=== PATIENT | female | born 1980 | race African-American/Black ===

== ENCOUNTER 2018-02-06 00:13 | Emergency (ER) | payer SELFPAY ==
[2018-02-06] MEDS ORDERED: FENTANYL CITR 100 MCG/2 ML ONE (00:59)
[2018-02-06] MEDS ORDERED: ONDANSETRON 4 MG/2 ML VIAL ONE (00:59)
[2018-02-06] MEDS ORDERED: NA CHLORIDE 0.9% 1,000 ML ONE (00:59)
[2018-02-06 01:06] LABS: Absolute Lymphocytes (CBC) 3.9 K/uL (0.7-4.9); Absolute Monocytes 0.9 K/uL (0.1-1.3); Basophils % 0.9 % (0-1.3); Eosinophils % 3.3 % (0-4.4); Hematocrit 40.4 % (36.0-45.0); Lymphocytes % 47.6 % (15.3-44.8); MCV 93.2 fL (80-100); MPV 9.2 fL (7.6-11.3); Monocytes % 11.4 % (3.3-12.3); RBC Red Blood Cell Count 4.33 M/uL (3.86-4.86)
[2018-02-06 01:09] LABS: Protime INR 0.97
[2018-02-06 01:17] LABS: Bicarbonate 25 mEq/L (21-31); Glucose Level 101 mg/dL (65-120); Potassium 3.5 mEq/L (3.6-5.0); Sodium Level 138 mEq/L (135-145)
[2018-02-06 01:21] LABS: CKMB Creatine Kinase MB 1.4 ng/ml (0.3-4.0)
[2018-02-06 01:23] LABS: ALT/SGPT 23 IU/L (10-60); AST/SGOT 24 IU/L (10-42); Alkaline Phosphatase 73 IU/L (42-121); BUN Blood Urea Nitrogen 11 mg/dL (6-20); Bilirubin Direct 0.1 mg/dL (0-0.2); Bilirubin Total 0.4 mg/dL (0.3-1.2); Creatine Phosphokinase 126 IU/L (22-269); Glomerular Filtration Rate > 90 mL/min (=/>90); Magnesium 1.9 mg/dL (1.8-2.5); Protein, Total 8.2 g/dL (6.0-8.3)
[2018-02-06] MEDS ORDERED: POTASSIUM CL SA 10 MEQ TAB PO ONE (02:17)
[2018-02-06] MEDS ORDERED: KETOROLAC 30 MG/ML INJ ONE (02:17)
[2018-02-06] MEDS ORDERED: AMLODIPINE 5 MG TAB ONE (02:17)
[2018-02-06 02:59] LABS: Urine Blood NEGATIVE (NEG); Urine Glucose NEGATIVE (NEG); Urine Protein NEGATIVE (NEG); Urine Specific Gravity 1.015 (1.005-1.030)
--- NOTE | 2018-02-06 03:47 | ER ---
Nurse's Notes [facility] Name: Megan Ferro Age: 37 yrs Sex: Female : 1980 Arrival Date: 02/06/2018 Time: 00:14 Bed 20 Private MD: Diagnosis: Essential (primary) hypertension;Hypokalemia;Pain in left arm;Obesity, unspecified Presentation: 02/06 00:21 Presenting complaint: Patient states: she got up to go the bathroom and when she lay bb back down her left arm started hurting radiating down with numbness and tingling pain is a 10/10. Transition of care: patient was not received from another setting of care. Onset of symptoms was February 06, 2018. Initial Sepsis Screen: Does the patient meet any 2 criteria? No. Patient's initial sepsis screen is negative. Does the patient have a suspected source of infection? No. Patient's initial sepsis screen is negative. Care prior to arrival: None. 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 - Social history:: Smoking status: Patient/guardian denies using tobacco, Patient/guardian denies using alcohol, street drugs. - Family history:: not pertinent. Screenin:30 Abuse screen: Denies threats or abuse. Denies injuries from another. Nutritional aa1 screening: No deficits noted. Tuberculosis screening: No symptoms or risk factors identified. Fall Risk None identified. Assessment: 00:30 General: Appears in no apparent distress. uncomfortable, obese, Behavior is anxious, aa1 restless. Pain: Complains of pain in left arm Quality of pain is described as burning, tingling, stinging, Pain began suddenly, Is continuous. Neuro: Level of Consciousness is awake, alert, obeys commands, Oriented to person, place, time, situation, Windows Systems Engineer are equal bilaterally Moves all extremities. Full function Gait is steady, Speech is normal, Facial symmetry appears normal, Pupils are PERRLA, Tingling in left arm Burning in left arm Numbness in left arm. Cardiovascular: Denies chest pain, diaphoresis, palpitations, shortness of breath, Heart tones S1 S2 present Capillary refill < 3 seconds Clubbing of nail beds is absent JVD is absent Patient's skin is warm and dry. Rhythm is regular. Respiratory: Airway is patent Respiratory effort is even, unlabored, Respiratory pattern is regular, symmetrical. GI: Reports nausea. : No signs and/or symptoms were reported regarding the genitourinary system. EENT: No signs and/or symptoms were reported regarding the EENT system. Derm: Skin is intact, is healthy with good turgor, Skin is pink, warm \T\ dry. Musculoskeletal: Circulation, motion, and sensation intact. Capillary refill < 3 seconds, Range of motion: intact in all extremities. 01:40 Reassessment: Patient appears in no apparent distress at this time. Patient and/or aa1 family updated on plan of care and expected duration. Pain level reassessed. Patient is alert, oriented x 3, equal unlabored respirations, skin warm/dry/pink. Pt reports L arm pain still 10/10. Awaiting CT scan. 02:10 Reassessment: Patient appears in no apparent distress at this time. Pt taken to CT. aa1 02:55 Reassessment: Patient appears in no apparent distress at this time. Patient and/or aa1 family updated on plan of care and expected duration. Pain level reassessed. Patient is alert, oriented x 3, equal unlabored respirations, skin warm/dry/pink. Pt back from CT Patient states symptoms have improved. 04:03 Reassessment: Patient is alert, oriented x 3, equal unlabored respirations, skin bb warm/dry/pink. pt states pain is gone verbalized understanding of and agrees to plan of care discharge instructions given pt ambulated with steady gait to exit accompanied by family. Vital Signs: 00:23 BP 146 / 100; Pulse 81; Resp 20 S; Temp 98.2(O); Pulse Ox 99% on R/A; Weight 150.59 kg aa1 (R); Height 5 ft. 7 in. (170.18 cm) (R); Pain 10/10; 01:07 BP 146 / 79 RA; aa1 01:07 BP 146 / 104 LA; aa1 01:39 BP 149 / 103; Pulse 81; Resp 20; Pulse Ox 98% on R/A; Pain 10/10; aa1 02:55 BP 139 / 94; Pulse 79; Resp 18; Pulse Ox 97% on R/A; Pain 5/10; aa1 04:04 BP 144 / 92; Pulse 65; Resp 18 S; Temp 97.7(O); Pulse Ox 99% on R/A; Pain 0/10; bb 00:23 Body Mass Index 52.00 (150.59 kg, 170.18 cm) aa1 ED Course: 00:14 Patient arrived in ED. es 00:22 Triage completed. bb 00:23 Arm band placed on Patient placed in an exam room, on a stretcher, on cardiac care unit nurse, bb on pulse oximetry. EKG completed in triage. Results shown to MD. Family accompanied patient. 00:25 Inserted saline lock: 20 gauge in right antecubital area, using aseptic technique. jd3 Blood collected. 00:26 Jimi Lee MD is Attending Physician. shayna 00:26 EKG done, by ED staff, reviewed by Jimi Lee MD. aa1 00:30 Patient has correct armband on for positive identification. Placed in gown. Bed in low aa1 position. Call light in reach. jack spooler tender on. Pulse ox on. NIBP on. 00:40 Zoie Skinner, RN is Primary Nurse. aa1 00:51 X-ray completed. Portable x-ray completed in exam room. Patient tolerated procedure kw well. 00:52 XRAY Chest (1 view) In Process Unspecified. EDMS 01:38 Radiology exam delayed due to test not completed at this time. vm2 02:00 Urine collected: clean catch specimen, clear. aa1 03:07 CT C Spine In Process Unspecified. EDMS 03:07 CT Aorta for Dissection In Process Unspecified. EDMS 03:46 Tarik Dhaliwal MD is Referral Physician. shayna 04:06 No provider procedures requiring assistance completed. IV discontinued, intact, bb bleeding controlled, No redness/swelling at site. Pressure dressing applied. Administered Medications: 01:05 Drug: Zofran 4 mg Route: IVP; Site: right antecubital; aa1 02:13 Follow up: Response: No adverse reaction; Nausea is decreased aa1 01:05 Drug: NS 0.9% 1000 ml Route: IV; Rate: 125 ml/hr; Site: right antecubital; aa1 04:05 Follow up: IV Status: Order to discontinue infusion; IV Intake: 375ml bb 01:07 Drug: fentaNYL (PF) 50 mcg Route: IVP; Site: right antecubital; aa1 02:13 Follow up: Response: No adverse reaction; Pain is unchanged, physician notified aa1 03:00 Drug: Potassium Chloride 20 mEq Route: PO; aa1 04:05 Follow up: Response: No adverse reaction bb 03:00 Drug: Norvasc 10 mg Route: PO; aa1 04:05 Follow up: Response: No adverse reaction bb 03:00 Drug: TORadol 30 mg Route: IVP; Site: right antecubital; aa1 04:05 Follow up: Response: Pain is decreased bb Intake: 04:05 IV: 375ml; Total: 375ml. bb Outcome: 03:46 Discharge ordered by MD. corral 04:06 Discharged to home ambulatory, with family. bb 04:06 Condition: stable 04:06 Discharge instructions given to patient, Instructed on discharge instructions, follow up and referral plans. medication usage, Demonstrated understanding of instructions, follow-up care, medications, Prescriptions given X 3. 04:06 Patient left the ED. bb Signatures: Dispatcher [employer] Zoie Munroe RN RN aa1 Jimi Lee MD MD cha Salyer, Edna es Ballard, Brenda, RN RN bb Whitley, Kimberlee kw McGuire, Victoria [facility] Chaparro Alvarado RN RN [id number] Corrections: (The following items were deleted from the chart) 00:26 00:23 Pulse 81bpm; Resp 20bpm; Spontaneous; Pulse Ox 99% RA; 150.59 kg Reported; Height aa1 5 ft. 7 in. Reported; BMI: 52.0; Pain 10/10; bb
--- NOTE | 2018-02-06 03:47 | EDPHYS ---
Physician Documentation [facility] Name: Megan Ferro Age: 37 yrs Sex: Female : 1980 Arrival Date: 02/06/2018 Time: 00:14 Bed 20 Private MD: ED Physician Jimi Lee HPI: 02/06 00:40 This 37 yrs old Black Female presents to ER via Ambulatory with complaints of john arm shayna pain. 00:40 The patient or guardian complains of decreased range of motion, pain, that is acute. shayna The complaints affect the left bicep, dorsal aspect of left forearm, left tricep and palmar aspect of left forearm. Context: The problem was sustained at home. Onset: The symptoms/episode began/occurred just prior to arrival. Treatment prior to arrival includes: no previous treatment. Modifying factors: The symptoms are alleviated by nothing. the symptoms are aggravated by nothing. The patient presents with pain that is acute, with no known mechanism of injury. The symptoms are located in the . 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 - Social history:: Smoking status: Patient/guardian denies using tobacco, Patient/guardian denies using alcohol, street drugs. - Family history:: not pertinent. ROS: 00:40 Eyes: Negative for injury, pain, redness, and discharge, ENT: Negative for injury, shayna pain, and discharge, Neck: Negative for injury, pain, and swelling, Cardiovascular: Negative for chest pain, palpitations, and edema, Respiratory: Negative for shortness of breath, cough, wheezing, and pleuritic chest pain, Abdomen/GI: Negative for abdominal pain, nausea, vomiting, diarrhea, and constipation, Back: Negative for injury and pain, : Negative for injury, bleeding, discharge, and swelling, Skin: Negative for injury, rash, and discoloration, Neuro: Negative for headache, weakness, numbness, tingling, and seizure, Psych: Negative for depression, anxiety, suicide ideation, homicidal ideation, and hallucinations, Allergy/Immunology: Negative for hives, rash, and allergies, Endocrine: Negative for neck swelling, polydipsia, polyuria, polyphagia, and marked weight changes. 00:40 Constitutional: 00:40 MS/extremity: Positive for decreased range of motion, pain, of the left arm. Exam: 00:40 Head/Face: Normocephalic, atraumatic. Eyes: Pupils equal round and reactive to light, shayna extra-ocular motions intact. Lids and lashes normal. Conjunctiva and sclera are non-icteric and not injected. Cornea within normal limits. Periorbital areas with no swelling, redness, or edema. ENT: Nares patent. No nasal discharge, no septal abnormalities noted. Tympanic membranes are normal and external auditory canals are clear. Oropharynx with no redness, swelling, or masses, exudates, or evidence of obstruction, uvula midline. Mucous membranes moist. Neck: Trachea midline, no thyromegaly or masses palpated, and no cervical lymphadenopathy. Supple, full range of motion without nuchal rigidity, or vertebral point tenderness. No Meningismus. Chest/axilla: Normal chest wall appearance and motion. Nontender with no deformity. No lesions are appreciated. Cardiovascular: Regular rate and rhythm with a normal S1 and S2. No gallops, murmurs, or rubs. Normal PMI, no JVD. No pulse deficits. Respiratory: Lungs have equal breath sounds bilaterally, clear to auscultation and percussion. No rales, rhonchi or wheezes noted. No increased work of breathing, no retractions or nasal flaring. Abdomen/GI: Soft, non-tender, with normal bowel sounds. No distension or tympany. No guarding or rebound. No evidence of tenderness throughout. Back: No spinal tenderness. No costovertebral tenderness. Full range of motion. Skin: Warm, dry with normal turgor. Normal color with no rashes, no lesions, and no evidence of cellulitis. MS/ Extremity: Pulses equal, no cyanosis. Neurovascular intact. Full, normal range of motion. Neuro: Awake and alert, GCS 15, oriented to person, place, time, and situation. Cranial nerves II-XII grossly intact. Motor strength 5/5 in all extremities. Sensory grossly intact. Cerebellar exam normal. Normal gait. Psych: Awake, alert, with orientation to person, place and time. Behavior, mood, and affect are within normal limits. 00:40 Constitutional: The patient appears in obvious distress, moderately distressed. Vital Signs: 00:23 BP 146 / 100; Pulse 81; Resp 20 S; Temp 98.2(O); Pulse Ox 99% on R/A; Weight 150.59 kg aa1 (R); Height 5 ft. 7 in. (170.18 cm) (R); Pain 10/10; 01:07 BP 146 / 79 RA; aa1 01:07 BP 146 / 104 LA; aa1 01:39 BP 149 / 103; Pulse 81; Resp 20; Pulse Ox 98% on R/A; Pain 10/10; aa1 02:55 BP 139 / 94; Pulse 79; Resp 18; Pulse Ox 97% on R/A; Pain 5/10; aa1 04:04 BP 144 / 92; Pulse 65; Resp 18 S; Temp 97.7(O); Pulse Ox 99% on R/A; Pain 0/10; bb 00:23 Body Mass Index 52.00 (150.59 kg, 170.18 cm) aa MDM: 00:27 Patient medically screened. [facility] 00:40 Data reviewed: vital signs, nurses notes, lab test result(s), EKG, radiologic studies, [facility] CT scan, plain films. 02/06 00:39 Order name: Basic Metabolic Panel; Complete Time: : [facility] 02/06 00:39 Order name: BNP; Complete Time: [facility] 02/06 00:39 Order name: CBC with Diff; Complete Time: [facility] 02/06 00:39 Order name: Ckmb; Complete Time: : [facility] 02/06 00:39 Order name: CPK; Complete Time: : [facility] 02/06 00:39 Order name: LFT's; Complete Time: [facility] 02/06 00:39 Order name: Magnesium; Complete Time: [facility] 02/06 00:39 Order name: PT-INR; Complete Time: [facility] 02/06 00:39 Order name: Ptt, Activated; Complete Time: [facility] 02/06 00:39 Order name: Troponin (emerg Dept Use Only); Complete Time: [facility] 02/06 00:39 Order name: XRAY Chest (1 view) [facility] 02/06 00:39 Order name: CT C Spine [facility] 02/06 02:10 Order name: Urine Dipstick--Ancillary (enter results); Complete Time: 03:15 em 02/06 02:10 Order name: Urine --Ancillary (enter results); Complete Time: 03:15 [facility] 02/06 00:39 Order name: Urine Test (obtain specimen); Complete Time: 02:09 [facility] 02/06 00:39 Order name: EKG; Complete Time: 00:40 [facility] 02/06 00:39 Order name: Cardiac monitoring; Complete Time: 00:40 [facility] 02/06 00:39 Order name: EKG - Nurse/Tech; Complete Time: 00:40 [facility] 02/06 00:39 Order name: IV Saline Lock; Complete Time: 00:40 [facility] 02/06 00:39 Order name: Labs collected and sent; Complete Time: 00:40 [facility] 02/06 00:39 Order name: O2 Per Protocol; Complete Time: 00:40 [facility] 02/06 00:39 Order name: O2 Sat Monitoring; Complete Time: 00:40 [facility] 02/06 00:39 Order name: Urine Dipstick-Ancillary (obtain specimen); Complete Time: 02:09 [facility] 02/06 00:44 Order name: CT Aorta for Dissection [facility] 02/06 00:39 Order name: Bilateral blood pressure; Complete Time: 01:09 shayna Administered Medications: 01:05 Drug: Zofran 4 mg Route: IVP; Site: right antecubital; aa1 02:13 Follow up: Response: No adverse reaction; Nausea is decreased aa1 01:05 Drug: NS 0.9% 1000 ml Route: IV; Rate: 125 ml/hr; Site: right antecubital; aa1 04:05 Follow up: IV Status: Order to discontinue infusion; IV Intake: 375ml bb 01:07 Drug: fentaNYL (PF) 50 mcg Route: IVP; Site: right antecubital; aa1 02:13 Follow up: Response: No adverse reaction; Pain is unchanged, physician notified aa1 03:00 Drug: Potassium Chloride 20 mEq Route: PO; aa1 04:05 Follow up: Response: No adverse reaction bb 03:00 Drug: Norvasc 10 mg Route: PO; aa1 04:05 Follow up: Response: No adverse reaction bb 03:00 Drug: TORadol 30 mg Route: IVP; Site: right antecubital; aa1 04:05 Follow up: Response: Pain is decreased bb Disposition: 02/06/18 03:46 Discharged to Home. Impression: Essential (primary) hypertension, Hypokalemia, Pain in left arm, Obesity, unspecified. - Condition is Stable. - Discharge Instructions: Hypertension, Musculoskeletal Pain, Hypertension, [id number], How to Take Your Blood Pressure, [id number], Aspirin and Your Heart, Hypokalemia, Managing Your High Blood Pressure. - Prescriptions for Norvasc 5 mg Oral Tablet - take 1 tablet by ORAL route once daily; 20 tablet. Tylenol- Codeine #3 300-30 mg Oral Tablet - take 2 tablet by ORAL route every 6 hours As needed; 30 tablet. Medrol (Harley) 4 mg Oral Tablets, Dose Pack - take 1 tablet by ORAL route as directed - follow package instructions; 1 packet. - Medication Reconciliation Form, Thank You Letter, Antibiotic Education, Prescription Opioid Use form. - Follow up: Private Physician; When: 2 - 3 days; Reason: Recheck today's complaints, Continuance of care, Re-evaluation by your physician. Follow up: Tarik Dhaliwal; When: 2 - 3 days; Reason: Recheck today's complaints, Re-evaluation by your physician. - Problem is new. - Symptoms have improved. Signatures: Dispatcher [employer] Zoie Munroe, RN RN aa1 Jimi Lee MD MD cha Ballard, Brenda RN RN bb
[2018-02-06 04:22] VITALS: BP 144/92; TEMP 97.7; O2SAT 99
--- NOTE | 2018-02-06 07:27 | EKG ---
Test Date: 2018-02-06 Test Time: 00:16:54 Screwmaker Automatic: HANNA MEASUREMENT RESULTS: Intervals: Rate: 85 WI: 152 QRSD: 90 QT: 384 QTc: 456 [place]: P: 71 WI: 152 QRS: 50 T: 50 INTERPRETIVE STATEMENTS: Normal sinus rhythm Normal ECG Compared to ECG 01/12/2016 21:45:20 No significant changes Electronically Signed On 02-06-18 07:26:33 CDT by [place]o [place]
--- NOTE | 2018-02-06 08:44 | RAD REPORT ---
EXAM DESCRIPTION: RAD - Chest Single View - 02/06/2018 12:55 am CLINICAL HISTORY: Hypertension, chest pain COMPARISON: 01/12/2016 FINDINGS: Portable technique limits examination quality. The lungs are grossly clear. The heart is normal in size. No displaced fractures. IMPRESSION: No acute intrathoracic process suspected.
--- NOTE | 2018-02-06 08:47 | RAD REPORT ---
EXAM DESCRIPTION: CT - C Spine Wo Con - 02/06/2018 3:06 am CLINICAL HISTORY: Radiculopathy. COMPARISON: None. TECHNIQUE: Axial 2 mm thick images of the cervical spine were obtained with sagittal and coronal rec onstruction images generated and reviewed. All CT scans are performed using dose optimization technique as appropriate and may include automated exposure control or mA/KV adjustment according to patient size. FINDINGS: Cervical body height and alignment are normal. Mild mid and lower cervical spondylosis. No fracture or acute bony abnormality. No paraspinal mass or hematoma. No prevertebral soft tissue thickening. IMPRESSION: Mild cervical spondylosis without acute findings seen.
--- NOTE | 2018-02-06 08:58 | RAD REPORT ---
EXAM DESCRIPTION: CT - Angio Aorta For Dissection - 02/06/2018 3:07 am CLINICAL HISTORY: Chest pain radiating to the back. COMPARISON: None. TECHNIQUE: CT angiography of the aorta was performed with volume rendering. All CT scans are performed using dose optimization technique as appropriate and may include automated exposure control or mA/KV adjustment according to patient size. FINDINGS: A left aortic arch is present with bovine branching pattern of the great vessels.No acute aortic finding is seen such as aneurysm, penetrating ulcer or dissection. The celiac axis, SMA, ALAN and renal arteries are widely patent. No evidence of pulmonary embolism. The lungs are clear. Cholecystectomy. The liver demonstrates 5.3 x 5.1 cm ill-defined hypodense lesion is seen in the liver right lobe. No biliary dilatation.The spleen, pancreas, adrenal glands and kidneys are within normal limits for [place] rial phase imaging. No bowel obstruction, free fluid or abscess.No pathologic enlarged lymphadenopathy identified. No fracture or worrisome bone lesion seen.4.2 cm left adnexal hypodense lesion, probably cyst related . Lumbar degenerative changes are present with vacuum disc degeneration in the lower lumbar spine. IMPRESSION: No acute aortic finding is demonstrated. Ill-defined hepatic hypodense lesion (5.3 x 5.1 cm). Advise MRI liver protocol with contrast for furt her assessment. 4.2 cm left adnexal hypodense lesion, probably ovarian cyst. Follow-up pelvic ultrasound can be perfo rmed for further investigation.
== END 2018-02-06 04:06 | disposition home or self-care (01) ==
LOC: ER 00:13
DX: I10 Essential (primary) hypertension (principal); E87.6 Hypokalemia; E66.9 Obesity, unspecified
CPT/HCPCS: 36415; 71045; 71275; 72125; 74175; 80048; 80076; 81003; 81025; 82550; 82553; 83735; 83880; 84484; 85025; 85610; 85730; 93005; 96361; 96374; 96375; 99285; J2405; J3010; J7030; Q9967

== ENCOUNTER 2019-07-03 11:47 | Emergency (ER) | payer SELFPAY ==
--- NOTE | 2019-07-03 14:32 | RAD REPORT ---
EXAM DESCRIPTION: RAD - Chest Single View - 07/03/2019 2:26 pm CLINICAL HISTORY: CHEST PAIN Chest pain. COMPARISON: Chest Single View dated 02/06/2018; CHEST SINGLE VIEW dated 01/12/2016; CHEST SINGLE VIEW dated 09/29/2015; CHEST SINGLE VIEW dated 07/21/2014 FINDINGS: Portable technique limits examination quality. The lungs are grossly clear. The heart is mildly prominent in size. No displaced fractures.
--- NOTE | 2019-07-03 14:33 | RAD REPORT ---
EXAM DESCRIPTION: US - Extrem Venous W Compress Danny - 07/03/2019 2:09 pm CLINICAL HISTORY: SWELLING Bilateral leg edema and swelling. COMPARISON: EXT VENOUS UNI LTD dated 06/04/2014 TECHNIQUE: Real-time sonographic interrogation of the left and right lower extremity deep venous sys tems was performed. FINDINGS: Normal compressibility, flow augmentation, phasic flow and spontaneous flow is identified in both the left and right lower extremity deep venous systems. IMPRESSION: No sonographic evidence of left or right lower extremity deep venous thrombosis.
[2019-07-03 15:30] LABS: Absolute Lymphocytes (CBC) 2.3 K/uL (0.7-4.9); Basophils % 0.8 % (0-1.3); Hematocrit 35.5 % (36.0-45.0); Lymphocytes % 35.7 % (15.3-44.8); MPV 8.3 fL (7.6-11.3); RBC Red Blood Cell Count 4.17 M/uL (3.86-4.86)
[2019-07-03 15:37] LABS: Protime INR 1.02
[2019-07-03 15:42] LABS: ALT/SGPT 28 U/L (12-78); AST/SGOT 17 U/L (15-37); Albumin 3.7 g/dL (3.4-5.0); Alkaline Phosphatase 84 U/L (45-117); BUN Blood Urea Nitrogen 8 mg/dL (7-18); Bicarbonate 25 mmol/L (21-32); Bilirubin Direct < 0.1 mg/dL (0-0.2); Bilirubin Total 0.2 mg/dL (0.2-1.0); Glucose Level 82 mg/dL (74-106); Magnesium 2.2 mg/dL (1.8-2.4); NT PRO-BNP 44 pg/mL (<125); Potassium 4.3 mmol/L (3.5-5.1); Protein, Total 7.7 g/dL (6.4-8.2); Sodium Level 140 mmol/L (136-145); Troponin (Emerg Dept Use Only) < 0.02 ng/mL (0.0-0.045)
[2019-07-03] MEDS ORDERED: ACETAMINOPHEN 500 MG TAB ONE (17:00)
[2019-07-03] MEDS ORDERED: KETOROLAC 30 MG/ML INJ ONE (18:03)
[2019-07-03 18:23] LABS: Urine Blood NEGATIVE (NEG); Urine Glucose NEGATIVE (NEG); Urine Protein NEGATIVE (NEG); Urine Specific Gravity 1.015 (1.005-1.030); Urine pH 6.5 (5.0-7.0)
--- NOTE | 2019-07-03 18:51 | RAD REPORT ---
EXAM DESCRIPTION: CT - Chest For Pe Angio - 07/03/2019 6:21 pm CLINICAL HISTORY: Chest pain COMPARISON: 2013 TECHNIQUE: Dynamically enhanced axial 3 mm thick images of the chest were obtained during administra tion of <100> mL Isovue 370 IV contrast. Coronal and oblique reconstruction images were generated and reviewed. Exam utilizes a protocol for optimal evaluation of pulmonary arterial tree. Maximum intensity projections 3D imaging was utilized All CT scans are performed using dose optimization technique as appropriate and may include automated exposure control or mA/KV adjustment according to patient size. FINDINGS: The opacification of pulmonary arteries is suboptimal A central pulmonary embolus is not seen A thoracic aortic aneurysm is not noted. A pleural effusion is not seen. A pericardial effusion is not seen. A lung consolidation is not present. IMPRESSION: No evidence of a central pulmonary embolus
--- NOTE | 2019-07-03 19:47 | ER ---
Nurse's Notes [facility] Name: Megan Ferro Age: 39 yrs Sex: Female : 1980 Arrival Date: 07/03/2019 Time: 11:48 Bed 14 Private MD: Ravi Hemphill H Diagnosis: Chest pain, unspecified;Shortness of breath Presentation: 07/03 11:52 Presenting complaint: Patient states: chest pain X 3-4 days, thought it was gas, went iw to work today and was walking, got real SOB and felt like someone punched her in the chest, pain radiates to back, denies cough. Transition of care: patient was not received from another setting of care. Onset of symptoms was June 30, 2019. Risk Assessment: Do you want to hurt yourself or someone else? Patient reports no desire to harm self or others. Initial Sepsis Screen: Does the patient meet any 2 criteria? No. Patient's initial sepsis screen is negative. Does the patient have a suspected source of infection? No. Patient's initial sepsis screen is negative. Care prior to arrival: None. 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 - Social history:: Smoking status: Patient/guardian denies using tobacco. - Ebola Screening: : Patient negative for fever greater than or equal to 101.5 degrees Fahrenheit, and additional compatible Ebola Virus Disease symptoms Patient denies exposure to infectious person Patient denies travel to an Ebola-affected area in the 21 days before illness onset No symptoms or risks identified at this time. Screenin:00 Abuse screen: Denies threats or abuse. Nutritional screening: No deficits noted. rb1 Tuberculosis screening: No symptoms or risk factors identified. Fall Risk None identified. Assessment: 13:00 General: Appears in no apparent distress. comfortable, obese, Behavior is calm, rb1 cooperative, Denies fever. Pain: Complains of pain in mid-sternal area Pain radiates to back Pain currently is 8 out of 10 on a pain scale. Pain began x 3-4 days. Neuro: Level of Consciousness is awake, alert, obeys commands, Oriented to person, place, time, situation. Cardiovascular: Capillary refill < 3 seconds is brisk in bilateral fingers. Respiratory: Airway is patent Respiratory effort is even, unlabored, Respiratory pattern is regular, symmetrical. Respiratory: Reports shortness of breath Denies cough. GI: No signs and/or symptoms were reported involving the gastrointestinal system. : No signs and/or symptoms were reported regarding the genitourinary system. Derm: Skin is dry, Skin is normal, Skin temperature is warm. 14:00 Reassessment: Patient appears in no apparent distress at this time. No changes from rb1 previously documented assessment. 15:00 Reassessment: Patient appears in no apparent distress at this time. Patient and/or rb1 family updated on plan of care and expected duration. Pain level reassessed. Patient is alert, oriented x 3, equal unlabored respirations, skin warm/dry/pink. 16:00 Reassessment: Patient appears in no apparent distress at this time. No changes from rb1 previously documented assessment. 16:50 Reassessment: Patient appears in no apparent distress at this time. Patient and/or rb1 family updated on plan of care and expected duration. Pain level reassessed. Patient is alert, oriented x 3, equal unlabored respirations, skin warm/dry/pink. Pt. requested some Tylenol; provider notified. Received order for Tylenol 1000 mg PO x 1. 17:45 Reassessment: Patient appears in no apparent distress at this time. Patient and/or rb1 family updated on plan of care and expected duration. Pain level reassessed. Patient is alert, oriented x 3, equal unlabored respirations, skin warm/dry/pink. 18:05 Reassessment: pt. went to Ct. rb1 18:20 Reassessment: Patient appears in no apparent distress at this time. Patient and/or rb1 family updated on plan of care and expected duration. Pain level reassessed. Patient is alert, oriented x 3, equal unlabored respirations, skin warm/dry/pink. 19:10 Reassessment: Patient appears in no apparent distress at this time. Patient and/or jb4 family updated on plan of care and expected duration. Pain level reassessed. Patient is alert, oriented x 3, equal unlabored respirations, skin warm/dry/pink. 19:56 Reassessment: Patient appears in no apparent distress at this time. Patient and/or jb4 family updated on plan of care and expected duration. Pain level reassessed. Patient is alert, oriented x 3, equal unlabored respirations, skin warm/dry/pink. Pt verbalized understanding of d/c and follow up instructions. ambulated out of Ed with a steady gait. Vital Signs: 11:54 BP 170 / 84; Pulse 86; Resp 18 S; Temp 97.7; Pulse Ox 100% on R/A; Weight 158.76 kg; iw Height 5 ft. 7 in. (170.18 cm); Pain 8/10; 12:54 BP 155 / 94; Pulse 75; Resp 18; Temp 97.9(TE); Pulse Ox 99% on R/A; Pain 8/10; rb1 13:52 BP 134 / 92; Pulse 77; Resp 19; Pulse Ox 100% on R/A; Pain 8/10; rb1 14:50 BP 139 / 89; Pulse 77; Resp 19; Temp 98.0(O); Pulse Ox 99% ; rb1 15:50 BP 134 / 88; Pulse 75; Resp 18; Temp 98.1(O); Pulse Ox 100% ; rb1 17:20 BP 149 / 79; Pulse 88; Resp 20; Temp 98.1(O); Pulse Ox 100% ; rb1 18:20 BP 156 / 76; Pulse 80; Resp 16; Temp 98.3(O); Pulse Ox 99% on R/A; rb1 19:30 BP 152 / 86; Pulse 83; Resp 17; Pulse Ox 100% on R/A; jb4 11:54 Body Mass Index 54.82 (158.76 kg, 170.18 cm) iw ED Course: 11:48 Patient arrived in ED. ag5 11:48 Ravi Hemphill DO is Private Physician. ag5 11:54 Triage completed. iw 11:56 Arm band placed on. iw 13:00 Jimi Ford PA is PHCP. cp 13:00 Sheyla Bermeo MD is Attending Physician. cp 13:00 Patient has correct armband on for positive identification. Bed in low position. Call rb1 light in reach. Side rails up X 1. nuclear monitoring technician on. Pulse ox on. NIBP on. Warm blanket given. 13:00 Patient maintains SpO2 saturation greater than 95% on room air. rb1 13:56 US Extremity Venous W Compression Danny In Process Unspecified. EDMS 14:27 XRAY Chest (1 view) In Process Unspecified. EDMS 14:46 Naye Sotomayor, JOSIAS is Primary Nurse. rb1 14:46 Missed attempt(s): 22 gauge in right antecubital area. rb1 14:49 Missed attempt(s): 20 gauge in left Bleeding controlled, band aid applied, catheter tip dh3 intact. 15:00 Missed attempt(s): 24 gauge in left wrist. Bleeding controlled, band aid applied, dh3 catheter tip intact. 17:16 Radiology exam delayed due to test not completed at this time. IV insertion jg6 attempt and/or patient not having appropriate IV at this time. 17:16 Missed attempt(s): 22 gauge in right antecubital area. Bleeding controlled, band aid ss applied, catheter tip intact. 17:54 Inserted saline lock: 22 gauge in right antecubital area, using aseptic technique. iw 18:22 CT Chest For PE Angio In Process Unspecified. EDMS 19:00 Report given to JOSIAS escobar. rb1 19:24 Troponin I Sent. jb4 19:44 PHCP role handed off by Jimi Ford PA snw 19:44 Sindy Murdock FNP-C is PHCP. snw 19:45 Ravi Hemphill DO is Referral Physician. snw 19:56 No provider procedures requiring assistance completed. IV discontinued, intact, jb4 bleeding controlled, No redness/swelling at site. Pressure dressing applied. Administered Medications: 17:01 Drug: Tylenol 1000 mg Route: PO; rb1 19:24 Follow up: Response: No adverse reaction; Pain is decreased jb4 18:05 Drug: TORadol 30 mg Route: IVP; Site: right antecubital; rb1 18:30 Follow up: Response: No adverse reaction; Pain is decreased jb4 Outcome: 19:45 Discharge ordered by . snw 19:56 Discharged to home ambulatory, with family. jb4 19:56 Condition: stable 19:56 Discharge instructions given to patient, family, Instructed on discharge instructions, follow up and referral plans. medication usage, Demonstrated understanding of instructions, follow-up care, medications, Prescriptions given X 2. 19:58 Patient left the ED. jb4 Signatures: Dispatcher [employer] EDMS Sindy Murdock, GROCERY TEAM MEMBER-C GROCERY TEAM MEMBER-Csnw Fern Hines, RN RN iw Michelle Vallejo, RN RN ss Jimi Ford PA PA cp Barber, Rebecca, RN RN Kostas Macias RN RN jb4 Bella Nixon formerly [facility] Nely Staples Adi Aguilera [facility]
--- NOTE | 2019-07-03 19:47 | EDPHYS ---
Physician Documentation [facility] Name: Megan Ferro Age: 39 yrs Sex: Female : 1980 Arrival Date: 07/03/2019 Time: 11:48 Bed 14 Private MD: Ravi Hemphill H ED Physician Sheyla Bermeo HPI: 07/03 13:15 This 39 yrs old Black Female presents to ER via Ambulatory with complaints of Chest cp Pain. 13:15 The patient or guardian reports chest pain that is located primarily in the substernal cp area. 13:15 The pain radiates to Associated signs and symptoms: Pertinent positives: lower cp extremity swelling, shortness of breath, Pertinent negatives: abdominal pain, cough, diaphoresis, dizziness, syncope, vomiting. 13:15 The chest pain is described as "like someone punching me". 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 - Social history:: Smoking status: Patient/guardian denies using tobacco. - Ebola Screening: : Patient negative for fever greater than or equal to 101.5 degrees Fahrenheit, and additional compatible Ebola Virus Disease symptoms Patient denies exposure to infectious person Patient denies travel to an Ebola-affected area in the 21 days before illness onset No symptoms or risks identified at this time. ROS: 13:20 Constitutional: Negative for body aches, chills, fever, poor PO intake. cp 13:20 Eyes: Negative for injury, pain, redness, and discharge. cp 13:20 ENT: Negative for drainage from ear(s), ear pain, sore throat, difficulty swallowing, difficulty handling secretions. 13:20 Cardiovascular: Positive for chest pain, edema, Negative for palpitations. 13:20 Respiratory: Positive for shortness of breath, Negative for cough, wheezing. 13:20 Abdomen/GI: Negative for abdominal pain, nausea, vomiting, and diarrhea, black/tarry stool, rectal bleeding. 13:20 Back: Negative for pain at rest, pain with movement. 13:20 Skin: Negative for cellulitis, rash. 13:20 Neuro: Negative for altered mental status, dizziness, headache, weakness. 13:20 All other systems are negative. Exam: 12:10 ECG was reviewed by the Attending Physician. cp 13:25 Constitutional: The patient appears in no acute distress, alert, awake, cp non-diaphoretic, non-toxic, well developed, well nourished, obese. 13:25 Head/Face: Normocephalic, atraumatic. Eyes: Pupils equal round and reactive to light, cp extra-ocular motions intact. Lids and lashes normal. Conjunctiva and sclera are non-icteric and not injected. Cornea within normal limits. Periorbital areas with no swelling, redness, or edema. ENT: Nares patent. No nasal discharge, no septal abnormalities noted. Tympanic membranes are normal and external auditory canals are clear. Oropharynx with no redness, swelling, or masses, exudates, or evidence of obstruction, uvula midline. Mucous membranes moist. Neck: Trachea midline, no thyromegaly or masses palpated, and no cervical lymphadenopathy. Supple, full range of motion without nuchal rigidity, or vertebral point tenderness. No Meningismus. Chest/axilla: Normal chest wall appearance and motion. Nontender with no deformity. No lesions are appreciated. 13:25 Cardiovascular: Rate: normal, Rhythm: regular, Heart sounds: murmur, not appreciated, Edema: ankle edema, that is mild, JVD: is not appreciated. 13:25 Respiratory: the patient does not display signs of respiratory distress, Respirations: normal, no use of accessory muscles, no retractions, no splinting, no tachypnea, labored breathing, is not present, Breath sounds: are clear throughout, no decreased breath sounds, no stridor, no wheezing. 13:25 Abdomen/GI: Inspection: abdomen appears normal, Palpation: abdomen is soft and non-tender, in all quadrants. 13:25 Back: ROM is normal. 13:25 Skin: no rash present. 13:25 Neuro: Orientation: to person, place \\T\\ time. Mentation: is normal, Cerebellar function: is grossly normal, Motor: moves all fours, strength is normal, Sensation: is normal. 19:25 ECG was reviewed by the Attending Physician. cp Vital Signs: 11:54 BP 170 / 84; Pulse 86; Resp 18 S; Temp 97.7; Pulse Ox 100% on R/A; Weight 158.76 kg; iw Height 5 ft. 7 in. (170.18 cm); Pain 8/10; 12:54 BP 155 / 94; Pulse 75; Resp 18; Temp 97.9(TE); Pulse Ox 99% on R/A; Pain 8/10; rb1 13:52 BP 134 / 92; Pulse 77; Resp 19; Pulse Ox 100% on R/A; Pain 8/10; rb1 14:50 BP 139 / 89; Pulse 77; Resp 19; Temp 98.0(O); Pulse Ox 99% ; rb1 15:50 BP 134 / 88; Pulse 75; Resp 18; Temp 98.1(O); Pulse Ox 100% ; rb1 17:20 BP 149 / 79; Pulse 88; Resp 20; Temp 98.1(O); Pulse Ox 100% ; rb1 18:20 BP 156 / 76; Pulse 80; Resp 16; Temp 98.3(O); Pulse Ox 99% on R/A; rb1 19:30 BP 152 / 86; Pulse 83; Resp 17; Pulse Ox 100% on R/A; jb4 11:54 Body Mass Index 54.82 (158.76 kg, 170.18 cm) iw MDM: 13:09 Patient medically screened. cp 14:00 Differential diagnosis: acute pericarditis, chest wall pain, cholecystitis, cp Cholelithiasis costochondritis, pericarditis, pleurisy, pneumonia, pneumothorax, pulmonary embolus, stable angina, unstable angina. 19:45 Data reviewed: vital signs, nurses notes. Data interpreted: Pulse oximetry: on room air snw is 100 %. Interpretation: normal. Counseling: I had a detailed discussion with the patient and/or guardian regarding: the historical points, exam findings, and any diagnostic results supporting the discharge/admit diagnosis, lab results, radiology results, the need for outpatient follow up, to return to the emergency department if symptoms worsen or persist or if there are any questions or concerns that arise at home. Special discussion: Based on the patient's history, exam, and Dx evaluation, there is no indication for emergent intervention or inpatient Tx. It is understood by the patient/guardian that if the Sx's persist or worsen they need to return immediately for re-evaluation. Based on the history and exam findings, there is no indication for further emergent testing or inpatient evaluation. I discussed with the patient/guardian the need to see the primary care provider for further evaluation of the symptoms. 07/03 13:05 Order name: Basic Metabolic Panel; Complete Time: 15:48 cp 07/03 13:05 Order name: CBC with Diff; Complete Time: 15:48 cp 07/03 18:50 Interpretation: Normal except: HGB 11.2; HCT 35.5; MCV 85.2; MCH 26.8; MCHC 31.4; RDW cp 17.8; MN% 13.7. 07/03 13:05 Order name: LFT's; Complete Time: 15:48 cp 07/03 13:05 Order name: Magnesium; Complete Time: 15:48 cp 07/03 13:05 Order name: NT PRO-BNP; Complete Time: 15:48 cp 07/03 13:05 Order name: PT-INR; Complete Time: 15:48 cp 07/03 13:05 Order name: Troponin (emerg Dept Use Only); Complete Time: 15:48 cp 07/03 13:05 Order name: XRAY Chest (1 view); Complete Time: 15:00 cp 07/03 13:31 Order name: US Extremity Venous W Compression Danny; Complete Time: 15:00 cp 07/03 15:49 Order name: D-Dimer; Complete Time: 16:53 cp 07/03 16:53 Interpretation: Abnormal: D-DIMER 1699. cp 07/03 16:16 Order name: CT Chest For PE Angio; Complete Time: 19:06 cp 07/03 17:50 Order name: Urine Dipstick--Ancillary (enter results); Complete Time: 18:50 ss 07/03 17:50 Order name: Urine --Ancillary (enter results); Complete Time: 18:50 ss 07/03 18:53 Order name: Troponin I; Complete Time: 19:44 cp 07/03 13:05 Order name: EKG; Complete Time: 13:06 cp 07/03 13:05 Order name: Cardiac monitoring; Complete Time: 16:21 cp 07/03 13:05 Order name: EKG - Nurse/Tech; Complete Time: 16:21 cp 07/03 13:05 Order name: IV Saline Lock; Complete Time: 19:31 cp 07/03 13:05 Order name: Labs collected and sent; Complete Time: 16:21 cp 07/03 13:05 Order name: O2 Per Protocol; Complete Time: 16:21 cp 07/03 13:05 Order name: O2 Sat Monitoring; Complete Time: 16:21 cp 07/03 13:05 Order name: Urine Dipstick-Ancillary (obtain specimen); Complete Time: 19:42 cp 07/03 13:05 Order name: Urine Test (obtain specimen); Complete Time: 19:42 cp 07/03 18:53 Order name: EKG; Complete Time: 18:54 cp 07/03 18:53 Order name: EKG - Nurse/Tech; Complete Time: 19:24 cp EC:10 Rate is 79 beats/min. Rhythm is regular. MS interval is normal. QRS interval is normal. cp QT interval is normal. Interpreted by me. Reviewed by me. 19:25 Rate is 65 beats/min. Rhythm is regular. MS interval is normal. QRS interval is normal. cp QT interval is normal. Interpreted by me. Reviewed by me. Administered Medications: 17:01 Drug: Tylenol 1000 mg Route: PO; rb1 19:24 Follow up: Response: No adverse reaction; Pain is decreased jb4 18:05 Drug: TORadol 30 mg Route: IVP; Site: right antecubital; rb1 18:30 Follow up: Response: No adverse reaction; Pain is decreased jb4 Disposition: 07/03/19 19:45 Discharged to Home. Impression: Chest pain, unspecified, Shortness of breath. - Condition is Stable. - Discharge Instructions: Nonspecific Chest Pain, Shortness of Breath, Aspirin and Your Heart. - Prescriptions for Diclofenac Sodium 75 mg Oral Tablet Sustained Release - take 1 tablet by ORAL route 2 times per day; 30 tablet. Albuterol Sulfate 90 mcg/actuation - inhale 1-2 puff by INHALATION route every 4-6 hours; 1 Inhaler. - Work release form, Medication Reconciliation Form, Thank You Letter, Antibiotic Education, Prescription Opioid Use form. - Follow up: Ravi Hemphill; When: 1 - 2 days; Reason: Recheck today's complaints. - Problem is new. - Symptoms have improved. Addendum: 07/07/2019 15:55 Co-signature as Attending Physician, Sheyla Bermeo MD. m a2 Signatures: Dispatcher [employer] EDMS Sindy Murdock, NANCI-C SUPERVISING APPRAISER-Csnw Fern Hines, RN RN Jimi Mancini PA PA cp Barber, Rebecca, RN RN rb1 Kostas Vallejo RN RN jb4 Sheyla Bermeo MD MD ma2 Corrections: (The following items were deleted from the chart) 07/03 19:58 19:45 07/03/2019 19:45 Discharged to Home. Impression: Chest pain, unspecified; jb4 Shortness of breath. Condition is Stable. Discharge Instructions: Nonspecific Chest Pain, Shortness of Breath, Aspirin and Your Heart. Prescriptions for Diclofenac Sodium 75 mg Oral Tablet Sustained Release - take 1 tablet by ORAL route 2 times per day; 30 tablet, Albuterol Sulfate 90 mcg/actuation - inhale 1-2 puff by INHALATION route every 4-6 hours; 1 Inhaler. and Forms are Medication Reconciliation Form, Thank You Letter, Antibiotic Education, Prescription Opioid Use. Follow up: Ravi Hemphill; When: 1 - 2 days; Reason: Recheck today's complaints. Problem is new. Symptoms have improved. snw
[2019-07-03 21:48] VITALS: TEMP 98.3
[2019-07-03 21:49] VITALS: BP 152/86; O2SAT 100
--- NOTE | 2019-07-04 07:39 | EKG ---
Test Date: 2019-07-03 Test Time: 19:17:55 Investigator Cash Shortage: DEMETRIO MEASUREMENT RESULTS: Intervals: Rate: 65 AL: 170 QRSD: 92 QT: 430 QTc: 447 [place]: P: 41 AL: 170 QRS: 50 T: 58 INTERPRETIVE STATEMENTS: Normal sinus rhythm Normal ECG Compared to ECG 07/03/2019 12:04:19 Sinus arrhythmia no longer present Electronically Signed On 07-04-19 07:37:53 CDT by Tarik Dhaliwal
--- NOTE | 2019-07-04 07:41 | EKG ---
Test Date: 2019-07-03 Test Time: 12:04:19 Take Away Worker: JACY MEASUREMENT RESULTS: Intervals: Rate: 79 SC: 158 QRSD: 86 QT: 396 QTc: 454 [place]: P: 49 SC: 158 QRS: 46 T: 64 INTERPRETIVE STATEMENTS: Normal sinus rhythm with sinus arrhythmia Normal ECG Compared to ECG 02/06/2018 00:16:54 No significant changes Electronically Signed On 07-04-19 07:38:28 CDT by Tarik Dhaliwal
== END 2019-07-03 19:58 | disposition home or self-care (01) ==
LOC: ER 11:47
DX: R07.9 Chest pain, unspecified (principal); R06.02 Shortness of breath
CPT/HCPCS: 36415; 71045; 71275; 80048; 80076; 81003; 81025; 83735; 83880; 84484; 85025; 85379; 85610; 93005; 93970; 96374; 99285; Q9967

== ENCOUNTER 2019-07-09 21:44 | Observation (INO) | payer SELFPAY ==
[2019-07-09] MEDS ORDERED: FENTANYL CITR 100 MCG/2 ML ONE ×2 (23:00→23:26)
[2019-07-09 23:09] LABS: Absolute Lymphocytes (CBC) 3.4 K/uL (0.7-4.9); Basophils % 0.9 % (0-1.3); Hematocrit 34.3 % (36.0-45.0); Lymphocytes % 45.6 % (15.3-44.8); MPV 8.5 fL (7.6-11.3); RBC Red Blood Cell Count 4.07 M/uL (3.86-4.86)
[2019-07-09 23:36] LABS: BUN Blood Urea Nitrogen 13 mg/dL (7-18); Bicarbonate 27 mmol/L (21-32); Glucose Level 132 mg/dL (74-106); Potassium 3.7 mmol/L (3.5-5.1); Sodium Level 141 mmol/L (136-145); Troponin (Emerg Dept Use Only) < 0.02 ng/mL (0.0-0.045)
[2019-07-10 00:47] LABS: Blood Morphology Comment NOT SEEN (NOT SEEN); Platelet Estimate ADEQ
--- NOTE | 2019-07-10 01:08 | ER ---
Nurse's Notes [facility] Name: Megan Ferro Age: 39 yrs Sex: Female : 1980 Arrival Date: 07/09/2019 Time: 21:45 Bed 19 Private MD: Diagnosis: Chest pain, unspecified Presentation: 07/09 21:47 Presenting complaint: Patient states: Chest pain for the past week. States that she was aj1 seen for the same complaint last week, and they didn't find anything and she cannot afford to follow up with her regular. Denies cough and fever. Reports shortness of breath and left arm pain. Transition of care: patient was not received from another setting of care. Onset of symptoms was 2018. Risk Assessment: Do you want to hurt yourself or someone else? Patient reports no desire to harm self or others. Initial Sepsis Screen: Does the patient meet any 2 criteria? No. Patient's initial sepsis screen is negative. Does the patient have a suspected source of infection? No. Patient's initial sepsis screen is negative. Care prior to arrival: None. 21:47 Method Of Arrival: Wheelchair aj 21:47 Acuity: RASHEL 3 aj1 Triage Assessment: 21:49 General: Appears in no apparent distress. uncomfortable, Behavior is cooperative, aj1 anxious, crying. Pain: Pain currently is 10 out of 10 on a pain scale. Neuro: Level of Consciousness is awake, alert, obeys commands. Cardiovascular: Patient's skin is warm and dry. Respiratory: Airway is patent Respiratory effort is even, unlabored, Respiratory pattern is regular, symmetrical. 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 - Social history:: Smoking status: Patient/guardian denies using tobacco. - Ebola Screening: : Patient denies travel to an Ebola-affected area in the 21 days before illness onset. Screenin:23 Abuse screen: Denies threats or abuse. Nutritional screening: No deficits noted. ea Tuberculosis screening: No symptoms or risk factors identified. Fall Risk None identified. Assessment: 22:24 General: Appears uncomfortable, Behavior is calm, cooperative, appropriate for age. ea Pain: Complains of pain in chest Pain radiates to back and right arm Pain currently is 9 out of 10 on a pain scale. Quality of pain is described as aching, Pain began 2-3 days ago. Is intermittent. Neuro: Level of Consciousness is awake, alert, obeys commands, Oriented to person, place, time, situation. Respiratory: Airway is patent Respiratory effort is even, unlabored, Respiratory pattern is regular, symmetrical. Derm: Skin is pink, warm \T\ dry. Musculoskeletal: Circulation, motion, and sensation intact. 23:38 Reassessment: Patient and/or family updated on plan of care and expected duration. Pain ea level reassessed. Patient is alert, oriented x 3, equal unlabored respirations, skin warm/dry/pink. Patient states feeling better. Patient states symptoms have improved. 07/10 00:50 Reassessment: Patient and/or family updated on plan of care and expected duration. Pain ea level reassessed. Patient is alert, oriented x 3, equal unlabored respirations, skin warm/dry/pink. 01:54 Reassessment: Report called to Nicole FERRARA on second floor. ea 01:55 Reassessment: Patient and/or family updated on plan of care and expected duration. Pain ea level reassessed. Patient is alert, oriented x 3, equal unlabored respirations, skin warm/dry/pink. 02:24 Reassessment: Patient and/or family updated on plan of care and expected duration. Pain ea level reassessed. Patient is alert, oriented x 3, equal unlabored respirations, skin warm/dry/pink. Pt admitted to second floor, pt left ED via wheelchair, per nurse. Pt tolerating well. No s/s of pain or discomfort noted at this time. Vital Signs: 07/09 21:49 BP 125 / 94; Pulse 95; Resp 18; Temp 99.2; Pulse Ox 99% on R/A; Weight 158.76 kg (R); aj1 Height 5 ft. 7 in. (170.18 cm) (R); Pain 10/10; 23:40 BP 134 / 92; Pulse 87; Resp 18; Pulse Ox 99% on R/A; ea 07/10 01:05 BP 111 / 71; Pulse 90; Resp 18; Pulse Ox 97% on R/A; ea 02:20 BP 129 / 79; Pulse 80; Resp 18; Pulse Ox 99% ; ea 07/09 21:49 Body Mass Index 54.82 (158.76 kg, 170.18 cm) aj1 ED Course: 07/09 21:45 Patient arrived in ED. ds1 21:48 Triage completed. aj1 21:49 Arm band placed on Patient placed in an exam room. aj1 22:00 Odalis Weir RN is Primary Nurse. ea 22:01 Shyam Spear MD is Attending Physician. gs 22:24 Patient has correct armband on for positive identification. Placed in gown. Bed in low ea position. Call light in reach. Side rails up X2. 22:24 No provider procedures requiring assistance completed. Inserted saline lock: 22 gauge ea in right antecubital area, using aseptic technique. Blood collected. Patient maintains SpO2 saturation greater than 95% on room air. 22:47 library monitor on. Pulse ox on. NIBP on. ea 07/10 01:02 Toño Hdez DO is Hospitalizing Provider. 01:55 Patient admitted, IV remains in place. ea Administered Medications: 07/09 23:05 Drug: fentaNYL (PF) 25 mcg {Note: RASS 1.} Route: IVP; Site: right antecubital; ea 23:39 Follow up: Response: No adverse reaction; Pain is decreased ea 23:39 Follow up: Response: RASS: Alert and Calm (0) ea 23:29 Drug: fentaNYL (PF) 50 mcg {Note: RASS 1.} Route: IVP; Site: right antecubital; ea 23:39 Follow up: Response: No adverse reaction; Pain is decreased; RASS: Alert and Calm (0) ea Outcome: 07/10 01:06 Decision to Hospitalize by Provider. gs 01:55 Admitted to Med/surg accompanied by nurse, room 208, with chart, Report called to demetrio Rivera RN 01:55 Condition: stable 02:26 Patient left the ED. ea Signatures: Emerita Huang RN RN aj Shayla Demarco ds1 Odalis Weir RN RN ea Starr, Gregory, MD MD
--- NOTE | 2019-07-10 01:10 | EDPHYS ---
Physician Documentation [facility] Name: Megan Ferro Age: 39 yrs Sex: Female : 1980 Arrival Date: 07/09/2019 Time: 21:45 Bed 19 Private MD: ED Physician Shyam Spear HPI: 07/10 00:58 This 39 yrs old Black Female presents to ER via Wheelchair with complaints of Chest gs Pain. 00:58 The patient or guardian reports chest pain that is located primarily in the anterior gs chest wall. The pain radiates to the left arm. Associated signs and symptoms: Pertinent positives: shortness of breath, with exertion. The chest pain is described as a heaviness. Duration: The patient or guardian reports a single episode, that is still ongoing. Modifying factors: The symptoms are alleviated by nothing. the symptoms are aggravated by exertion. Severity of pain: At its worst the pain was severe in the emergency department the pain is unchanged. The patient has experienced similar episodes in the past, a few times. The patient has been recently seen at the [facility] Emergency Department, last week, for similar complaints. 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 - Social history:: Smoking status: Patient/guardian denies using tobacco. - Ebola Screening: : Patient denies travel to an Ebola-affected area in the 21 days before illness onset. ROS: 07/10 00:58 All other systems are negative. gs Exam: 00:58 Head/Face: Normocephalic, atraumatic. Eyes: Pupils equal round and reactive to light, gs extra-ocular motions intact. Lids and lashes normal. Conjunctiva and sclera are non-icteric and not injected. Cornea within normal limits. Periorbital areas with no swelling, redness, or edema. ENT: Nares patent. No nasal discharge, no septal abnormalities noted. Tympanic membranes are normal and external auditory canals are clear. Oropharynx with no redness, swelling, or masses, exudates, or evidence of obstruction, uvula midline. Mucous membranes moist. Neck: Trachea midline, no thyromegaly or masses palpated, and no cervical lymphadenopathy. Supple, full range of motion without nuchal rigidity, or vertebral point tenderness. No Meningismus. Chest/axilla: Normal chest wall appearance and motion. Nontender with no deformity. No lesions are appreciated. Cardiovascular: Regular rate and rhythm with a normal S1 and S2. No gallops, murmurs, or rubs. Normal PMI, no JVD. No pulse deficits. Respiratory: Lungs have equal breath sounds bilaterally, clear to auscultation and percussion. No rales, rhonchi or wheezes noted. No increased work of breathing, no retractions or nasal flaring. Abdomen/GI: Soft, non-tender, with normal bowel sounds. No distension or tympany. No guarding or rebound. No evidence of tenderness throughout. Back: No spinal tenderness. No costovertebral tenderness. Full range of motion. Skin: Warm, dry with normal turgor. Normal color with no rashes, no lesions, and no evidence of cellulitis. MS/ Extremity: Pulses equal, no cyanosis. Neurovascular intact. Full, normal range of motion. Neuro: Awake and alert, GCS 15, oriented to person, place, time, and situation. Cranial nerves II-XII grossly intact. Motor strength 5/5 in all extremities. Sensory grossly intact. Cerebellar exam normal. Normal gait. 00:58 Constitutional: The patient appears alert, awake, uncomfortable. 00:58 ECG was reviewed by the Attending Physician. Vital Signs: 07/09 21:49 BP 125 / 94; Pulse 95; Resp 18; Temp 99.2; Pulse Ox 99% on R/A; Weight 158.76 kg (R); aj1 Height 5 ft. 7 in. (170.18 cm) (R); Pain 10/10; 23:40 BP 134 / 92; Pulse 87; Resp 18; Pulse Ox 99% on R/A; ea 07/10 01:05 BP 111 / 71; Pulse 90; Resp 18; Pulse Ox 97% on R/A; ea 02:20 BP 129 / 79; Pulse 80; Resp 18; Pulse Ox 99% ; ea 07/09 21:49 Body Mass Index 54.82 (158.76 kg, 170.18 cm) aj1 MDM: 07/09 22:47 Patient medically screened. 07/10 00:58 Differential diagnosis: abnormal EKG, acute myocardial infarction, coronary artery gs disease chest wall pain. Data reviewed: vital signs, nurses notes, lab test result(s), EKG, radiologic studies. Data reviewed: old medical records. Counseling: I had a detailed discussion with the patient and/or guardian regarding: the historical points, exam findings, and any diagnostic results supporting the discharge/admit diagnosis. 07/09 22:01 Order name: Basic Metabolic Panel; Complete Time: 00:05 07/09 22:01 Order name: CBC with Diff; Complete Time: 00:52 07/09 22:01 Order name: Troponin (emerg Dept Use Only); Complete Time: 00:05 07/09 23:10 Order name: Thyroid Stimulating Hormone; Complete Time: 00:05 [facility] 07/09 23:14 Order name: Manual Differential; Complete Time: 00:52 [facility] 07/10 01:46 Order name: Urinalysis [facility] 07/10 01:46 Order name: Basic Metabolic Panel [facility] 07/10 01:46 Order name: Basic Metabolic Panel [facility] 07/10 01:46 Order name: CBC with Automated Diff [facility] 07/10 01:46 Order name: CBC with Automated Diff [facility] 07/10 01:46 Order name: CKMB Creatine Kinase MB [facility] 07/10 01:46 Order name: CKMB Creatine Kinase MB [facility] 07/10 01:46 Order name: CKMB Creatine Kinase MB [facility] 07/09 22:01 Order name: EKG; Complete Time: 22:02 07/10 01:46 Order name: Echo with Doppler [facility] 07/10 01:46 Order name: Creatine Phosphokinase [facility] 07/10 01:46 Order name: Creatine Phosphokinase [facility] 07/10 01:46 Order name: Creatine Phosphokinase [facility] 07/10 01:46 Order name: Lipid Profile [facility] 07/10 01:46 Order name: Lipid Profile [facility] 07/10 01:46 Order name: Magnesium [facility] 07/10 01:46 Order name: Magnesium [facility] 07/10 01:46 Order name: Troponin I [facility] 07/10 01:46 Order name: Troponin I [facility] 07/10 01:46 Order name: Troponin I [facility] 07/10 01:48 Order name: Chest Pa And Lat (2 Views) [facility] 07/10 01:48 Order name: Chest Pa And Lat (2 Views) [facility] 07/09 22:01 Order name: Cardiac monitoring; Complete Time: 22:53 07/09 22:01 Order name: EKG - Nurse/Tech; Complete Time: 22:05 07/09 22:01 Order name: IV Saline Lock; Complete Time: 22:53 07/09 22:01 Order name: Labs collected and sent; Complete Time: 22:53 07/09 22:01 Order name: O2 Per Protocol; Complete Time: 22:05 07/09 22:01 Order name: O2 Sat Monitoring; Complete Time: 22:05 07/09 23:21 Order name: EKG - Nurse/Tech; Complete Time: 23:29 07/10 01:45 Order name: CONS Physician Consult [facility] 07/10 01:45 Order name: NPO [facility] EC:58 Rate is 96 beats/min. Rhythm is regular. RI interval is normal. QRS interval is normal. gs T waves are Flattened. Clinical impression: NSR w/ Non-specific ST/T Changes. No change from previous ECG. Interpreted by me. Administered Medications: 07/09 23:05 Drug: fentaNYL (PF) 25 mcg {Note: RASS 1.} Route: IVP; Site: right antecubital; ea 23:39 Follow up: Response: No adverse reaction; Pain is decreased ea 23:39 Follow up: Response: RASS: Alert and Calm (0) ea 23:29 Drug: fentaNYL (PF) 50 mcg {Note: RASS 1.} Route: IVP; Site: right antecubital; ea 23:39 Follow up: Response: No adverse reaction; Pain is decreased; RASS: Alert and Calm (0) ea Disposition: 07/10/19 01:06 Hospitalization ordered by Toño Hdez for Observation. Preliminary diagnosis is Chest pain, unspecified. - Bed requested for Telemetry/MedSurg (observation). - Status is Observation. ea - Condition is Stable. - Problem is new. - Symptoms have improved. UTI on Admission? No Signatures: Dispatcher [employer] [facility] Emerita Huang RN RN aj1 Susan Staples RN RN cg Antunez, Elena, RN RN ea Spear, Shyam, MD MD gs Corrections: (The following items were deleted from the chart) 23:10 22:54 THYROID STIMULAT HORMONE+C.LAB.BRZ ordered. [facility] 07/10 01:27 01:06 Hospitalization Ordered by Toño Hdez DO for Observation. Preliminary cg diagnosis is Chest pain, unspecified. Bed requested for Telemetry/MedSurg (observation). Status is Observation. Condition is Stable. Problem is new. Symptoms have improved. UTI on Admission? No. gs 02:26 01:27 07/10/2019 01:06 Hospitalization Ordered by Toño Hdez DO for Observation. ea Preliminary diagnosis is Chest pain, unspecified. Bed requested for Telemetry/MedSurg (observation). Status is Observation. Condition is Stable. Problem is new. Symptoms have improved. UTI on Admission? No. cg
[2019-07-10] MEDS ORDERED: HYDRALAZINE HCL 20 MG/ML VIAL IV PRN (01:34)
[2019-07-10] MEDS ORDERED: ACETAMINOPHEN 500 MG TAB PO PRN (01:34)
[2019-07-10] MEDS ORDERED: ONDANSETRON 4 MG/2 ML VIAL IV PRN (01:34)
[2019-07-10] MEDS ORDERED: NITROGLYCERIN 0.4 MG/TAB SL PRN (01:34)
[2019-07-10] MEDS ORDERED: IPRATROPIUM BROM 0.5MG/2.5ML NEB PRN (01:34)
[2019-07-10] MEDS ORDERED: ALBUTEROL 2.5 MG/3 ML NEB SOL NEB PRN (01:34)
[2019-07-10] MEDS ORDERED: MORPHINE 2 MG/ML SYR IV PRN (01:34)
--- NOTE | 2019-07-10 01:34 | P.HP ---
Certification for Inpatient Patient admitted to: Observation With expected LOS: <2 Midnights Patient will require the following post-hospital care: None Practitioner: I am a practitioner with admitting privileges, knowledge of patient current condition, hospital course, and medical plan of care. Services: Services provided to patient in accordance with Admission requirements found in Title 42 Section 412.3 of the Code of Federal Regulations Patient History Date of Service: 07/10/19 Primary Care Provider: Dr. Hemphill Reason for admission: Chest pain, shortness of breath History of Present Illness: 39-year-old female presented to the emergency room with chest pain and shortness of breath. Patient was seen last week for chest pain. She was evaluated in the emergency room. EKG unremarkable. CT chest and venous Doppler unremarkable. She was sent home at that time. Since that time she has been having chest pain often. Chest pain is associated with some shortness of breath especially with exertion. She tried to see her PCP early this week but was not able to. She has been taking aspirin since that time. Chest pain is not improved. Chest pain at times radiates to the left arm and back. She reports some palpitations. She came to the ER for further evaluation. In the ER patient evaluated. Cardiac enzymes unremarkable. EKG showed no significant ST changes. White count 7.4, hemoglobin 11.2. Sodium 141, potassium 3.7. BUN of 13, creatinine 0.9 with a GFR of 83. Glucose 132. Patient admitted for further observation and evaluation. When I saw the patient the ER, she appeared stable. Blood pressure within normal range. Patient reports a history of hypertension. She used to take medication but this was weaned off. Family history of heart disease, hypertension and diabetes. She does not smoke or drink. She does not use any drugs. Allergies No Known Drug Allergies Allergy (Unverified 04/18/15 16:30) Unknown No Known Allergies Allergy (Uncoded 01/13/16 02:06) Unknown Home medications list reviewed: Yes - Past Medical/Surgical History Diabetic: No -: History of hypertension -: Morbid obesity -: -: Right I/D of breast abscess -: Cholecystectomy Psychosocial/ Personal History: Patient is . 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 - Family History Mother -: Heart disease, Hypertension, Diabetes - Social History Smoking Status: Never smoker Alcohol use: No CD- Drugs: No Caffeine use: Yes Place of Residence: Home Review of Systems General: As per HPI Eyes: Unremarkable ENT: Unremarkable Respiratory: Shortness of Breath, SOB with Excertion, As per HPI Cardiovascular: Chest Pain, Palpitations, As per HPI Gastrointestinal: Unremarkable Genitourinary: Unremarkable Musculoskeletal: Unremarkable Integumentary: Unremarkable Neurological: Unremarkable Lymphatics: Unremarkable Physical Examination - Physical Exam General: Alert, In no apparent distress, Oriented x3, Cooperative HEENT: Atraumatic, Normocephalic, PERRLA, Mucous membr. moist/pink Neck: Supple, No Thyromegaly Respiratory: Clear to auscultation bilaterally, Normal air movement Cardiovascular: Normal pulses, Regular rate/rhythm Gastrointestinal: Normal bowel sounds, Soft and benign, Non-distended, No tenderness, No masses, No rebound, No guarding Musculoskeletal: No erythema, No tenderness, No warmth Integumentary: No tenderness/swelling, No erythema, No warmth, No cyanosis Neurological: Normal speech, Normal strength at 5/5 x4 extr, Normal tone, Normal affect - Studies Laboratory Data (last 24 hrs) 07/09/19 22:20: WBC 7.4 D, Hgb 11.2 L, Hct 34.3 L, Plt Count 459 H D 07/09/19 22:20: Sodium 141, Potassium 3.7, BUN 13, Creatinine 0.91, Glucose 132 H Assessment and Plan - Plan Impression: Chest pain with shortness of breath and palpitation History of hypertension Morbid obesity Plan: Chest pain with shortness of breath and palpitation: Patient will be admitted for further evaluation and observation. Will continue to monitor cardiac enzymes and telemetry. Will order echocardiogram and cardiac stress test to further evaluate. Cardiology consulted for further recommendation. Provide aspirin, Lipitor and DVT prophylaxis-Lovenox. Will order chest x-ray and urine drug screen. Tsh within normal range. Daytime hospitalist will continue her care. Anticipate discharge later today if workup unremarkable and cleared by cardiology. History of hypertension: Patient used to take medication-Maxzide. Blood pressure within normal range. Continue to monitor closely. Will provide IV medication as needed. Morbid obesity: Will calculate BMI. Address lifestyle modification education. - Advance Directives Does patient have a Living Will: No Does patient have a Durable POA for Healthcare: No
[2019-07-10 02:33] VITALS: BMI 55.3
[2019-07-10 06:19] LABS: CKMB Creatine Kinase MB < 1.0 ng/mL (0.3-3.6); Creatine Phosphokinase 176 U/L (26-192); HDL Cholesterol 44 mg/dL (40-60); LDL Cholesterol, Calculated 69 (<130); Troponin I < 0.02 ng/mL (0.0-0.045)
[2019-07-10 06:22] LABS: Magnesium 2.4 mg/dL (1.8-2.4); Potassium 4.2 mmol/L (3.5-5.1)
[2019-07-10] MEDS ORDERED: REGADENOSON 0.4 MG/5 ML SYR IV ONE (08:49)
[2019-07-10] MEDS ORDERED: FOLIC ACID 1 MG TABLET PO SCH (09:00)
[2019-07-10] MEDS ORDERED: ASPIRIN EC 81 MG TAB PO SCH (09:00)
[2019-07-10] MEDS ORDERED: ENOXAPARIN 40 MG/0.4 ML SQ SCH (09:00)
[2019-07-10] MEDS ORDERED: FAMOTIDINE 20 MG TAB PO SCH (09:00)
[2019-07-10 09:09] VITALS: O2SAT 96
--- NOTE | 2019-07-10 10:20 | RAD REPORT ---
EXAM DESCRIPTION: NM - Rest Stress Cardiac Imaging - 07/10/2019 10:10 am CLINICAL HISTORY: CP Chest pain. COMPARISON: No comparisons TECHNIQUE: The patient was administered approximately 10mCi of Tc 99m Sestamibi prior to resting SPE CT imaging of the heart. The patient was then administered approximately 30 mCi of Tc 99m Sestamibi f ollowing exercise or pharmacologic stress. Multiplanar SPECT images were reviewed. FINDINGS: No stress induced ischemic defect is seen to suggest stress induced ischemia. No fixed def ect is seen to suggest hibernating myocardium or scarred myocardium. The end diastolic volume is 134 ml, the end systolic volume is 81 ml, and the ejection fraction is 39 %. IMPRESSION: No stress induced ischemia. Ejection fraction is mildly low, 39%.
--- NOTE | 2019-07-10 11:43 | TREADPHA ---
DX: CHEST PAIN Date of Study: 07/10/2019 Ht: 5 7 Wt: 353 lb 0 oz Consulting Physician: MAUREEN MEDICATIONS: TYLENOL, ASPIRIN, LIPITOR, LOVENOX, PEPCID HISTORY: 39 YEAR OLD FEMALE WITH COMPLAINTS FOR SHORTNESS OF BREATH AND CHEST PAIN. HISTORY OF HYPERTENSION, OBESITY, NON SMOKER AND NON DRINKER. PHYSICIAL EXAMINATION: RESTING B.P.: 123/78 RESTING H.R.: 82 RESTING EKG: NORMAL PROTOCOL: LEXISCAN EXERCISE TIME: 3:30 B.P. AT PEAK STRESS: 128/85 IMPRESSION: LEXISCAN INJECTED, FOLLOWED BY CARDIOLITE PER PROTOCOL. SEE NUCLEAR MEDICINE REPORT. NO SUPRAVENTRICULAR TACHYCARDIA, VENTRICULAR TACHYCARDIA, PREMATURE ATRIAL COMPLEXES AND PREMATURE VENTRICULAR COMPLEXES. PATIENT REPORTED CHEST PAIN 8/10.
--- NOTE | 2019-07-10 12:50 | RAD REPORT ---
EXAM DESCRIPTION: RAD - Chest Pa And Lat (2 Views) - 07/10/2019 12:35 pm CLINICAL HISTORY: Chest pain, shortness of breath COMPARISON: July 03 CT chest and portable chest TECHNIQUE: PA and lateral views of the chest were obtained. FINDINGS: The lungs are underinflated. This slightly accentuates the baseline interstitial pattern. No peripheral mass or consolidation. Heart size is normal and central vasculature is within normal limits. No pleural effusion or pneumothorax seen. No acute bony finding noted. No aortic abnormali ty. IMPRESSION: No acute cardiopulmonary process. No significant change from comparison.
[2019-07-10 13:38] LABS: CKMB Creatine Kinase MB < 1.0 ng/mL (0.3-3.6); Creatine Phosphokinase 184 U/L (26-192); Troponin I < 0.02 ng/mL (0.0-0.045)
[2019-07-10 14:38] VITALS: BP 127/73; TEMP 97.1
[2019-07-10] MEDS ORDERED: ATORVASTATIN 40 MG TAB PO SCH (21:00)
--- NOTE | 2019-07-11 01:53 | CON ---
Date of Consultation: 07/10/2019 Reason For Consultation: Chest pain. History Of Present Illness: Ms. Ferro is a 39-year-old black woman, has a history of hypertension and morbid obesity, came in with chest pain that has been going on for almost 3 days continuously, mi d-epigastric, occasionally radiating to the left shoulder, on the left neck and the back. No nausea, vomiting, diaphoresis, PND, orthopnea, pedal edema, palpitations, or syncope. By the time I saw her , she has already had a normal EKG, normal CT of the abdomen, negative venous Doppler, negative tropo alton, negative CPK, MBs, and BNP. She continues to have her symptoms. Past Medical History: Include hypertension and morbid obesity. Allergies: NONE. Review of Systems: Negative. Social History: Negative. Family History: Negative. Medications: At home include aspirin. Physical Examination: General: Ms. Ferro I believe weighed 357 pounds. She was in no acute distress, although she lulu nued to have some discomfort. She was in sinus rhythm, afebrile. HEENT: Negative. Neck: Supple with no bruit. Chest: Clear. Cardiac: Normal. Abdomen: Obese, but benign. Extremities: Revealed no clubbing, cyanosis, or edema. Diagnostic Data: All normal. Impression And Plan: Ms. Ferro' biggest cardiac risk factors are her weight and her hypertension. Her symptoms do not really sound cardiac. I think this is more likely to be a gastroesophageal issu e. Nevertheless, an echocardiogram and a stress test were ordered to rule out coronary artery diseas e and cardiomyopathy. We will see what these show before she goes home. ALEXIS/TATA Voice ID: [id number] Report ID: [id number]
--- NOTE | 2019-07-11 10:37 | EKG ---
Test Date: 2019-07-09 Test Time: 22:02:19 Floor Helper: CALI MEASUREMENT RESULTS: Intervals: Rate: 96 UT: 144 QRSD: 94 QT: 370 QTc: 467 [place]: P: 65 UT: 144 QRS: 54 T: 41 INTERPRETIVE STATEMENTS: Normal sinus rhythm Septal infarct, age undetermined Abnormal ECG Compared to ECG 07/03/2019 19:17:55 Myocardial infarct finding now present Electronically Signed On 07-11-19 10:32:07 CDT by Tarik Dhaliwal
--- NOTE | 2019-07-11 11:08 | ECHO ---
HEIGHT: 5 ft 7 in WEIGHT: 353 lb 0 oz DATE OF STUDY: 07/10/[address]: Toño Hdez DO 2-DIMENSIONAL: YES M.MODE: YES DOPPLER: YES COLOR FLOW: YES TDS: NO PORTABLE: NO DEFINITY: NO BUBBLE STUDY: NO DIAGNOSIS: CHEST PAIN, SHORTNESS OF BREATH CARDIAC HISTORY: CATHERIZATION: NO SURGERY: NO PROSTHETIC VALVE: NO PACEMAKER: NO MEASUREMENTS (cm) DIASTOLIC (NORMALS) SYSTOLIC (NORMALS) IVSd 1.3 (0.6-1.2) LA Diam 3.4 (1.9-4.0) LVEF 69% LVIDd 4.2 (3.5-5.7) LVIDs 2.6 (2.0-3.5) %FS 38% LVPWd 1.3 (0.6-1.2) Ao Diam 3.1 (2.0-3.7) 2 DIMENSIONAL ASSESSMENT: RIGHT ATRIUM: NORMAL LEFT ATRIUM: NORMAL RIGHT VENTRICLE: NORMAL LEFT VENTRICLE: LEFT VENTRICULAR HYPERTROPHY TRICUSPID VALVE: NORMAL MITRAL VALVE: NORMAL PULMONIC VALVE: NORMAL AORTIC VALVE: NORMAL PERICARDIAL EFFUSION: NONE AORTIC ROOT: NORMAL LEFT VENTRICULAR WALL MOTION: NORMAL DOPPLER/COLOR FLOW: MILD TRICUSPID REGURGITATION. COMMENTS: MILD LEFT VENTRICULAR HYPERTROPHY. NORMAL LEFT VENTRICULAR EJECTION FRACTION. NO WALL MOTION ABNORMALITY. MILD TRICUSPID REGURGITATION. NORMAL RIGHT VENTRICULAR SYSTOLIC PRESSURE. TECHNOLOGIST: María Elena BALDERRAMA
== END 2019-07-10 16:39 | disposition home or self-care (01) ==
LOC: ER 21:44 → 2ND 07-10 01:57
PROVIDERS: ADMIT Family Medicine; ATTEND Family Medicine
DX: R07.9 Chest pain, unspecified (principal); R00.2 Palpitations; I10 Essential (primary) hypertension; E66.01 Morbid (severe) obesity due to excess calories; Z68.43 Body mass index [BMI] 50.0-59.9, adult
CPT/HCPCS: 36415; 71046; 78452; 80048; 80061; 82550; 82553; 83735; 84443; 84484; 85025; 93005; 93017; 93306; 96374; 99285; A9500; G0378; J1650; J2270; J2405; J2785; J3010

== ENCOUNTER 2021-03-08 08:07 | Emergency (ER) | payer SELFPAY ==
--- OUTSIDE RECORDS SUMMARY | 2021-03-08 08:09 | XMS REPORT | Continuity of Care Document ---
:1980 Author Organization [facility] t Address [address] [place] [address] Care Team Providers Name Role Phone Gui OMORE Attending Clinician Problems This patient has no known problems. Allergies, Adverse Reactions, Alerts This patient has no known allergies or adverse reactions. Medications This patient has no known medications. Procedures This patient has no known procedures. Encounters Start End Encounter Admission Attending Care Care Encounter Source Date/Time Date/Time Type Type Clinicians Facility Department ID 2020-10-23 2020-10-23 Emergency Gui [facility] [id number] 11:49:00 14:51:00 Sy [place] [id number] [place] [id number] [place] [id number] Results This patient has no known results.
[2021-03-08 09:00] LABS: Urine Blood 3+ (Negative); Urine Glucose Negative (Negative); Urine Protein 2+ (Negative); Urine Specific Gravity >=1.030 (1.005-1.030); Urine pH 6.5 (5.0-7.0)
[2021-03-08 09:06] LABS: Urine Specific Gravity/Preg >1.030 (1.005-1.030)
[2021-03-08 09:17] LABS: Urine Bacteria >50 /HPF (<20); Urine RBC 20-50 /HPF (NONE SEEN)
--- NOTE | 2021-03-08 09:45 | ER ---
Nurse's Notes [facility] Name: Megan Ferro Age: 41 yrs Sex: Female : 1980 Arrival Date: 03/08/2021 Time: 08:08 Bed Treatment Private MD: Diagnosis: Urinary tract infection, site not specified;Pain in left knee Presentation: 03/08 08:17 Chief complaint: Patient states: Knee pain, Urinary pain \T\ frequency X 1 day. ld1 Coronavirus screen: Client denies travel out of the [place] in the last 14 days. At this time, the client does not indicate any symptoms associated with coronavirus-19. Ebola Screen: No symptoms or risks identified at this time. Initial Sepsis Screen: Does the patient meet any 2 criteria? No. Patient's initial sepsis screen is negative. Does the patient have a suspected source of infection? No. Patient's initial sepsis screen is negative. Risk Assessment: Do you want to hurt yourself or someone else? Patient reports no desire to harm self or others. Onset of symptoms was March 07, 2021. Care prior to arrival: None. 08:17 Method Of Arrival: Ambulatory ld1 08:17 Acuity: RASHEL 3 ld1 Triage Assessment: 08:21 General: Appears in no apparent distress. uncomfortable, Behavior is calm, cooperative, ld1 appropriate for age. Pain: Complains of pain in groin, suprapubic area and right knee Pain currently is 8 out of 10 on a pain scale. Quality of pain is described as burning, throbbing, Pain began 1 day ago. Is continuous. EENT: No signs and/or symptoms were reported regarding the EENT system. Neuro: Level of Consciousness is awake, alert, obeys commands, Oriented to person, place, time, situation, Appropriate for age. Cardiovascular: Capillary refill < 3 seconds Patient's skin is warm and dry. Respiratory: Airway is patent Respiratory effort is even, unlabored, Respiratory pattern is regular, symmetrical. GI: Abdomen is round non-distended. : Reports burning with urination, urgency, urinary frequency. Derm: No signs and/or symptoms reported regarding the dermatologic system. Musculoskeletal: Reports pain in right knee. 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 - Social history:: Smoking status: Patient denies any tobacco usage or history of. - Family history:: not pertinent. - Hospitalizations: : No recent hospitalization is reported. Screenin:27 Abuse screen: Denies threats or abuse. Denies injuries from another. Nutritional ld1 screening: No deficits noted. Tuberculosis screening: No symptoms or risk factors identified. Fall Risk None identified. Assessment: 08:26 Reassessment: See triage assessment. ld1 09:35 Reassessment: No changes from previously documented assessment. Patient and/or family ld1 updated on plan of care and expected duration. Pain level reassessed. Patient is alert, oriented x 3, equal unlabored respirations, skin warm/dry/pink. Patient sitting in chair waiting on results. Denies concerns at this time. Vital Signs: 08:17 BP 142 / 84; Pulse 89; Resp 18; Temp 98.5(TE); Pulse Ox 100% on R/A; Pain 8/10; ld1 09:35 BP 145 / 82; Pulse 86; Resp 18; Pulse Ox 99% on R/A; ld1 10:03 BP 140 / 78; Pulse 82; Resp 18; Pulse Ox 100% on R/A; ld1 ED Course: 08:08 Patient arrived in ED. am2 08:12 Jordan Mcdonald MD is Attending Physician. rn 08:17 Samantha Dietz RN is Primary Nurse. ld1 08:19 Triage completed. ld1 08:21 Arm band placed on left wrist. ld1 08:27 Patient has correct armband on for positive identification. Call light in reach. Pulse ld1 ox on. NIBP on. Door closed. Noise minimized. 08:27 No provider procedures requiring assistance completed. ld1 09:03 Urine --Ancillary (enter results) Sent. ld1 10:03 Patient did not have IV access during this emergency room visit. ld1 Administered Medications: No medications were administered Outcome: 09:44 Discharge ordered by . rn 10:02 Discharged to home ambulatory. ld1 10:02 Condition: stable 10:02 Discharge instructions given to patient, Instructed on discharge instructions, follow up and referral plans. medication usage, Demonstrated understanding of instructions, follow-up care, medications. 10:03 Patient left the ED. ld1 Signatures: Jordan Mcdonald MD MD rn Moreno, Amanda am2 Dibbern, Lauren RN RN ld1 Corrections: (The following items were deleted from the chart) 08:21 08:17 BP 136 / 77; Pulse 89bpm; Resp 18bpm; Pulse Ox 100% RA; Temp 98.5F Temporal; Pain ld1 05/31; ld1
--- NOTE | 2021-03-08 09:45 | EDPHYS ---
Physician Documentation [facility] Name: Megan Ferro Age: 41 yrs Sex: Female : 1980 Arrival Date: 03/08/2021 Time: 08:08 Bed Treatment Private MD: ED Physician Jordan Mcdonald HPI: 03/08 09:41 This 41 yrs old Black Female presents to ER via Ambulatory with complaints of Pain With rn Urination, Knee Pain. 09:41 The patient presents with urinary symptoms, dysuria, frequency. Onset: The rn symptoms/episode began/occurred this morning. Modifying factors: The symptoms are alleviated by nothing, the symptoms are aggravated by urinating. Severity of symptoms: At their worst the symptoms were mild, in the emergency department the symptoms are unchanged. The patient has experienced similar episodes in the past. Reports came for UTI and knee pain. Reports increased exercise and "partying" this month, slow worsening on chronic left knee pain, no direct injury or fall. Able to ambulate with pain. No deformity. No fever. No hx of gout. . 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 - Social history:: Smoking status: Patient denies any tobacco usage or history of. - Family history:: not pertinent. - Hospitalizations: : No recent hospitalization is reported. ROS: 09:41 Constitutional: Negative for fever, chills, and weight loss, Eyes: Negative for injury, rn pain, redness, and discharge, Neck: Negative for injury, pain, and swelling, Cardiovascular: Negative for chest pain, palpitations, and edema, Respiratory: Negative for shortness of breath, cough, wheezing, and pleuritic chest pain, Abdomen/GI: Negative for abdominal pain, nausea, vomiting, diarrhea, and constipation, Back: Negative for injury and pain, : + increased urination and dysuria MS/Extremity: + left knee pain Skin: Negative for injury, rash, and discoloration, Neuro: Negative for headache, weakness, numbness, tingling, and seizure. Exam: 09:41 Constitutional: This is a well developed, well nourished patient who is awake, alert, rn and in no acute distress. Ambulatory to room and bathroom. Skin: Warm, dry with normal turgor. Normal color with no rashes, no lesions, and no evidence of cellulitis. MS/ Extremity: Pulses equal, no cyanosis. Neurovascular intact. Mild painful ROM left knee without warmth/erythema/lesions. Vital Signs: 08:17 BP 142 / 84; Pulse 89; Resp 18; Temp 98.5(TE); Pulse Ox 100% on R/A; Pain 8/10; ld1 09:35 BP 145 / 82; Pulse 86; Resp 18; Pulse Ox 99% on R/A; ld1 10:03 BP 140 / 78; Pulse 82; Resp 18; Pulse Ox 100% on R/A; ld1 MDM: 08:12 Patient medically screened. rn 09:41 Differential diagnosis: urinary tract infection, knee sprain, knee effusion. Data rn reviewed: vital signs, nurses notes, lab test result(s), and as a result, I will discharge patient. Counseling: I had a detailed discussion with the patient and/or guardian regarding: the historical points, exam findings, and any diagnostic results supporting the discharge/admit diagnosis, lab results, the need for outpatient follow up, to return to the emergency department if symptoms worsen or persist or if there are any questions or concerns that arise at home. Special discussion: I discussed with the patient/guardian in detail that at this point there is no indication for admission to the hospital. It is understood, however, that if the symptoms persist or worsen the patient needs to return immediately for re-evaluation. 03/08 09:00 Order name: Urine Dipstick-Ancillary; Complete Time: : [facility] 03/08 08:27 Order name: Urine Test (obtain specimen); Complete Time: 09:03 rn 03/08 09:02 Order name: Urine --Ancillary (enter results) bd 03/08 09:06 Order name: Urine --Ancillary; Complete Time: [facility] 03/08 09:18 Order name: Urine Microscopic Only; Complete Time: 09:41 [facility] 03/08 08:27 Order name: Urine Dipstick-Ancillary (obtain specimen); Complete Time: 09:03 rn Administered Medications: No medications were administered Disposition: 03/08/21 09:44 Discharged to Home. Impression: Urinary tract infection, site not specified, Pain in left knee. - Condition is Stable. - Discharge Instructions: Urinary Tract Infection, Adult, Knee Pain. - Prescriptions for Cipro 500 mg Oral Tablet - take 1 tablet by ORAL route every 12 hours for 7 days; 14 tablet. - Medication Reconciliation Form, Thank You Letter, Antibiotic Education, Prescription Opioid Use form. - Follow up: Private Physician; When: As needed; Reason: Recheck today's complaints, Re-evaluation by your physician. - Problem is new. - Symptoms have improved. Signatures: Dispatcher [employer] [facility] Jordan Mcdonald MD MD rn Dibbern, Lauren, RN RN ld1 Corrections: (The following items were deleted from the chart) 08:30 08:27 UA MICROSCOPIC+U.LAB.BRZ ordered. [facility] 10:03 09:44 03/08/2021 09:44 Discharged to Home. Impression: Urinary tract infection, site ld1 not specified; Pain in left knee. Condition is Stable. Forms are Medication Reconciliation Form, Thank You Letter, Antibiotic Education, Prescription Opioid Use. Follow up: Private Physician; When: As needed; Reason: Recheck today's complaints, Re-evaluation by your physician. Problem is new. Symptoms have improved. rn
[2021-03-08 10:28] VITALS: TEMP 98.5
[2021-03-08 10:31] VITALS: BP 140/78; O2SAT 100
== END 2021-03-08 10:03 | disposition home or self-care (01) ==
LOC: ER 08:07
DX: N39.0 Urinary tract infection, site not specified (principal); M25.562 Pain in left knee; I10 Essential (primary) hypertension
CPT/HCPCS: 81003; 81015; 81025; 99283

== ENCOUNTER 2021-07-06 08:59 | Emergency (ER) | payer SELFPAY ==
--- OUTSIDE RECORDS SUMMARY | 2021-07-06 09:02 | XMS REPORT | Continuity of Care Document ---
:1980 Author Organization [facility] t Address [address] [place] [address] Care Team Providers Name Role Phone Gui MOORE Attending Clinician Problems This patient has no known problems. Allergies, Adverse Reactions, Alerts This patient has no known allergies or adverse reactions. Medications This patient has no known medications. Procedures This patient has no known procedures. Encounters Start End Encounter Admission Attending Care Care Encounter Source Date/Time Date/Time Type Type Clinicians Facility Department ID 2020-10-23 2020-10-23 Emergency Gui [facility] [id number] 11:49:00 14:51:00 Sy [place] [id number] [place] [id number] [place] [id number] Results This patient has no known results.
--- NOTE | 2021-07-06 10:38 | RAD REPORT ---
EXAM DESCRIPTION: RAD - Knee Left 3 View - 07/06/2021 10:23 am CLINICAL HISTORY: PAIN COMPARISON: No comparisons FINDINGS: No acute fracture. No malalignment. Mild to moderate patellofemoral compartment spurring. Small knee effusion P there spurring within the medial and lateral compartments is well but the joint spaces are preserved. IMPRESSION: No acute osseous abnormality involving the left knee. Small knee effusion which may be r elated to underlying degenerative changes.
--- NOTE | 2021-07-06 10:42 | EDPHYS ---
Physician Documentation [facility] Name: Megan Ferro Age: 41 yrs Sex: Female : 1980 Arrival Date: 07/06/2021 Time: 09:04 Bed 24 Private MD: ED Physician Jordan Mcdonald HPI: 07/06 09:39 This 41 yrs old Black Female presents to ER via Wheelchair with complaints of Knee rn Injury, Knee Pain. 09:39 The patient presents with pain, that is chronic. The complaints affect the left knee. rn Onset: The symptoms/episode began/occurred just prior to arrival. Modifying factors: The symptoms are alleviated by remaining still, the symptoms are aggravated by movement, weight bearing, bending knee. Associated signs and symptoms: Pertinent negatives fever, swelling, warmth, weakness. Severity of symptoms: At their worst the symptoms were moderate, in the emergency department the symptoms have improved. The patient has experienced similar episodes in the past, chronically. The patient has not recently seen a physician. Patient reports has chronic left knee pain, longer than a year, has been increasing exercise and cardio, today was getting ready and left knee felt like it gave out, almost fell to the floor but braced herself. No direct trauma to the knee. No recent fever, no warmth of the knee. Reports this has been going on for some time but has never given out like today. Feels grinding of left knee with bending and use.. 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 - Social history:: Smoking status: Patient denies any tobacco usage or history of. - Family history:: not pertinent. - Hospitalizations: : No recent hospitalization is reported. ROS: 09:39 Constitutional: Negative for fever, chills, and weight loss, MS/Extremity: Positive for rn left knee pain Skin: Negative for injury, rash, and discoloration, Neuro: Negative for weakness, numbness, tingling Exam: 09:39 Constitutional: Overweight female, no acute distress Skin: Warm, dry with normal rn turgor. Normal color with no rashes, no lesions, and no evidence of cellulitis. MS/ Extremity: Pulses equal, no cyanosis. Neurovascular intact. Limited but capable of active range of motion left knee. No warmth or erythema. No noticeable swelling. No calf tenderness. Vital Signs: 09:09 BP 140 / 100; Pulse 79; Resp 17; Temp 97.5; Pulse Ox 100% ; Weight 158.76 kg; Height 5 jl7 ft. 7 in. (170.18 cm); Pain 05/31; 09:09 Body Mass Index 54.82 (158.76 kg, 170.18 cm) jl7 MDM: 09:10 Patient medically screened. rn 10:40 Differential diagnosis: tendonitis, Stress fracture, knee effusion. Data reviewed: rn vital signs, nurses notes, radiologic studies, plain films, and as a result, I will discharge patient. Test interpretation: by ED physician or midlevel provider: plain radiologic studies, X-ray left knee without acute fracture or dislocation. Small effusion.. Counseling: I had a detailed discussion with the patient and/or guardian regarding: the historical points, exam findings, and any diagnostic results supporting the discharge/admit diagnosis, radiology results, the need for outpatient follow up, to return to the emergency department if symptoms worsen or persist or if there are any questions or concerns that arise at home. Special discussion: I discussed with the patient/guardian in detail that at this point there is no indication for admission to the hospital. It is understood, however, that if the symptoms persist or worsen the patient needs to return immediately for re-evaluation. Further emergent ED testing is not indicated at this point in time. I discussed with the patient/guardian in detail the need to arrange with the PCP or specialist further outpatient testing, MRI, Based on the history and exam findings, there is no indication for further emergent testing or inpatient evaluation. I discussed with the patient/guardian the need to see the orthopedic surgeon for further evaluation of the symptoms. 07/06 09:25 Order name: XRAY Knee LEFT 3 view; Complete Time: 10:40 rn Administered Medications: No medications were administered Disposition Summary: 07/06/21 10:41 Discharge Ordered Location: Home rn Problem: chronic rn Symptoms: have improved rn Condition: Stable rn Diagnosis - Effusion, left knee rn - Pain in left knee rn Followup: rn - With: Private Physician - When: As needed - Reason: Recheck today's complaints, Re-evaluation by your physician Discharge Instructions: - Discharge Summary Sheet rn - Joint Pain rn - Knee Effusion rn - Acute Knee Pain, Adult rn Forms: - Medication Reconciliation Form rn - Thank You Letter rn - 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
--- NOTE | 2021-07-06 10:42 | ER ---
Nurse's Notes [facility] Name: Megan Ferro Age: 41 yrs Sex: Female : 1980 Arrival Date: 07/06/2021 Time: 09:04 Bed 24 Private MD: Diagnosis: Effusion, left knee;Pain in left knee Presentation: 07/06 09:09 Chief complaint: Patient states: Left knee pain x a couple months, this morning knee jl7 gave out and fell; denies trauma. Coronavirus screen: Vaccine status: Patient reports receiving the 2nd dose of the covid vaccine. Date March 2021 Moderna. Ebola Screen: No symptoms or risks identified at this time. Initial Sepsis Screen: Does the patient meet any 2 criteria? No. Patient's initial sepsis screen is negative. Does the patient have a suspected source of infection? No. Patient's initial sepsis screen is negative. Risk Assessment: Do you want to hurt yourself or someone else? Patient reports no desire to harm self or others. Onset of symptoms was July 06, 2021. 09:09 Method Of Arrival: Wheelchair 7 09:09 Acuity: RASHEL 4 jl7 Triage Assessment: 09:11 General: Appears in no apparent distress. uncomfortable, Behavior is calm, cooperative, jl7 appropriate for age. Pain: Complains of pain in left knee. Musculoskeletal: Reports pain in left knee. Injury Description: denies injury. 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 - Social history:: Smoking status: Patient denies any tobacco usage or history of. - Family history:: not pertinent. - Hospitalizations: : No recent hospitalization is reported. Screenin:19 Abuse screen: Denies threats or abuse. Denies injuries from another. Nutritional aj2 screening: No deficits noted. Tuberculosis screening: No symptoms or risk factors identified. 09:19 Fall Risk None identified. aj2 Assessment: 09:19 Pain: Complains of pain in left knee Pain does not radiate. Pain currently is 8 out of aj2 10 on a pain scale. Quality of pain is described as aching, sharp, Pain began Over one year. Reports pain has worsen over the past year. 09:19 General: Appears in no apparent distress. obese, Behavior is calm, cooperative. aj2 Vital Signs: 09:09 BP 140 / 100; Pulse 79; Resp 17; Temp 97.5; Pulse Ox 100% ; Weight 158.76 kg; Height 5 jl7 ft. 7 in. (170.18 cm); Pain 8/10; 09:09 Body Mass Index 54.82 (158.76 kg, 170.18 cm) jl7 ED Course: 09:04 Patient arrived in ED. mr 09:10 Jordan Mcdonald MD is Attending Physician. rn 09:11 Triage completed. jl7 09:11 Arm band placed on right wrist. jl7 09:14 Daniela Grimaldo is Primary Nurse. aj2 09:19 No apparent distress. Resting quietly. aj2 09:19 Patient has correct armband on for positive identification. aj2 09:19 No provider procedures requiring assistance completed. Patient did not have IV access aj2 during this emergency room visit. 10:22 XRAY Knee LEFT 3 view In Process Unspecified. EDMS Administered Medications: No medications were administered Outcome: 10:41 Discharge ordered by . rn 10:43 Discharged to home aj2 10:43 Discharged to home ambulatory. 10:43 Condition: stable 10:43 Condition: stable 10:43 Discharge instructions given to patient, Instructed on discharge instructions, follow up and referral plans. Demonstrated understanding of instructions, follow-up care. 10:54 Patient left the ED. aj2 Signatures: Dispatcher [employer] EDMS Dilia Rubio mr Jordan Mcdonald MD MD rn Leal, Jahala, RN RN jl7 Jenkins, Angelea aj2 Corrections: (The following items were deleted from the chart) 09:12 09:11 Home Meds: meloxicam 7.5 mg/5 mL Oral susp; jl7 jl7
[2021-07-06 11:12] VITALS: BP 140/100; TEMP 97.5; O2SAT 100
== END 2021-07-06 10:54 | disposition home or self-care (01) ==
LOC: ER 08:59
DX: M25.462 Effusion, left knee (principal); I10 Essential (primary) hypertension
CPT/HCPCS: 99283

== ENCOUNTER 2022-08-31 16:31 | Emergency (ER) | payer SELFPAY ==
--- OUTSIDE RECORDS SUMMARY | 2022-08-31 16:38 | XMS REPORT | Continuity of Care Document ---
:1980 Author Organization [facility] t Address [address] [place] [address] Care Team Providers Name Role Phone Zachary De Souza [facility], [facility] Primary Care P hysician Akinsipe Yasmin PIZANO Attending Clinician [phone] CHRISTI KAUFFMAN Attending Clinician Unavailable Christi Barrera Attending Clinician ELENI OGLESBY Attending Clinician Unavailable Eleni Oglesby DO Attending Clinician MAT GARCIA Attending Clinician Unavailable Mat Garcia MD Attending Clinician Doctor Unassigned, [place] Attending Clinician Unavailable Severino Messer MD Attending Clinician SEVERINO MESSER Attending Clinician Unavailable Payers Payer Name Policy Type Policy Number Effective Date Expiration Date S ource HIM AMBETTER FROM [id number] 2020 [facility] 00:00:00 Problems Condition Condition Condition Status Onset Resolution Last Treating Co mments Source Name Details Category Date Date Treatment Clinician Date No known No known Disease Unive rs active active ity of problems problems [facility] Allergies, Adverse Reactions, Alerts Allergy Allergy Status Severity Reaction(s) Onset Inactive Treating Comm ents Source Name Type Date Date Clinician Mesna - Propensi Active Intraven ty to 6-28 ous adverse 00:00: reaction 00 to drug n Propensi Active ty to 6-20 adverse 00:00: reaction 00 to drug NO KNOWN Drug Active Univers ALLERGIE Class ity of S [facility] Social History Social Habit Start Date Stop Date Quantity Comments Source Exposure to 2022-08-07 2022-08-17 Not sure [facility] SARS-CoV-2 (event) 00:00:00 19:16:00 Medica l Branch Sex Assigned At [birth year] [facility] 00:00:00 00:00:00 Medical Branch Smoking Status Start Date Stop Date Source Tobacco smoking consumption [facility] Branch Medications Ordered Filled Start Stop Current Ordering Indication Dosage Frequency Signature Comments Components Source Medication Medication Date Date Medication? Clinician (SIG) Name Name NaCl 0.9% 2021-10- No 1000mL at 999 Uni vers (NS) bolus 0-28 10-28 mL/hr, ity of infusion 02:00: 02:25 1,000 mL, Garo as 1,000 mL 00 :00 IV Medical Infusion, Branch ONCE, 1 dose, On [place]ina 08/17/22 at 2100, STAT medroxyPROG 2021-10- Yes [id number] 10mg Take 1 Univers ESTERone 0-21 10-29 tablet by ity o f (PROVERA) 00:00: 04:59 mouth in [place] 10 mg 00 :00 the Medical tablet morning Branch and 1 tablet at noon and 1 tablet in the evening. Do all this for 7 days. medroxyPROG 2021-10- Yes [id number] 10mg Take 1 Univers ESTERone 0-21 10-29 tablet by ity o f (PROVERA) 00:00: 04:59 mouth in [place] 10 mg 00 :00 the Medical tablet morning Branch and 1 tablet at noon and 1 tablet in the evening. Do all this for 7 days. ibuprofen 2021-0 2021- No 600mg 600 mg, Uni vers (IBU) 06-21 Oral, ity of tablet 600 03:45: 03:48 ONCE, 1 [place] as mg 00 :00 dose, On Medical Tue Branch 06/20/22 at 2245, JC HYDROcodone 2021-0 2021- No 1{tbl} 1 tablet, Univers -acetaminop 06-21 Oral, ity of hen (NORCO 03:45: 03:48 ONCE, 1 [place] as 5) 5-325 mg 00 :00 dose, On Medi jeff tablet 1 Tue Branch tablet 06/20/22 at 2245, JC cyclobenzap 2021-0 Yes [id number] 5mg Take 1 Univers rine 5 mg 8-30 tablet by ity o f tablet 00:00: mouth in [place] 00 the Medical morning Branch and 1 tablet at noon and 1 tablet in the evening. cyclobenzap 2021-0 Yes [id number] 5mg Take 1 Univers rine 5 mg 8-30 tablet by ity o f tablet 00:00: mouth in [place] 00 the Medical morning Branch and 1 tablet at noon and 1 tablet in the evening. cyclobenzap 2021-0 Yes [id number] 5mg Take 1 Univers rine 5 mg 8-30 tablet by ity o f tablet 00:00: mouth in [place] 00 the Medical morning Branch and 1 tablet at noon and 1 tablet in the evening. cyclobenzap 2021-0 Yes [id number] 5mg Take 1 Univers rine 5 mg 8-30 tablet by ity o f tablet 00:00: mouth in [place] 00 the Medical morning Branch and 1 tablet at noon and 1 tablet in the evening. TAKE 1 2021-0 No 10 TABLET 8-28 DAILY. 00:00: 00 TAKE 1 2-0 No 10 TABLET 8-28 DAILY. 00:00: 00 Victoza 2022-0 No (18 2-Harley 0.6 6-20 mg/3 mg/0.1 mL 00:00: mL) (18 mg/3 00 mL) subcutaneou s pen injector Victoza 2-0 No (18 2-Harley 0.6 6-20 mg/3 mg/0.1 mL 00:00: mL) (18 mg/3 00 mL) subcutaneou s pen injector metformin 2022-0 No 1mg 500 mg 6-17 tablet 00:00: 00 hydrochloro 2022-0 No 1mg thiazide 50 6-17 mg tablet 00:00: 00 metformin 2022-0 No 1mg 500 mg 6-17 tablet 00:00: 00 hydrochloro 2022-0 No 1mg thiazide 50 6-17 mg tablet 00:00: 00 metformin 2022-0 No 1mg 500 mg 6-07 tablet 00:00: 00 hydrochloro 2022-0 No 1mg thiazide 25 6-07 mg tablet 00:00: 00 metformin 2022-0 No 1mg 500 mg 6-07 tablet 00:00: 00 hydrochloro 2022-0 No 1mg thiazide 25 6-07 mg tablet 00:00: 00 metformin 2022-0 No 1mg 500 mg 4-04 tablet 00:00: 00 metformin 2022-0 No 1mg 500 mg 4-04 tablet 00:00: 00 hydrochloro 2022-0 No 1mg thiazide 25 3-31 mg tablet 00:00: 00 hydrochloro 2022-0 No 1mg thiazide 25 3-31 mg tablet 00:00: 00 Dose 2022-0 No Unknown 3-30 00:00: 00 Dose 2022-0 No Unknown 3-30 00:00: 00 Dose 2022-0 No Unknown 3-30 00:00: 00 Dose 2022-0 No Unknown 3-30 00:00: 00 Dose 2022-0 No Unknown 3-30 00:00: 00 Dose 2022-0 No Unknown 3-30 00:00: 00 Dose 2022-0 No Unknown 3-30 00:00: 00 Dose 2022-0 No Unknown 3-30 00:00: 00 Dose 2022-0 No Unknown 3-30 00:00: 00 Dose 2022-0 No Unknown 3-30 00:00: 00 Dose 2022-0 No Unknown 3-30 00:00: 00 Dose 2022-0 No Unknown 3-30 00:00: 00 Dose 2022-0 No Unknown 3-30 00:00: 00 Dose 2022-0 No Unknown 3-30 00:00: 00 Dose 2022-0 No Unknown 3-30 00:00: 00 Dose 2022-0 No Unknown 3-30 00:00: 00 Dose 2022-0 No Unknown 3-30 00:00: 00 Dose 2-0 No Unknown 3-30 00:00: 00 Dose 2-0 No Unknown 3-30 00:00: 00 Dose 2022-0 No Unknown 3-30 00:00: 00 Dose 2022-0 No Unknown 3-30 00:00: 00 Dose 2022-0 No Unknown 3-30 00:00: 00 Dose 2022-0 No Unknown 3-30 00:00: 00 Dose 2022-0 No Unknown 3-30 00:00: 00 Dose 2022-0 No Unknown 3-30 00:00: 00 Dose 2-0 No Unknown 3-30 00:00: 00 Dose 2-0 No Unknown 3-30 00:00: 00 Dose 2-0 No Unknown 3-30 00:00: 00 Dose 2-0 No Unknown 3-30 00:00: 00 Dose 2-0 No Unknown 3-30 00:00: 00 Dose 2-0 No Unknown 3-30 00:00: 00 Dose 2-0 No Unknown 3-30 00:00: 00 Dose 2-0 No Unknown 3-30 00:00: 00 Dose 2-0 No Unknown 3-30 00:00: 00 Dose 2-0 No Unknown 3-30 00:00: 00 Dose 2-0 No Unknown 3-30 00:00: 00 ProAir HFA 2-0 No 2mcg/ac 90 3-15 tuation mcg/actuati 00:00: on aerosol 00 inhaler ProAir HFA 2-0 No 2mcg/ac 90 3-15 tuation mcg/actuati 00:00: on aerosol 00 inhaler Claritin 10 2-0 No 1mg mg tablet 3-11 00:00: 00 Claritin 10 2-0 No 1mg mg tablet 3-11 00:00: 00 ProAir HFA 2-0 No 2mcg/ac 90 2-16 tuation mcg/actuati 00:00: on aerosol 00 inhaler ProAir HFA 2-0 No 2mcg/ac 90 2-16 tuation mcg/actuati 00:00: on aerosol 00 inhaler Claritin 10 2-0 No 1mg mg tablet 2-16 00:00: 00 Dose 2022-0 No Unknown 2-16 00:00: 00 benzonatate 2022-0 No 1mg 100 mg 2-16 capsule 00:00: 00 Claritin 10 2-0 No 1mg mg tablet 2-16 00:00: 00 Dose 2022-0 No Unknown 2-16 00:00: 00 benzonatate 2022-0 No 1mg 100 mg 2-16 capsule 00:00: 00 Bromfed DM 2020-1 No 10mg/5 2 mg-30 2-16 mL mg-10 mg/5 00:00: mL oral 00 syrup Bromfed DM 2020-1 No 5mg/5 2 mg-30 2-16 mL mg-10 mg/5 00:00: mL oral 00 syrup Bromfed DM 1-1 No 10mg/5 2 mg-30 2-16 mL mg-10 mg/5 00:00: mL oral 00 syrup Bromfed DM 2020-1 No 5mg/5 2 mg-30 2-16 mL mg-10 mg/5 00:00: mL oral 00 syrup nitrofurant 1-1 No 1mg oin 0-19 macrocrysta 00:00: l 100 mg 00 capsule nitrofurant 1-1 No 1mg oin 0-19 macrocrysta 00:00: l 100 mg 00 capsule triamterene 1-0 No 1mg 37.5 7-27 mg-hydrochl 00:00: orothiazide 00 25 mg capsule triamterene 2021-0 No 1mg 37.5 7-27 mg-hydrochl 00:00: orothiazide 00 25 mg capsule triamterene 2021-0 No 1mg 37.5 7-27 mg-hydrochl 00:00: orothiazide 00 25 mg capsule triamterene 2021-0 No 1mg 37.5 7-27 mg-hydrochl 00:00: orothiazide 00 25 mg capsule azithromyci 2021-0 No mg n 250 mg 7-20 tablet 00:00: 00 Bromfed DM 1-0 No 5mg/5 2 mg-30 7-20 mL mg-10 mg/5 00:00: mL oral 00 syrup azithromyci 2021-0 No mg n 250 mg 7-20 tablet 00:00: 00 Bromfed DM 2021-0 No 5mg/5 2 mg-30 7-20 mL mg-10 mg/5 00:00: mL oral 00 syrup meloxicam 2020-0 No 1mg 7.5 mg 5-01 tablet 00:00: 00 triamterene 2021-0 No 1mg 37.5 5-01 mg-hydrochl 00:00: orothiazide 00 25 mg capsule meloxicam 1-0 No 1mg 7.5 mg 5-01 tablet 00:00: 00 triamterene 1-0 No 1mg 37.5 5-01 mg-hydrochl 00:00: orothiazide 00 25 mg capsule meloxicam 2020-0 No 1mg 7.5 mg 4-30 tablet 00:00: 00 triamterene 1-0 No 1mg 37.5 4-30 mg-hydrochl 00:00: orothiazide 00 25 mg capsule meloxicam 2020-0 No 1mg 7.5 mg 4-30 tablet 00:00: 00 triamterene 1-0 No 1mg 37.5 4-30 mg-hydrochl 00:00: orothiazide 00 25 mg capsule metformin 2020-0 No 1mg ER 500 mg 1-31 24 hr 00:00: tablet,exte 00 nded release (gastric) Vitamin D3 2020-0 No 1(1,000 25 mcg 1-31 unit) (1,000 00:00: unit) 00 tablet metformin 2020-0 No 1mg ER 500 mg 1-31 24 hr 00:00: tablet,exte 00 nded release (gastric) Vitamin D3 2020-0 No 1(1,000 25 mcg 1-31 unit) (1,000 00:00: unit) 00 tablet hydrochloro 2020-0 No 1mg thiazide 25 1-29 mg tablet 00:00: 00 meloxicam 1-0 No 1mg 7.5 mg 1-29 tablet 00:00: 00 hydrochloro 1-0 No 1mg thiazide 25 1-29 mg tablet 00:00: 00 meloxicam 1-0 No 1mg 7.5 mg 1-29 tablet 00:00: 00 predniSONE 1-0 Yes [id number] 20mg Take 1 Univers 20 mg 1-02 tablet by ity of tablet 00:00: mouth [place] 00 daily. Medical Branch acetaminoph Yes [id number] 1{tbl} Take 1-2 Univers en-codeine 1-02 tablets by ity of 300-30 mg 00:00: mouth [place] tablet 00 every 6 Medical (six) Branch hours as needed for Pain (scale 4-6). Indication s: acute pain predniSONE Yes [id number] 20mg Take 1 Univers 20 mg 1-02 tablet by ity of tablet 00:00: mouth [place] 00 daily. Medical Branch acetaminoph Yes [id number] 1{tbl} Take 1-2 Univers en-codeine 1-02 tablets by ity of 300-30 mg 00:00: mouth [place] tablet 00 every 6 Medical (six) Branch hours as needed for Pain (scale 4-6). Indication s: acute pain predniSONE Yes [id number] 20mg Take 1 Univers 20 mg 1-02 tablet by ity of tablet 00:00: mouth [place] 00 daily. Medical Branch acetaminoph Yes [id number] 1{tbl} Take 1-2 Univers en-codeine 1-02 tablets by ity of 300-30 mg 00:00: mouth [place] tablet 00 every 6 Medical (six) Branch hours as needed for Pain (scale 4-6). Indication s: acute pain predniSONE Yes [id number] 20mg Take 1 Univers 20 mg 1-02 tablet by ity of tablet 00:00: mouth [place] 00 daily. Medical Branch acetaminoph Yes [id number] 1{tbl} Take 1-2 Univers en-codeine 1-02 tablets by ity of 300-30 mg 00:00: mouth [place] tablet 00 every 6 Medical (six) Branch hours as needed for Pain (scale 4-6). Indication s: acute pain predniSONE Yes [id number] 20mg Take 1 Univers 20 mg 1-02 tablet by ity of tablet 00:00: mouth [place] 00 daily. Medical Branch acetaminoph Yes [id number] 1{tbl} Take 1-2 Univers en-codeine 1-02 tablets by ity of 300-30 mg 00:00: mouth [place] tablet 00 every 6 Medical (six) Branch hours as needed for Pain (scale 4-6). Indication s: acute pain metformin 2020-0 No 1mg 500 mg 5-26 tablet 00:00: 00 triamterene 2020-0 No 1mg 37.5 5-26 mg-hydrochl 00:00: orothiazide 00 25 mg capsule metformin 2020-0 No 1mg 500 mg 5-26 tablet 00:00: 00 triamterene 2020-0 No 1mg 37.5 5-26 mg-hydrochl 00:00: orothiazide 00 25 mg capsule buspirone 2020-0 No 1mg 10 mg 4-06 tablet 00:00: 00 buspirone 2020-0 No 1mg 10 mg 4-06 tablet 00:00: 00 metformin 2020-0 No 1mg 500 mg 3-14 tablet 00:00: 00 metformin 2020-0 No 1mg 500 mg 3-14 tablet 00:00: 00 triamterene 2020-0 No 1mg 37.5 3-13 mg-hydrochl 00:00: orothiazide 00 25 mg capsule triamterene 2020-0 No 1mg 37.5 3-13 mg-hydrochl 00:00: orothiazide 00 25 mg capsule ibuprofen 2020-0 Yes [id number] 800mg Take 1 Univers 800 mg 1-10 100 tablet by ity of tablet 00:00: mouth [place] 00 every 8 Medical (eight) Branch hours. acetaminoph 2020-0 Yes [id number] 1{tbl} Take 1-2 Univers en-codeine 1-10 100 tablets by ity of 300-30 mg 00:00: mouth [place] tablet 00 every 4 Medical (four) Branch hours as needed for Pain (scale 4-6). ibuprofen 2020-0 Yes [id number] 800mg Take 1 Univers 800 mg 1-10 100 tablet by ity of tablet 00:00: mouth [place] 00 every 8 Medical (eight) Branch hours. acetaminoph 2020-0 Yes [id number] 1{tbl} Take 1-2 Univers en-codeine 1-10 100 tablets by ity of 300-30 mg 00:00: mouth [place] tablet 00 every 4 Medical (four) Branch hours as needed for Pain (scale 4-6). ibuprofen 2020-0 Yes [id number] 800mg Take 1 Univers 800 mg 1-10 100 tablet by ity of tablet 00:00: mouth [place] 00 every 8 Medical (eight) Branch hours. acetaminoph 2020-0 Yes [id number] 1{tbl} Take 1-2 Univers en-codeine 1-10 100 tablets by ity of 300-30 mg 00:00: mouth [place] tablet 00 every 4 Medical (four) Branch hours as needed for Pain (scale 4-6). ibuprofen 2020-0 Yes [id number] 800mg Take 1 Univers 800 mg 1-10 100 tablet by ity of tablet 00:00: mouth [place] 00 every 8 Medical (eight) Branch hours. ibuprofen 2020-0 Yes [id number] 800mg Take 1 Univers 800 mg 1-10 100 tablet by ity of tablet 00:00: mouth [place] 00 every 8 Medical (eight) Branch hours. acetaminoph 2020-0 Yes [id number] 1{tbl} Take 1-2 Univers en-codeine 1-10 100 tablets by ity of 300-30 mg 00:00: mouth [place] tablet 00 every 4 Medical (four) Branch hours as needed for Pain (scale 4-6). acetaminoph 2020-0 Yes [id number] 1{tbl} Take 1-2 Univers en-codeine 1-10 100 tablets by ity of 300-30 mg 00:00: mouth [place] tablet 00 every 4 Medical (four) Branch hours as needed for Pain (scale 4-6). Vital Signs Vital Name Observation Time Observation Value Comments Source Diastolic blood 2022-08-18 01:00:00 92 mm[Hg] [facility] [place] Heart rate 2022-08-18 01:00:00 96 /min [facility] Respiratory rate 2022-08-18 01:00:00 18 /min [facility] Oxygen saturation in 2022-08-18 01:00:00 99 /min [facility] Arterial blood by [facility] Pulse oximetry Branch Systolic blood 2022-08-18 01:00:00 145 mm[Hg] [facility] Body temperature 2022-08-18 00:20:00 36.44 Hemal[place] [facility] Body height 2022-08-18 00:20:00 170.2 cm [facility] Body weight 2022-08-18 00:20:00 146.512 kg [facility] BMI 2022-08-18 00:20:00 50.59 kg/m2 [facility] Systolic blood 2022-08-11 19:05:00 181 mm[Hg] Univer sity of pressure [place] [facility] Diastolic blood 2022-08-11 19:05:00 99 mm[Hg] Unive rsity of pressure [place] [facility] Heart rate 2022-08-11 19:05:00 90 /min [facility]i ty of [place] [facility] Respiratory rate 2022-08-11 19:05:00 15 /min Univ ers[facility] [place] [facility] Oxygen saturation in 2022-08-11 19:05:00 97 /min University of Arterial blood by [place] [employer] jeff Pulse oximetry Branch Body temperature 2022-08-11 17:56:00 36.89 [place] Univ [facility] [place] [facility] Body height 2022-08-11 17:56:00 170.2 cm [facility] [place] [facility] Body weight 2022-08-11 17:56:00 145.151 kg [facility] [place] [facility] BMI 2022-08-11 17:56:00 50.12 kg/m2 [facility] [place] [facility] Systolic blood 2022-06-21 03:00:00 141 mm[Hg] Univer sity of pressure [place] [facility] Diastolic blood 2022-06-21 03:00:00 78 mm[Hg] Unive rsity of pressure [place] [facility] Heart rate 2022-06-21 03:00:00 89 /min [facility]i [facility] [place] [facility] Body temperature 2022-06-21 03:00:00 36.11 [place] Univ [facility] [place] [facility] Respiratory rate 2022-06-21 03:00:00 20 /min Univ [facility] [place] [facility] Body height 2022-06-21 03:00:00 170.2 cm [facility] [place] [facility] Body weight 2022-06-21 03:00:00 145.151 kg [facility] [place] [facility] BMI 2022-06-21 03:00:00 50.12 kg/m2 [facility] [place] [facility] Oxygen saturation in 2022-06-21 03:00:00 100 /min University of Arterial blood by [place] [employer] jeff Pulse oximetry Branch BP Systolic 2022-07-07 15:40:00 129 mm[Hg] BP Diastolic 2022-07-07 15:40:00 83 mm[Hg] Weight Measured 2022-07-07 15:40:00 340.00 pounds Height Measured 2022-07-07 15:40:00 67.79 inches Body Temperature 2022-07-07 15:40:00 98.40 degrees Heart Rate 2022-07-07 15:40:00 84.00 /min Respiratory Rate 2022-07-07 15:40:00 18.00 /min BP Systolic 2022-06-30 16:05:00 160 mm[Hg] BP Diastolic 2022-06-30 16:05:00 104 mm[Hg] Weight Measured 2022-06-30 16:05:00 352.20 pounds Height Measured 2022-06-30 16:05:00 67.79 inches Body Temperature 2022-06-30 16:05:00 98.00 degrees Heart Rate 2022-06-30 16:05:00 83.00 /min Respiratory Rate 2022-06-30 16:05:00 BP Systolic 2022-04-07 16:08:00 141 mm[Hg] BP Diastolic 2022-04-07 16:08:00 79 mm[Hg] Weight Measured 2022-04-07 16:08:00 349.20 pounds Height Measured 2022-04-07 16:08:00 67.79 inches Body Temperature 2022-04-07 16:08:00 98.30 degrees Heart Rate 2022-04-07 16:08:00 98.00 /min Respiratory Rate 2022-04-07 16:08:00 BP Systolic 2022-01-19 13:45:00 142 mm[Hg] BP Diastolic 2022-01-19 13:45:00 84 mm[Hg] Weight Measured 2022-01-19 13:45:00 356.80 pounds Height Measured 2022-01-19 13:45:00 67.79 inches Body Temperature 2022-01-19 13:45:00 98.00 degrees Heart Rate 2022-01-19 13:45:00 87.00 /min Respiratory Rate 2022-01-19 13:45:00 16.00 /min BP Systolic 2022-01-18 11:28:00 150 mm[Hg] BP Diastolic 2022-01-18 11:28:00 97 mm[Hg] Weight Measured 2022-01-18 11:28:00 359.40 pounds Height Measured 2022-01-18 11:28:00 67.79 inches Body Temperature 2022-01-18 11:28:00 98.10 degrees Heart Rate 2022-01-18 11:28:00 98.10 /min Respiratory Rate 2022-01-18 11:28:00 17.00 /min BP Systolic 2021-12-07 19:44:00 BP Diastolic 2021-12-07 19:44:00 Weight Measured 2021-12-07 19:44:00 340.00 pounds Height Measured 2021-12-07 19:44:00 67.79 inches Body Temperature 2021-12-07 19:44:00 Heart Rate 2021-12-07 19:44:00 Respiratory Rate 2021-12-07 19:44:00 BP Systolic 2021-08-09 13:04:00 BP Diastolic 2021-08-09 13:04:00 Weight Measured 2021-08-09 13:04:00 350.00 pounds Height Measured 2021-08-09 13:04:00 67.76 inches Body Temperature 2021-08-09 13:04:00 Heart Rate 2021-08-09 13:04:00 Respiratory Rate 2021-08-09 13:04:00 BP Systolic 2021-05-17 09:44:00 153 mm[Hg] BP Diastolic 2021-05-17 09:44:00 94 mm[Hg] Weight Measured 2021-05-17 09:44:00 360.40 pounds Height Measured 2021-05-17 09:44:00 67.76 inches Body Temperature 2021-05-17 09:44:00 98.10 degrees Heart Rate 2021-05-17 09:44:00 90.00 /min Respiratory Rate 2021-05-17 09:44:00 16.00 /min BP Systolic 2020-11-19 08:17:00 149 mm[Hg] BP Diastolic 2020-11-19 08:17:00 101 mm[Hg] Weight Measured 2020-11-19 08:17:00 359.80 pounds Height Measured 2020-11-19 08:17:00 67.76 inches Body Temperature 2020-11-19 08:17:00 99.10 degrees Heart Rate 2020-11-19 08:17:00 74.00 /min Respiratory Rate 2020-11-19 08:17:00 16.00 /min BP Systolic 2020-01-02 09:26:00 151 mm[Hg] BP Diastolic 2020-01-02 09:26:00 98 mm[Hg] Weight Measured 2020-01-02 09:26:00 359.80 pounds Height Measured 2020-01-02 09:26:00 67.76 inches Body Temperature 2020-01-02 09:26:00 98.00 degrees Heart Rate 2020-01-02 09:26:00 73.00 /min Respiratory Rate 2020-01-02 09:26:00 BP Systolic 2018-11-06 09:00:00 126 mm[Hg] BP Diastolic 2018-11-06 09:00:00 81 mm[Hg] Weight Measured 2018-11-06 09:00:00 350.00 pounds Height Measured 2018-11-06 09:00:00 67.20 inches Body Temperature 2018-11-06 09:00:00 98.30 degrees Heart Rate 2018-11-06 09:00:00 74.00 /min Respiratory Rate 2018-11-06 09:00:00 18.00 /min Procedures Procedure Date / Time Performed Performing Clinician Sour e POCT TEST 2022-08-18 00:37:00 Christi Kauffman [facility] COMP. METABOLIC PANEL 2022-08-18 00:34:00 Christi Kauffman [facility] ([id number]) [facility] CBC WITH DIFF 2022-08-18 00:34:00 Christi Kauffman [facility] CONSENT/REFUSAL FOR 2022-08-18 00:06:34 Doctor Unassigned, No Un [facility] DIAGNOSIS AND Name [facility] Branch TREATMENT POCT TEST 2022-08-11 18:27:00 Eleni Oglesby [facility] COMP. METABOLIC PANEL 2022-08-11 18:25:00 Eleni Oglesby [facility] ([id number]) [facility] CBC WITH DIFF 2022-08-11 18:25:00 Eleni Oglesby [facility] URINALYSIS 2022-08-11 18:25:00 Mendel, Eleni [facility] CONSENT/REFUSAL FOR 2022-08-11 17:47:30 Doctor Unassigned, No [facility] [place] DIAGNOSIS AND Name Medical Branch TREATMENT NOTICE OF PRIVACY 2022-06-21 02:51:03 Doctor Unassigned, No [facility] [place] [facility] Name Medical Branch CONSENT/REFUSAL FOR 2022-06-21 02:50:32 Doctor Unassigned, No [facility] [place] DIAGNOSIS AND Name Medical Branch TREATMENT Ekg W/ At Least 12 2022-01-19 00:00:00 Leads W/ I r Plan of Care Planned Activity Planned Date Details Comments Source Goal Plan of Care Note [code = 41085-7] Goal Plan of Care Note [code = 15791-4] Goal Plan of Care Note [code = 44130-2] Goal Plan of Care Note [code = 52445-2] Goal Plan of Care Note [code = 22633-4] Goal Plan of Care Note [code = 95706-5] Goal Plan of Care Note [code = 11489-4] Goal Plan of Care Note [code = 34185-1] Goal Plan of Care Note [code = 38811-7] Goal Plan of Care Note [code = 91230-3] Goal Plan of Care Note [code = 36920-4] Goal Plan of Care Note [code = 67052-4] Goal Plan of Care Note [code = 56825-9] Goal Plan of Care Note [code = 79156-9] Goal Plan of Care Note [code = 80855-6] Goal Plan of Care Note [code = 82914-3] Goal Plan of Care Note [code = 94342-7] Goal Plan of Care Note [code = 33180-2] Goal Plan of Care Note [code = 59496-7] Goal Plan of Care Note [code = 65360-5] Goal Plan of Care Note [code = 71240-2] Goal Plan of Care Note [code = 34476-3] Goal Plan of Care Note [code = 73575-5] Goal Plan of Care Note [code = 69685-5] Goal Plan of Care Note [code = 19831-8] Goal Plan of Care Note [code = 14324-9] Goal Plan of Care Note [code = 78951-7] Goal Plan of Care Note [code = 59315-4] Goal Plan of Care Note [code = 10931-2] Goal Plan of Care Note [code = 03404-4] Goal Plan of Care Note [code = 26017-6] Goal Plan of Care Note [code = 66250-1] Goal Plan of Care Note [code = 31708-0] Goal Plan of Care Note [code = 76525-1] Goal Plan of Care Note [code = 71211-4] Goal Plan of Care Note [code = 69567-8] Goal Plan of Care Note [code = 94123-2] Goal Plan of Care Note [code = 21115-2] Goal Plan of Care Note [code = 35138-5] Goal Plan of Care Note [code = 08836-3] Goal Plan of Care Note [code = 66554-1] Goal Plan of Care Note [code = 18848-7] Goal Plan of Care Note [code = 72532-3] Goal Plan of Care Note [code = 61531-3] Goal Plan of Care Note [code = 62092-2] Goal Plan of Care Note [code = 84094-9] Goal Plan of Care Note [code = 68385-0] Goal Plan of Care Note [code = 08570-3] Goal Plan of Care Note [code = 60570-3] Goal Plan of Care Note [code = 45282-3] Goal Plan of Care Note [code = 82235-7] Goal Plan of Care Note [code = 40912-2] Goal Plan of Care Note [code = 39091-3] Goal Plan of Care Note [code = 20329-4] Goal Plan of Care Note [code = 75981-0] Goal Plan of Care Note [code = 99899-3] Goal Plan of Care Note [code = 44796-0] Goal Plan of Care Note [code = 19589-9] Goal Plan of Care Note [code = 27179-1] Goal Plan of Care Note [code = 32398-7] Goal Plan of Care Note [code = 27361-3] Goal Plan of Care Note [code = 66261-2] Goal Plan of Care Note [code = 57233-2] Goal Plan of Care Note [code = 32194-8] Goal Plan of Care Note [code = 47834-3] Goal Plan of Care Note [code = 69710-4] Encounters Start End Encounter Admission Attending Care Care Encounter Source Date/Time Date/Time Type Type Clinicians Facility Department ID 2022-08-21 2022-08-21 [facility] [id number] Univers 00:00:00 00:00:00 Yasmin Duarte [facility] [id number] ity [facility] acute hospital [id number] Garo as MATERNAL [id number] Med ical & CHILD [address] [place] [address] 2022-08-17 2022-08-17 Emergency X [facility] ERT [id number] Univers 19:14:00 22:03:00 [facility] 2022-08-17 [facility] [id number] Univers 19:14:00 22:03:00 Christi Ortiz [place] [id number] i [facility] [id number] [place] [id number] [address] 2022-08-11 2022-08-11 Emergency X [facility] ERT [id number] Univers 12:57:00 14:52:00 [facility]22-[facility]-11 2022-08-11 [facility] [id number] Univers 12:57:00 14:52:00 Eleni Salina [facility] 350.1.13.10 ity [facility] 4.2.7.2.[place] [id number] [address] 2022-07-07 2022-07-07 Outpatient [id number]- [id number]-[id number] 00:00:00 00:00:00 Visit [id number]-4194-a -yg6y-75c [id number]-[id number] 858eaf 2022-06-30 2022-06-30 Outpatient [id number]- [id number] e7 6gv387-[id number] 00:00:00 00:00:00 Visit g3xo-70n5 3dd-42a9-8 -38c2-8za [id number] [id number] 16b9f0 2022-06-20 2022-06-20 Emergency [facility]RT [id number] Univers 22:02:00 22:56:00 MAT silviaashtyn [facility] 2022-06-20 2022-06-20 Emergency [facility] [id number] Univers 22:02:00 22:56:00 Mat ADAMS 350.1.13.10 i ty of [place] 4.2.7.2.686 [facility] [phone] [facility] [address] [place] 2022-06-20 2022-06-20 Orders Doctor IGOR [id number] [id number] Univers 00:00:00 00:00:00 Only Unassigned, TRACY 350.1.13.10 ity of [place] [facility] 4.2.7.2.686 [place] [id number] [facility] [address] [place] 2020-10-23 2020-10-23 Emergency [facility] [id number] 11:49:00 14:51:00 Severino Paterson 350.1.13.10 [place] 4.2.7.2.686 [place] [id number] [facility] 2020-10-23 2020-10-23 Emergency [facility] ERT [id number] Univers 11:49:00 11:49:00 SEVERINO [facility] Results Test Description Test Time Test Comments Results Result Comments Source CBC WITH DIFF 2022-08-18 01:06:25 Test Item Value Reference Range Interpretation Comme nts WBC (test code = 6690-2) See_Comment [A utomated message] The system which Clariture nerated this result transmit leonid reference range: 4.30 - 1 1.10 10*3/?L. The reference r fabi was not used to interpr et this result as normal/abnor mal. RBC (test code = 789-8) See_Comment [Au tomated message] The system which Clariture nerated this result transmit leonid reference range: 3.93 - 5 .25 10*6/?L. The reference r fabi was not used to interpr et this result as normal/abnor mal. HGB (test code = 718-7) 12.4 g/dL 11.6-15.0 HCT (test code = 4544-3) 38.0 % 35.7-45.2 MCV (test code = 787-2) 87.6 fL 80.6-95.5 MCH (test code = 785-6) 28.6 pg 25.9-32.8 MCHC (test code = 786-4) 32.6 g/dL 31.6-35.1 RDW-SD (test code = 24838-3) 53.1 fL 39.0-49.9 H RDW-CV (test code = 788-0) 16.8 % 12.0-15.5 H PLT (test code = 777-3) See_Comment H [Au tomated message] The system which ge nerated this result transmit leonid reference range: 166 - 35 8 10*3/?L. The reference range was not used to interpret th is result as normal/abnormal . MPV (test code = 63541-7) 10.0 fL 9.5-12.9 NRBC/100 WBC (test code = See_Comment [ Automated message] The [id number]) system which ge nerated this result transmit leonid reference range: 0.0 - 10 .0 /100 WBCs. The reference r fabi was not used to interpr et this result as normal/abnor mal. NRBC x10^3 (test code = See_Comment [Au tomated message] The [id number]) system which Clariture nerated this result transmit leonid reference range: 10*3/?L. The reference range was not u sed to interpret this result as normal/abnormal . GRAN MAT (NEUT) % (test code 40.4 % = 770-8) IMM GRAN % (test code = 0.30 % 3587999708) LYMPH % (test code = 736-9) 48.0 % MONO % (test code = 5905-5) 9.9 % EOS % (test code = 713-8) 0.9 % BASO % (test code = 706-2) 0.5 % GRAN MAT x10^3(ANC) (test 3.15 10*3/uL 1.88-7.09 code = 8844660621) IMM GRAN x10^3 (test code = 0.00-0.06 5223161259) LYMPH x10^3 (test code = 3.74 10*3/uL 1.32-3.29 H 731-0) MONO x10^3 (test code = 0.77 10*3/uL 0.33-0.92 742-7) EOS x10^3 (test code = 0.07 10*3/uL 0.03-0.39 711-2) BASO x10^3 (test code = 0.04 10*3/uL 0.01-0.07 704-7) Lab Interpretation (test Abnormal code = 30797-9) [facility] ([id number])2022-08-18 01:03:23 Test Item Value Reference Range Interpretation Comments NA (test code = 142 mmol/L 135-145 4569822940) K (test code = 3.9 mmol/L 3.5-5.0 2538324890) CL (test code = 103 mmol/L 98-108 9780204255) CO2 TOTAL (test code = 27 mmol/L 23-31 0095068419) AGAP (test code = 2-16 9752318018) BUN (test code = 13 mg/dL 7-23 0842296597) GLUCOSE (test code = 140 mg/dL 70-110 H 1136356643) CREATININE (test code = 0.95 mg/dL 0.50-1.04 8474535948) TOTAL BILI (test code = 0.3 mg/dL 0.1-1.1 1030864947) CALCIUM (test code = 9.3 mg/dL 8.6-10.6 2720710658) T PROTEIN (test code = 8.0 g/dL 6.3-8.2 1339351534) ALBUMIN (test code = 4.3 g/dL 3.5-5.0 0949088019) ALK PHOS (test code = 73 U/L 34-122 8065815594) ALTv (test code = 26 U/L 5-35 1742-6) AST(SGOT) (test code = 31 U/L 13-40 4601080480) eGFR (test code = mL/min/1.73m2 5643335189) EVA (test code = EVA) Association of Glomerular Filtration Rate (GFR) and Staging of Kidney Disease* + --+ --+ ------+| GFR (mL/min/1.73 m2) ?| With Kidney Damage ?| ?Without Kidney Damage+ --------+ --------+ +| ?>90 ?| ?Stage one ?| ? Normal ?+ ---+ ---+ -------+| ?60-89 ?| ?Stage two ?| ? Decreased GFR ? + --+ --+ ------+| ?30-59 ?| ?Stage three ?| ? Stage three ? + --+ --+ ------+| ?15-29 ?| ?Stage four ? | ? Stage four ?+ ---+ ---+ -------+| ?<15 (or dialysis) ? ?| ?Stage five ? | ? Stage five ?+ ---+ ---+ -------+ *Each stage assumes the associated GFR level has been in effect for at least three months. ?Stages 1 to 5, with or without kidney disease, indicate chronic kidney disease. Notes: Determination of stages one and two (with eGFR >59mL/min/1.73 m2) requires estimation of kidney damage for at least three months as defined by structural or functional abnormalities of the kidney, manifested by either:Pathological abnormalities or Markers of kidney damage (including abnormalities in the composition of the blood or urine or abnormalities in imaging tests). Lab Interpretation Abnormal (test code = 73585-1) [facility] [id number] 00:37:00 Test Item Value Reference Range Interpretation Comments POCT PREG (test code = 1605) negative On board controls acceptable with present C Line (test code = 3574) POCT PREG LOT # (test code = 3575) [id number] POCT PREG TEST DATE (test 12/20/2023 code = 3576) Lab Interpretation (test code = Normal 96248-5) [facility]. METABOLIC PANEL ([id number])2022-08-11 18:49:02 Test Item Value Reference Range Interpretation Comments NA (test code = 139 mmol/L 135-145 4967195357) K (test code = 4.4 mmol/L 3.5-5 7541748973) CL (test code = 105 mmol/L 98-108 5468403655) CO2 TOTAL (test code = 27 mmol/L 23-31 3855957791) AGAP (test code = 2-16 4183567671) BUN (test code = 6 mg/dL 7-23 L 4362370948) GLUCOSE (test code = 140 mg/dL 70-110 H 1407290654) CREATININE (test code = 0.64 mg/dL 0.5-1.04 2740181689) TOTAL BILI (test code = 0.3 mg/dL 0.1-1.9 4668754564) CALCIUM (test code = 8.5 mg/dL 8.6-10.6 L 7866373866) T PROTEIN (test code = 6.9 g/dL 6.3-8.2 2941372785) ALBUMIN (test code = 3.7 g/dL 3.5-5 1145485075) ALK PHOS (test code = 66 U/L 34-122 5742012155) ALTv (test code = 20 U/L 5-35 1742-6) AST(SGOT) (test code = 28 U/L 13-40 4347341958) eGFR (test code = mL/min/1.73m2 8350171171) EVA (test code = EVA) Association of Glomerular Filtration Rate (GFR) and Staging of Kidney Disease* + --+ --+ ------+| GFR (mL/min/1.73 m2) ?| With Kidney Damage ?| ?Without Kidney Damage+ --------+ --------+ +| ?>90 ?| ?Stage one ?| ? Normal ?+ ---+ ---+ -------+| ?60-89 ?| ?Stage two ?| ? Decreased GFR ? + --+ --+ ------+| ?30-59 ?| ?Stage three ?| ? Stage three ? + --+ --+ ------+| ?15-29 ?| ?Stage four ? | ? Stage four ?+ ---+ ---+ -------+| ?<15 (or dialysis) ? ?| ?Stage five ? | ? Stage five ?+ ---+ ---+ -------+ *Each stage assumes the associated GFR level has been in effect for at least three months. ?Stages 1 to 5, with or without kidney disease, indicate chronic kidney disease. Notes: Determination of stages one and two (with eGFR >59mL/min/1.73 m2) requires estimation of kidney damage for at least three months as defined by structural or functional abnormalities of the kidney, manifested by either:Pathological abnormalities or Markers of kidney damage (including abnormalities in the composition of the blood or urine or abnormalities in imaging tests). Lab Interpretation Abnormal (test code = 38758-3) [facility] WITH [id number] 18:45:43 Test Item Value Reference Range Interpretation Comments WBC (test code = See_Comment [Automated 6690-2) message] The sy stem which generated this result transmitted reference range : 4.30 - 11.10 10*3/?L. The reference range was not used to interpret this result as normal/abnormal . RBC (test code = See_Comment L [Automated 789-8) message] The sy stem which generated this result transmitted reference range : 3.93 - 5.25 10*6/?L. The reference range was not used to interpret this result as normal/abnormal . HGB (test code = 11.2 g/dL 11.6-15 L 718-7) HCT (test code = 33.5 % 35.7-45.2 L 4544-3) MCV (test code = 88.9 fL 80.6-95.5 787-2) MCH (test code = 29.7 pg 25.9-32.8 785-6) MCHC (test code = 33.4 g/dL 31.6-35.1 786-4) RDW-SD (test code = 55.8 fL 39-49.9 H 27207-1) RDW-CV (test code = 17.2 % 12-15.5 H 788-0) PLT (test code = See_Comment H [Automated 777-3) message] The sy stem which generated this result transmitted reference range : 166 - 358 10*3/ ?L. The reference r fabi was not used to interpret this result as normal/abnormal . MPV (test code = 10.0 fL 9.5-12.9 63355-0) NRBC/100 WBC (test See_Comment [Automat ed code = 5649829255) message] The system which generated this result transmitted reference range : 0.0 - 10.0 /100 WBCs. The refer ence range was not u sed to interpret th is result as normal/abnormal . NRBC x10^3 (test code See_Comment [Auto mated = 5720340411) message] The s ystem which generated this result transmitted reference range : 10*3/?L. The reference range was not used to interpret this result as normal/abnormal . GRAN MAT (NEUT) % 58.9 % (test code = 770-8) IMM GRAN % (test code 0.30 % = 3224455857) LYMPH % (test code = 31.3 % 736-9) MONO % (test code = 7.8 % 5905-5) EOS % (test code = 1.3 % 713-8) BASO % (test code = 0.4 % 706-2) GRAN MAT x10^3(ANC) 4.43 10*3/uL 1.88-7.09 (test code = 0019675657) IMM GRAN x10^3 (test 0-0.06 code = 9597537068) LYMPH x10^3 (test code 2.36 10*3/uL 1.32-3.29 = 731-0) MONO x10^3 (test code 0.59 10*3/uL 0.33-0.92 = 742-7) EOS x10^3 (test code = 0.10 10*3/uL 0.03-0.39 711-2) BASO x10^3 (test code 0.03 10*3/uL 0.01-0.07 = 704-7) Lab Interpretation Abnormal (test code = 76462-3) [facility] [id number] 18:27:00 Test Item Value Reference Range Interpretation Comments POCT PREG (test code = 1605) negative On board controls acceptable with positive C Line (test code = 3574) POCT PREG LOT # (test code = 3575) [id number] POCT PREG TEST DATE (test 12-20-2023 code = 3576) Lab Interpretation (test code = Normal 72540-8) [facility] MARIAJOSE CAD [id number] 08:05:09Name: Megan : 1980 Sex: F - SCR MAMM BILATERAL MARIAJOSE CAD DIGITALBILATERAL FIRST EVER DIGITAL SCREENING MAMMOGRAM 3D/2D WITH CAD: 03/17/2022LINICAL: Asymptomatic. Digital breast tomosynthesis was performed in addition to routine CC and MLO views. Current mammographic images were evaluated by [employer] CAD (computer-aided detection) software. No prior exams were available for comparison. There are scattered fibroglandular tissues in both breasts. No suspicious mass, architectural distortion, malignant type calcification, or lymph node abnormality detected. IMPRESSION: NEGATIVEThere is no mammographic evidence of malignancy. Resume annual screening mammography in one year. Fahad Tipton M.D. et/penrad:03/22/2022 08:05:09 [employer] Operator: Amada Moctezuma MM, [facility] Mammographyletter sent: BIRADS 1-2 Normal Mammogram BI-RADS: 1 NegativeHEMOGLOBIN [id number] 00:24:25 Test Item Value Reference Range Interpretation Comments HEMOGLOBIN A1c (test 6.8 % 4.2-5.6 H AMERIC AN DIABETES code = 73417) ASSOCIATION IDELINES FOR HGB A1C: PREDIABETES/INC REASED RISK . . . . . . . 5.7 -6.4% DIAGNOSIS OF DI ABETES . . . . . . . . . >=6 .5% WITH CONFIRMATION OR APPROPRIATE SYMPTOMS NOTE: ASSAY MAY BE AFFECTED BY HEMOGLOBINOPATH IES (SICKLE CELL ANEMIA, S- C DISEASE, OTHERS) OR WINDY FICIALLY LOWERED BY DECR EASED RED CELL SURVIVAL ( HEMOLYTIC ANEMIAS, BLOOD LOSS, ETC.). CONSIDER ALTERN ATE TESTING OR LABORATORY C ONSULTATION. HEMOGLOBIN [id number] 00:00:00 Test Item Value Reference Range Interpretation Comments HEMOGLOBIN A1c (test code = 59873) 6.8 % HEMOGLOBIN [id number] 00:00:00 Test Item Value Reference Range Interpretation Comments HEMOGLOBIN A1c (test code = 66156) 6.8 % HEMOGLOBIN [id number] 00:00:00 Test Item Value Reference Range Interpretation Comments HEMOGLOBIN A1c (test code = 25469) 6.8 % HEMOGLOBIN [id number] 00:00:00 Test Item Value Reference Range Interpretation Comments HEMOGLOBIN A1c (test code = 92577) 6.8 % HEMOGLOBIN [id number] 00:00:00 Test Item Value Reference Range Interpretation Comments HEMOGLOBIN A1c (test code = 25557) 6.8 % HEMOGLOBIN [id number] 00:00:00 Test Item Value Reference Range Interpretation Comments HEMOGLOBIN A1c (test code = 08132) 6.8 % TSH, THIRD [id number] 06:13:08 Test Item Value Reference Range Interpretation Comments TSH, THIRD GENERATION (test code 1.210 UIU/ML 0.400-4.100 = 2821) [id number] 05:50:43 Test Item Value Reference Range Interpretation Comments NT-proBNP 145 PG/ML SEE BELOW If NT-ProBNP i s less than 300 (test code = PG/ML, heart fa ilure is unlikely 89347) for allages. Age............ .....Heart Failure Likely <50 Years.......... .>=450 PG/ML 50-75 Years.... .....>=900 PG/ML > 75 Years..... .....>=1800 PG/ML Methodology: Ro gonzalo Karis Electrochemilum inescense Immunoassay UN LESS OTHERWISE INDICATED, ALL TESTING PERFORMED ATCLINICAL PATH [employer] [address] [place] [address] 4 DEAF TEACHER: Letha BAJWA [id number] CAP ACCREDITATION N O. [id number] LIPID [id number] 04:29:21 Test Item Value Reference Range Interpretation Comments CHOLESTEROL (test 160 MG/DL <200 code = 2210) TRIGLYCERIDES (test 154 MG/DL <150 H code = 2232) HDL CHOLESTEROL (test 56 MG/DL >39 code = 2220) CALC LDL CHOL (test 78 MG/DL <100 NOTE: C ALCULATED LDL code = 2237) IS BASED ON DYLAN-FERRELL METHOD WHICHINCLUDES ADJUSTABLE TRIGLYCERIDE:VL DL CHOLESTEROL RAT IO.THIS FACTOR VARIES B Y MEASURED TRIGLY CERIDE AND NON-HDLCHOL ESTEROL CONCENTRATIONS WITH INCREASED CALCU LATED LDL SEENIN HIGH ER TRIGLYCERIDE OR LOWER NON-HDL SPECIME NS. FOR MOREINFORMATION , SEE CLIENT ANNOUNCE MENT AT [email or web address] RISK RATIO LDL/HDL 1.39 RATIO <3.22 (test code = 2238) COMPREHENSIVE METABOLIC [id number] 04:29:21 Test Item Value Reference Range Interpretation Comments GLUCOSE (test code = 95 MG/DL 70-99 2216) BUN (test code = 7 MG/DL 6-20 2207) CREATININE (test 0.80 MG/DL 0.60-1.30 code = 2214) eGFR (2020 CKD-EPI) 95 ML/MIN/1.73 >60 (test code = 53874) CALC BUN/CREAT (test 9 RATIO 6-28 code = 2235) SODIUM (test code = 141 MEQ/L 243-693 8494) POTASSIUM (test code 4.1 MEQ/L 3.5-5.4 = 2227) CHLORIDE (test code 104 MEQ/L 95-107 = 2214) CARBON DIOXIDE (test 26 MEQ/L 19-31 code = 2206) CALCIUM (test code = 9.2 MG/DL 8.5-10.5 2208) PROTEIN, TOTAL (test 7.7 G/DL 6.1-8.3 code = 2229) ALBUMIN (test code = 4.0 G/DL 3.5-5.2 2200) CALC GLOBULIN (test 3.7 G/DL 1.9-3.7 code = 2240) CALC A/G RATIO (test 1.1 RATIO 1.0-2.6 code = 2234) BILIRUBIN, TOTAL 0.2 MG/DL See_Comment [Automated message] (test code = 2207) The syste m which generated this result transmit leonid reference range : <=1.2. The refe rence range was not u sed to interpret th is result as normal/abnormal . ALKALINE PHOSPHATASE 85 U/L 40-113 (test code = 2204) AST (test code = 20 U/L 9-40 2218) ALT (test code = 21 U/L 5-40 2219) CBC W/AUTO DIFF WITH [id number] 03:09:17 Test Item Value Reference Range Interpretation Comments WBC (test code = 6.0 K/UL 3.5-11.0 1001) RBC (test code = 4.09 M/UL 3.80-5.40 1002) HEMOGLOBIN (test code 11.7 G/DL 11.5-15.5 = 1003) HEMATOCRIT (test code 35.2 % 34.0-45.0 = 1004) MCV (test code = 86.1 fL 80.0-99.0 1005) MCH (test code = 28.6 PG 25.0-33.0 1006) MCHC (test code = 33.2 G/DL 31.0-36.0 1007) RDW (test code = 17.6 % 11.5-15.0 H 1038) NEUTROPHILS (test 45.4 % code = 1008) LYMPHOCYTES (test 43.1 % code = 1010) MONOCYTES (test code 9.0 % = 1011) EOSINOPHILS (test 1.8 % code = 1012) BASOPHILS (test code 0.5 % = 1013) IMMATURE GRANULOCYTES 0.2 % (test code = 1036) NUCLEATED RBCS (test 0.0 /100 WBC'S See_Comment [Aut omated code = 1065) message] The sy stem which generated this result transmitted reference range : 0.0. The refere nce range was not u sed to interpret th is result as normal/abnormal . PLATELET COUNT (test 426 K/UL 130-400 H code = 1015) ABSOLUTE NEUTROPHILS 2.73 K/UL 1.50-7.50 (test code = 1066) ABSOLUTE LYMPHOCYTES 2.59 K/UL 1.00-4.00 (test code = 1067) ABSOLUTE MONOCYTES 0.54 K/UL 0.20-1.00 (test code = 1068) ABSOLUTE EOSINOPHILS 0.11 K/UL 0.00-0.50 (test code = 1040) ABSOLUTE BASOPHILS 0.03 K/UL 0.00-0.20 (test code = 1069) ABS IMMATURE 0.01 K/UL 0.00-0.10 GRANULOCYTES (test code = 1020) ABS NUCLEATED RBCS 0.00 K/UL 0.00-0.11 (test code = 38963) [id number] 00:00:00 Test Item Value Reference Range Interpretation Comments TSH, THIRD GENERATION (test code 1.210 UIU/ML = 2821) [id number] 00:00:00 Test Item Value Reference Range Interpretation Comments TSH, THIRD GENERATION (test code 1.210 UIU/ML = 2821) [id number] 00:00:00 Test Item Value Reference Range Interpretation Comments TSH, THIRD GENERATION (test code 1.210 UIU/ML = 2821) [id number] 00:00:00 Test Item Value Reference Range Interpretation Comments NT-proBNP (test code = 70103) 145 PG/ML [id number] 00:00:00 Test Item Value Reference Range Interpretation Comments NT-proBNP (test code = 33174) 145 PG/ML [id number] 00:00:00 Test Item Value Reference Range Interpretation Comments NT-proBNP (test code = 38614) 145 PG/ML CBC W/AUTO [id number] 00:00:00 Test Item Value Reference Range Interpretation Comments WBC (test code = 1001) 6.0 K/UL RBC (test code = 1002) 4.09 M/UL HEMOGLOBIN (test code = 1003) 11.7 G/DL HEMATOCRIT (test code = 1004) 35.2 % MCV (test code = 1005) 86.1 fL MCH (test code = 1006) 28.6 PG MCHC (test code = 1007) 33.2 G/DL RDW (test code = 1038) 17.6 % NEUTROPHILS (test code = 1008) 45.4 % LYMPHOCYTES (test code = 1010) 43.1 % MONOCYTES (test code = 1011) 9.0 % EOSINOPHILS (test code = 1012) 1.8 % BASOPHILS (test code = 1013) 0.5 % IMMATURE GRANULOCYTES (test 0.2 % code = 1036) NUCLEATED RBCS (test code = 0.0 /100WBC'S 1065) PLATELET COUNT (test code = 426 K/UL 1015) ABSOLUTE NEUTROPHILS (test code 2.73 K/UL = 1066) ABSOLUTE LYMPHOCYTES (test code 2.59 K/UL = 1067) ABSOLUTE MONOCYTES (test code = 0.54 K/UL 1068) ABSOLUTE EOSINOPHILS (test code 0.11 K/UL = 1040) ABSOLUTE BASOPHILS (test code = 0.03 K/UL 1069) ABS IMMATURE GRANULOCYTES (test 0.01 K/UL code = 1020) ABS NUCLEATED RBCS (test code = 0.00 K/UL 66909) CBC W/AUTO [id number] 00:00:00 Test Item Value Reference Range Interpretation Comments WBC (test code = 1001) 6.0 K/UL RBC (test code = 1002) 4.09 M/UL HEMOGLOBIN (test code = 1003) 11.7 G/DL HEMATOCRIT (test code = 1004) 35.2 % MCV (test code = 1005) 86.1 fL MCH (test code = 1006) 28.6 PG MCHC (test code = 1007) 33.2 G/DL RDW (test code = 1038) 17.6 % NEUTROPHILS (test code = 1008) 45.4 % LYMPHOCYTES (test code = 1010) 43.1 % MONOCYTES (test code = 1011) 9.0 % EOSINOPHILS (test code = 1012) 1.8 % BASOPHILS (test code = 1013) 0.5 % IMMATURE GRANULOCYTES (test 0.2 % code = 1036) NUCLEATED RBCS (test code = 0.0 /100WBC'S 1065) PLATELET COUNT (test code = 426 K/UL 1015) ABSOLUTE NEUTROPHILS (test code 2.73 K/UL = 1066) ABSOLUTE LYMPHOCYTES (test code 2.59 K/UL = 1067) ABSOLUTE MONOCYTES (test code = 0.54 K/UL 1068) ABSOLUTE EOSINOPHILS (test code 0.11 K/UL = 1040) ABSOLUTE BASOPHILS (test code = 0.03 K/UL 1069) ABS IMMATURE GRANULOCYTES (test 0.01 K/UL code = 1020) ABS NUCLEATED RBCS (test code = 0.00 K/UL 85200) CBC W/AUTO [id number] 00:00:00 Test Item Value Reference Range Interpretation Comments WBC (test code = 1001) 6.0 K/UL RBC (test code = 1002) 4.09 M/UL HEMOGLOBIN (test code = 1003) 11.7 G/DL HEMATOCRIT (test code = 1004) 35.2 % MCV (test code = 1005) 86.1 fL MCH (test code = 1006) 28.6 PG MCHC (test code = 1007) 33.2 G/DL RDW (test code = 1038) 17.6 % NEUTROPHILS (test code = 1008) 45.4 % LYMPHOCYTES (test code = 1010) 43.1 % MONOCYTES (test code = 1011) 9.0 % EOSINOPHILS (test code = 1012) 1.8 % BASOPHILS (test code = 1013) 0.5 % IMMATURE GRANULOCYTES (test 0.2 % code = 1036) NUCLEATED RBCS (test code = 0.0 /100WBC'S 1065) PLATELET COUNT (test code = 426 K/UL 1015) ABSOLUTE NEUTROPHILS (test code 2.73 K/UL = 1066) ABSOLUTE LYMPHOCYTES (test code 2.59 K/UL = 1067) ABSOLUTE MONOCYTES (test code = 0.54 K/UL 1068) ABSOLUTE EOSINOPHILS (test code 0.11 K/UL = 1040) ABSOLUTE BASOPHILS (test code = 0.03 K/UL 1069) ABS IMMATURE GRANULOCYTES (test 0.01 K/UL code = 1020) ABS NUCLEATED RBCS (test code = 0.00 K/UL 52627) LIPID [id number] 00:00:00 Test Item Value Reference Range Interpretation Comments CHOLESTEROL (test code = 2210) 160 MG/DL TRIGLYCERIDES (test code = 2232) 154 MG/DL HDL CHOLESTEROL (test code = 2220) 56 MG/DL CALC LDL CHOL (test code = 2237) 78 MG/DL RISK RATIO LDL/HDL (test code = 1.39 RATIO 2238) LIPID [id number] 00:00:00 Test Item Value Reference Range Interpretation Comments CHOLESTEROL (test code = 2210) 160 MG/DL TRIGLYCERIDES (test code = 2232) 154 MG/DL HDL CHOLESTEROL (test code = 2220) 56 MG/DL CALC LDL CHOL (test code = 2237) 78 MG/DL RISK RATIO LDL/HDL (test code = 1.39 RATIO 2238) COMPREHENSIVE METABOLIC [id number] 00:00:00 Test Item Value Reference Range Interpretation Comments GLUCOSE (test code = 2217) 95 MG/DL BUN (test code = 2208) 7 MG/DL CREATININE (test code = 2214) 0.80 MG/DL eGFR (2020 CKD-EPI) (test code 95 ML/MIN/1.73 = 23840) CALC BUN/CREAT (test code = 9 RATIO 2235) SODIUM (test code = 2231) 141 MEQ/L POTASSIUM (test code = 2228) 4.1 MEQ/L CHLORIDE (test code = 2215) 104 MEQ/L CARBON DIOXIDE (test code = 26 MEQ/L 2206) CALCIUM (test code = 2209) 9.2 MG/DL PROTEIN, TOTAL (test code = 7.7 G/DL 222) ALBUMIN (test code = 2201) 4.0 G/DL CALC GLOBULIN (test code = 3.7 G/DL 2240) CALC A/G RATIO (test code = 1.1 RATIO 2234) BILIRUBIN, TOTAL (test code = 0.2 MG/DL 2206) ALKALINE PHOSPHATASE (test 85 U/L code = 2204) AST (test code = 2218) 20 U/L ALT (test code = 2219) 21 U/L COMPREHENSIVE METABOLIC [id number] 00:00:00 Test Item Value Reference Range Interpretation Comments GLUCOSE (test code = 2217) 95 MG/DL BUN (test code = 2208) 7 MG/DL CREATININE (test code = 2214) 0.80 MG/DL eGFR (2020 CKD-EPI) (test code 95 ML/MIN/1.73 = 66611) CALC BUN/CREAT (test code = 9 RATIO 2235) SODIUM (test code = 2231) 141 MEQ/L POTASSIUM (test code = 2228) 4.1 MEQ/L CHLORIDE (test code = 2215) 104 MEQ/L CARBON DIOXIDE (test code = 26 MEQ/L 2206) CALCIUM (test code = 2209) 9.2 MG/DL PROTEIN, TOTAL (test code = 7.7 G/DL 2229) ALBUMIN (test code = 2201) 4.0 G/DL CALC GLOBULIN (test code = 3.7 G/DL 2240) CALC A/G RATIO (test code = 1.1 RATIO 2234) BILIRUBIN, TOTAL (test code = 0.2 MG/DL 2206) ALKALINE PHOSPHATASE (test 85 U/L code = 2204) AST (test code = 2218) 20 U/L ALT (test code = 2219) 21 U/L [id number] 00:00:00 Test Item Value Reference Range Interpretation Comments TSH, THIRD GENERATION (test code 1.210 UIU/ML = 2821) [id number] 00:00:00 Test Item Value Reference Range Interpretation Comments TSH, THIRD GENERATION (test code 1.210 UIU/ML = 2821) [id number] 00:00:00 Test Item Value Reference Range Interpretation Comments TSH, THIRD GENERATION (test code 1.210 UIU/ML = 2821) [id number] 00:00:00 Test Item Value Reference Range Interpretation Comments NT-proBNP (test code = 35334) 145 PG/ML [id number] 00:00:00 Test Item Value Reference Range Interpretation Comments NT-proBNP (test code = 43120) 145 PG/ML [id number] 00:00:00 Test Item Value Reference Range Interpretation Comments NT-proBNP (test code = 90333) 145 PG/ML CBC W/AUTO [id number] 00:00:00 Test Item Value Reference Range Interpretation Comments WBC (test code = 1001) 6.0 K/UL RBC (test code = 1002) 4.09 M/UL HEMOGLOBIN (test code = 1003) 11.7 G/DL HEMATOCRIT (test code = 1004) 35.2 % MCV (test code = 1005) 86.1 fL MCH (test code = 1006) 28.6 PG MCHC (test code = 1007) 33.2 G/DL RDW (test code = 1038) 17.6 % NEUTROPHILS (test code = 1008) 45.4 % LYMPHOCYTES (test code = 1010) 43.1 % MONOCYTES (test code = 1011) 9.0 % EOSINOPHILS (test code = 1012) 1.8 % BASOPHILS (test code = 1013) 0.5 % IMMATURE GRANULOCYTES (test 0.2 % code = 1036) NUCLEATED RBCS (test code = 0.0 /100WBC'S 1065) PLATELET COUNT (test code = 426 K/UL 1015) ABSOLUTE NEUTROPHILS (test code 2.73 K/UL = 1066) ABSOLUTE LYMPHOCYTES (test code 2.59 K/UL = 1067) ABSOLUTE MONOCYTES (test code = 0.54 K/UL 1068) ABSOLUTE EOSINOPHILS (test code 0.11 K/UL = 1040) ABSOLUTE BASOPHILS (test code = 0.03 K/UL 1069) ABS IMMATURE GRANULOCYTES (test 0.01 K/UL code = 1020) ABS NUCLEATED RBCS (test code = 0.00 K/UL 27078) CBC W/AUTO [id number] 00:00:00 Test Item Value Reference Range Interpretation Comments WBC (test code = 1001) 6.0 K/UL RBC (test code = 1002) 4.09 M/UL HEMOGLOBIN (test code = 1003) 11.7 G/DL HEMATOCRIT (test code = 1004) 35.2 % MCV (test code = 1005) 86.1 fL MCH (test code = 1006) 28.6 PG MCHC (test code = 1007) 33.2 G/DL RDW (test code = 1038) 17.6 % NEUTROPHILS (test code = 1008) 45.4 % LYMPHOCYTES (test code = 1010) 43.1 % MONOCYTES (test code = 1011) 9.0 % EOSINOPHILS (test code = 1012) 1.8 % BASOPHILS (test code = 1013) 0.5 % IMMATURE GRANULOCYTES (test 0.2 % code = 1036) NUCLEATED RBCS (test code = 0.0 /100WBC'S 1065) PLATELET COUNT (test code = 426 K/UL 1015) ABSOLUTE NEUTROPHILS (test code 2.73 K/UL = 1066) ABSOLUTE LYMPHOCYTES (test code 2.59 K/UL = 1067) ABSOLUTE MONOCYTES (test code = 0.54 K/UL 1068) ABSOLUTE EOSINOPHILS (test code 0.11 K/UL = 1040) ABSOLUTE BASOPHILS (test code = 0.03 K/UL 1069) ABS IMMATURE GRANULOCYTES (test 0.01 K/UL code = 1020) ABS NUCLEATED RBCS (test code = 0.00 K/UL 89037) CBC W/AUTO [id number] 00:00:00 Test Item Value Reference Range Interpretation Comments WBC (test code = 1001) 6.0 K/UL RBC (test code = 1002) 4.09 M/UL HEMOGLOBIN (test code = 1003) 11.7 G/DL HEMATOCRIT (test code = 1004) 35.2 % MCV (test code = 1005) 86.1 fL MCH (test code = 1006) 28.6 PG MCHC (test code = 1007) 33.2 G/DL RDW (test code = 1038) 17.6 % NEUTROPHILS (test code = 1008) 45.4 % LYMPHOCYTES (test code = 1010) 43.1 % MONOCYTES (test code = 1011) 9.0 % EOSINOPHILS (test code = 1012) 1.8 % BASOPHILS (test code = 1013) 0.5 % IMMATURE GRANULOCYTES (test 0.2 % code = 1036) NUCLEATED RBCS (test code = 0.0 /100WBC'S 1065) PLATELET COUNT (test code = 426 K/UL 1015) ABSOLUTE NEUTROPHILS (test code 2.73 K/UL = 1066) ABSOLUTE LYMPHOCYTES (test code 2.59 K/UL = 1067) ABSOLUTE MONOCYTES (test code = 0.54 K/UL 1068) ABSOLUTE EOSINOPHILS (test code 0.11 K/UL = 1040) ABSOLUTE BASOPHILS (test code = 0.03 K/UL 1069) ABS IMMATURE GRANULOCYTES (test 0.01 K/UL code = 1020) ABS NUCLEATED RBCS (test code = 0.00 K/UL 38071) LIPID [id number] 00:00:00 Test Item Value Reference Range Interpretation Comments CHOLESTEROL (test code = 2210) 160 MG/DL TRIGLYCERIDES (test code = 2232) 154 MG/DL HDL CHOLESTEROL (test code = 2220) 56 MG/DL CALC LDL CHOL (test code = 2237) 78 MG/DL RISK RATIO LDL/HDL (test code = 1.39 RATIO 2238) LIPID [id number] 00:00:00 Test Item Value Reference Range Interpretation Comments CHOLESTEROL (test code = 2210) 160 MG/DL TRIGLYCERIDES (test code = 2232) 154 MG/DL HDL CHOLESTEROL (test code = 2220) 56 MG/DL CALC LDL CHOL (test code = 2237) 78 MG/DL RISK RATIO LDL/HDL (test code = 1.39 RATIO 2238) COMPREHENSIVE METABOLIC [id number] 00:00:00 Test Item Value Reference Range Interpretation Comments GLUCOSE (test code = 2217) 95 MG/DL BUN (test code = 2208) 7 MG/DL CREATININE (test code = 2214) 0.80 MG/DL eGFR (2020 CKD-EPI) (test code 95 ML/MIN/1.73 = 67056) CALC BUN/CREAT (test code = 9 RATIO 2235) SODIUM (test code = 2231) 141 MEQ/L POTASSIUM (test code = 2228) 4.1 MEQ/L CHLORIDE (test code = 2215) 104 MEQ/L CARBON DIOXIDE (test code = 26 MEQ/L 2206) CALCIUM (test code = 2209) 9.2 MG/DL PROTEIN, TOTAL (test code = 7.7 G/DL 2229) ALBUMIN (test code = 2201) 4.0 G/DL CALC GLOBULIN (test code = 3.7 G/DL 2240) CALC A/G RATIO (test code = 1.1 RATIO 2234) BILIRUBIN, TOTAL (test code = 0.2 MG/DL 2207) ALKALINE PHOSPHATASE (test 85 U/L code = 2204) AST (test code = 2218) 20 U/L ALT (test code = 2219) 21 U/L COMPREHENSIVE METABOLIC [id number] 00:00:00 Test Item Value Reference Range Interpretation Comments GLUCOSE (test code = 2217) 95 MG/DL BUN (test code = 2208) 7 MG/DL CREATININE (test code = 2214) 0.80 MG/DL eGFR (2020 CKD-EPI) (test code 95 ML/MIN/1.73 = 59068) CALC BUN/CREAT (test code = 9 RATIO 2235) SODIUM (test code = 2231) 141 MEQ/L POTASSIUM (test code = 2228) 4.1 MEQ/L CHLORIDE (test code = 2215) 104 MEQ/L CARBON DIOXIDE (test code = 26 MEQ/L 2205) CALCIUM (test code = 2209) 9.2 MG/DL PROTEIN, TOTAL (test code = 7.7 G/DL 2229) ALBUMIN (test code = 2201) 4.0 G/DL CALC GLOBULIN (test code = 3.7 G/DL 2240) CALC A/G RATIO (test code = 1.1 RATIO 2234) BILIRUBIN, TOTAL (test code = 0.2 MG/DL 2207) ALKALINE PHOSPHATASE (test 85 U/L code = 2204) AST (test code = 2218) 20 U/L ALT (test code = 2219) 21 U/L CHLAMYDIA, NAAT, [id number] 18:09:17 Test Item Value Reference Range Interpretation Comments CHLAMYDIA, NAAT NEGATIVE NEGATIVE IMPORTA NT NOTICE: SEE (test code = [place] [address]) [email or web address] Note: Assay methodology is nucleic acid amplification b y embedded software test engineer m ediated amplification ( TMA) utilizing the A ptima Combo 2 Assay. GONORRHEA, NAAT, [id number] 18:09:17 Test Item Value Reference Range Interpretation Comments GONORRHEA, NAAT NEGATIVE NEGATIVE IMPORTA NT NOTICE: SEE (test code = [place] [address]) [email or web address] Note: Assay methodology is nucleic acid amplification b y embedded software test engineer m ediated amplification ( TMA) utilizing the A ptima Combo 2 Assay. VAGINAL PATHOGENS DNA [id number] 15:05:32 Test Item Value Reference Range Interpretation Comments KENNETH SPECIES (test NEGATIVE NEGATIVE code = ) G. VAGINALIS (test NEGATIVE NEGATIVE code = ) T. VAGINALIS (test NEGATIVE NEGATIVE UNLESS O THERWISE code = ) INDICATED, ALL TESTING PERFORMED [facility] [address] [place] [address] 4 LABORATORY DIRE CTOR: RAMAN GIBSON M.D. [place] NUMBER [id number] [place] [id number] PAP TEST, THINPREP, [id number] 13:36:46 Test Item Value Reference Range Interpretation Comments SOURCE: (test Cervical code = 8001) SLIDES: (test 1 code = 8011) LMP: (test code 12/28/2021 = 8021) SPECIMEN (NOTE) Satisfactory f or ADEQUACY: (test evaluation. code = 32925) Endocervical cells/transform ation zone component not identified. INTERPRETATION: NILM/NO EPITH. (test code = ABNORMALITY;SEE 35172) BELOW -------- - NEGATIVE FOR INTRAEPITHELIAL LESION OR MALIGNANCY ( NILM) -------- -------- -------- ---- SURGEON ASSISTANT Yuridia Moreno, CT : (test code = (ASCP) 8101) LOCATION: (test (NOTE) Specimens pr ocessed and code = 55680) interpreted at [facility], [address] [place] [id number], Phone: , CLIA: [id number] CPT: (test code (NOTE) 12381 UNLESS OTHERWISE = 8140) INDICATED, COMP UTER AIDED AND CYTOTECHNOLOGIS T SCREENING PERFO RMED. The Pap test is a screening test with an inherent, but l ow probability of error. Your patient sh ould be reminded to con sult you immediately if she experiences any suspicious sign s or symptoms, regar dless of her Pap test re sult. An alternate repor t format containing imag es or consolidated pr ior Pap history is avai lable as applicable. UNL ESS OTHERWISE INDIC ATED, ALL TESTING PER FORMED ATCLINICAL PATH OLOGY [facility], [facility]. [address] [place] [address] LABORATOR Y DIRECTOR: RAMAN GAMEZ M.D. CLIA NUMBER [id number] CAP ACCREDITATION N O. [id number] HCG, [id number] 06:16:53 Test Item Value Reference Range Interpretation Comments HCG, QUANTITATIVE (test <5 MIU/ML SEE BELOW EXPECTED code = 2506) VALUES FOR HCG GST.AGE UNITS RANGE GST. AGE UNITS RANGE3 WEEKS NM U/ML 6-71 10 WEEKS M IU/ML 46,509-186,9774 WEEKS MIU/ML 10 -750 12 WEEKS MIU/ML 27,832-210,6125 WEEKS MIU/ML 217-7,138 14 WE EKS MIU/ML 13,950-62,5306 WEEKS MIU/ML 158-31,7 95 15 WEEKS MIU/ML 12,039-70,9717 WEEKS MIU/ML 3,697-16 3,563 16 WEEKS MIU/ML 9,040-56,4518 W EEKS MIU/ML 32,065-149,571 17 WEEKS MIU/ML 8,175-55,8689 W EEKS MIU/ML 63,803-151,410 18 WEEKS MIU/ML 8,099-58,176MAL ES and NON-PREGNAN T FEMALES . . . . . . . . MIU/ML [id number]-[id number] SUSSY FEMALES . . . . . . . . . . . . MIU /ML <=7 [id number] 05:20:25 Test Item Value Reference Range Interpretation Comments RPR RESULT (test code = NON-REACTIVE NON-REACTIVE 3501) RPR TITER (test code = 3500) NOT INDIC. TITER NOT INDIC. HIV 1/2 4TH GEN, RFLX [id number] 04:05:17 Test Item Value Reference Range Interpretation Comments HIV 1/2 4TH GEN, RFLX CONF (test NON-REACTIVE NON-REACTIVE code = 3514) HEPATITIS PANEL, [id number] 04:05:17 Test Item Value Reference Range Interpretation Comments HEPATITIS A IgM (test NON-REACTIVE NON-REACTIVE code = 13356) HEPATITIS B CORE IgM NON-REACTIVE NON-REACTIVE (test code = 4644) HEPATITIS B SURF AG NON-REACTIVE NON-REACTIVE (test code = 2739) HEPATITIS C ANTIBODY NON-REACTIVE NON-REACTIVE (test code = 4675) INTERPRETATION (NOTE) Hepatitis A HEPATITIS A: (test code sero logy shows no = 2552) evidence of acu te hepatitis A. INTERPRETATION (NOTE) Hepatitis B HEPATITIS B: (test code sero logy shows no = 25307) evidence of acu te hepatitis B and no indication of exposure to hepatitis B vir us in the previous law eight months. INTERPRETATION (NOTE) Hepatitis C HEPATITIS C: (test code sero logy shows no = 84048) evidence of exposure to hepatitisC viru s at this time. I t can take up to 12 months after exposure tothe hepatitis C vir us for antibodies to become detectab le in the blood in certain patient s. HCG, [id number] 00:00:00 Test Item Value Reference Range Interpretation Comments HCG, QUANTITATIVE (test code = <5 MIU/ML 2506) CHLAMYDIA, AMPLIFIED, [id number] 00:00:00 Test Item Value Reference Range Interpretation Comments CHLAMYDIA, NAAT (test code = 85490) NEGATIVE CHLAMYDIA, AMPLIFIED, [id number] 00:00:00 Test Item Value Reference Range Interpretation Comments CHLAMYDIA, NAAT (test code = 50619) NEGATIVE GC, AMPLIFIED, [id number] 00:00:00 Test Item Value Reference Range Interpretation Comments GONORRHEA, NAAT (test code = 25006) NEGATIVE GC, AMPLIFIED, [id number] 00:00:00 Test Item Value Reference Range Interpretation Comments GONORRHEA, NAAT (test code = 61194) NEGATIVE [id number] 00:00:00 Test Item Value Reference Range Interpretation Comments RPR RESULT (test code = NON-REACTIVE 3501) RPR TITER (test code = 3500) NOT INDIC. TITER [id number] 00:00:00 Test Item Value Reference Range Interpretation Comments RPR RESULT (test code = NON-REACTIVE 3501) RPR TITER (test code = 3500) NOT INDIC. TITER [id number] 00:00:00 Test Item Value Reference Range Interpretation Comments RPR RESULT (test code = NON-REACTIVE 3501) RPR TITER (test code = 3500) NOT INDIC. TITER VAGINAL PATHOGENS DNA [id number] 00:00:00 Test Item Value Reference Range Interpretation Comments KENNETH SPECIES (test code = 85453) NEGATIVE G. VAGINALIS (test code = 56368) NEGATIVE T. VAGINALIS (test code = 41679) NEGATIVE VAGINAL PATHOGENS DNA [id number] 00:00:00 Test Item Value Reference Range Interpretation Comments KENNETH SPECIES (test code = 58181) NEGATIVE G. VAGINALIS (test code = 33117) NEGATIVE T. VAGINALIS (test code = 47427) NEGATIVE PAP TEST, THINPREP, [id number] 00:00:00 Test Item Value Reference Range Interpretation Comments SOURCE: (test code = Cervical 8001) SLIDES: (test code = 1 8011) LMP: (test code = 8021) 12/28/2021 SPECIMEN ADEQUACY: (NOTE) (test code = 49859) INTERPRETATION: (test NILM/NO EPITH. code = 60220) ABNORMALITY;SEE BELOW SURGEON ASSISTANT: (test LEILA Buckley (ASCP) code = 8101) LOCATION: (test code = (NOTE) 32929) CPT: (test code = 8140) (NOTE) HIV AB/AG COMBO RFLX [id number] 00:00:00 Test Item Value Reference Range Interpretation Comments HIV 1/2 4TH GEN, RFLX CONF (test NON-REACTIVE code = 3514) PAP TEST, THINPREP, [id number] 00:00:00 Test Item Value Reference Range Interpretation Comments SOURCE: (test code = Cervical 8001) SLIDES: (test code = 1 8011) LMP: (test code = 8021) 12/28/2021 SPECIMEN ADEQUACY: (NOTE) (test code = 85021) INTERPRETATION: (test NILM/NO EPITH. code = 44546) ABNORMALITY;SEE BELOW SURGEON ASSISTANT: (test LEILA Buckley (ASCP) code = 8101) LOCATION: (test code = (NOTE) 45210) CPT: (test code = 8140) (NOTE) HIV AB/AG COMBO RFLX [id number] 00:00:00 Test Item Value Reference Range Interpretation Comments HIV 1/2 4TH GEN, RFLX CONF (test NON-REACTIVE code = 3514) ACUTE HEPATITIS [id number] 00:00:00 Test Item Value Reference Range Interpretation Comments HEPATITIS A IgM (test code = NON-REACTIVE 19538) HEPATITIS B CORE IgM (test code NON-REACTIVE = 4644) HEPATITIS B SURF AG (test code = NON-REACTIVE 2739) HEPATITIS C ANTIBODY (test code NON-REACTIVE = 4675) INTERPRETATION HEPATITIS A: (NOTE) (test code = 2552) INTERPRETATION HEPATITIS B: (NOTE) (test code = 11076) INTERPRETATION HEPATITIS C: (NOTE) (test code = 21104) ACUTE HEPATITIS [id number] 00:00:00 Test Item Value Reference Range Interpretation Comments HEPATITIS A IgM (test code = NON-REACTIVE 91448) HEPATITIS B CORE IgM (test code NON-REACTIVE = 4644) HEPATITIS B SURF AG (test code = NON-REACTIVE 2739) HEPATITIS C ANTIBODY (test code NON-REACTIVE = 4675) INTERPRETATION HEPATITIS A: (NOTE) (test code = 2552) INTERPRETATION HEPATITIS B: (NOTE) (test code = 11539) INTERPRETATION HEPATITIS C: (NOTE) (test code = 99921) HCG, [id number] 00:00:00 Test Item Value Reference Range Interpretation Comments HCG, QUANTITATIVE (test code = <5 MIU/ML 2506) HCG, [id number] 00:00:00 Test Item Value Reference Range Interpretation Comments HCG, QUANTITATIVE (test code = <5 MIU/ML 2506) HCG, [id number] 00:00:00 Test Item Value Reference Range Interpretation Comments HCG, QUANTITATIVE (test code = <5 MIU/ML 2506) CHLAMYDIA, AMPLIFIED, [id number] 00:00:00 Test Item Value Reference Range Interpretation Comments CHLAMYDIA, NAAT (test code = 40327) NEGATIVE CHLAMYDIA, AMPLIFIED, [id number] 00:00:00 Test Item Value Reference Range Interpretation Comments CHLAMYDIA, NAAT (test code = 12213) NEGATIVE GC, AMPLIFIED, [id number] 00:00:00 Test Item Value Reference Range Interpretation Comments GONORRHEA, NAAT (test code = 48014) NEGATIVE GC, AMPLIFIED, [id number] 00:00:00 Test Item Value Reference Range Interpretation Comments GONORRHEA, NAAT (test code = 88359) NEGATIVE [id number] 00:00:00 Test Item Value Reference Range Interpretation Comments RPR RESULT (test code = NON-REACTIVE 3501) RPR TITER (test code = 3500) NOT INDIC. TITER [id number] 00:00:00 Test Item Value Reference Range Interpretation Comments RPR RESULT (test code = NON-REACTIVE 3501) RPR TITER (test code = 3500) NOT INDIC. TITER [id number] 00:00:00 Test Item Value Reference Range Interpretation Comments RPR RESULT (test code = NON-REACTIVE 3501) RPR TITER (test code = 3500) NOT INDIC. TITER VAGINAL PATHOGENS DNA [id number] 00:00:00 Test Item Value Reference Range Interpretation Comments KENNETH SPECIES (test code = ) NEGATIVE G. VAGINALIS (test code = 71394) NEGATIVE T. VAGINALIS (test code = 99932) NEGATIVE VAGINAL PATHOGENS DNA [id number] 00:00:00 Test Item Value Reference Range Interpretation Comments KENNETH SPECIES (test code = ) NEGATIVE G. VAGINALIS (test code = 84230) NEGATIVE T. VAGINALIS (test code = 61917) NEGATIVE PAP TEST, THINPREP, [id number] 00:00:00 Test Item Value Reference Range Interpretation Comments SOURCE: (test code = Cervical 8001) SLIDES: (test code = 1 8011) LMP: (test code = 8021) 12/28/2021 SPECIMEN ADEQUACY: (NOTE) (test code = 66579) INTERPRETATION: (test NILM/NO EPITH. code = 15553) ABNORMALITY;SEE BELOW SURGEON ASSISTANT: (test Yuridia Moreno CT (ASCP) code = 8101) LOCATION: (test code = (NOTE) 06618) CPT: (test code = 8140) (NOTE) HIV AB/AG COMBO RFLX [id number] 00:00:00 Test Item Value Reference Range Interpretation Comments HIV 1/2 4TH GEN, RFLX CONF (test NON-REACTIVE code = 3514) PAP TEST, THINPREP, [id number] 00:00:00 Test Item Value Reference Range Interpretation Comments SOURCE: (test code = Cervical 8001) SLIDES: (test code = 1 8011) LMP: (test code = 8021) 12/28/2021 SPECIMEN ADEQUACY: (NOTE) (test code = 52347) INTERPRETATION: (test NILM/NO EPITH. code = 19927) ABNORMALITY;SEE BELOW SURGEON ASSISTANT: (test Yuridia Moreno CT (ASCP) code = 8101) LOCATION: (test code = (NOTE) 50058) CPT: (test code = 8140) (NOTE) HIV AB/AG COMBO RFLX [id number] 00:00:00 Test Item Value Reference Range Interpretation Comments HIV 1/2 4TH GEN, RFLX CONF (test NON-REACTIVE code = 3514) ACUTE HEPATITIS [id number] 00:00:00 Test Item Value Reference Range Interpretation Comments HEPATITIS A IgM (test code = NON-REACTIVE 80431) HEPATITIS B CORE IgM (test code NON-REACTIVE = 4644) HEPATITIS B SURF AG (test code = NON-REACTIVE 2739) HEPATITIS C ANTIBODY (test code NON-REACTIVE = 4675) INTERPRETATION HEPATITIS A: (NOTE) (test code = 2552) INTERPRETATION HEPATITIS B: (NOTE) (test code = 18056) INTERPRETATION HEPATITIS C: (NOTE) (test code = 89496) ACUTE HEPATITIS [id number] 00:00:00 Test Item Value Reference Range Interpretation Comments HEPATITIS A IgM (test code = NON-REACTIVE 43815) HEPATITIS B CORE IgM (test code NON-REACTIVE = 4644) HEPATITIS B SURF AG (test code = NON-REACTIVE 2739) HEPATITIS C ANTIBODY (test code NON-REACTIVE = 4675) INTERPRETATION HEPATITIS A: (NOTE) (test code = 2552) INTERPRETATION HEPATITIS B: (NOTE) (test code = 15785) INTERPRETATION HEPATITIS C: (NOTE) (test code = 78802) HCG, [id number] 00:00:00 Test Item Value Reference Range Interpretation Comments HCG, QUANTITATIVE (test code = <5 MIU/ML 2506) HCG, [id number] 00:00:00 Test Item Value Reference Range Interpretation Comments HCG, QUANTITATIVE (test code = <5 MIU/ML 2506) HEMOGLOBIN [id number] 00:00:00 Test Item Value Reference Range Interpretation Comments HEMOGLOBIN A1c (test code = 53718) 6.6 % HEMOGLOBIN [id number] 00:00:00 Test Item Value Reference Range Interpretation Comments HEMOGLOBIN A1c (test code = 59871) 6.6 % HEMOGLOBIN [id number] 00:00:00 Test Item Value Reference Range Interpretation Comments HEMOGLOBIN A1c (test code = 82747) 6.6 % [id number] 00:00:00 Test Item Value Reference Range Interpretation Comments TSH, THIRD GENERATION (test code 1.720 UIU/ML = 2821) [id number] 00:00:00 Test Item Value Reference Range Interpretation Comments TSH, THIRD GENERATION (test code 1.720 UIU/ML = 2821) [id number] 00:00:00 Test Item Value Reference Range Interpretation Comments TSH, THIRD GENERATION (test code 1.720 UIU/ML = 2821) VITAMIN D, 25 [id number] 00:00:00 Test Item Value Reference Range Interpretation Comments VITAMIN D, 25 OH (test code = 4958) 22 NG/ML VITAMIN D, 25 [id number] 00:00:00 Test Item Value Reference Range Interpretation Comments VITAMIN D, 25 OH (test code = 4958) 22 NG/ML COMPREHENSIVE METABOLIC [id number] 00:00:00 Test Item Value Reference Range Interpretation Comments GLUCOSE (test code = 2217) 112 MG/DL BUN (test code = 2208) 9 MG/DL CREATININE (test code = 2214) 0.70 MG/DL eGFR AMER. (test code 126 ML/MIN/1.73 = 32225) eGFR NON- AMER. (test 108 ML/MIN/1.73 code = 90066) CALC BUN/CREAT (test code = 13 RATIO 2235) SODIUM (test code = 2231) 140 MEQ/L POTASSIUM (test code = 2228) 4.3 MEQ/L CHLORIDE (test code = 2215) 106 MEQ/L CARBON DIOXIDE (test code = 26 MEQ/L 2206) CALCIUM (test code = 2209) 8.6 MG/DL PROTEIN, TOTAL (test code = 7.4 G/DL 222) ALBUMIN (test code = 2201) 4.0 G/DL CALC GLOBULIN (test code = 3.4 G/DL 2240) CALC A/G RATIO (test code = 1.2 RATIO 2234) BILIRUBIN, TOTAL (test code = 0.2 MG/DL 2206) ALKALINE PHOSPHATASE (test 79 U/L code = 2204) AST (test code = 2218) 19 U/L ALT (test code = 2219) 17 U/L COMPREHENSIVE METABOLIC [id number] 00:00:00 Test Item Value Reference Range Interpretation Comments GLUCOSE (test code = 2217) 112 MG/DL BUN (test code = 2208) 9 MG/DL CREATININE (test code = 2214) 0.70 MG/DL eGFR AMER. (test code 126 ML/MIN/1.73 = 63309) eGFR NON- AMER. (test 108 ML/MIN/1.73 code = 99772) CALC BUN/CREAT (test code = 13 RATIO 2235) SODIUM (test code = 2231) 140 MEQ/L POTASSIUM (test code = 2228) 4.3 MEQ/L CHLORIDE (test code = 2215) 106 MEQ/L CARBON DIOXIDE (test code = 26 MEQ/L 2206) CALCIUM (test code = 2209) 8.6 MG/DL PROTEIN, TOTAL (test code = 7.4 G/DL 9) ALBUMIN (test code = 2201) 4.0 G/DL CALC GLOBULIN (test code = 3.4 G/DL 2240) CALC A/G RATIO (test code = 1.2 RATIO 2234) BILIRUBIN, TOTAL (test code = 0.2 MG/DL 2206) ALKALINE PHOSPHATASE (test 79 U/L code = 2204) AST (test code = 2218) 19 U/L ALT (test code = 2219) 17 U/L LIPID [id number] 00:00:00 Test Item Value Reference Range Interpretation Comments CHOLESTEROL (test code = 2210) 133 MG/DL TRIGLYCERIDES (test code = 2232) 61 MG/DL HDL CHOLESTEROL (test code = 2220) 52 MG/DL CALC LDL CHOL (test code = 2237) 67 MG/DL RISK RATIO LDL/HDL (test code = 1.29 RATIO 2238) LIPID [id number] 00:00:00 Test Item Value Reference Range Interpretation Comments CHOLESTEROL (test code = 2210) 133 MG/DL TRIGLYCERIDES (test code = 2232) 61 MG/DL HDL CHOLESTEROL (test code = 2220) 52 MG/DL CALC LDL CHOL (test code = 2237) 67 MG/DL RISK RATIO LDL/HDL (test code = 1.29 RATIO 2238) CBC W/AUTO [id number] 00:00:00 Test Item Value Reference Range Interpretation Comments WBC (test code = 1001) 5.8 K/UL RBC (test code = 1002) 4.12 M/UL HEMOGLOBIN (test code = 1003) 11.2 G/DL HEMATOCRIT (test code = 1004) 35.3 % MCV (test code = 1005) 85.7 fL MCH (test code = 1006) 27.2 PG MCHC (test code = 1007) 31.7 G/DL RDW (test code = 1038) 18.2 % NEUTROPHILS (test code = 1008) 49.4 % LYMPHOCYTES (test code = 1010) 37.6 % MONOCYTES (test code = 1011) 10.1 % EOSINOPHILS (test code = 1012) 2.4 % BASOPHILS (test code = 1013) 0.5 % PLATELET COUNT (test code = 1015) 441 K/UL CBC W/AUTO [id number] 00:00:00 Test Item Value Reference Range Interpretation Comments WBC (test code = 1001) 5.8 K/UL RBC (test code = 1002) 4.12 M/UL HEMOGLOBIN (test code = 1003) 11.2 G/DL HEMATOCRIT (test code = 1004) 35.3 % MCV (test code = 1005) 85.7 fL MCH (test code = 1006) 27.2 PG MCHC (test code = 1007) 31.7 G/DL RDW (test code = 1038) 18.2 % NEUTROPHILS (test code = 1008) 49.4 % LYMPHOCYTES (test code = 1010) 37.6 % MONOCYTES (test code = 1011) 10.1 % EOSINOPHILS (test code = 1012) 2.4 % BASOPHILS (test code = 1013) 0.5 % PLATELET COUNT (test code = 1015) 441 K/UL CBC W/AUTO [id number] 00:00:00 Test Item Value Reference Range Interpretation Comments WBC (test code = 1001) 5.8 K/UL RBC (test code = 1002) 4.12 M/UL HEMOGLOBIN (test code = 1003) 11.2 G/DL HEMATOCRIT (test code = 1004) 35.3 % MCV (test code = 1005) 85.7 fL MCH (test code = 1006) 27.2 PG MCHC (test code = 1007) 31.7 G/DL RDW (test code = 1038) 18.2 % NEUTROPHILS (test code = 1008) 49.4 % LYMPHOCYTES (test code = 1010) 37.6 % MONOCYTES (test code = 1011) 10.1 % EOSINOPHILS (test code = 1012) 2.4 % BASOPHILS (test code = 1013) 0.5 % PLATELET COUNT (test code = 1015) 441 K/UL HEMOGLOBIN [id number] 00:00:00 Test Item Value Reference Range Interpretation Comments HEMOGLOBIN A1c (test code = 85389) 6.6 % HEMOGLOBIN [id number] 00:00:00 Test Item Value Reference Range Interpretation Comments HEMOGLOBIN A1c (test code = 04707) 6.6 % HEMOGLOBIN [id number] 00:00:00 Test Item Value Reference Range Interpretation Comments HEMOGLOBIN A1c (test code = 29240) 6.6 % [id number] 00:00:00 Test Item Value Reference Range Interpretation Comments TSH, THIRD GENERATION (test code 1.720 UIU/ML = 2821) [id number] 00:00:00 Test Item Value Reference Range Interpretation Comments TSH, THIRD GENERATION (test code 1.720 UIU/ML = 2821) [id number] 00:00:00 Test Item Value Reference Range Interpretation Comments TSH, THIRD GENERATION (test code 1.720 UIU/ML = 2821) VITAMIN D, 25 [id number] 00:00:00 Test Item Value Reference Range Interpretation Comments VITAMIN D, 25 OH (test code = 4958) 22 NG/ML VITAMIN D, 25 [id number] 00:00:00 Test Item Value Reference Range Interpretation Comments VITAMIN D, 25 OH (test code = 4958) 22 NG/ML COMPREHENSIVE METABOLIC [id number] 00:00:00 Test Item Value Reference Range Interpretation Comments GLUCOSE (test code = 2217) 112 MG/DL BUN (test code = 2208) 9 MG/DL CREATININE (test code = 2214) 0.70 MG/DL eGFR AMER. (test code 126 ML/MIN/1.73 = 75822) eGFR NON- AMER. (test 108 ML/MIN/1.73 code = 74694) CALC BUN/CREAT (test code = 13 RATIO 2235) SODIUM (test code = 2231) 140 MEQ/L POTASSIUM (test code = 2228) 4.3 MEQ/L CHLORIDE (test code = 2215) 106 MEQ/L CARBON DIOXIDE (test code = 26 MEQ/L 2205) CALCIUM (test code = 2209) 8.6 MG/DL PROTEIN, TOTAL (test code = 7.4 G/DL 2228) ALBUMIN (test code = 2201) 4.0 G/DL CALC GLOBULIN (test code = 3.4 G/DL 2240) CALC A/G RATIO (test code = 1.2 RATIO 2234) BILIRUBIN, TOTAL (test code = 0.2 MG/DL 2206) ALKALINE PHOSPHATASE (test 79 U/L code = 2204) AST (test code = 2218) 19 U/L ALT (test code = 2219) 17 U/L COMPREHENSIVE METABOLIC [id number] 00:00:00 Test Item Value Reference Range Interpretation Comments GLUCOSE (test code = 2217) 112 MG/DL BUN (test code = 2208) 9 MG/DL CREATININE (test code = 2214) 0.70 MG/DL eGFR AMER. (test code 126 ML/MIN/1.73 = 26326) eGFR NON- AMER. (test 108 ML/MIN/1.73 code = 67235) CALC BUN/CREAT (test code = 13 RATIO 2235) SODIUM (test code = 2231) 140 MEQ/L POTASSIUM (test code = 2228) 4.3 MEQ/L CHLORIDE (test code = 2215) 106 MEQ/L CARBON DIOXIDE (test code = 26 MEQ/L 2205) CALCIUM (test code = 2209) 8.6 MG/DL PROTEIN, TOTAL (test code = 7.4 G/DL 2228) ALBUMIN (test code = 2201) 4.0 G/DL CALC GLOBULIN (test code = 3.4 G/DL 2239) CALC A/G RATIO (test code = 1.2 RATIO 2233) BILIRUBIN, TOTAL (test code = 0.2 MG/DL 2206) ALKALINE PHOSPHATASE (test 79 U/L code = 2204) AST (test code = 2218) 19 U/L ALT (test code = 2219) 17 U/L LIPID [id number] 00:00:00 Test Item Value Reference Range Interpretation Comments CHOLESTEROL (test code = 2210) 133 MG/DL TRIGLYCERIDES (test code = 2232) 61 MG/DL HDL CHOLESTEROL (test code = 2220) 52 MG/DL CALC LDL CHOL (test code = 2237) 67 MG/DL RISK RATIO LDL/HDL (test code = 1.29 RATIO 2238) LIPID [id number] 00:00:00 Test Item Value Reference Range Interpretation Comments CHOLESTEROL (test code = 2210) 133 MG/DL TRIGLYCERIDES (test code = 2232) 61 MG/DL HDL CHOLESTEROL (test code = 2220) 52 MG/DL CALC LDL CHOL (test code = 2237) 67 MG/DL RISK RATIO LDL/HDL (test code = 1.29 RATIO 2238) CBC W/AUTO [id number] 00:00:00 Test Item Value Reference Range Interpretation Comments WBC (test code = 1001) 5.8 K/UL RBC (test code = 1002) 4.12 M/UL HEMOGLOBIN (test code = 1003) 11.2 G/DL HEMATOCRIT (test code = 1004) 35.3 % MCV (test code = 1005) 85.7 fL MCH (test code = 1006) 27.2 PG MCHC (test code = 1007) 31.7 G/DL RDW (test code = 1038) 18.2 % NEUTROPHILS (test code = 1008) 49.4 % LYMPHOCYTES (test code = 1010) 37.6 % MONOCYTES (test code = 1011) 10.1 % EOSINOPHILS (test code = 1012) 2.4 % BASOPHILS (test code = 1013) 0.5 % PLATELET COUNT (test code = 1015) 441 K/UL CBC W/AUTO [id number] 00:00:00 Test Item Value Reference Range Interpretation Comments WBC (test code = 1001) 5.8 K/UL RBC (test code = 1002) 4.12 M/UL HEMOGLOBIN (test code = 1003) 11.2 G/DL HEMATOCRIT (test code = 1004) 35.3 % MCV (test code = 1005) 85.7 fL MCH (test code = 1006) 27.2 PG MCHC (test code = 1007) 31.7 G/DL RDW (test code = 1038) 18.2 % NEUTROPHILS (test code = 1008) 49.4 % LYMPHOCYTES (test code = 1010) 37.6 % MONOCYTES (test code = 1011) 10.1 % EOSINOPHILS (test code = 1012) 2.4 % BASOPHILS (test code = 1013) 0.5 % PLATELET COUNT (test code = 1015) 441 K/UL CBC W/AUTO [id number] 00:00:00 Test Item Value Reference Range Interpretation Comments WBC (test code = 1001) 5.8 K/UL RBC (test code = 1002) 4.12 M/UL HEMOGLOBIN (test code = 1003) 11.2 G/DL HEMATOCRIT (test code = 1004) 35.3 % MCV (test code = 1005) 85.7 fL MCH (test code = 1006) 27.2 PG MCHC (test code = 1007) 31.7 G/DL RDW (test code = 1038) 18.2 % NEUTROPHILS (test code = 1008) 49.4 % LYMPHOCYTES (test code = 1010) 37.6 % MONOCYTES (test code = 1011) 10.1 % EOSINOPHILS (test code = 1012) 2.4 % BASOPHILS (test code = 1013) 0.5 % PLATELET COUNT (test code = 1015) 441 K/UL SARS-CoV-2 (COVID-19) by RT-PCR (HIGH RISK)2020-03-12 00:00:00 Test Item Value Reference Range Interpretation Comments SARS-CoV-2 INTERPRETATION (test NEGATIVE code = 09110) SOURCE (test code = 00299) NOT SPECIFIED SARS-CoV-2 (COVID-19) by RT-PCR (HIGH RISK)2020-03-12 00:00:00 Test Item Value Reference Range Interpretation Comments SARS-CoV-2 INTERPRETATION (test NEGATIVE code = 70974) SOURCE (test code = 48738) NOT SPECIFIED SARS-CoV-2 (COVID-19) by RT-PCR (HIGH RISK)2020-03-12 00:00:00 Test Item Value Reference Range Interpretation Comments SARS-CoV-2 INTERPRETATION (test NEGATIVE code = 99388) SOURCE (test code = 60261) NOT SPECIFIED SARS-CoV-2 (COVID-19) by RT-PCR (HIGH RISK)2020-03-12 00:00:00 Test Item Value Reference Range Interpretation Comments SARS-CoV-2 INTERPRETATION (test NEGATIVE code = 99121) SOURCE (test code = 42099) NOT SPECIFIED HEMOGLOBIN [id number] 00:00:00 Test Item Value Reference Range Interpretation Comments HEMOGLOBIN A1c (test code = 00576) 6.6 % HEMOGLOBIN [id number] 00:00:00 Test Item Value Reference Range Interpretation Comments HEMOGLOBIN A1c (test code = 21353) 6.6 % HEMOGLOBIN [id number] 00:00:00 Test Item Value Reference Range Interpretation Comments HEMOGLOBIN A1c (test code = 46871) 6.6 % COMPREHENSIVE METABOLIC [id number] 00:00:00 Test Item Value Reference Range Interpretation Comments GLUCOSE (test code = 2217) 120 MG/DL BUN (test code = 2208) 9 MG/DL CREATININE (test code = 2214) 0.74 MG/DL eGFR AMER. (test code 118 ML/MIN/1.73 = 90861) eGFR NON- AMER. (test 102 ML/MIN/1.73 code = 35091) CALC BUN/CREAT (test code = 12 RATIO 2235) SODIUM (test code = 2231) 142 MEQ/L POTASSIUM (test code = 2228) 4.6 MEQ/L CHLORIDE (test code = 2215) 106 MEQ/L CARBON DIOXIDE (test code = 26 MEQ/L 2205) CALCIUM (test code = 2209) 9.1 MG/DL PROTEIN, TOTAL (test code = 7.5 G/DL 2228) ALBUMIN (test code = 2201) 4.2 G/DL CALC GLOBULIN (test code = 3.3 G/DL 2239) CALC A/G RATIO (test code = 1.3 RATIO 2234) BILIRUBIN, TOTAL (test code = 0.2 MG/DL 2206) ALKALINE PHOSPHATASE (test 86 U/L code = 2204) AST (test code = 2218) 21 U/L ALT (test code = 2219) 21 U/L COMPREHENSIVE METABOLIC [id number] 00:00:00 Test Item Value Reference Range Interpretation Comments GLUCOSE (test code = 2217) 120 MG/DL BUN (test code = 2208) 9 MG/DL CREATININE (test code = 2214) 0.74 MG/DL eGFR AMER. (test code 118 ML/MIN/1.73 = 21744) eGFR NON- AMER. (test 102 ML/MIN/1.73 code = 64729) CALC BUN/CREAT (test code = 12 RATIO 2235) SODIUM (test code = 2231) 142 MEQ/L POTASSIUM (test code = 2228) 4.6 MEQ/L CHLORIDE (test code = 2215) 106 MEQ/L CARBON DIOXIDE (test code = 26 MEQ/L 2205) CALCIUM (test code = 2209) 9.1 MG/DL PROTEIN, TOTAL (test code = 7.5 G/DL 2228) ALBUMIN (test code = 2201) 4.2 G/DL CALC GLOBULIN (test code = 3.3 G/DL 2240) CALC A/G RATIO (test code = 1.3 RATIO 2234) BILIRUBIN, TOTAL (test code = 0.2 MG/DL 2206) ALKALINE PHOSPHATASE (test 86 U/L code = 2204) AST (test code = 2218) 21 U/L ALT (test code = 2219) 21 U/L LIPID [id number] 00:00:00 Test Item Value Reference Range Interpretation Comments CHOLESTEROL (test code = 2210) 125 MG/DL TRIGLYCERIDES (test code = 2232) 59 MG/DL HDL CHOLESTEROL (test code = 2220) 55 MG/DL CALC LDL CHOL (test code = 2237) 56 MG/DL RISK RATIO LDL/HDL (test code = 1.02 RATIO 2238) LIPID [id number] 00:00:00 Test Item Value Reference Range Interpretation Comments CHOLESTEROL (test code = 2210) 125 MG/DL TRIGLYCERIDES (test code = 2232) 59 MG/DL HDL CHOLESTEROL (test code = 2220) 55 MG/DL CALC LDL CHOL (test code = 2237) 56 MG/DL RISK RATIO LDL/HDL (test code = 1.02 RATIO 2238) HEMOGLOBIN [id number] 00:00:00 Test Item Value Reference Range Interpretation Comments HEMOGLOBIN A1c (test code = 43229) 6.6 % HEMOGLOBIN [id number] 00:00:00 Test Item Value Reference Range Interpretation Comments HEMOGLOBIN A1c (test code = 99182) 6.6 % HEMOGLOBIN [id number] 00:00:00 Test Item Value Reference Range Interpretation Comments HEMOGLOBIN A1c (test code = 37214) 6.6 % COMPREHENSIVE METABOLIC [id number] 00:00:00 Test Item Value Reference Range Interpretation Comments GLUCOSE (test code = 2217) 120 MG/DL BUN (test code = 2208) 9 MG/DL CREATININE (test code = 2214) 0.74 MG/DL eGFR AMER. (test code 118 ML/MIN/1.73 = 70515) eGFR NON- AMER. (test 102 ML/MIN/1.73 code = 11573) CALC BUN/CREAT (test code = 12 RATIO 2235) SODIUM (test code = 2231) 142 MEQ/L POTASSIUM (test code = 2228) 4.6 MEQ/L CHLORIDE (test code = 2215) 106 MEQ/L CARBON DIOXIDE (test code = 26 MEQ/L 2205) CALCIUM (test code = 2209) 9.1 MG/DL PROTEIN, TOTAL (test code = 7.5 G/DL 2228) ALBUMIN (test code = 2201) 4.2 G/DL CALC GLOBULIN (test code = 3.3 G/DL 2240) CALC A/G RATIO (test code = 1.3 RATIO 2234) BILIRUBIN, TOTAL (test code = 0.2 MG/DL 2206) ALKALINE PHOSPHATASE (test 86 U/L code = 2204) AST (test code = 2218) 21 U/L ALT (test code = 2219) 21 U/L COMPREHENSIVE METABOLIC [id number] 00:00:00 Test Item Value Reference Range Interpretation Comments GLUCOSE (test code = 2217) 120 MG/DL BUN (test code = 2208) 9 MG/DL CREATININE (test code = 2214) 0.74 MG/DL eGFR AMER. (test code 118 ML/MIN/1.73 = 45916) eGFR NON- AMER. (test 102 ML/MIN/1.73 code = 68002) CALC BUN/CREAT (test code = 12 RATIO 2235) SODIUM (test code = 2231) 142 MEQ/L POTASSIUM (test code = 2228) 4.6 MEQ/L CHLORIDE (test code = 2215) 106 MEQ/L CARBON DIOXIDE (test code = 26 MEQ/L 2205) CALCIUM (test code = 2209) 9.1 MG/DL PROTEIN, TOTAL (test code = 7.5 G/DL 2228) ALBUMIN (test code = 2201) 4.2 G/DL CALC GLOBULIN (test code = 3.3 G/DL 2239) CALC A/G RATIO (test code = 1.3 RATIO 2233) BILIRUBIN, TOTAL (test code = 0.2 MG/DL 2206) ALKALINE PHOSPHATASE (test 86 U/L code = 2204) AST (test code = 2218) 21 U/L ALT (test code = 2219) 21 U/L LIPID [id number] 00:00:00 Test Item Value Reference Range Interpretation Comments CHOLESTEROL (test code = 2210) 125 MG/DL TRIGLYCERIDES (test code = 2232) 59 MG/DL HDL CHOLESTEROL (test code = 2220) 55 MG/DL CALC LDL CHOL (test code = 2237) 56 MG/DL RISK RATIO LDL/HDL (test code = 1.02 RATIO 2238) LIPID [id number] 00:00:00 Test Item Value Reference Range Interpretation Comments CHOLESTEROL (test code = 2210) 125 MG/DL TRIGLYCERIDES (test code = 2232) 59 MG/DL HDL CHOLESTEROL (test code = 2220) 55 MG/DL CALC LDL CHOL (test code = 2237) 56 MG/DL RISK RATIO LDL/HDL (test code = 1.02 RATIO 2238) PAP TEST, THINPREP, [id number] 00:00:00 Test Item Value Reference Range Interpretation Comments SOURCE: (test code = Cervical/Endocervical 8001) SLIDES: (test code = 1 8011) LMP: (test code = 8021) 10/26/2018 SPECIMEN ADEQUACY: (test (NOTE) code = 55800) INTERPRETATION: (test NILM/NO EPITH. code = 99947) ABNORMALITY;SEE BELOW SURGEON ASSISTANT: (test Malek code = 8101) [place],CT(ASCP) IAC LOCATION: (test code = (NOTE) 17902) CPT: (test code = 8140) (NOTE) PAP TEST, THINPREP, [id number] 00:00:00 Test Item Value Reference Range Interpretation Comments SOURCE: (test code = Cervical/Endocervical 8001) SLIDES: (test code = 1 8011) LMP: (test code = 8021) 10/26/2018 SPECIMEN ADEQUACY: (test (NOTE) code = 55655) INTERPRETATION: (test NILM/NO EPITH. code = 94804) ABNORMALITY;SEE BELOW SURGEON ASSISTANT: (test Malek code = 8101) [place],CT(ASCP) IAC LOCATION: (test code = (NOTE) 04072) CPT: (test code = 8140) (NOTE) GC AND CHLAMYDIA, AMPLIFIED, [id number] 00:00:00 Test Item Value Reference Range Interpretation Comments GONORRHEA, TMA (test code = 33648) NEGATIVE CHLAMYDIA, TMA (test code = 10817) NEGATIVE GC AND CHLAMYDIA, AMPLIFIED, [id number] 00:00:00 Test Item Value Reference Range Interpretation Comments GONORRHEA, TMA (test code = 57064) NEGATIVE CHLAMYDIA, TMA (test code = 43747) NEGATIVE PAP TEST, THINPREP, [id number] 00:00:00 Test Item Value Reference Range Interpretation Comments SOURCE: (test code = Cervical/Endocervical 8001) SLIDES: (test code = 1 8011) LMP: (test code = 8021) 10/26/2018 SPECIMEN ADEQUACY: (test (NOTE) code = 86501) INTERPRETATION: (test NILM/NO EPITH. code = 12460) ABNORMALITY;SEE BELOW SURGEON ASSISTANT: (test Malek code = 8101) [place],CT(ASCP) IAC LOCATION: (test code = (NOTE) 71341) CPT: (test code = 8140) (NOTE) PAP TEST, THINPREP, [id number] 00:00:00 Test Item Value Reference Range Interpretation Comments SOURCE: (test code = Cervical/Endocervical 8001) SLIDES: (test code = 1 8011) LMP: (test code = 8021) 10/26/2018 SPECIMEN ADEQUACY: (test (NOTE) code = 24356) INTERPRETATION: (test NILM/NO EPITH. code = 11116) ABNORMALITY;SEE BELOW SURGEON ASSISTANT: (test Malek code = 8101) LEILA [place](ASCP) IAC LOCATION: (test code = (NOTE) 35984) CPT: (test code = 8140) (NOTE) GC AND CHLAMYDIA, AMPLIFIED, [id number] 00:00:00 Test Item Value Reference Range Interpretation Comments GONORRHEA, TMA (test code = 16470) NEGATIVE CHLAMYDIA, TMA (test code = 82739) NEGATIVE GC AND CHLAMYDIA, AMPLIFIED, [id number] 00:00:00 Test Item Value Reference Range Interpretation Comments GONORRHEA, TMA (test code = 97984) NEGATIVE CHLAMYDIA, TMA (test code = 64791) NEGATIVE HIV AB/AG COMBO RFLX [id number] 00:00:00 Test Item Value Reference Range Interpretation Comments HIV 1/2 4TH GEN, RFLX CONF (test NON-REACTIVE code = 3514) VAGINAL PATHOGENS DNA [id number] 00:00:00 Test Item Value Reference Range Interpretation Comments KENNETH SPECIES (test code = 64072) NEGATIVE G. VAGINALIS (test code = 53707) NEGATIVE T. VAGINALIS (test code = 94564) NEGATIVE VAGINAL PATHOGENS DNA [id number] 00:00:00 Test Item Value Reference Range Interpretation Comments KENNETH SPECIES (test code = 28574) NEGATIVE G. VAGINALIS (test code = 94929) NEGATIVE T. VAGINALIS (test code = 68397) NEGATIVE HIV AB/AG COMBO RFLX [id number] 00:00:00 Test Item Value Reference Range Interpretation Comments HIV 1/2 4TH GEN, RFLX CONF (test NON-REACTIVE code = 3514) HPV HIGH RISK WITH GENOTYPE, [id number] 00:00:00 Test Item Value Reference Range Interpretation Comments HPV HIGH RISK INTERP (test code = NEGATIVE 30912) HPV 16 (test code = 97180) NEGATIVE HPV 18 (test code = 09858) NEGATIVE HPV, HR, OTHER GENOTYPES (test code NEGATIVE = 15888) HPV HIGH RISK WITH GENOTYPE, [id number] 00:00:00 Test Item Value Reference Range Interpretation Comments HPV HIGH RISK INTERP (test code = NEGATIVE 98924) HPV 16 (test code = 60818) NEGATIVE HPV 18 (test code = 48950) NEGATIVE HPV, HR, OTHER GENOTYPES (test code NEGATIVE = 39039) ACUTE HEPATITIS [id number] 00:00:00 Test Item Value Reference Range Interpretation Comments HEPATITIS A IgM (test code = NON-REACTIVE 25283) HEPATITIS B CORE IgM (test code NON-REACTIVE = 4644) HEPATITIS B SURF AG (test code = NON-REACTIVE 2739) HEPATITIS C ANTIBODY (test code NON-REACTIVE = 4675) HCV INDEX (test code = 71086) 0.13 INTERPRETATION HEPATITIS A: (NOTE) (test code = 2552) INTERPRETATION HEPATITIS B: (NOTE) (test code = 89898) INTERPRETATION HEPATITIS C: (NOTE) (test code = 52652) ACUTE HEPATITIS [id number] 00:00:00 Test Item Value Reference Range Interpretation Comments HEPATITIS A IgM (test code = NON-REACTIVE 41560) HEPATITIS B CORE IgM (test code NON-REACTIVE = 4644) HEPATITIS B SURF AG (test code = NON-REACTIVE 2739) HEPATITIS C ANTIBODY (test code NON-REACTIVE = 4675) HCV INDEX (test code = 23052) 0.13 INTERPRETATION HEPATITIS A: (NOTE) (test code = 2552) INTERPRETATION HEPATITIS B: (NOTE) (test code = 06445) INTERPRETATION HEPATITIS C: (NOTE) (test code = 63425) HIV AB/AG COMBO RFLX [id number] 00:00:00 Test Item Value Reference Range Interpretation Comments HIV 1/2 4TH GEN, RFLX CONF (test NON-REACTIVE code = 3514) VAGINAL PATHOGENS DNA [id number] 00:00:00 Test Item Value Reference Range Interpretation Comments KENNETH SPECIES (test code = 08413) NEGATIVE G. VAGINALIS (test code = 75012) NEGATIVE T. VAGINALIS (test code = 33229) NEGATIVE VAGINAL PATHOGENS DNA [id number] 00:00:00 Test Item Value Reference Range Interpretation Comments KENNETH SPECIES (test code = 97602) NEGATIVE G. VAGINALIS (test code = 98635) NEGATIVE T. VAGINALIS (test code = 97159) NEGATIVE HIV AB/AG COMBO RFLX [id number] 00:00:00 Test Item Value Reference Range Interpretation Comments HIV 1/2 4TH GEN, RFLX CONF (test NON-REACTIVE code = 3514) HPV HIGH RISK WITH GENOTYPE, [id number] 00:00:00 Test Item Value Reference Range Interpretation Comments HPV HIGH RISK INTERP (test code = NEGATIVE 18539) HPV 16 (test code = 31739) NEGATIVE HPV 18 (test code = 00678) NEGATIVE HPV, HR, OTHER GENOTYPES (test code NEGATIVE = 41199) HPV HIGH RISK WITH GENOTYPE, [id number] 00:00:00 Test Item Value Reference Range Interpretation Comments HPV HIGH RISK INTERP (test code = NEGATIVE 91325) HPV 16 (test code = 64057) NEGATIVE HPV 18 (test code = 64357) NEGATIVE HPV, HR, OTHER GENOTYPES (test code NEGATIVE = 79848) ACUTE HEPATITIS [id number] 00:00:00 Test Item Value Reference Range Interpretation Comments HEPATITIS A IgM (test code = NON-REACTIVE 98638) HEPATITIS B CORE IgM (test code NON-REACTIVE = 4644) HEPATITIS B SURF AG (test code = NON-REACTIVE 2739) HEPATITIS C ANTIBODY (test code NON-REACTIVE = 4675) HCV INDEX (test code = 08870) 0.13 INTERPRETATION HEPATITIS A: (NOTE) (test code = 2552) INTERPRETATION HEPATITIS B: (NOTE) (test code = 49628) INTERPRETATION HEPATITIS C: (NOTE) (test code = 92239) ACUTE HEPATITIS [id number] 00:00:00 Test Item Value Reference Range Interpretation Comments HEPATITIS A IgM (test code = NON-REACTIVE 98227) HEPATITIS B CORE IgM (test code NON-REACTIVE = 4644) HEPATITIS B SURF AG (test code = NON-REACTIVE 2739) HEPATITIS C ANTIBODY (test code NON-REACTIVE = 4675) HCV INDEX (test code = 98222) 0.13 INTERPRETATION HEPATITIS A: (NOTE) (test code = 2552) INTERPRETATION HEPATITIS B: (NOTE) (test code = 22799) INTERPRETATION HEPATITIS C: (NOTE) (test code = 18788)"
[2022-08-31] MEDS ORDERED: KETOROLAC 30 MG/ML INJ ONE (17:13)
[2022-08-31] MEDS ORDERED: MORPHINE 4 MG/ML SYR ONE ×2 (17:13→18:26)
[2022-08-31] MEDS ORDERED: dexAMETHasone 10 MG/ML VIAL ONE (17:13)
[2022-08-31] MEDS ORDERED: ONDANSETRON 4 MG/2 ML VIAL ONE (17:53)
--- NOTE | 2022-08-31 18:23 | ER ---
Nurse's Notes [facility] Name: Megan Ferro Age: 42 yrs Sex: Female : 1980 Arrival Date: 08/31/2022 Time: 16:33 Bed 14 Private MD: Diagnosis: Radiculopathy, lumbar region Presentation: 08/31 16:56 Chief complaint: Patient states: Pt reports right low back pain that radiates into [facility] right hip and down right leg several days. Coronavirus screen: Vaccine status: Patient reports receiving the 2nd dose of the covid vaccine. Client denies travel out of the [place] in the last 14 days. Ebola Screen: Patient negative for fever greater than or equal to 101.5 degrees Fahrenheit, and additional compatible Ebola Virus Disease symptoms Patient denies exposure to infectious person. Patient denies travel to an Ebola-affected area in the 21 days before illness onset. Initial Sepsis Screen: Does the patient meet any 2 criteria? No. Patient's initial sepsis screen is negative. Does the patient have a suspected source of infection? No. Patient's initial sepsis screen is negative. Risk Assessment: Do you want to hurt yourself or someone else? Patient reports no desire to harm self or others. Onset of symptoms was August 25, 2022. 16:56 Method Of Arrival: Wheelchair [facility] 16:56 Acuity: RASHEL 4 5 Triage Assessment: 17:01 General: Appears in no apparent distress. Behavior is calm, cooperative. Pain: [facility] Complains of pain in right low back Pain radiates to right lower back and right gluteus haydee Pain currently is 10 out of 10 on a pain scale. Quality of pain is described as burning, sharp. 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 - Social history:: Smoking status: Patient denies any tobacco usage or history of. - Family history:: not pertinent. - Hospitalizations: : No recent hospitalization is reported. Screenin:20 Abuse screen: Denies threats or abuse. Denies injuries from another. Nutritional ko1 screening: No deficits noted. Tuberculosis screening: No symptoms or risk factors identified. Fall Risk None identified. Assessment: 17:20 Neuro: back pain. ko1 Vital Signs: 16:56 BP 156 / 95; Pulse 95; Resp 20; Temp 97.6; Pulse Ox 99% ; Weight 149.69 kg; Height 5 [facility] ft. 7 in. (170.18 cm); Pain 10/10; 17:20 BP 148 / 85; Pulse 90; Pulse Ox 99% on R/A; ko1 16:56 Body Mass Index 51.68 (149.69 kg, 170.18 cm) [facility] ED Course: 16:33 Patient arrived in ED. mr 16:52 Jordan Mcdonald MD is Attending Physician. rn 17:01 Triage completed. [facility] 17:01 Arm band placed on right wrist. [facility] 17:03 Gregoria Whitmore, JOSIAS is Primary Nurse. ko1 17:20 Patient has correct armband on for positive identification. Bed in low position. Call ko1 light in reach. Side rails up X 1. 17:20 No provider procedures requiring assistance completed. ko1 17:36 Inserted saline lock: 22 gauge in left antecubital area, using aseptic technique. ph 18:44 IV discontinued, intact, bleeding controlled, No redness/swelling at site. Pressure ko1 dressing applied. Administered Medications: 17:51 Drug: Decadron - Dexamethasone 10 mg Route: IVP; Site: left antecubital; ko1 17:58 Drug: Ketorolac 30 mg Route: IVP; Site: left antecubital; ko1 17:58 Drug: Zofran (Ondansetron) 4 mg Route: IVP; Site: left antecubital; ko1 18:03 Drug: morphine 4 mg Route: IVP; Infused Over: 4 mins; Site: left antecubital; ko1 18:27 Drug: morphine 4 mg Route: IVP; Infused Over: 4 mins; Site: left antecubital; ko1 Medication: 17:20 VIS not applicable for this client. ko1 Outcome: 18:22 Discharge ordered by . rn 18:44 Discharged to home ambulatory, with family. ko1 18:44 Condition: improved 18:44 Discharge instructions given to patient, Instructed on discharge instructions, follow up and referral plans. medication usage, Demonstrated understanding of instructions, follow-up care, medications, Prescriptions given X 3. 19:00 Patient left the ED. ko1 Signatures: RubioDilia jimenez Roman, MD MD rn Hall, Patricia, RN RN Nely Donald RN RN [facility] Gregoria Whitmore RN RN ko1 Corrections: (The following items were deleted from the chart) 17:03 17:01 Home Meds: meloxicam 7.5 mg/5 mL Oral susp; [facility] jh5 17:03 17:01 Home Meds: triamterene-hydrochlorothiazid 37.5-25 mg Oral cap 1 cap once daily; [place] [id number]
--- NOTE | 2022-08-31 18:24 | EDPHYS ---
Physician Documentation [facility] Name: Megan Ferro Age: 42 yrs Sex: Female : 1980 Arrival Date: 08/31/2022 Time: 16:33 Bed 14 Private MD: ED Physician Jordan Mcdonald HPI: 08/31 17:13 This 42 yrs old Black Female presents to ER via Wheelchair with complaints of Hip Pain, rn Back Pain, Leg Pain. 17:13 The patient presents with pain that is acute. The symptoms are located in the low back. rn Onset: The symptoms/episode began/occurred 3 day(s) ago. The pain radiates to the right leg. Associated signs and symptoms: Pertinent negatives: abdominal pain, chest pain, dysuria, fever, incontinence, nausea, numbness, tingling, urinary retention, vomiting, weakness. Modifying factors: The patient symptoms are alleviated by remaining still, specific position, the patient symptoms are aggravated by any movement. Severity of symptoms: At their worst the symptoms were moderate, in the emergency department the symptoms are unchanged. The patient has experienced similar episodes in the past. The patient has not recently seen a physician. Reports has had this before, diagnosed with sciatica, tried flexeril and prednisone 10mg at home for 3 days without relief. Intermittent. NO recent fall or injury. NO weakness. . [employer]ER: 17:01 LMP 08/02/2022 [facility] Historical: - Allergies: 17:01 No Known Allergies; [facility] - Home Meds: 17:01 hydrochlorothiazide 50 mg Oral tab 1 tab once daily [Active]; Victoza [Active]; [facility] - PMHx: 17:01 Arthritis; Hypertension; [facility] - PSHx: 17:01 section; Cholecystectomy; [facility] - Immunization history:: Adult Immunizations up to date, Client reports receiving the 2nd dose of the Covid vaccine, Last tetanus immunization: up to date. - Social history:: Smoking status: Patient denies any tobacco usage or history of. - Family history:: not pertinent. - Hospitalizations: : No recent hospitalization is reported. ROS: 17:13 Constitutional: Negative for fever, chills, and weight loss, Eyes: Negative for injury, rn pain, redness, and discharge, Neck: Negative for injury, pain, and swelling, Cardiovascular: Negative for chest pain, palpitations, and edema, Respiratory: Negative for shortness of breath, cough, wheezing, and pleuritic chest pain, Abdomen/GI: Negative for abdominal pain, nausea, vomiting, diarrhea, and constipation, Back: Negative for injury MS/Extremity: Negative for injury and deformity, Skin: Negative for injury, rash, and discoloration, Neuro: Negative for headache, weakness, numbness, tingling, and seizure. Exam: 17:13 Constitutional: This is a well developed, well nourished patient who is awake, alert, rn leaning to left side, appears uncomfortable Head/Face: Normocephalic, atraumatic. Cardiovascular: Regular rate and rhythm. No pulse deficits. Respiratory: No increased work of breathing, no retractions or nasal flaring. Abdomen/GI: Soft, non-tender Back: No spinal tenderness. No costovertebral tenderness. Skin: Warm, dry MS/ Extremity: Pulses equal, no cyanosis. Neuro: Awake and alert, GCS 15 Vital Signs: 16:56 BP 156 / 95; Pulse 95; Resp 20; Temp 97.6; Pulse Ox 99% ; Weight 149.69 kg; Height 5 jh5 ft. 7 in. (170.18 cm); Pain 10/10; 17:20 BP 148 / 85; Pulse 90; Pulse Ox 99% on R/A; ko1 16:56 Body Mass Index 51.68 (149.69 kg, 170.18 cm) jh5 MDM: 16:52 Patient medically screened. rn 18:21 Differential diagnosis: chronic back pain, Obesity Osteoarthritis sprain, rn radiculopathy. Data reviewed: vital signs, nurses notes, old medical records, and as a result, I will discharge patient. Counseling: I had a detailed discussion with the patient and/or guardian regarding: the historical points, exam findings, and any diagnostic results supporting the discharge/admit diagnosis, the need for outpatient follow up, to return to the emergency department if symptoms worsen or persist or if there are any questions or concerns that arise at home. Response to treatment: the patient's symptoms have markedly improved after treatment, and as a result, I will discharge patient. Special discussion: I discussed with the patient/guardian in detail that at this point there is no indication for admission to the hospital. It is understood, however, that if the symptoms persist or worsen the patient needs to return immediately for re-evaluation. Further emergent ED testing is not indicated at this point in time. I discussed with the patient/guardian in detail the need to arrange with the PCP or specialist further outpatient testing, MRI, Based on the history and exam findings, there is no indication for further emergent testing or inpatient evaluation. I discussed with the patient/guardian the need to see the primary care provider for further evaluation of the symptoms. ED course: Pt improved, calling for a ride, asks for more pain meds prior to discharge, will dc home with prn meds as well and recommend outpt MRI. . 08/31 17:02 Order name: IV Start; Complete Time: 17:51 rn Administered Medications: 17:51 Drug: Decadron - Dexamethasone 10 mg Route: IVP; Site: left antecubital; ko1 17:58 Drug: Ketorolac 30 mg Route: IVP; Site: left antecubital; ko1 17:58 Drug: Zofran (Ondansetron) 4 mg Route: IVP; Site: left antecubital; ko1 18:03 Drug: morphine 4 mg Route: IVP; Infused Over: 4 mins; Site: left antecubital; ko1 18:27 Drug: morphine 4 mg Route: IVP; Infused Over: 4 mins; Site: left antecubital; ko1 Disposition Summary: 08/31/22 18:22 Discharge Ordered Location: Home rn Problem: an acute exacerbation rn Symptoms: have improved rn Condition: Stable rn Diagnosis - Radiculopathy, lumbar region rn Followup: rn - With: Private Physician - When: As needed - Reason: Recheck today's complaints, Re-evaluation by your physician Discharge Instructions: - Discharge Summary Sheet rn - Lumbosacral Radiculopathy rn - Pinched Nerve rn - Back Exercises rn Forms: - Medication Reconciliation Form rn - Thank You Letter rn - Antibiotic rn transitional - Prescription Opioid Use rn - Work release form ko1 Prescriptions: - Cyclobenzaprine 10 mg Oral Tablet - take 1 tablet by ORAL route every 8 hours As needed; 12 tablet; Refills: 0, rn Product Selection Permitted - Tramadol 50 mg Oral Tablet - take 1 tablet by ORAL route every 8 hours as needed; 12 tablet; Refills: 0, rn Product Selection Permitted - Medrol (Harley) 4 mg Oral Tablets, Dose Pack - take 1 tablet by ORAL route as directed - follow package instructions; 1 rn packet; Refills: 0, Product Selection Permitted Signatures: Jordan Mcdonald MD MD rn Rees, Jessica, RN RN [facility] Gregoria Whitmore RN RN ko1 Corrections: (The following items were deleted from the chart) 17:03 17:01 Home Meds: meloxicam 7.5 mg/5 mL Oral susp; [place] [id number] 17:03 17:01 Home Meds: triamterene-hydrochlorothiazid 37.5-25 mg Oral cap 1 cap once daily; [place] [id number]
[2022-08-31 19:21] VITALS: TEMP 97.6; O2SAT 99
[2022-08-31 19:22] VITALS: BP 148/85
== END 2022-08-31 19:00 | disposition home or self-care (01) ==
LOC: ER 16:31
DX: M54.16 Radiculopathy, lumbar region (principal); I10 Essential (primary) hypertension; M19.90 Unspecified osteoarthritis, unspecified site
CPT/HCPCS: 96374; 96375; 99283; J1100; J2405

== ENCOUNTER 2022-09-27 01:36 | Emergency (ER) | payer SELFPAY ==
--- OUTSIDE RECORDS SUMMARY | 2022-09-27 01:41 | XMS REPORT | Continuity of Care Document ---
:1980 Author Organization [facility] t Address [address] [place] [address] Care Team Providers Name Role Phone Zachary De Souza [facility], [facility] Primary Care P hysician Akinsipe Yasmin PIZANO Attending Clinician [phone] CHRISTI KAUFFMAN Attending Clinician Unavailable Christi Barrera Attending Clinician ELENI OGLEBSY Attending Clinician Unavailable Eleni Oglesby DO Attending Clinician MAT GARCIA Attending Clinician Unavailable Mat Garcia MD Attending Clinician Doctor Unassigned, [place] Attending Clinician Unavailable Severino Messer MD Attending Clinician SEVERINO MESSER Attending Clinician Unavailable Payers Payer Name Policy Type Policy Number Effective Date Expiration Date S ource HIM AMBETTER FROM [id number] 2020 [facility] 00:00:00 Problems Condition Condition Condition Status Onset Resolution Last Treating Co mments Source Name Details Category Date Date Treatment Clinician Date No known No known Disease Unive rs active active ity of problems problems [facility] Allergies, Adverse Reactions, Alerts Allergy Allergy Status Severity Reaction(s) Onset Inactive Treating Comm ents Source Name Type Date Date Clinician [place] - Propensi Active Intraven ty to 6-28 ous adverse 00:00: reaction 00 to drug n Propensi Active ty to 6-20 adverse 00:00: reaction 00 to drug NO KNOWN Drug Active Univers ALLERGIE Class ity of S [facility] Social History Social Habit Start Date Stop Date Quantity Comments Source Exposure to 2022-08-07 2022-08-17 Not sure [facility] SARS-CoV-2 (event) 00:00:00 19:16:00 Medica l Branch Sex Assigned At [birth year] [facility] 00:00:00 00:00:00 Medical Branch Smoking Status Start Date Stop Date Source Tobacco smoking consumption [facility] Branch Medications Ordered Filled Start Stop Current Ordering Indication Dosage Frequency Signature Comments Components Source Medication Medication Date Date Medication? Clinician (SIG) Name Name NaCl 0.9% 2021-10- No 1000mL at 999 Uni vers (NS) bolus 0-28 10-28 mL/hr, ity of infusion 02:00: 02:25 1,000 mL, [place] as 1,000 mL 00 :00 IV Medical Infusion, Branch ONCE, 1 dose, On Rgeina 08/17/22 at 2100, STAT medroxyPROG 2021-10- Yes [id number] 10mg Take 1 Univers ESTERone 0-21 10-29 tablet by ity o f (PROVERA) 00:00: 04:59 mouth in [place] as 10 mg 00 :00 the Medical tablet morning Branch and 1 tablet at noon and 1 tablet in the evening. Do all this for 7 days. medroxyPROG 2021-10- Yes [id number] 10mg Take 1 Univers ESTERone 0-21 10-29 [...] 06/20/22 at 2245, JC cyclobenzap 2021-0 Yes [id number] 5mg Take 1 Univers rine 5 mg 8-30 tablet by ity o f tablet 00:00: mouth in [place] 00 the Medical morning Branch and 1 tablet at noon and 1 tablet in the evening. cyclobenzap 2021-0 Yes [id number] 5mg Take 1 Univers rine 5 mg 8-30 tablet by ity o f tablet 00:00: mouth in [place] 00 the Medical morning Branch and 1 tablet at noon and 1 tablet in the evening. cyclobenzap 2021-0 Yes [id number] 5mg Take 1 Univers rine 5 mg 8-30 tablet by ity o f tablet 00:00: mouth in [place] 00 the Medical morning Branch and 1 tablet at noon and 1 tablet in the evening. cyclobenzap 2021-0 Yes [id number] 5mg Take 1 Univers rine 5 mg 8-30 tablet by ity o f tablet 00:00: mouth in [place] 00 the Medical morning Branch and 1 [...] 1-29 tablet 00:00: 00 predniSONE 1-0 Yes [id number] 20mg Take 1 Univers 20 mg 1-02 tablet by ity of tablet 00:00: mouth [place] 00 daily. Medical Branch acetaminoph Yes [id number] 1{tbl} Take 1-2 Univers en-codeine 1-02 tablets by ity of 300-30 mg 00:00: mouth [place] tablet 00 every 6 Medical (six) Branch hours as needed for Pain (scale 4-6). Indication s: acute pain predniSONE Yes [id number] 20mg Take 1 Univers 20 mg 1-02 tablet by ity of tablet 00:00: mouth [place] 00 daily. Medical Branch acetaminoph Yes [id number] 1{tbl} Take 1-2 Univers en-codeine 1-02 tablets by ity of 300-30 mg 00:00: mouth [place] tablet 00 every 6 Medical (six) Branch hours as needed for Pain (scale 4-6). Indication s: acute pain predniSONE Yes [id number] 20mg Take 1 Univers 20 mg 1-02 tablet by ity of tablet 00:00: mouth [place] 00 daily. Medical Branch acetaminoph Yes 4647 1{tbl} Take 1-2 Univers en-codeine 1-02 tablets by ity of 300-30 mg 00:00: mouth [place] tablet 00 every 6 Medical (six) Branch hours as needed for Pain (scale 4-6). Indication s: acute pain predniSONE Yes [id number] 20mg Take 1 Univers 20 mg 1-02 tablet by ity of tablet 00:00: mouth [place] 00 daily. Medical Branch acetaminoph Yes 4647 1{tbl} Take 1-2 Univers en-codeine 1-02 tablets by ity of 300-30 mg 00:00: mouth [place] tablet 00 every 6 Medical (six) Branch hours as needed for Pain (scale 4-6). Indication s: acute pain predniSONE Yes [id number] 20mg Take 1 Univers 20 mg 1-02 [...] mg-hydrochl 00:00: orothiazide 00 25 mg capsule acetaminoph 2020-0 Yes [id number] 1{tbl} Take 1-2 Univers en-codeine 1-10 100 tablets by ity of 300-30 mg 00:00: mouth [place] tablet 00 every 4 Medical (four) Branch hours as needed for Pain (scale 4-6). ibuprofen 2020-0 Yes [id number] 800mg Take 1 Univers 800 mg 1-10 100 tablet by ity of tablet 00:00: mouth [place] 00 every 8 Medical (eight) Branch hours. ibuprofen 2020-0 Yes [id number] 800mg Take 1 Univers 800 mg 1-10 100 tablet by ity of tablet 00:00: mouth [place] 00 every 8 Medical (eight) Branch hours. acetaminoph 2020-0 Yes [id number] 1{tbl} Take 1-2 Univers en-codeine 1-10 100 tablets by ity of 300-30 mg 00:00: mouth [place] tablet 00 every 4 Medical (four) Branch hours as needed for Pain (scale 4-6). acetaminoph 2020-0 Yes [id number] 1{tbl} Take 1-2 Univers en-codeine 1-10 100 tablets by ity of 300-30 mg 00:00: mouth [place] tablet 00 every 4 Medical (four) Branch hours as needed for Pain (scale 4-6). ibuprofen 2020-0 Yes [id number] 800mg Take 1 Univers 800 mg 1-10 100 tablet by ity of tablet 00:00: mouth [place] 00 every 8 Medical (eight) Branch hours. acetaminoph 2020-0 Yes [id number] 1{tbl} Take 1-2 Univers en-codeine 1-10 100 tablets by ity of 300-30 mg 00:00: mouth [place] tablet 00 every 4 Medical (four) Branch hours as needed for Pain (scale 4-6). ibuprofen 2020-0 Yes [id number] 800mg Take 1 Univers 800 mg 1-10 100 tablet by ity of tablet 00:00: mouth [place] 00 every 8 Medical (eight) Branch hours. acetaminoph 2020-0 Yes [id number] 1{tbl} Take 1-2 Univers en-codeine 1-10 100 tablets by ity of 300-30 mg 00:00: mouth [place] tablet 00 every 4 Medical (four) Branch hours as needed for Pain (scale 4-6). ibuprofen 2020-0 Yes [id number] 800mg Take 1 Univers 800 mg 1-10 100 tablet by ity of tablet 00:00: mouth [place] 00 every 8 Medical (eight) Branch hours. Vital Signs Vital Name Observation Time Observation Value Comments Source Diastolic blood 2022-08-18 01:00:00 92 mm[Hg] [facility] Heart rate 2022-08-18 01:00:00 96 /min [facility] Respiratory rate 2022-08-18 01:00:00 18 /min [facility] Oxygen saturation in 2022-08-18 01:00:00 99 /min [facility] Arterial blood by [facility] Pulse oximetry Branch Systolic blood 2022-08-18 01:00:00 145 mm[Hg] [facility] Body temperature 2022-08-18 00:20:00 36.44 Hemalatha [facility] Body height 2022-08-18 00:20:00 170.2 cm [facility] Body weight 2022-08-18 00:20:00 146.512 kg [facility] BMI 2022-08-18 00:20:00 50.59 kg/m2 [facility] Systolic blood 2022-08-11 19:05:00 181 mm[Hg] Univer sity of pressure [place] [facility] Diastolic blood 2022-08-11 19:05:00 99 mm[Hg] Unive rsity of pressure [place] [facility] Heart rate 2022-08-11 19:05:00 90 /min [facility] [place] [facility] Respiratory rate 2022-08-11 19:05:00 15 /min Univ [facility] [place] [facility] Oxygen saturation in 2022-08-11 19:05:00 97 /min University of Arterial blood by [place] [employer] jeff Pulse oximetry Branch Body temperature 2022-08-11 17:56:00 36.89 Hemalatha [facility] [place] [facility] Body height 2022-08-11 17:56:00 170.2 cm [facility] [place] [facility] Body weight 2022-08-11 17:56:00 145.151 kg [facility] [place] [facility] BMI 2022-08-11 17:56:00 50.12 kg/m2 [facility] [place] [facility] Systolic blood 2022-06-21 03:00:00 141 mm[Hg] Univer sity of pressure [place] [facility] Diastolic blood 2022-06-21 03:00:00 78 mm[Hg] Unive rsity of pressure [place] [facility] Heart rate 2022-06-21 03:00:00 89 /min [facility] [place] [facility] Body temperature 2022-06-21 03:00:00 36.11 Hemalatha [facility] [place] [facility] Respiratory rate 2022-06-21 03:00:00 20 /min [facility] [place] [facility] Body height 2022-06-21 03:00:00 170.2 cm [facility] [place] [facility] Body weight 2022-06-21 03:00:00 145.151 kg [facility] [place] [facility] BMI 2022-06-21 03:00:00 50.12 kg/m2 [facility] [place] [facility] Oxygen saturation in 2022-06-21 03:00:00 100 /min University of Arterial blood by [place] [employer] jeff Pulse oximetry Branch BP Systolic [...] e POCT TEST 2022-08-18 00:37:00 Christi Kauffman [facility] COMP. METABOLIC PANEL 2022-08-18 00:34:00 Christi Kauffman [facility] ([id number]) [facility] CBC WITH DIFF 2022-08-18 00:34:00 Christi Kauffman [facility] CONSENT/REFUSAL FOR 2022-08-18 00:06:34 Doctor Unassigned, No Un [facility] DIAGNOSIS AND Name [facility] TREATMENT POCT TEST 2022-08-11 18:27:00 Eleni Oglesby [facility] COMP. METABOLIC PANEL 2022-08-11 18:25:00 Eleni Oglesby [facility] ([id number]) [facility] CBC WITH DIFF 2022-08-11 18:25:00 Eleni Oglesby [facility] URINALYSIS 2022-08-11 18:25:00 Mendel, Eleni J [facility] Branch CONSENT/REFUSAL FOR 2022-08-11 17:47:30 Doctor Unassigned, No Un [facility] [place] DIAGNOSIS AND Name Medical Branch TREATMENT NOTICE OF PRIVACY 2022-06-21 02:51:03 Doctor Unassigned, No Univ [facility] [place] PRACTICES Name Medical Branch CONSENT/REFUSAL FOR 2022-06-21 02:50:32 Doctor Unassigned, No Un [facility] [place] DIAGNOSIS AND Name Medical Branch TREATMENT Ekg W/ At Least 12 2022-01-19 00:00:00 Leads W/ I r Plan of Care Planned Activity Planned Date Details Comments Source Goal Plan of Care Note [code = 81509-2] Goal Plan of Care Note [code = 86360-7] Goal Plan of Care Note [code = 85893-8] Goal Plan of Care Note [code = 20186-1] Goal Plan of Care Note [code = 48511-3] Goal Plan of Care Note [code = 98549-7] Goal Plan of Care Note [code = 36350-8] Goal Plan of Care Note [code = 15162-7] Goal Plan of Care Note [code = 67712-7] Goal Plan of Care Note [code = 46814-8] Goal Plan of Care Note [code = 59482-9] Goal Plan of Care Note [code = 92207-0] Goal Plan of Care Note [code = 93413-6] Goal Plan of Care Note [code = 13311-3] Goal Plan of Care Note [code = 59755-4] Goal Plan of Care Note [code = 20310-1] Goal Plan of Care Note [code = 79005-9] Goal Plan of Care Note [code = 58979-8] Goal Plan of Care Note [code = 66688-1] Goal Plan of Care Note [code = 20272-0] Goal Plan of Care Note [code = 82097-7] Goal Plan of Care Note [code = 06877-0] Goal Plan of Care Note [code = 46915-4] Goal Plan of Care Note [code = 27807-8] Goal Plan of Care Note [code = 26827-1] Goal Plan of Care Note [code = 92195-6] Goal Plan of Care Note [code = 42832-0] Goal Plan of Care Note [code = 67593-2] Goal Plan of Care Note [code = 02197-9] Goal Plan of Care Note [code = 78785-8] Goal Plan of Care Note [code = 30558-8] Goal Plan of Care Note [code = 36430-6] Goal Plan of Care Note [code = 11573-6] Goal Plan of Care Note [code = 11572-9] Goal Plan of Care Note [code = 25391-2] Goal Plan of Care Note [code = 53514-1] Goal Plan of Care Note [code = 47026-4] Goal Plan of Care Note [code = 71609-9] Goal Plan of Care Note [code = 47074-3] Goal Plan of Care Note [code = 63515-3] Goal Plan of Care Note [code = 21835-7] Goal Plan of Care Note [code = 63270-0] Goal Plan of Care Note [code = 48173-4] Goal Plan of Care Note [code = 34447-7] Goal Plan of Care Note [code = 56040-4] Goal Plan of Care Note [code = 39227-3] Goal Plan of Care Note [code = 90927-0] Goal Plan of Care Note [code = 81721-7] Goal Plan of Care Note [code = 80485-5] Goal Plan of Care Note [code = 55780-2] Goal Plan of Care Note [code = 88309-1] Goal Plan of Care Note [code = 87439-2] Goal Plan of Care Note [code = 19440-0] Goal Plan of Care Note [code = 11574-5] Goal Plan of Care Note [code = 89521-7] Goal Plan of Care Note [code = 67969-5] Goal Plan of Care Note [code = 25036-5] Goal Plan of Care Note [code = 15296-7] Goal Plan of Care Note [code = 11560-1] Goal Plan of Care Note [code = 90647-6] Goal Plan of Care Note [code = 39798-6] Goal Plan of Care Note [code = 13072-0] Goal Plan of Care Note [code = 57189-0] Goal Plan of Care Note [code = 46920-9] Goal Plan of Care Note [code = 65342-0] Goal Plan of Care Note [code = 04331-1] Encounters Start End Encounter Admission Attending Care Care Encounter Source Date/Time Date/Time Type Type Clinicians Facility Department ID 2022-08-21 2022-08-21 [facility] [id number] Univers 00:00:00 00:00:00 Yasmin Duarte DIRECTOR OF PHILANTHROPY 350.1.13.10 ity [facility] 4.2.7.2.686 [place] as MATERNAL [phone] Med ical & CHILD [address] [place] [address] 2022-08-17 2022-08-17 Emergency X DALY [facility] ERT [id number] Univers 19:14:00 22:03:00 [facility] 2022-08-17 2022-08-17 [facility] [id number] Univers 19:14:00 22:03:00 Christi Ortiz RAPELJE 350.1.13.10 i [facility] 4[place].2.686 [place] [id number] [address] 2022-08-11 2022-08-11 Emergency X MENDEL [facility] ERT [id number] Univers 12:57:00 14:52:00 [facility] 2022-08-11 2022-08-11 Emergency [facility] [id number] [id number] Univers 12:57:00 14:52:00 [facility]eni Sal[facility] [id number] ity [facility] 4[place]2.[place].2.686 [place] [id number] [address] 2022-07-07 2022-07-07 Outpatient [id number] 00:00:00 00:00:00 Visit [id number] 2022-06-30 2022-06-30 Outpatient [id number] 00:00:00 00:00:00 Visit [id number]-[id number] -[id number] 2022-06-20 2022-06-20 Emergency [facility] [id number] Univers 22:02:00 22:56:00 MAT silviaashtyn [facility] 2022-06-20 2022-06-20 Emergency [facility] [id number] Univers 22:02:00 22:56:00 Mat ADAMS 350.1.13.10 i ty of [place] 4.2.7.2.686 [facility] [id number] [facility] [address] [place] 2022-06-20 2022-06-20 Orders Doctor IGOR 1.2.840.114 [id number] Univers 00:00:00 00:00:00 Only Unassigned, TRACY 350.1.13.10 ity of [place] [facility] 4.2.7.2.686 [place] [id number] [facility] [address] 2020-10-23 2020-10-23 Emergency [facility] [id number] 11:49:00 14:51:00 Severino [place] 350.1.13.10 [place] 4.2.7.2.686 [place] [id number] [facility] 2020-10-23 2020-10-23 Emergency X [facility] ERT [id number] Univers 11:49:00 11:49:00 SEVERINO [facility] Results Test Description Test Time Test Comments Results Result Comments Source CBC WITH DIFF 2022-08-18 01:06:25 Test Item Value Reference Range Interpretation Comme nts WBC (test code = 6690-2) See_Comment [A utomated message] The system which [employer] nerated this result transmit leonid reference range: 4.30 - 1 1.10 10*3/?L. The reference r fabi was not used to interpr et this result as normal/abnor mal. RBC (test code = 789-8) See_Comment [Au tomated message] The system which [employer] nerated this result transmit leonid reference range: [...] 32.6 g/dL 31.6-35.1 RDW-SD (test code = 85549-8) 53.1 fL 39.0-49.9 H RDW-CV (test code = 788-0) 16.8 % 12.0-15.5 H PLT (test code = 777-3) See_Comment H [Au tomated message] The system which ge nerated this result transmit leonid reference range: 166 - 35 8 10*3/?L. The reference range was not used to interpret th is result as normal/abnormal . MPV (test code = 01175-9) 10.0 fL 9.5-12.9 NRBC/100 WBC (test code = See_Comment [ Automated message] The 9320988389) system which ge nerated this result transmit leonid reference range: 0.0 - 10 .0 /100 WBCs. The reference r fabi was not used to interpr et this result as normal/abnor mal. NRBC x10^3 (test code = See_Comment [Au tomated message] The 8353838977) system which [employer] nerated this result transmit leonid reference range: 10*3/?L. The reference range was not u sed to interpret this result as normal/abnormal . GRAN MAT (NEUT) % (test code 40.4 % = 770-8) IMM GRAN % (test code = 0.30 % 9971646489) LYMPH % (test code = 736-9) 48.0 % MONO % (test code = 5905-5) 9.9 % EOS % (test code = 713-8) 0.9 % BASO % (test code = 706-2) 0.5 % GRAN MAT x10^3(ANC) (test 3.15 10*3/uL 1.88-7.09 code = 4282697197) IMM GRAN x10^3 (test code = 0.00-0.06 3858305578) LYMPH x10^3 (test code = 3.74 10*3/uL 1.32-3.29 H 731-0) MONO x10^3 (test code = 0.77 10*3/uL 0.33-0.92 742-7) EOS x10^3 (test code = 0.07 10*3/uL 0.03-0.39 711-2) BASO x10^3 (test code = 0.04 10*3/uL 0.01-0.07 704-7) Lab Interpretation (test Abnormal code = 54366-7) [facility] ([id number])2022-08-18 01:03:23 Test Item Value Reference Range Interpretation Comments NA (test code = 142 mmol/L 135-145 7378484335) K (test code = 3.9 mmol/L 3.5-5.0 0297211271) CL (test code = 103 mmol/L 98-108 3832791780) CO2 TOTAL (test code = 27 mmol/L 23-31 5043144298) AGAP (test code = 2-16 0614523655) BUN (test code = 13 mg/dL 7-23 8280611434) GLUCOSE (test code = 140 mg/dL 70-110 H 6161109264) CREATININE (test code = 0.95 mg/dL 0.50-1.04 4635585604) TOTAL BILI (test code = 0.3 mg/dL 0.1-1.5 4501183984) CALCIUM (test code = 9.3 mg/dL 8.6-10.6 2078166929) T PROTEIN (test code = 8.0 g/dL 6.3-8.2 4485002781) ALBUMIN (test code = 4.3 g/dL 3.5-5.0 0082450152) ALK PHOS (test code = 73 U/L 34-122 2701072641) ALTv (test code = 26 U/L 5-35 1742-6) AST(SGOT) (test code = 31 U/L 13-40 9652917729) eGFR (test code = mL/min/1.73m2 3368618091) EVA (test code = EVA) Association of [...] tests). Lab Interpretation Abnormal (test code = 70203-8) [facility] [id number] 00:37:00 Test Item Value Reference Range Interpretation Comments POCT PREG (test code = 1605) negative On board controls acceptable with present C Line (test code = 3574) POCT PREG LOT # (test code = 3575) [id number] POCT PREG TEST DATE (test 12/20/2023 code = 3576) Lab Interpretation (test code = Normal 64056-3) [facility]. METABOLIC PANEL ([id number])2022-08-11 18:49:02 Test Item Value Reference Range Interpretation Comments NA (test code = 139 mmol/L 135-145 3422712532) K (test code = 4.4 mmol/L 3.5-5 1995112504) CL (test code = 105 mmol/L 98-108 9920720617) CO2 TOTAL (test code = 27 mmol/L 23-31 3046324281) AGAP (test code = 2-16 9474984743) BUN (test code = 6 mg/dL 7-23 L 8377544102) GLUCOSE (test code = 140 mg/dL 70-110 H 5609713251) CREATININE (test code = 0.64 mg/dL 0.5-1.04 1958048350) TOTAL BILI (test code = 0.3 mg/dL 0.1-1.6 2549898429) CALCIUM (test code = 8.5 mg/dL 8.6-10.6 L 8448130066) T PROTEIN (test code = 6.9 g/dL 6.3-8.2 6729251412) ALBUMIN (test code = 3.7 g/dL 3.5-5 4145763318) ALK PHOS (test code = 66 U/L 34-122 5490280257) ALTv (test code = 20 U/L 5-35 1742-6) AST(SGOT) (test code = 28 U/L 13-40 1604471338) eGFR (test code = mL/min/1.73m2 2842807064) EVA (test code = EVA) Association of [...] tests). Lab Interpretation Abnormal (test code = 20436-6) [facility] WITH [id number] 18:45:43 Test Item Value Reference Range Interpretation [...] (test code = 55.8 fL 39-49.9 H 60442-1) RDW-CV (test code = 17.2 % 12-15.5 H 788-0) PLT (test code = See_Comment H [Automated 777-3) message] The sy stem which generated this result transmitted reference range : 166 - 358 10*3/ ?L. The reference r fabi was not used to interpret this result as normal/abnormal . MPV (test code = 10.0 fL 9.5-12.9 31806-5) NRBC/100 WBC (test See_Comment [Automat ed code = 2718294804) message] The system which generated this result transmitted reference range : 0.0 - 10.0 /100 WBCs. The refer ence range was not u sed to interpret th is result as normal/abnormal . NRBC x10^3 (test code See_Comment [Auto mated = 5377314200) message] The s ystem which generated this result transmitted reference range : 10*3/?L. The reference range was not used to interpret this result as normal/abnormal . GRAN MAT (NEUT) % 58.9 % (test code = 770-8) IMM GRAN % (test code 0.30 % = 6133495563) LYMPH % (test code = 31.3 % 736-9) MONO % (test code = 7.8 % 5905-5) EOS % (test code = 1.3 % 713-8) BASO % (test code = 0.4 % 706-2) GRAN MAT x10^3(ANC) 4.43 10*3/uL 1.88-7.09 (test code = 7725082281) IMM GRAN x10^3 (test 0-0.06 code = 1814935565) LYMPH x10^3 (test code 2.36 10*3/uL 1.32-3.29 = 731-0) MONO x10^3 (test code 0.59 10*3/uL 0.33-0.92 = 742-7) EOS x10^3 (test code = 0.10 10*3/uL 0.03-0.39 711-2) BASO x10^3 (test code 0.03 10*3/uL 0.01-0.07 = 704-7) Lab Interpretation Abnormal (test code = 27638-3) [facility] [id number] 18:27:00 Test Item Value Reference Range Interpretation Comments POCT PREG (test code = 1605) negative On board controls acceptable with positive C Line (test code = 3574) POCT PREG LOT # (test code = 3575) [id number] POCT PREG TEST DATE (test 12-20-2023 code = 3576) Lab Interpretation (test code = Normal 29967-7) [facility] M[facility] MARIAJOSE CAD [id number] 08:05:09Name: Megan : 1980 Sex: F - SCR MAMM BILATERAL MARIAJOSE CAD DIGITALBILATERAL FIRST EVER DIGITAL SCREENING MAMMOGRAM 3D/2D WITH CAD: 03/17/2022LINICAL: Asymptomatic. Digital breast tomosynthesis was performed in addition to routine CC and MLO views. Current mammographic images were evaluated by [employer] CAD (computer-aided detection) software. No prior exams were available for comparison. There are scattered fibroglandular tissues in both breasts. No suspicious mass, architectural distortion, malignant type calcification, or lymph node abnormality detected. IMPRESSION: NEGATIVEThere is no mammographic evidence of malignancy. Resume annual screening mammography in one year. Fahad Tipton M.D. et/penrad:03/22/2022 08:05:09 Oxygen Equipment Technician: Amada Moctezuma MM, [facility] Mammographyletter sent: BIRADS 1-2 Normal Mammogram BI-RADS: 1 NegativeHEMOGLOBIN [id number] 00:24:25 Test Item Value Reference Range Interpretation Comments HEMOGLOBIN A1c (test 6.8 % 4.2-5.6 H [employer] AN DIABETES code = 80986) ASSOCIATION IDELIN[employer] FOR HGB A1C: PREDIABETES/INC REASED [...] ATE TESTING OR LABORATORY C ONSULTATION. HEMOGLOBIN [id number] 00:00:00 Test Item Value Reference Range Interpretation Comments HEMOGLOBIN A1c (test code = 03272) 6.8 % HEMOGLOBIN [id number] 00:00:00 Test Item Value Reference Range Interpretation Comments HEMOGLOBIN A1c (test code = 79721) 6.8 % HEMOGLOBIN [id number] 00:00:00 Test Item Value Reference Range Interpretation Comments HEMOGLOBIN A1c (test code = 35906) 6.8 % HEMOGLOBIN [id number] 00:00:00 Test Item Value Reference Range Interpretation Comments HEMOGLOBIN A1c (test code = 89848) 6.8 % HEMOGLOBIN [id number] 00:00:00 Test Item Value Reference Range Interpretation Comments HEMOGLOBIN A1c (test code = 60027) 6.8 % HEMOGLOBIN [id number] 00:00:00 Test Item Value Reference Range Interpretation Comments HEMOGLOBIN A1c (test code = 31303) 6.8 % TSH, THIRD [id number] 06:13:08 Test Item Value Reference Range Interpretation Comments TSH, THIRD GENERATION (test code 1.210 UIU/ML 0.400-4.100 = 2821) [id number] 05:50:43 Test Item Value Reference Range Interpretation Comments NT-proBNP 145 PG/ML SEE BELOW If NT-ProBNP i s less than 300 (test code = PG/ML, heart fa ilure is unlikely 02615) for allages. Age............ .....Heart Failure Likely <50 Years.......... .>=450 PG/ML 50-75 Years.... .....>=900 PG/ML > 75 Years..... .....>=1800 PG/ML Methodology: Ro gonzalo Karis Electrochemilum inescense Immunoassay UN LESS OTHERWISE INDICATED, ALL TESTING PERFORMED ATCLINICAL PATH [employer], [place]. 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 [id number] LIPID [id number] 04:29:21 Test Item Value Reference Range Interpretation [...] MOREINFORMATION , SEE CLIENT ANNOUNCE MENT AT [email or web address] RISK RATIO LDL/HDL 1.39 RATIO <3.22 (test code = 2238) COMPREHENSIVE METABOLIC [id number] 04:29:21 Test Item Value Reference Range Interpretation Comments GLUCOSE (test code = 95 MG/DL 70-99 2216) BUN (test code = 7 MG/DL 6-20 2207) CREATININE (test 0.80 MG/DL 0.60-1.30 code = 2214) eGFR (2020 CKD-EPI) 95 ML/MIN/1.73 >60 (test code = 92032) CALC BUN/CREAT (test 9 RATIO 6-28 code = 2235) SODIUM (test code = 141 MEQ/L 350-515 7778) POTASSIUM (test code 4.1 MEQ/L 3.5-5.4 = [...] U/L 5-40 2219) CBC W/AUTO DIFF WITH [id number] 03:09:17 Test Item Value Reference Range Interpretation [...] RBCS 0.00 K/UL 0.00-0.11 (test code = 53412) [id number] 00:00:00 Test Item Value Reference Range Interpretation Comments TSH, THIRD GENERATION (test code 1.210 UIU/ML = 2821) [id number] 00:00:00 Test Item Value Reference Range Interpretation Comments TSH, THIRD GENERATION (test code 1.210 UIU/ML = 2821) [id number] 00:00:00 Test Item Value Reference Range Interpretation Comments TSH, THIRD GENERATION (test code 1.210 UIU/ML = 2821) [id number] 00:00:00 Test Item Value Reference Range Interpretation Comments NT-proBNP (test code = 27300) 145 PG/ML [id number] 00:00:00 Test Item Value Reference Range Interpretation Comments NT-proBNP (test code = 06137) 145 PG/ML [id number] 00:00:00 Test Item Value Reference Range Interpretation Comments NT-proBNP (test code = 78990) 145 PG/ML CBC W/AUTO [id number] 00:00:00 Test Item Value Reference Range Interpretation [...] NUCLEATED RBCS (test code = 0.00 K/UL 81328) CBC W/AUTO [id number] 00:00:00 Test Item Value Reference Range Interpretation [...] NUCLEATED RBCS (test code = 0.00 K/UL 23368) CBC W/AUTO [id number] 00:00:00 Test Item Value Reference Range Interpretation [...] NUCLEATED RBCS (test code = 0.00 K/UL 41477) LIPID [id number] 00:00:00 Test Item Value Reference Range Interpretation Comments CHOLESTEROL (test code = 2210) 160 MG/DL TRIGLYCERIDES (test code = 2232) 154 MG/DL HDL CHOLESTEROL (test code = 2220) 56 MG/DL CALC LDL CHOL (test code = 2237) 78 MG/DL RISK RATIO LDL/HDL (test code = 1.39 RATIO 2238) LIPID [id number] 00:00:00 Test Item Value Reference Range Interpretation Comments CHOLESTEROL (test code = 2210) 160 MG/DL TRIGLYCERIDES (test code = 2232) 154 MG/DL HDL CHOLESTEROL (test code = 2220) 56 MG/DL CALC LDL CHOL (test code = 2237) 78 MG/DL RISK RATIO LDL/HDL (test code = 1.39 RATIO 2238) COMPREHENSIVE METABOLIC [id number] 00:00:00 Test Item Value Reference Range Interpretation Comments GLUCOSE (test code = 2217) 95 MG/DL BUN (test code = 2208) 7 MG/DL CREATININE (test code = 2214) 0.80 MG/DL eGFR (2020 CKD-EPI) (test code 95 ML/MIN/1.73 = 31412) CALC BUN/CREAT (test code = 9 RATIO [...] code = 2219) 21 U/L COMPREHENSIVE METABOLIC [id number] 00:00:00 Test Item Value Reference Range Interpretation Comments GLUCOSE (test code = 2217) 95 MG/DL BUN (test code = 2208) 7 MG/DL CREATININE (test code = 2214) 0.80 MG/DL eGFR (2020 CKD-EPI) (test code 95 ML/MIN/1.73 = 19103) CALC BUN/CREAT (test code = 9 RATIO [...] ALT (test code = 2219) 21 U/L [id number] 00:00:00 Test Item Value Reference Range Interpretation Comments TSH, THIRD GENERATION (test code 1.210 UIU/ML = 2821) [id number] 00:00:00 Test Item Value Reference Range Interpretation Comments TSH, THIRD GENERATION (test code 1.210 UIU/ML = 2821) [id number] 00:00:00 Test Item Value Reference Range Interpretation Comments TSH, THIRD GENERATION (test code 1.210 UIU/ML = 2821) [id number] 00:00:00 Test Item Value Reference Range Interpretation Comments NT-proBNP (test code = 95200) 145 PG/ML [id number] 00:00:00 Test Item Value Reference Range Interpretation Comments NT-proBNP (test code = 15048) 145 PG/ML [id number] 00:00:00 Test Item Value Reference Range Interpretation Comments NT-proBNP (test code = 01858) 145 PG/ML CBC W/AUTO [id number] 00:00:00 Test Item Value Reference Range Interpretation [...] NUCLEATED RBCS (test code = 0.00 K/UL 68555) CBC W/AUTO [id number] 00:00:00 Test Item Value Reference Range Interpretation [...] NUCLEATED RBCS (test code = 0.00 K/UL 30320) CBC W/AUTO [id number] 00:00:00 Test Item Value Reference Range Interpretation [...] NUCLEATED RBCS (test code = 0.00 K/UL 87531) LIPID [id number] 00:00:00 Test Item Value Reference Range Interpretation Comments CHOLESTEROL (test code = 2210) 160 MG/DL TRIGLYCERIDES (test code = 2232) 154 MG/DL HDL CHOLESTEROL (test code = 2220) 56 MG/DL CALC LDL CHOL (test code = 2237) 78 MG/DL RISK RATIO LDL/HDL (test code = 1.39 RATIO 2238) LIPID [id number] 00:00:00 Test Item Value Reference Range Interpretation Comments CHOLESTEROL (test code = 2210) 160 MG/DL TRIGLYCERIDES (test code = 2232) 154 MG/DL HDL CHOLESTEROL (test code = 2220) 56 MG/DL CALC LDL CHOL (test code = 2237) 78 MG/DL RISK RATIO LDL/HDL (test code = 1.39 RATIO 2238) COMPREHENSIVE METABOLIC [id number] 00:00:00 Test Item Value Reference Range Interpretation Comments GLUCOSE (test code = 2217) 95 MG/DL BUN (test code = 2208) 7 MG/DL CREATININE (test code = 2214) 0.80 MG/DL eGFR (2020 CKD-EPI) (test code 95 ML/MIN/1.73 = 47759) CALC BUN/CREAT (test code = 9 RATIO [...] code = 2219) 21 U/L COMPREHENSIVE METABOLIC [id number] 00:00:00 Test Item Value Reference Range Interpretation Comments GLUCOSE (test code = 2217) 95 MG/DL BUN (test code = 2208) 7 MG/DL CREATININE (test code = 2214) 0.80 MG/DL eGFR (2020 CKD-EPI) (test code 95 ML/MIN/1.73 = 25241) CALC BUN/CREAT (test code = 9 RATIO [...] code = 2219) 21 U/L CHLAMYDIA, NAAT, [id number] 18:09:17 Test Item Value Reference Range Interpretation Comments CHLAMYDIA, NAAT NEGATIVE NEGATIVE IMPORTA NT NOTICE: SEE (test code = [place] [address]) [email or web address] Note: Assay methodology is nucleic acid amplification b y supervisor metalizing m ediated amplification ( TMA) utilizing the A ptima Combo 2 Assay. GONORRHEA, NAAT, [id number] 18:09:17 Test Item Value Reference Range Interpretation Comments GONORRHEA, NAAT NEGATIVE NEGATIVE IMPORTA NT NOTICE: SEE (test code = [place] [address]) [email or web address] Note: Assay methodology is nucleic acid amplification b y supervisor metalizing m ediated amplification ( TMA) utilizing the A ptima Combo 2 Assay. VAGINAL PATHOGENS DNA [id number] 15:05:32 Test Item Value Reference Range Interpretation Comments KENNETH SPECIES (test NEGATIVE NEGATIVE code = ) G. VAGINALIS (test NEGATIVE NEGATIVE code = ) T. VAGINALIS (test NEGATIVE NEGATIVE UNLESS O THERWISE code = ) INDICATED, ALL TESTING PERFORMED [facility] SERVICESBonial [employer] [address] [place] [address] 4 LABORATORY DIRE CTOR: RAMAN GIBSON M.D. [place] NUMBER [id number] [facility] [place] [id number] PAP TEST, THINPREP, [id number] 13:36:46 Test Item Value Reference Range Interpretation Comments SOURCE: (test Cervical code = 8001) SLIDES: (test 1 code = 8011) LMP: (test code 12/28/2021 = 8021) SPECIMEN (NOTE) Satisfactory f or ADEQUACY: (test evaluation. code = 67907) Endocervical cells/transform ation zone component not identified. INTERPRETATION: NILM/NO EPITH. (test code = ABNORMALITY;SEE 26131) BELOW -------- - NEGATIVE FOR INTRAEPITHELIAL LESION OR MALIGNANCY ( NILM) -------- -------- -------- ---- HEMP FIBER TAKER OFF Yuridia Moreno, CT : (test code = (ASCP) 8101) LOCATION: (test (NOTE) Specimens pr ocessed and code = 66338) interpreted at [facility], [address] [place] [address], Phone: , CLIA: [id number] CPT: (test code (NOTE) 86530 UNLESS OTHERWISE = 8140) INDICATED, COMP UTER [...] ALL TESTING PER FORMED ATCLINICAL PATH OLOGY FORMERLY [facility], [facility]. [address] [place] [address] LABORATOR Y DIRECTOR: RAMAN GAMEZ M.D. CLIA NUMBER [id number] CAP ACCREDITATION N O. [id number] HCG, [id number] 06:16:53 Test Item Value Reference Range Interpretation Comments HCG, QUANTITATIVE (test <5 MIU/ML SEE BELOW EXPECTED code = 2506) VALUES FOR HCG GST.AGE UNITS RANGE GST. AGE UNITS RANGE3 WEEKS MS U/ML 6-71 10 WEEKS M IU/ML 46,509-186,9774 [...] . . . . . . MIU/ML 6-7RURW-MANTQNU SUSSY FEMALES . . . . . . . . . . . . MIU /ML <=7 [id number] 05:20:25 Test Item Value Reference Range Interpretation Comments RPR RESULT (test code = NON-REACTIVE NON-REACTIVE 3501) RPR TITER (test code = 3500) NOT INDIC. TITER NOT INDIC. HIV 1/2 4TH GEN, RFLX [id number] 04:05:17 Test Item Value Reference Range Interpretation Comments HIV 1/2 4TH GEN, RFLX CONF (test NON-REACTIVE NON-REACTIVE code = 3514) HEPATITIS PANEL, [id number] 04:05:17 Test Item Value Reference Range Interpretation Comments HEPATITIS A IgM (test NON-REACTIVE NON-REACTIVE code = 08671) HEPATITIS B CORE IgM NON-REACTIVE NON-REACTIVE (test code = 4644) HEPATITIS B SURF AG NON-REACTIVE NON-REACTIVE (test code = 2739) HEPATITIS C ANTIBODY NON-REACTIVE NON-REACTIVE (test code = 4675) INTERPRETATION (NOTE) Hepatitis A HEPATITIS A: (test code sero logy shows no = 2552) evidence of acu te hepatitis A. INTERPRETATION (NOTE) Hepatitis B HEPATITIS B: (test code sero logy shows no = 48390) evidence of acu te hepatitis B and no indication of exposure to hepatitis B vir us in the previous law eight months. INTERPRETATION (NOTE) Hepatitis C HEPATITIS C: (test code sero logy shows no = 55817) evidence of exposure to hepatitisC viru s at this time. I t can take up to 12 months after exposure tothe hepatitis C vir us for antibodies to become detectab le in the blood in certain patient s. HCG, [id number] 00:00:00 Test Item Value Reference Range Interpretation Comments HCG, QUANTITATIVE (test code = <5 MIU/ML 2506) CHLAMYDIA, AMPLIFIED, [id number] 00:00:00 Test Item Value Reference Range Interpretation Comments CHLAMYDIA, NAAT (test code = 70704) NEGATIVE CHLAMYDIA, AMPLIFIED, [id number] 00:00:00 Test Item Value Reference Range Interpretation Comments CHLAMYDIA, NAAT (test code = 30578) NEGATIVE GC, AMPLIFIED, [id number] 00:00:00 Test Item Value Reference Range Interpretation Comments GONORRHEA, NAAT (test code = 40779) NEGATIVE GC, AMPLIFIED, [id number] 00:00:00 Test Item Value Reference Range Interpretation Comments GONORRHEA, NAAT (test code = 51130) NEGATIVE [id number] 00:00:00 Test Item Value Reference Range Interpretation Comments RPR RESULT (test code = NON-REACTIVE 3501) RPR TITER (test code = 3500) NOT INDIC. TITER [id number] 00:00:00 Test Item Value Reference Range Interpretation Comments RPR RESULT (test code = NON-REACTIVE 3501) RPR TITER (test code = 3500) NOT INDIC. TITER [id number] 00:00:00 Test Item Value Reference Range Interpretation Comments RPR RESULT (test code = NON-REACTIVE 3501) RPR TITER (test code = 3500) NOT INDIC. TITER VAGINAL PATHOGENS DNA [id number] 00:00:00 Test Item Value Reference Range Interpretation Comments KENNETH SPECIES (test code = 89798) NEGATIVE G. VAGINALIS (test code = 25045) NEGATIVE T. VAGINALIS (test code = 41816) NEGATIVE VAGINAL PATHOGENS DNA [id number] 00:00:00 Test Item Value Reference Range Interpretation Comments KENNETH SPECIES (test code = 04663) NEGATIVE G. VAGINALIS (test code = 69335) NEGATIVE T. VAGINALIS (test code = 08920) NEGATIVE PAP TEST, THINPREP, [id number] 00:00:00 Test Item Value Reference Range Interpretation Comments SOURCE: (test code = Cervical 8001) SLIDES: (test code = 1 8011) LMP: (test code = 8021) 12/28/2021 SPECIMEN ADEQUACY: (NOTE) (test code = 47801) INTERPRETATION: (test NILM/NO EPITH. code = 67945) ABNORMALITY;SEE BELOW HEMP FIBER TAKER OFF: (test LEILA Buckley (ASCP) code = 8101) LOCATION: (test code = (NOTE) 17183) CPT: (test code = 8140) (NOTE) HIV AB/AG COMBO RFLX [id number] 00:00:00 Test Item Value Reference Range Interpretation Comments HIV 1/2 4TH GEN, RFLX CONF (test NON-REACTIVE code = 3514) PAP TEST, THINPREP, [id number] 00:00:00 Test Item Value Reference Range Interpretation Comments SOURCE: (test code = Cervical 8001) SLIDES: (test code = 1 8011) LMP: (test code = 8021) 12/28/2021 SPECIMEN ADEQUACY: (NOTE) (test code = 70077) INTERPRETATION: (test NILM/NO EPITH. code = 46894) ABNORMALITY;SEE BELOW HEMP FIBER TAKER OFF: (test LEILA Buckley (ASCP) code = 8101) LOCATION: (test code = (NOTE) 46420) CPT: (test code = 8140) (NOTE) HIV AB/AG COMBO RFLX [id number] 00:00:00 Test Item Value Reference Range Interpretation Comments HIV 1/2 4TH GEN, RFLX CONF (test NON-REACTIVE code = 3514) ACUTE HEPATITIS [id number] 00:00:00 Test Item Value Reference Range Interpretation Comments HEPATITIS A IgM (test code = NON-REACTIVE 39774) HEPATITIS B CORE IgM (test code NON-REACTIVE = 4644) HEPATITIS B SURF AG (test code = NON-REACTIVE 2739) HEPATITIS C ANTIBODY (test code NON-REACTIVE = 4675) INTERPRETATION HEPATITIS A: (NOTE) (test code = 2552) INTERPRETATION HEPATITIS B: (NOTE) (test code = 97598) INTERPRETATION HEPATITIS C: (NOTE) (test code = 34045) ACUTE HEPATITIS [id number] 00:00:00 Test Item Value Reference Range Interpretation Comments HEPATITIS A IgM (test code = NON-REACTIVE 78516) HEPATITIS B CORE IgM (test code NON-REACTIVE = 4644) HEPATITIS B SURF AG (test code = NON-REACTIVE 2739) HEPATITIS C ANTIBODY (test code NON-REACTIVE = 4675) INTERPRETATION HEPATITIS A: (NOTE) (test code = 2552) INTERPRETATION HEPATITIS B: (NOTE) (test code = 87156) INTERPRETATION HEPATITIS C: (NOTE) (test code = 26193) HCG, [id number] 00:00:00 Test Item Value Reference Range Interpretation Comments HCG, QUANTITATIVE (test code = <5 MIU/ML 2506) HCG, [id number] 00:00:00 Test Item Value Reference Range Interpretation Comments HCG, QUANTITATIVE (test code = <5 MIU/ML 2506) HCG, [id number] 00:00:00 Test Item Value Reference Range Interpretation Comments HCG, QUANTITATIVE (test code = <5 MIU/ML 2506) CHLAMYDIA, AMPLIFIED, [id number] 00:00:00 Test Item Value Reference Range Interpretation Comments CHLAMYDIA, NAAT (test code = 95313) NEGATIVE CHLAMYDIA, AMPLIFIED, [id number] 00:00:00 Test Item Value Reference Range Interpretation Comments CHLAMYDIA, NAAT (test code = 67489) NEGATIVE GC, AMPLIFIED, [id number] 00:00:00 Test Item Value Reference Range Interpretation Comments GONORRHEA, NAAT (test code = 18038) NEGATIVE GC, AMPLIFIED, [id number] 00:00:00 Test Item Value Reference Range Interpretation Comments GONORRHEA, NAAT (test code = 79435) NEGATIVE [id number] 00:00:00 Test Item Value Reference Range Interpretation Comments RPR RESULT (test code = NON-REACTIVE 3501) RPR TITER (test code = 3500) NOT INDIC. TITER [id number] 00:00:00 Test Item Value Reference Range Interpretation Comments RPR RESULT (test code = NON-REACTIVE 3501) RPR TITER (test code = 3500) NOT INDIC. TITER [id number] 00:00:00 Test Item Value Reference Range Interpretation Comments RPR RESULT (test code = NON-REACTIVE 3501) RPR TITER (test code = 3500) NOT INDIC. TITER VAGINAL PATHOGENS DNA [id number] 00:00:00 Test Item Value Reference Range Interpretation Comments KENNETH SPECIES (test code = ) NEGATIVE G. VAGINALIS (test code = 21498) NEGATIVE T. VAGINALIS (test code = 76504) NEGATIVE VAGINAL PATHOGENS DNA [id number] 00:00:00 Test Item Value Reference Range Interpretation Comments KENNETH SPECIES (test code = ) NEGATIVE G. VAGINALIS (test code = 05231) NEGATIVE T. VAGINALIS (test code = 25680) NEGATIVE PAP TEST, THINPREP, [id number] 00:00:00 Test Item Value Reference Range Interpretation Comments SOURCE: (test code = Cervical 8001) SLIDES: (test code = 1 8011) LMP: (test code = 8021) 12/28/2021 SPECIMEN ADEQUACY: (NOTE) (test code = 12030) INTERPRETATION: (test NILM/NO EPITH. code = 14371) ABNORMALITY;SEE BELOW HEMP FIBER TAKER OFF: (test Yuridia Moreno CT (ASCP) code = 8101) LOCATION: (test code = (NOTE) 26442) CPT: (test code = 8140) (NOTE) HIV AB/AG COMBO RFLX [id number] 00:00:00 Test Item Value Reference Range Interpretation Comments HIV 1/2 4TH GEN, RFLX CONF (test NON-REACTIVE code = 3514) PAP TEST, THINPREP, [id number] 00:00:00 Test Item Value Reference Range Interpretation Comments SOURCE: (test code = Cervical 8001) SLIDES: (test code = 1 8011) LMP: (test code = 8021) 12/28/2021 SPECIMEN ADEQUACY: (NOTE) (test code = 84080) INTERPRETATION: (test NILM/NO EPITH. code = 11034) ABNORMALITY;SEE BELOW HEMP FIBER TAKER OFF: (test Yuridia Moreno CT (ASCP) code = 8101) LOCATION: (test code = (NOTE) 81497) CPT: (test code = 8140) (NOTE) HIV AB/AG COMBO RFLX [id number] 00:00:00 Test Item Value Reference Range Interpretation Comments HIV 1/2 4TH GEN, RFLX CONF (test NON-REACTIVE code = 3514) ACUTE HEPATITIS [id number] 00:00:00 Test Item Value Reference Range Interpretation Comments HEPATITIS A IgM (test code = NON-REACTIVE 44761) HEPATITIS B CORE IgM (test code NON-REACTIVE = 4644) HEPATITIS B SURF AG (test code = NON-REACTIVE 2739) HEPATITIS C ANTIBODY (test code NON-REACTIVE = 4675) INTERPRETATION HEPATITIS A: (NOTE) (test code = 2552) INTERPRETATION HEPATITIS B: (NOTE) (test code = 37172) INTERPRETATION HEPATITIS C: (NOTE) (test code = 52936) ACUTE HEPATITIS [id number] 00:00:00 Test Item Value Reference Range Interpretation Comments HEPATITIS A IgM (test code = NON-REACTIVE 78886) HEPATITIS B CORE IgM (test code NON-REACTIVE = 4644) HEPATITIS B SURF AG (test code = NON-REACTIVE 2739) HEPATITIS C ANTIBODY (test code NON-REACTIVE = 4675) INTERPRETATION HEPATITIS A: (NOTE) (test code = 2552) INTERPRETATION HEPATITIS B: (NOTE) (test code = 34800) INTERPRETATION HEPATITIS C: (NOTE) (test code = 21006) HCG, [id number] 00:00:00 Test Item Value Reference Range Interpretation Comments HCG, QUANTITATIVE (test code = <5 MIU/ML 2506) HCG, [id number] 00:00:00 Test Item Value Reference Range Interpretation Comments HCG, QUANTITATIVE (test code = <5 MIU/ML 2506) HEMOGLOBIN [id number] 00:00:00 Test Item Value Reference Range Interpretation Comments HEMOGLOBIN A1c (test code = 74768) 6.6 % HEMOGLOBIN [id number] 00:00:00 Test Item Value Reference Range Interpretation Comments HEMOGLOBIN A1c (test code = 14816) 6.6 % HEMOGLOBIN [id number] 00:00:00 Test Item Value Reference Range Interpretation Comments HEMOGLOBIN A1c (test code = 86460) 6.6 % [id number] 00:00:00 Test Item Value Reference Range Interpretation Comments TSH, THIRD GENERATION (test code 1.720 UIU/ML = 2821) [id number] 00:00:00 Test Item Value Reference Range Interpretation Comments TSH, THIRD GENERATION (test code 1.720 UIU/ML = 2821) [id number] 00:00:00 Test Item Value Reference Range Interpretation Comments TSH, THIRD GENERATION (test code 1.720 UIU/ML = 2821) VITAMIN D, 25 [id number] 00:00:00 Test Item Value Reference Range Interpretation Comments VITAMIN D, 25 OH (test code = 4958) 22 NG/ML VITAMIN D, 25 [id number] 00:00:00 Test Item Value Reference Range Interpretation Comments VITAMIN D, 25 OH (test code = 4958) 22 NG/ML COMPREHENSIVE METABOLIC [id number] 00:00:00 Test Item Value Reference Range Interpretation Comments GLUCOSE (test code = 2217) 112 MG/DL BUN (test code = 2208) 9 MG/DL CREATININE (test code = 2214) 0.70 MG/DL eGFR AMER. (test code 126 ML/MIN/1.73 = 33793) eGFR NON- AMER. (test 108 ML/MIN/1.73 code = 05483) CALC BUN/CREAT (test code = 13 RATIO [...] code = 2219) 17 U/L COMPREHENSIVE METABOLIC [id number] 00:00:00 Test Item Value Reference Range Interpretation Comments GLUCOSE (test code = 2217) 112 MG/DL BUN (test code = 2208) 9 MG/DL CREATININE (test code = 2214) 0.70 MG/DL eGFR AMER. (test code 126 ML/MIN/1.73 = 42019) eGFR NON- AMER. (test 108 ML/MIN/1.73 code = 94900) CALC BUN/CREAT (test code = 13 RATIO [...] (test code = 2219) 17 U/L LIPID [id number] 00:00:00 Test Item Value Reference Range Interpretation Comments CHOLESTEROL (test code = 2210) 133 MG/DL TRIGLYCERIDES (test code = 2232) 61 MG/DL HDL CHOLESTEROL (test code = 2220) 52 MG/DL CALC LDL CHOL (test code = 2237) 67 MG/DL RISK RATIO LDL/HDL (test code = 1.29 RATIO 2238) LIPID [id number] 00:00:00 Test Item Value Reference Range Interpretation Comments CHOLESTEROL (test code = 2210) 133 MG/DL TRIGLYCERIDES (test code = 2232) 61 MG/DL HDL CHOLESTEROL (test code = 2220) 52 MG/DL CALC LDL CHOL (test code = 2237) 67 MG/DL RISK RATIO LDL/HDL (test code = 1.29 RATIO 2238) CBC W/AUTO [id number] 00:00:00 Test Item Value Reference Range Interpretation [...] code = 1015) 441 K/UL CBC W/AUTO [id number] 00:00:00 Test Item Value Reference Range Interpretation [...] code = 1015) 441 K/UL CBC W/AUTO [id number] 00:00:00 Test Item Value Reference Range Interpretation [...] (test code = 1015) 441 K/UL HEMOGLOBIN [id number] 00:00:00 Test Item Value Reference Range Interpretation Comments HEMOGLOBIN A1c (test code = 83938) 6.6 % HEMOGLOBIN [id number] 00:00:00 Test Item Value Reference Range Interpretation Comments HEMOGLOBIN A1c (test code = 49269) 6.6 % HEMOGLOBIN [id number] 00:00:00 Test Item Value Reference Range Interpretation Comments HEMOGLOBIN A1c (test code = 70896) 6.6 % [id number] 00:00:00 Test Item Value Reference Range Interpretation Comments TSH, THIRD GENERATION (test code 1.720 UIU/ML = 2821) [id number] 00:00:00 Test Item Value Reference Range Interpretation Comments TSH, THIRD GENERATION (test code 1.720 UIU/ML = 2821) [id number] 00:00:00 Test Item Value Reference Range Interpretation Comments TSH, THIRD GENERATION (test code 1.720 UIU/ML = 2821) VITAMIN D, 25 [id number] 00:00:00 Test Item Value Reference Range Interpretation Comments VITAMIN D, 25 OH (test code = 4958) 22 NG/ML VITAMIN D, 25 [id number] 00:00:00 Test Item Value Reference Range Interpretation Comments VITAMIN D, 25 OH (test code = 4958) 22 NG/ML COMPREHENSIVE METABOLIC [id number] 00:00:00 Test Item Value Reference Range Interpretation Comments GLUCOSE (test code = 2217) 112 MG/DL BUN (test code = 2208) 9 MG/DL CREATININE (test code = 2214) 0.70 MG/DL eGFR AMER. (test code 126 ML/MIN/1.73 = 32936) eGFR NON- AMER. (test 108 ML/MIN/1.73 code = 17008) CALC BUN/CREAT (test code = 13 RATIO [...] code = 2219) 17 U/L COMPREHENSIVE METABOLIC [id number] 00:00:00 Test Item Value Reference Range Interpretation Comments GLUCOSE (test code = 2217) 112 MG/DL BUN (test code = 2208) 9 MG/DL CREATININE (test code = 2214) 0.70 MG/DL eGFR AMER. (test code 126 ML/MIN/1.73 = 74230) eGFR NON- AMER. (test 108 ML/MIN/1.73 code = 30679) CALC BUN/CREAT (test code = 13 RATIO [...] (test code = 2219) 17 U/L LIPID [id number] 00:00:00 Test Item Value Reference Range Interpretation Comments CHOLESTEROL (test code = 2210) 133 MG/DL TRIGLYCERIDES (test code = 2232) 61 MG/DL HDL CHOLESTEROL (test code = 2220) 52 MG/DL CALC LDL CHOL (test code = 2237) 67 MG/DL RISK RATIO LDL/HDL (test code = 1.29 RATIO 2238) LIPID [id number] 00:00:00 Test Item Value Reference Range Interpretation Comments CHOLESTEROL (test code = 2210) 133 MG/DL TRIGLYCERIDES (test code = 2232) 61 MG/DL HDL CHOLESTEROL (test code = 2220) 52 MG/DL CALC LDL CHOL (test code = 2237) 67 MG/DL RISK RATIO LDL/HDL (test code = 1.29 RATIO 2238) CBC W/AUTO [id number] 00:00:00 Test Item Value Reference Range Interpretation [...] code = 1015) 441 K/UL CBC W/AUTO [id number] 00:00:00 Test Item Value Reference Range Interpretation [...] code = 1015) 441 K/UL CBC W/AUTO [id number] 00:00:00 Test Item Value Reference Range Interpretation [...] Comments SARS-CoV-2 INTERPRETATION (test NEGATIVE code = 18853) SOURCE (test code = 94244) NOT SPECIFIED SARS-CoV-2 (COVID-19) by RT-PCR (HIGH RISK)2020-03-12 00:00:00 Test Item Value Reference Range Interpretation Comments SARS-CoV-2 INTERPRETATION (test NEGATIVE code = 63153) SOURCE (test code = 70141) NOT SPECIFIED SARS-CoV-2 (COVID-19) by RT-PCR (HIGH RISK)2020-03-12 00:00:00 Test Item Value Reference Range Interpretation Comments SARS-CoV-2 INTERPRETATION (test NEGATIVE code = 09351) SOURCE (test code = 43791) NOT SPECIFIED SARS-CoV-2 (COVID-19) by RT-PCR (HIGH RISK)2020-03-12 00:00:00 Test Item Value Reference Range Interpretation Comments SARS-CoV-2 INTERPRETATION (test NEGATIVE code = 12268) SOURCE (test code = 93216) NOT SPECIFIED HEMOGLOBIN [id number] 00:00:00 Test Item Value Reference Range Interpretation Comments HEMOGLOBIN A1c (test code = 48420) 6.6 % HEMOGLOBIN [id number] 00:00:00 Test Item Value Reference Range Interpretation Comments HEMOGLOBIN A1c (test code = 21184) 6.6 % HEMOGLOBIN [id number] 00:00:00 Test Item Value Reference Range Interpretation Comments HEMOGLOBIN A1c (test code = 30389) 6.6 % COMPREHENSIVE METABOLIC [id number] 00:00:00 Test Item Value Reference Range Interpretation Comments GLUCOSE (test code = 2217) 120 MG/DL BUN (test code = 2208) 9 MG/DL CREATININE (test code = 2214) 0.74 MG/DL eGFR AMER. (test code 118 ML/MIN/1.73 = 94391) eGFR NON- AMER. (test 102 ML/MIN/1.73 code = 34762) CALC BUN/CREAT (test code = 12 RATIO [...] code = 2219) 21 U/L COMPREHENSIVE METABOLIC [id number] 00:00:00 Test Item Value Reference Range Interpretation Comments GLUCOSE (test code = 2217) 120 MG/DL BUN (test code = 2208) 9 MG/DL CREATININE (test code = 2214) 0.74 MG/DL eGFR AMER. (test code 118 ML/MIN/1.73 = 25041) eGFR NON- AMER. (test 102 ML/MIN/1.73 code = 73246) CALC BUN/CREAT (test code = 12 RATIO [...] (test code = 2219) 21 U/L LIPID [id number] 00:00:00 Test Item Value Reference Range Interpretation Comments CHOLESTEROL (test code = 2210) 125 MG/DL TRIGLYCERIDES (test code = 2232) 59 MG/DL HDL CHOLESTEROL (test code = 2220) 55 MG/DL CALC LDL CHOL (test code = 2237) 56 MG/DL RISK RATIO LDL/HDL (test code = 1.02 RATIO 2238) LIPID [id number] 00:00:00 Test Item Value Reference Range Interpretation Comments CHOLESTEROL (test code = 2210) 125 MG/DL TRIGLYCERIDES (test code = 2232) 59 MG/DL HDL CHOLESTEROL (test code = 2220) 55 MG/DL CALC LDL CHOL (test code = 2237) 56 MG/DL RISK RATIO LDL/HDL (test code = 1.02 RATIO 2238) HEMOGLOBIN [id number] 00:00:00 Test Item Value Reference Range Interpretation Comments HEMOGLOBIN A1c (test code = 84888) 6.6 % HEMOGLOBIN [id number] 00:00:00 Test Item Value Reference Range Interpretation Comments HEMOGLOBIN A1c (test code = 18126) 6.6 % HEMOGLOBIN [id number] 00:00:00 Test Item Value Reference Range Interpretation Comments HEMOGLOBIN A1c (test code = 27233) 6.6 % COMPREHENSIVE METABOLIC [id number] 00:00:00 Test Item Value Reference Range Interpretation Comments GLUCOSE (test code = 2217) 120 MG/DL BUN (test code = 2208) 9 MG/DL CREATININE (test code = 2214) 0.74 MG/DL eGFR AMER. (test code 118 ML/MIN/1.73 = 88659) eGFR NON- AMER. (test 102 ML/MIN/1.73 code = 28149) CALC BUN/CREAT (test code = 12 RATIO [...] code = 2219) 21 U/L COMPREHENSIVE METABOLIC [id number] 00:00:00 Test Item Value Reference Range Interpretation Comments GLUCOSE (test code = 2217) 120 MG/DL BUN (test code = 2208) 9 MG/DL CREATININE (test code = 2214) 0.74 MG/DL eGFR AMER. (test code 118 ML/MIN/1.73 = 85374) eGFR NON- AMER. (test 102 ML/MIN/1.73 code = 29923) CALC BUN/CREAT (test code = 12 RATIO [...] (test code = 2219) 21 U/L LIPID [id number] 00:00:00 Test Item Value Reference Range Interpretation Comments CHOLESTEROL (test code = 2210) 125 MG/DL TRIGLYCERIDES (test code = 2232) 59 MG/DL HDL CHOLESTEROL (test code = 2220) 55 MG/DL CALC LDL CHOL (test code = 2237) 56 MG/DL RISK RATIO LDL/HDL (test code = 1.02 RATIO 2238) LIPID [id number] 00:00:00 Test Item Value Reference Range Interpretation Comments CHOLESTEROL (test code = 2210) 125 MG/DL TRIGLYCERIDES (test code = 2232) 59 MG/DL HDL CHOLESTEROL (test code = 2220) 55 MG/DL CALC LDL CHOL (test code = 2237) 56 MG/DL RISK RATIO LDL/HDL (test code = 1.02 RATIO 2238) PAP TEST, THINPREP, [id number] 00:00:00 Test Item Value Reference Range Interpretation Comments SOURCE: (test code = Cervical/Endocervical 8001) SLIDES: (test code = 1 8011) LMP: (test code = 8021) 10/26/2018 SPECIMEN ADEQUACY: (test (NOTE) code = 83204) INTERPRETATION: (test NILM/NO EPITH. code = 35123) ABNORMALITY;SEE BELOW HEMP FIBER TAKER OFF: (test Malek code = 8101) [place],CT(ASCP) IAC LOCATION: (test code = (NOTE) 70897) CPT: (test code = 8140) (NOTE) PAP TEST, THINPREP, [id number] 00:00:00 Test Item Value Reference Range Interpretation Comments SOURCE: (test code = Cervical/Endocervical 8001) SLIDES: (test code = 1 8011) LMP: (test code = 8021) 10/26/2018 SPECIMEN ADEQUACY: (test (NOTE) code = 91200) INTERPRETATION: (test NILM/NO EPITH. code = 61815) ABNORMALITY;SEE BELOW HEMP FIBER TAKER OFF: (test Malek code = 8101) [place],CT(ASCP) IAC LOCATION: (test code = (NOTE) 63881) CPT: (test code = 8140) (NOTE) GC AND CHLAMYDIA, AMPLIFIED, [id number] 00:00:00 Test Item Value Reference Range Interpretation Comments GONORRHEA, TMA (test code = 66678) NEGATIVE CHLAMYDIA, TMA (test code = 66316) NEGATIVE GC AND CHLAMYDIA, AMPLIFIED, [id number] 00:00:00 Test Item Value Reference Range Interpretation Comments GONORRHEA, TMA (test code = 78206) NEGATIVE CHLAMYDIA, TMA (test code = 09260) NEGATIVE PAP TEST, THINPREP, [id number] 00:00:00 Test Item Value Reference Range Interpretation Comments SOURCE: (test code = Cervical/Endocervical 8001) SLIDES: (test code = 1 8011) LMP: (test code = 8021) 10/26/2018 SPECIMEN ADEQUACY: (test (NOTE) code = 94881) INTERPRETATION: (test NILM/NO EPITH. code = 09479) ABNORMALITY;SEE BELOW HEMP FIBER TAKER OFF: (test Malek code = 8101) [place],CT(ASCP) IAC LOCATION: (test code = (NOTE) 81134) CPT: (test code = 8140) (NOTE) PAP TEST, THINPREP, [id number] 00:00:00 Test Item Value Reference Range Interpretation Comments SOURCE: (test code = Cervical/Endocervical 8001) SLIDES: (test code = 1 8011) LMP: (test code = 8021) 10/26/2018 SPECIMEN ADEQUACY: (test (NOTE) code = 17898) INTERPRETATION: (test NILM/NO EPITH. code = 33372) ABNORMALITY;SEE BELOW HEMP FIBER TAKER OFF: (test Malek code = 8101) LEILA [place](ASCP) IAC LOCATION: (test code = (NOTE) 20728) CPT: (test code = 8140) (NOTE) GC AND CHLAMYDIA, AMPLIFIED, [id number] 00:00:00 Test Item Value Reference Range Interpretation Comments GONORRHEA, TMA (test code = 11351) NEGATIVE CHLAMYDIA, TMA (test code = 68652) NEGATIVE GC AND CHLAMYDIA, AMPLIFIED, [id number] 00:00:00 Test Item Value Reference Range Interpretation Comments GONORRHEA, TMA (test code = 59001) NEGATIVE CHLAMYDIA, TMA (test code = 26428) NEGATIVE HIV AB/AG COMBO RFLX [id number] 00:00:00 Test Item Value Reference Range Interpretation Comments HIV 1/2 4TH GEN, RFLX CONF (test NON-REACTIVE code = 3514) VAGINAL PATHOGENS DNA [id number] 00:00:00 Test Item Value Reference Range Interpretation Comments KENNETH SPECIES (test code = 91643) NEGATIVE G. VAGINALIS (test code = 02247) NEGATIVE T. VAGINALIS (test code = 69148) NEGATIVE VAGINAL PATHOGENS DNA [id number] 00:00:00 Test Item Value Reference Range Interpretation Comments KENNETH SPECIES (test code = 54605) NEGATIVE G. VAGINALIS (test code = 71331) NEGATIVE T. VAGINALIS (test code = 87506) NEGATIVE HIV AB/AG COMBO RFLX [id number] 00:00:00 Test Item Value Reference Range Interpretation Comments HIV 1/2 4TH GEN, RFLX CONF (test NON-REACTIVE code = 3514) HPV HIGH RISK WITH GENOTYPE, [id number] 00:00:00 Test Item Value Reference Range Interpretation Comments HPV HIGH RISK INTERP (test code = NEGATIVE 00682) HPV 16 (test code = 10350) NEGATIVE HPV 18 (test code = 36138) NEGATIVE HPV, HR, OTHER GENOTYPES (test code NEGATIVE = 44766) HPV HIGH RISK WITH GENOTYPE, [id number] 00:00:00 Test Item Value Reference Range Interpretation Comments HPV HIGH RISK INTERP (test code = NEGATIVE 82188) HPV 16 (test code = 02038) NEGATIVE HPV 18 (test code = 24367) NEGATIVE HPV, HR, OTHER GENOTYPES (test code NEGATIVE = 24504) ACUTE HEPATITIS [id number] 00:00:00 Test Item Value Reference Range Interpretation Comments HEPATITIS A IgM (test code = NON-REACTIVE 00093) HEPATITIS B CORE IgM (test code NON-REACTIVE = 4644) HEPATITIS B SURF AG (test code = NON-REACTIVE 2739) HEPATITIS C ANTIBODY (test code NON-REACTIVE = 4675) HCV INDEX (test code = 09616) 0.13 INTERPRETATION HEPATITIS A: (NOTE) (test code = 2552) INTERPRETATION HEPATITIS B: (NOTE) (test code = 30114) INTERPRETATION HEPATITIS C: (NOTE) (test code = 68745) ACUTE HEPATITIS [id number] 00:00:00 Test Item Value Reference Range Interpretation Comments HEPATITIS A IgM (test code = NON-REACTIVE 01661) HEPATITIS B CORE IgM (test code NON-REACTIVE = 4644) HEPATITIS B SURF AG (test code = NON-REACTIVE 2739) HEPATITIS C ANTIBODY (test code NON-REACTIVE = 4675) HCV INDEX (test code = 36530) 0.13 INTERPRETATION HEPATITIS A: (NOTE) (test code = 2552) INTERPRETATION HEPATITIS B: (NOTE) (test code = 07602) INTERPRETATION HEPATITIS C: (NOTE) (test code = 20141) HIV AB/AG COMBO RFLX [id number] 00:00:00 Test Item Value Reference Range Interpretation Comments HIV 1/2 4TH GEN, RFLX CONF (test NON-REACTIVE code = 3514) VAGINAL PATHOGENS DNA [id number] 00:00:00 Test Item Value Reference Range Interpretation Comments KENNETH SPECIES (test code = 02766) NEGATIVE G. VAGINALIS (test code = 70806) NEGATIVE T. VAGINALIS (test code = 66563) NEGATIVE VAGINAL PATHOGENS DNA [id number] 00:00:00 Test Item Value Reference Range Interpretation Comments KENNETH SPECIES (test code = 31240) NEGATIVE G. VAGINALIS (test code = 32049) NEGATIVE T. VAGINALIS (test code = 91593) NEGATIVE HIV AB/AG COMBO RFLX [id number] 00:00:00 Test Item Value Reference Range Interpretation Comments HIV 1/2 4TH GEN, RFLX CONF (test NON-REACTIVE code = 3514) HPV HIGH RISK WITH GENOTYPE, [id number] 00:00:00 Test Item Value Reference Range Interpretation Comments HPV HIGH RISK INTERP (test code = NEGATIVE 84902) HPV 16 (test code = 50616) NEGATIVE HPV 18 (test code = 54313) NEGATIVE HPV, HR, OTHER GENOTYPES (test code NEGATIVE = 67350) HPV HIGH RISK WITH GENOTYPE, [id number] 00:00:00 Test Item Value Reference Range Interpretation Comments HPV HIGH RISK INTERP (test code = NEGATIVE 69612) HPV 16 (test code = 02664) NEGATIVE HPV 18 (test code = 70391) NEGATIVE HPV, HR, OTHER GENOTYPES (test code NEGATIVE = 41694) ACUTE HEPATITIS [id number] 00:00:00 Test Item Value Reference Range Interpretation Comments HEPATITIS A IgM (test code = NON-REACTIVE 73360) HEPATITIS B CORE IgM (test code NON-REACTIVE = 4644) HEPATITIS B SURF AG (test code = NON-REACTIVE 2739) HEPATITIS C ANTIBODY (test code NON-REACTIVE = 4675) HCV INDEX (test code = 43195) 0.13 INTERPRETATION HEPATITIS A: (NOTE) (test code = 2552) INTERPRETATION HEPATITIS B: (NOTE) (test code = 59857) INTERPRETATION HEPATITIS C: (NOTE) (test code = 95302) ACUTE HEPATITIS [id number] 00:00:00 Test Item Value Reference Range Interpretation Comments HEPATITIS A IgM (test code = NON-REACTIVE 55944) HEPATITIS B CORE IgM (test code NON-REACTIVE = 4644) HEPATITIS B SURF AG (test code = NON-REACTIVE 2739) HEPATITIS C ANTIBODY (test code NON-REACTIVE = 4675) HCV INDEX (test code = 93297) 0.13 INTERPRETATION HEPATITIS A: (NOTE) (test code = 2552) INTERPRETATION HEPATITIS B: (NOTE) (test code = 20995) INTERPRETATION HEPATITIS C: (NOTE) (test code = 69822)"
[2022-09-27] MEDS ORDERED: LIDOCAINE VISCOUS 2% SOLN 15 ML UDC ONE (01:47)
[2022-09-27] MEDS ORDERED: LORAZEPAM 1 MG TABLET ONE (01:47)
--- NOTE | 2022-09-27 02:46 | ER ---
Nurse's Notes [facility] Name: Megan Ferro Age: 42 yrs Sex: Female : 1980 Arrival Date: 09/27/2022 Time: 01:37 Bed 3 Private MD: Diagnosis: Foreign body in left ear Presentation: 09/27 01:50 Chief complaint: Patient states: pt reports something in ear. Coronavirus screen: Vaccine status: Patient reports being unvaccinated. Ebola Screen: Patient negative for fever greater than or equal to 101.5 degrees Fahrenheit, and additional compatible Ebola Virus Disease symptoms. Risk Assessment: Do you want to hurt yourself or someone else? Patient reports no desire to harm self or others. Onset of symptoms was September 27, 2022 at 00:30. 01:50 Method Of Arrival: Ambulatory 01:50 Acuity: RASHEL 4 02:52 Initial Sepsis Screen: Does the patient meet any 2 criteria? No. Patient's initial ll3 sepsis screen is negative. Does the patient have a suspected source of infection? No. Patient's initial sepsis screen is negative. Triage Assessment: 01:51 General: Appears distressed, uncomfortable, Behavior is anxious, crying, restless. kl Pain: Complains of pain in left ear. EENT: bug in left ear. Neuro: No deficits noted. Cardiovascular: No deficits noted. Respiratory: No deficits noted. GI: No deficits noted. : No deficits noted. Derm: No deficits noted. No signs and/or symptoms reported regarding the dermatologic system. 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 - Social history:: Smoking status: Patient denies any tobacco usage or history of. Screenin:30 Abuse screen: Denies threats or abuse. Nutritional screening: No deficits noted. Tuberculosis screening: No symptoms or risk factors identified. Fall Risk None identified. Assessment: 02:30 Reassessment: Patient appears in no apparent distress at this time. Patient and/or kl family updated on plan of care and expected duration. Pain level reassessed. Patient is alert, oriented x 3, equal unlabored respirations, skin warm/dry/pink. Vital Signs: 01:50 BP 134 / 79; Pulse 87; Resp 18; Temp 98.5(O); Pulse Ox 97% on R/A; Pain 10/10; kl 02:46 BP 132 / 80; Pulse 79; Resp 16; Pulse Ox 100% ; ll3 ED Course: 01:37 Patient arrived in ED. ja2 01:40 Jimi Ford PA is PHCP. cp 01:40 Jimi Lee MD is Attending Physician. cp 01:50 Triage completed. kl 02:30 Arm band placed on. kl 02:31 No provider procedures requiring assistance completed. Patient did not have IV access kl during this emergency room visit. 02:45 Elvira Nixon MD is Referral Physician. cp 02:51 Patient has correct armband on for positive identification. Bed in low position. Call ll3 light in reach. Side rails up X 1. Adult w/ patient. Administered Medications: 01:50 Drug: Ativan (LORazepam) 2 mg Route: PO; kl 02:30 Follow up: Response: No adverse reaction; Marked relief of symptoms 01:50 Drug: Lidocaine Gel 2 % 1 application Route: Mucous Membrane; kl 02:30 Follow up: Response: No adverse reaction; Marked relief of symptoms Medication: 02:52 VIS not applicable for this client. ll3 Outcome: 02:46 Discharge ordered by . cp 02:52 Discharged to home ambulatory, with family. ll3 02:52 Condition: stable 02:52 Discharge instructions given to patient, family, Instructed on discharge instructions, follow up and referral plans. medication usage, Demonstrated understanding of instructions, follow-up care, medications, Prescriptions given X 1. 02:52 Patient left the ED. ll3 Signatures: Estefani Solano RN RN kl Page, Corey, PA PA cp Alexander, Jessica ja2 Torsten Hanson RN RN ll3
--- NOTE | 2022-09-27 02:46 | EDPHYS ---
Physician Documentation [facility] Name: Megan Ferro Age: 42 yrs Sex: Female : 1980 Arrival Date: 09/27/2022 Time: 01:37 Bed 3 Private MD: Jimi Jha HPI: 09/27 01:45 This 42 yrs old Black Female presents to ER via Unassigned with complaints of Foreign cp Body In Ear. 01:45 The patient presents with a foreign body sensation, presumably from an insect. The cp complaints affect the left ear. Onset: The symptoms/episode began/occurred tonight. 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 - Social history:: Smoking status: Patient denies any tobacco usage or history of. ROS: 01:46 Constitutional: Negative for body aches, chills, fever, poor PO intake. cp 01:46 ENT: Positive for ear pain, foreign body sensation, Negative for drainage from ear(s), sore throat, difficulty swallowing, difficulty handling secretions. 01:46 Respiratory: Negative for cough, shortness of breath, wheezing. 01:46 Skin: Negative for rash. Exam: 01:50 Constitutional: The patient appears in no acute distress, alert, awake, non-toxic, well cp developed, well nourished, anxious, obese, uncomfortable. 01:50 Head/Face: Normocephalic, atraumatic. cp 01:50 Eyes: Periorbital structures: appear normal, Conjunctiva: normal, no exudate, no injection, Lids and lashes: appear normal, bilaterally. 01:50 ENT: External ear(s): are unremarkable, Ear canal(s): erythema, that is moderate, of the left canal, foreign body, an insect, in the left external ear canal, TM's: erythema, that is moderate, on the left, Examination of the other ear shows no obvious abnormality, Nose: is normal, Mouth: Lips: moist, Posterior pharynx: Airway: no evidence of obstruction, patent. 01:50 Chest/axilla: Inspection: normal. 01:50 Respiratory: the patient does not display signs of respiratory distress, Respirations: normal, no use of accessory muscles, no retractions, labored breathing, is not present. 01:50 Skin: cellulitis, is not appreciated, no rash present. Vital Signs: 01:50 BP 134 / 79; Pulse 87; Resp 18; Temp 98.5(O); Pulse Ox 97% on R/A; Pain 10/10; kl 02:46 BP 132 / 80; Pulse 79; Resp 16; Pulse Ox 100% ; ll3 Procedures: 02:28 Foreign Body Removal: an insect, from the left ear canal, by using alligator clamps, cp suction. The patient tolerated the removal well. MDM: 01:42 Patient medically screened. cp 02:44 Data reviewed: vital signs, nurses notes, and as a result, I will discharge patient. cp Counseling: I had a detailed discussion with the patient and/or guardian regarding: the historical points, exam findings, and any diagnostic results supporting the discharge/admit diagnosis, to return to the emergency department if symptoms worsen or persist or if there are any questions or concerns that arise at home. Response to treatment: the patient's symptoms have markedly improved after treatment, insect removed from left ear canal, and as a result, I will discharge patient. 09/27 02:29 Order name: Vital Signs; Complete Time: 02:46 cp Administered Medications: 01:50 Drug: Ativan (LORazepam) 2 mg Route: PO; kl 02:30 Follow up: Response: No adverse reaction; Marked relief of symptoms kl 01:50 Drug: Lidocaine Gel 2 % 1 application Route: Mucous Membrane; kl 02:30 Follow up: Response: No adverse reaction; Marked relief of symptoms kl Disposition: 03:00 Chart complete. cp Disposition Summary: 09/27/22 02:46 Discharge Ordered Location: Home cp Problem: new cp Symptoms: have improved cp Condition: Stable cp Diagnosis - Foreign body in left ear cp Followup: cp - With: Elvira Nixon MD - When: 2 - 3 days - Reason: Worsening of condition Discharge Instructions: - Discharge Summary Sheet cp - Ear Foreign Body cp Forms: - Medication Reconciliation Form cp - Thank You Letter cp - Antibiotic Education cp - Prescription Opioid Use cp Prescriptions: - Ciprodex 0.3-0.1 % Otic drops,suspension - instill 4 drops by OTIC route every 12 hours for 7 days , for ears ONLY. cp Instill drops in left ear canal as directed; 1 Container; Refills: 0, Product Selection Permitted Signatures: Estefani Solano RN RN Jimi Soria PA PA cp
[2022-09-27 10:26] VITALS: TEMP 98.5
[2022-09-27 10:29] VITALS: BP 132/80; O2SAT 100
== END 2022-09-27 02:52 | disposition home or self-care (01) ==
LOC: ER 01:36
PROC: 09C4XZZ Extirpation of Matter from Left External Auditory Canal, External Approach (ICD-10-PCS; principal; 2022-09-27)
DX: T16.2XXA Foreign body in left ear, initial encounter (principal); I10 Essential (primary) hypertension
CPT/HCPCS: 99283

== ENCOUNTER 2022-12-25 16:51 | Emergency (ER) | payer OTHER ==
--- OUTSIDE RECORDS SUMMARY | 2022-12-25 16:58 | XMS REPORT | Continuity of Care Document ---
:1980 Author Organization [facility] t Address [address] [address] [place] [address] Care Team Providers Name Role Phone Zachary De Souza [facility], [facility] Primary Care P hysician Akinsipe Yasmin PIZANO Attending Clinician [phone] CHRISTI KAUFFMAN Attending Clinician Unavailable Christi Barrera Attending Clinician ELENI OGLESBY Attending Clinician Unavailable Eleni Oglesby DO Attending Clinician MAT GARCIA Attending Clinician Unavailable Mat Garcia MD Attending Clinician Doctor Unassigned, Naomi Attending Clinician Unavailable Severino Messer MD Attending Clinician SEVERINO MESSER Attending Clinician Unavailable Payers Payer Name Policy Type Policy Number Effective Date Expiration Date S ource HIM AMBETTER FROM [id number] 2020 [facility] 00:00:00 Problems Condition Condition Condition Status Onset Resolution Last Treating Co mments Source Name Details Category Date Date Treatment Clinician Date No known No known Disease Unive rs active active ity of problems problems [facility] Allergies, Adverse Reactions, Alerts Allergy Allergy Status Severity Reaction(s) Onset Inactive Treating Comm ents Source Name Type Date Date Clinician Mes[place] - Propensi Active Intraven ty to 6-28 ous adverse 00:00: reaction 00 to drug n Propensi Active ty to 6-20 adverse 00:00: reaction 00 to drug NO KNOWN Drug Active Univers ALLERGIE Class ity of S [facility] Social History Social Habit Start Date Stop Date Quantity Comments Source Exposure to 2022-08-07 2022-08-17 Not sure [facility] SARS-CoV-2 (event) 00:00:00 19:16:00 Medica l Branch Sex Assigned At [birth year] [facility] 00:00:00 00:00:00 Medical Branch Smoking Status Start Date Stop Date Source Tobacco smoking consumption [facility] Branch Medications Ordered Filled Start Stop Current Ordering Indication Dosage Frequency Signature Comments Components Source Medication Medication Date Date Medication? Clinician (SIG) Name Name NaCl 0.9% 2021-10 No 1000mL at 999 Uni vers (NS) bolus 0-28 10-28 mL/hr, ity of infusion 02:00: 02:25 1,000 mL, Gar[place] as 1,000 mL 00 :00 IV Medical Infusion, Branch ONCE, 1 dose, On Regina 08/17/22 at 2100, STAT medroxyPROG 2021-10- No [id number] 10mg Take 1 Univers ESTERone 0-21 10-29 tablet by ity o f (PROVERA) 00:00: 04:59 mouth in [place] as 10 mg 00 :00 the Medical tablet morning Branch and 1 tablet at noon and 1 tablet in the evening. Do all this for 7 days. medroxyPROG 2021-10- No [id number] 10mg Take 1 Univers ESTERone 0-21 10-29 [...] 06/20/22 at 2245, JC cyclobenzap 2021-0 Yes [id number] 5mg Take 1 Univers rine 5 mg 8-30 tablet by ity o f tablet 00:00: mouth in [place] 00 the Medical morning Branch and 1 tablet at noon and 1 tablet in the evening. cyclobenzap 2021-0 Yes [id number] 5mg Take 1 Univers rine 5 mg 8-30 tablet by ity o f tablet 00:00: mouth in [place] 00 the Medical morning Branch and 1 tablet at noon and 1 tablet in the evening. cyclobenzap 2021-0 Yes [id number] 5mg Take 1 Univers rine 5 mg 8-30 tablet by ity o f tablet 00:00: mouth in [place] 00 the Medical morning Branch and 1 tablet at noon and 1 tablet in the evening. cyclobenzap 2021-0 Yes [id number] 5mg Take 1 Univers rine 5 mg 8-30 tablet by ity o f tablet 00:00: mouth in [place] 00 the Medical morning Branch and 1 [...] 1-29 tablet 00:00: 00 predniSONE 1-0 Yes [id number] 20mg Take 1 Univers 20 mg 1-02 tablet by ity of tablet 00:00: mouth [place] 00 daily. Medical Branch acetaminoph Yes [id number] 1{tbl} Take 1-2 Univers en-codeine 1-02 tablets by ity of 300-30 mg 00:00: mouth [place] tablet 00 every 6 Medical (six) Branch hours as needed for Pain (scale 4-6). Indication s: acute pain predniSONE Yes [id number] 20mg Take 1 Univers 20 mg 1-02 tablet by ity of tablet 00:00: mouth [place] 00 daily. Medical Branch acetaminoph Yes [id number] 1{tbl} Take 1-2 Univers en-codeine 1-02 tablets by ity of 300-30 mg 00:00: mouth [place] tablet 00 every 6 Medical (six) Branch hours as needed for Pain (scale 4-6). Indication s: acute pain predniSONE Yes [id number] 20mg Take 1 Univers 20 mg 1-02 tablet by ity of tablet 00:00: mouth [place] 00 daily. Medical Branch acetaminoph Yes [id number] 1{tbl} Take 1-2 Univers en-codeine 1-02 tablets by ity of 300-30 mg 00:00: mouth [place] tablet 00 every 6 Medical (six) Branch hours as needed for Pain (scale 4-6). Indication s: acute pain predniSONE Yes [id number] 20mg Take 1 Univers 20 mg 1-02 tablet by ity of tablet 00:00: mouth [place] 00 daily. Medical Branch acetaminoph Yes [id number] 1{tbl} Take 1-2 Univers en-codeine 1-02 tablets by ity of 300-30 mg 00:00: mouth [place] tablet 00 every 6 Medical (six) Branch hours as needed for Pain (scale 4-6). Indication s: acute pain predniSONE Yes [id number] 20mg Take 1 Univers 20 mg 1-02 [...] 00 25 mg capsule ibuprofen 2020-0 Yes [id number] 800mg Take 1 Univers 800 mg 1-10 100 tablet by ity of tablet 00:00: mouth [place] 00 every 8 Medical (eight) Branch hours. acetaminoph 2020-0 Yes [id number] 1{tbl} Take 1-2 Univers en-codeine 1-10 100 tablets by ity of 300-30 mg 00:00: mouth [place] tablet 00 every 4 Medical (four) Branch hours as needed for Pain (scale 4-6). ibuprofen 2020-0 Yes [id number] 800mg Take 1 Univers 800 mg 1-10 100 tablet by ity of tablet 00:00: mouth [place] 00 every 8 Medical (eight) Branch hours. acetaminoph 2020-0 Yes [id number] 1{tbl} Take 1-2 Univers en-codeine 1-10 100 tablets by ity of 300-30 mg 00:00: mouth [place] tablet 00 every 4 Medical (four) Branch hours as needed for Pain (scale 4-6). ibuprofen 2020-0 Yes [id number] 800mg Take 1 Univers 800 mg 1-10 100 tablet by ity of tablet 00:00: mouth [place] 00 every 8 Medical (eight) Branch hours. acetaminoph 2020-0 Yes [id number] 1{tbl} Take 1-2 Univers en-codeine 1-10 100 tablets by ity of 300-30 mg 00:00: mouth [place] tablet 00 every 4 Medical (four) Branch hours as needed for Pain (scale 4-6). ibuprofen 2020-0 Yes [id number] 800mg Take 1 Univers 800 mg 1-10 100 tablet by ity of tablet 00:00: mouth [place] 00 every 8 Medical (eight) Branch hours. ibuprofen 2020-0 Yes [id number] 800mg Take 1 Univers 800 mg 1-10 100 tablet by ity of tablet 00:00: mouth [place] 00 every 8 Medical (eight) Branch hours. acetaminoph 2020-0 Yes [id number] 1{tbl} Take 1-2 Univers en-codeine 1-10 100 tablets by ity of 300-30 mg 00:00: mouth [place] tablet 00 every 4 Medical (four) Branch hours as needed for Pain (scale 4-6). acetaminoph 2020-0 Yes [id number] 1{tbl} Take 1-2 Univers en-codeine 1-10 100 tablets by ity of 300-30 mg 00:00: mouth [place] tablet 00 every 4 Medical (four) Branch hours as needed for Pain (scale 4-6). Vital Signs Vital Name Observation Time Observation Value Comments Source Diastolic blood 2022-08-18 01:00:00 92 mm[Hg] [facility] Heart rate 2022-08-18 01:00:00 96 /min [facility] Respiratory rate 2022-08-18 01:00:00 18 /min [facility] Oxygen saturation in 2022-08-18 01:00:00 99 /min [facility] Arterial blood by [facility] Pulse oximetry Branch Systolic blood 2022-08-18 01:00:00 145 mm[Hg] [facility] Body temperature 2022-08-18 00:20:00 36.44 Hemalatha [facility] Body height 2022-08-18 00:20:00 170.2 cm [facility] Body weight 2022-08-18 00:20:00 146.512 kg [facility] BMI 2022-08-18 00:20:00 50.59 kg/m2 [facility] Systolic blood 2022-08-11 19:05:00 181 mm[Hg] Univer sity of pressure [place] Medical Branch Diastolic blood 2022-08-11 19:05:00 99 mm[Hg] Unive rsity of pressure [place] Medical Branch Heart rate 2022-08-11 19:05:00 90 /min [facility] [place] [facility] Respiratory rate 2022-08-11 19:05:00 15 /min Univ [facility] [place] [facility] Oxygen saturation in 2022-08-11 19:05:00 97 /min University of Arterial blood by [place] [facility] Pulse oximetry Branch Body temperature 2022-08-11 17:56:00 36.89 Hemalatha [facility] [place] [facility] Body height 2022-08-11 17:56:00 170.2 cm [facility] [place] [facility] Body weight 2022-08-11 17:56:00 145.151 kg [facility] [place] [facility] BMI 2022-08-11 17:56:00 50.12 kg/m2 [facility] [place] [facility] Systolic blood 2022-06-21 03:00:00 141 mm[Hg] Univer sity of pressure [place] Medical Branch Diastolic blood 2022-06-21 03:00:00 78 mm[Hg] Unive rsity of pressure [place] Medical [facility] Heart rate 2022-06-21 03:00:00 89 /min [facility] [place] [facility] Body temperature 2022-06-21 03:00:00 36.11 Hemalatha [facility] [place] [facility] Respiratory rate 2022-06-21 03:00:00 20 /min [facility] [place] [facility] Body height 2022-06-21 03:00:00 170.2 cm [facility] [place] [facility] Body weight 2022-06-21 03:00:00 145.151 kg [facility] [place] [facility] BMI 2022-06-21 03:00:00 50.12 kg/m2 [facility] [place] [facility] Oxygen saturation in 2022-06-21 03:00:00 100 /min University of Arterial blood by [place] [facility] Pulse oximetry Branch BP Systolic 2022-07-07 [...] e POCT TEST 2022-08-18 00:37:00 Christi Kauffman [facility] COMP. METABOLIC PANEL 2022-08-18 00:34:00 Christi Kauffman [facility] ([id number]) [facility] CBC WITH DIFF 2022-08-18 00:34:00 Christi Kauffman [facility] CONSENT/REFUSAL FOR 2022-08-18 00:06:34 Doctor Unassigned, No Un [facility] DIAGNOSIS AND Name [facility] Branch TREATMENT POCT TEST 2022-08-11 18:27:00 Eleni Oglesby [facility] COMP. METABOLIC PANEL 2022-08-11 18:25:00 Eleni Oglesby [facility] ([id number]) [facility] CBC WITH DIFF 2022-08-11 18:25:00 Eleni Oglesby [facility] URINALYSIS 2022-08-11 18:25:00 Mendel, Eleni J [facility] Branch CONSENT/REFUSAL FOR 2022-08-11 17:47:30 Doctor Unassigned, No Un [facility] [place] DIAGNOSIS AND Name Medical Branch TREATMENT NOTICE OF PRIVACY 2022-06-21 02:51:03 Doctor Unassigned, No Univ [facility] [place] PRACTICES Name Medical Branch CONSENT/REFUSAL FOR 2022-06-21 02:50:32 Doctor Unassigned, No Un [facility] [place] DIAGNOSIS AND Name Medical Branch TREATMENT Ekg W/ At Least 12 2022-01-19 00:00:00 Leads W/ I r Plan of Care Planned Activity Planned Date Details Comments Source Goal Plan of Care Note [code = 37861-2] Goal Plan of Care Note [code = 37056-3] Goal Plan of Care Note [code = 95429-5] Goal Plan of Care Note [code = 66555-7] Goal Plan of Care Note [code = 42355-1] Goal Plan of Care Note [code = 38356-8] Goal Plan of Care Note [code = 21122-7] Goal Plan of Care Note [code = 70462-1] Goal Plan of Care Note [code = 51965-9] Goal Plan of Care Note [code = 26652-7] Goal Plan of Care Note [code = 82475-1] Goal Plan of Care Note [code = 79148-5] Goal Plan of Care Note [code = 71409-2] Goal Plan of Care Note [code = 74712-7] Goal Plan of Care Note [code = 23523-2] Goal Plan of Care Note [code = 98123-1] Goal Plan of Care Note [code = 88596-7] Goal Plan of Care Note [code = 21397-9] Goal Plan of Care Note [code = 71857-5] Goal Plan of Care Note [code = 87451-1] Goal Plan of Care Note [code = 99572-0] Goal Plan of Care Note [code = 14275-6] Goal Plan of Care Note [code = 34429-9] Goal Plan of Care Note [code = 05258-6] Goal Plan of Care Note [code = 90633-0] Goal Plan of Care Note [code = 22996-1] Goal Plan of Care Note [code = 02724-1] Goal Plan of Care Note [code = 57859-2] Goal Plan of Care Note [code = 98792-7] Goal Plan of Care Note [code = 43568-7] Goal Plan of Care Note [code = 56746-1] Goal Plan of Care Note [code = 46017-4] Goal Plan of Care Note [code = 61329-9] Goal Plan of Care Note [code = 94848-6] Goal Plan of Care Note [code = 56239-7] Goal Plan of Care Note [code = 84404-8] Goal Plan of Care Note [code = 62946-9] Goal Plan of Care Note [code = 35835-3] Goal Plan of Care Note [code = 48129-4] Goal Plan of Care Note [code = 55505-4] Goal Plan of Care Note [code = 11620-2] Goal Plan of Care Note [code = 66112-5] Goal Plan of Care Note [code = 08128-8] Goal Plan of Care Note [code = 10457-2] Goal Plan of Care Note [code = 02197-1] Goal Plan of Care Note [code = 90955-0] Goal Plan of Care Note [code = 36120-6] Goal Plan of Care Note [code = 88326-3] Goal Plan of Care Note [code = 69710-7] Goal Plan of Care Note [code = 94873-7] Goal Plan of Care Note [code = 87626-2] Goal Plan of Care Note [code = 93567-6] Goal Plan of Care Note [code = 61193-2] Goal Plan of Care Note [code = 22907-0] Goal Plan of Care Note [code = 48040-4] Goal Plan of Care Note [code = 63663-1] Goal Plan of Care Note [code = 69416-4] Goal Plan of Care Note [code = 07922-5] Goal Plan of Care Note [code = 77940-1] Goal Plan of Care Note [code = 43801-1] Goal Plan of Care Note [code = 31217-8] Goal Plan of Care Note [code = 28498-2] Goal Plan of Care Note [code = 95065-1] Goal Plan of Care Note [code = 14072-5] Goal Plan of Care Note [code = 00947-6] Goal Plan of Care Note [code = 48812-5] Encounters Start End Encounter Admission Attending Care Care Encounter Source Date/Time Date/Time Type Type Clinicians Facility Department ID 2022-12-22 2022-12-22 Outpatient [facility] [id number] Zachary 15:29:15 15:29:15 0303 F Morris 2022-12-15 2022-12-15 Outpatient [facility] [id number] Zachary 08:45:04 08:45:04 0224 F Morris 2022-08-21 2022-08-21 [facility] [id number] Univers 00:00:00 00:00:00 Yasmin Duarte [facility] 4.2.7.2.686 [place] as MATERNAL [id number] [facility] ical & CHILD [address] [place] [address] 2022-08-17 2022-08-17 Emergency X DALY [facility] ERT [id number] Univers 19:14:00 22:03:00 CHRISTI flynn [facility] 2022-08-17 2022-08-17 [facility] [id number] Univers 19:14:00 22:03:00 Christi ADAMS 350.1.13.10 i ty [facility] 4.2.7.2.686 [facility] [id number] [address] 2022-08-11 2022-08-11 Emergency X MENDEL [facility] ERT [id number] Univers 12:57:00 14:52:00 ELENI flynn [facility] 2022-08-11 2022-08-11 [facility] [id number] Univers 12:57:00 14:52:00 Eleni ADAMS 350.1.13.10 ity [facility] 4.2.7.2.686 [facility] [id number] [address] 2022-07-07 2022-07-07 Outpatient [id number] 00:00:00 00:00:00 Visit [id number] -[id number] 2022-06-30 2022-06-30 Outpatient [id number] 00:00:00 00:00:00 Visit h9un-45b2 [id number]-[id number] -84k3-6pc [id number] 2022-06-20 2022-06-20 Emergency X JOSE [facility] ERT [id number] Univers 22:02:00 22:56:00 [facility] 2022-06-20 2022-06-20 [facility] [id number] Univers 22:02:00 22:56:00 Mta ADAMS 350.1.13.10 i ty of [place] 4.2.7.2.686 [facility] [id number] [facility] [address] [place] 2022-06-20 2022-06-20 Orders Doctor IGOR [id number] [id number] Univers 00:00:00 00:00:00 Only Unassigned, TRACY 350.1.13.10 ity of Naomi [facility] 4.2.7.2.686 [place] [facility] [id number] [facility] 009 Branch 2020-10-23 2020-10-23 Emergency [facility] [id number] 11:49:00 14:51:00 Severino Adams 350.1.13.10 [place] 4.2.7.2.686 [place] [id number] [facility] 2020-10-23 2020-10-23 Emergency [facility] [id number] Univers 11:49:00 11:49:00 SEVERINO [facility] Results Test Description Test Time Test Comments Results Result Comments Source D-DIMER 2022-12-25 13:01:25 Test Item Value Reference Range Interpretation Comme nts D-DIMER (test 1.23 UG/ML FEU See_Comment H NOTE: Provi ded reference range is code = 1405) established for evaluation of Deep Venous Thrombos is/Pulmonary Embolus (DVT/PE). Resul ts below cutoff value of <=0.49 UG/ML FE U have a high negative predictive valu e forDVT/PE. No reference range is establ ished for disseminatedint ra-vascular coagulation (DIC). [facility] has important pathology staff changes e ffective 12/20/2022. New pathology s taff will provide uninterrupted, excellent patient care and clinical co nsultation. See URL: [email or web address]. UNLESS OTHERWISE INDIC ATED, ALL TESTING [facility]. [address] [place] [address] LOCO RUIZ DIRECTOR: RAMAN GAMEZ M.D. [place] NUMBER [id number] [place]. [id number] [Automated mess age] The system which generated this result transmitted reference range : <=0.49. The reference range was not u sed to interpret this result as danyelle l/abnormal. [id number] 02:36:27 Test Item Value Reference Range Interpretation Comments FERRITIN (test code = 2075) 10 NG/ML 13-200 L FSH + LH [id number] 02:36:27 Test Item Value Reference Range Interpretation Comments FOLLICLE STIM HORMONE 3.5 IU/L SEE BELOW EXPECTED VALUES (test code = 2700) FOR FSH F OR FEMALES >17 YEARS F OLLICULAR 3.5-12.5 IU/L M ID-CYCLE PEAK 4.7-21.5 I U/L LUTEAL PHASE 1. 7-7.7 IU/L POSTMENOPA USAL 25.8-134.8 IU/L LUTEINIZING HORMONE 9.1 IU/L SEE BELOW EXPECTED VALUES (test code = 2776) FOR LH FO R FEMALES >17 YEARS M ALES FEMALES >=18 YE ARS 1.8-8.6 IU/L FO LLICULAR 2.4-12.6 IU/L MID-CYCLE PEAK 14.0-95.6 IU/L LUTEAL PHASE 1. 0-11.4 IU/L POSTMENOPA USAL 7.7-58.5 IU/L [id number] 02:36:27 Test Item Value Reference Range Interpretation Comments PROLACTIN (test 11.3 NG/ML 5.0-37.0 NOTE: Metho dology is Greg code = 2800) Karis Electrochemilum inescence Immunoassay (EC MAY). Values obtained with d ifferent assays/manufact urers cannot be used interch angeably. Results should not be used as sole basis to e stablish the presence or abs ence of malignancy. [facility] has important patho logy staff changes effecti ve 12/20/2022. New patholo gy staff will provide uninter rupted, excellent patie nt care and clinical consul tation. See URL: [email or web address] UNLESS OTHER CROOKS INDICATED, ALL TESTING PERFORMED AT [facility] [employer] [address] [place] [address] LABORATORY DIRE CTOR: RAMAN GAMEZ M.D. [place] NUMBER [id number] [place]. [id number] TSH, THIRD [id number] 05:56:57 Test Item Value Reference Range Interpretation Comments TSH, THIRD GENERATION (test code 1.640 UIU/ML 0.400-4.100 = 2821) LIPID [id number] 05:53:53 Test Item Value Reference Range Interpretation Comments CHOLESTEROL (test 153 MG/DL <200 code = 2210) TRIGLYCERIDES (test 72 MG/DL <150 code = 2232) HDL CHOLESTEROL (test 56 MG/DL >39 code = 2220) CALC LDL CHOL (test 82 MG/DL <100 NOTE: C ALCULATED LDL code = 2237) IS BASED ON DYLAN-FERRELL METHOD WHICHINCLUDES ADJUSTABLE TRIGLYCERIDE:VL DL CHOLESTEROL RAT IO.THIS FACTOR VARIES B Y MEASURED TRIGLY CERIDE AND NON-HDLCHOL ESTEROL CONCENTRATIONS WITH INCREASED CALCU LATED LDL SEENIN HIGH ER TRIGLYCERIDE OR LOWER NON-HDL SPECIME NS. FOR MOREINFORMATION , SEE CLIENT ANNOUNCE MENT AT [email or web address] [email or web address] LDL/HDL 1.46 RATIO <3.22 (test code = 2238) COMPREHENSIVE METABOLIC [id number] 05:53:53 Test Item Value Reference Range Interpretation Comments GLUCOSE (test code = 100 MG/DL 70-99 H 2216) BUN (test code = 6 MG/DL 6-20 2207) CREATININE (test 0.67 MG/DL 0.60-1.30 code = 2214) eGFR (2020 CKD-EPI) 112 >60 (test code = 14537) ML/MIN/1.73 CALC BUN/CREAT (test 9 RATIO 6-28 code = 2234) SODIUM (test code = 141 MEQ/L 734-780 3790) POTASSIUM (test code 4.2 MEQ/L 3.5-5.4 = 2227) CHLORIDE (test code 105 MEQ/L 95-107 = 2214) CARBON DIOXIDE (test 28 MEQ/L 19-31 code = 2205) CALCIUM (test code = 9.1 MG/DL 8.5-10.5 2208) PROTEIN, TOTAL (test 7.5 G/DL 6.1-8.3 code = 2228) ALBUMIN (test code = 4.1 G/DL 3.5-5.2 2200) CALC GLOBULIN (test 3.4 G/DL 1.9-3.7 code = 2239) CALC A/G RATIO (test 1.2 RATIO 1.0-2.6 code = 2233) BILIRUBIN, TOTAL <0.2 MG/DL See_Comment [Automated message] (test code = 2206) The [employer] which generated this result transmit leonid reference range : <=1.2. The refe rence range was not u sed to interpret th is result as normal/abnormal . ALKALINE PHOSPHATASE 91 U/L 40-113 (test code = 2203) AST (test code = 23 U/L 9-40 2217) ALT (test code = 21 U/L 5-40 2218) HEMOGLOBIN [id number] 03:48:46 Test Item Value Reference Range Interpretation Comments HEMOGLOBIN A1c (test 7.0 % 4.2-5.6 H [employer]IC AN DIABETES code = 90927) ASSOCIATION IDELINES FOR HGB A1C: PREDIABETES/INC REASED [...] ALTERN ATE TESTING OR LABORATORY C ONSULTATION. [facility] has imp ortant pathology staff changes effective 12/20. New pathology s taff will provide uninter rupted, excellent patie nt care and clinical consul tation. See URL: [email or web address]. UNLESS OTHE RWISE INDICATED, ALL TESTING PERFORMED AT INICAL PATHOLOGY LABOR [employer] [address] [facility] [place] [address] LABORATOR Y DIRECTOR: RAMAN GIBSON M.D. [place] NUMBER [id number] CAP ACCREDITATION N O. [id number] CBC W/AUTO DIFF WITH [id number] 03:32:47 Test Item Value Reference Range Interpretation Comments WBC (test code = 6.3 K/UL 3.5-11.0 1001) RBC (test code = 3.91 M/UL 3.80-5.40 1002) HEMOGLOBIN (test code 11.0 G/DL 11.5-15.5 L = 1003) HEMATOCRIT (test code 35.3 % 34.0-45.0 = 1004) MCV (test code = 90.3 fL 80.0-99.0 1005) MCH (test code = 28.1 PG 25.0-33.0 1006) MCHC (test code = 31.2 G/DL 31.0-36.0 1007) RDW (test code = 17.3 % 11.5-15.0 H 1038) NEUTROPHILS (test 43.2 % code = 1008) LYMPHOCYTES (test 41.2 % code = 1010) MONOCYTES (test code 12.5 % = 1011) EOSINOPHILS (test 2.2 % code = 1012) BASOPHILS (test code 0.6 % = 1013) IMMATURE GRANULOCYTES 0.3 % (test code = 1036) NUCLEATED RBCS (test 0.0 /100 WBC'S See_Comment [Aut omated code = 1065) message] The sy stem which generated this result transmitted reference range : 0.0. The refere nce range was not u sed to interpret th is result as normal/abnormal . PLATELET COUNT (test 463 K/UL 130-400 H code = 1015) ABSOLUTE NEUTROPHILS 2.72 K/UL 1.50-7.50 (test code = 1066) ABSOLUTE LYMPHOCYTES 2.60 K/UL 1.00-4.00 (test code = 1067) ABSOLUTE MONOCYTES 0.79 K/UL 0.20-1.00 (test code = 1068) ABSOLUTE EOSINOPHILS 0.14 K/UL 0.00-0.50 (test code = 1040) ABSOLUTE BASOPHILS 0.04 K/UL 0.00-0.20 (test code = 1069) ABS IMMATURE 0.02 K/UL 0.00-0.10 GRANULOCYTES (test code = 1020) ABS NUCLEATED RBCS 0.00 K/UL 0.00-0.11 (test code = 84000) CBC WITH [id number] 01:06:25 Test Item Value Reference Range Interpretation Comments WBC (test code = See_Comment [Automated 6690-2) message] The sy stem which generated this result transmitted reference range : 4.30 - 11.10 10*3/?L. The reference range was not used to interpret this result as normal/abnormal . RBC (test code = See_Comment [Automated 789-8) message] The sy stem which generated this result transmitted reference range : 3.93 - 5.25 10*6/?L. The reference range was not used to interpret this result as normal/abnormal . HGB (test code = 12.4 g/dL 11.6-15.0 718-7) HCT (test code = 38.0 % 35.7-45.2 4544-3) MCV (test code = 87.6 fL 80.6-95.5 787-2) MCH (test code = 28.6 pg 25.9-32.8 785-6) MCHC (test code = 32.6 g/dL 31.6-35.1 786-4) RDW-SD (test code = 53.1 fL 39.0-49.9 H 60111-9) RDW-CV (test code = 16.8 % 12.0-15.5 H 788-0) PLT (test code = See_Comment H [Automated 777-3) message] The sy stem which generated this result transmitted reference range : 166 - 358 10*3/ ?L. The reference r fabi was not used to interpret this result as normal/abnormal . MPV (test code = 10.0 fL 9.5-12.9 39065-4) NRBC/100 WBC (test See_Comment [Automat ed code = [id number]) message] The system which generated this result transmitted reference range : 0.0 - 10.0 /100 WBCs. The refer ence range was not u sed to interpret th is result as normal/abnormal . NRBC x10^3 (test code See_Comment [Auto mated = 9871076804) message] The s ystem which generated this result transmitted reference range : 10*3/?L. The reference range was not used to interpret this result as normal/abnormal . GRAN MAT (NEUT) % 40.4 % (test code = 770-8) IMM GRAN % (test code 0.30 % = 1908328943) LYMPH % (test code = 48.0 % 736-9) MONO % (test code = 9.9 % 5905-5) EOS % (test code = 0.9 % 713-8) BASO % (test code = 0.5 % 706-2) GRAN MAT x10^3(ANC) 3.15 10*3/uL 1.88-7.09 (test code = 8937691957) IMM GRAN x10^3 (test 0.00-0.06 code = 3686054330) LYMPH x10^3 (test code 3.74 10*3/uL 1.32-3.29 H = 731-0) MONO x10^3 (test code 0.77 10*3/uL 0.33-0.92 = 742-7) EOS x10^3 (test code = 0.07 10*3/uL 0.03-0.39 711-2) BASO x10^3 (test code 0.04 10*3/uL 0.01-0.07 = 704-7) Lab Interpretation Abnormal (test code = 25685-0) [facility] ([id number])2022-08-18 01:03:23 Test Item Value Reference Range Interpretation Comments NA (test code = 142 mmol/L 135-145 8188600026) K (test code = 3.9 mmol/L 3.5-5.0 3162726543) CL (test code = 103 mmol/L 98-108 6384514236) CO2 TOTAL (test code = 27 mmol/L 23-31 2461585879) AGAP (test code = 2-16 3837279298) BUN (test code = 13 mg/dL 7-23 8912497580) GLUCOSE (test code = 140 mg/dL 70-110 H 1317904530) CREATININE (test code = 0.95 mg/dL 0.50-1.04 3054475699) TOTAL BILI (test code = 0.3 mg/dL 0.1-1.9 8116224890) CALCIUM (test code = 9.3 mg/dL 8.6-10.6 6015492415) T PROTEIN (test code = 8.0 g/dL 6.3-8.2 2014545816) ALBUMIN (test code = 4.3 g/dL 3.5-5.0 6029190592) ALK PHOS (test code = 73 U/L 34-122 3288047240) ALTv (test code = 26 U/L 5-35 2-6) AST(SGOT) (test code = 31 U/L 13-40 9992815480) eGFR (test code = mL/min/1.73m2 7236723244) EVA (test code = EVA) Association of [...] tests). Lab Interpretation Abnormal (test code = 63490-7) [facility] [id number] 00:37:00 Test Item Value Reference Range Interpretation Comments POCT PREG (test code = 1605) negative On board controls acceptable with present C Line (test code = 3574) POCT PREG LOT # (test code = 3575) [id number] POCT PREG TEST DATE (test 12/20/2023 code = 3576) Lab Interpretation (test code = Normal 71479-2) [facility] METABOLIC PANEL ([id number])2022-08-11 18:49:02 Test Item Value Reference Range Interpretation Comments NA (test code = 139 mmol/L 135-145 3081162670) K (test code = 4.4 mmol/L 3.5-5 0006629874) CL (test code = 105 mmol/L 98-108 7757617517) CO2 TOTAL (test code = 27 mmol/L 23-31 2335322754) AGAP (test code = 2-16 2505237092) BUN (test code = 6 mg/dL 7-23 L 4565275674) GLUCOSE (test code = 140 mg/dL 70-110 H 5807221773) CREATININE (test code = 0.64 mg/dL 0.5-1.04 3820362444) TOTAL BILI (test code = 0.3 mg/dL 0.1-1.2 3705972010) CALCIUM (test code = 8.5 mg/dL 8.6-10.6 L 7048883022) T PROTEIN (test code = 6.9 g/dL 6.3-8.2 8833685552) ALBUMIN (test code = 3.7 g/dL 3.5-5 1882069851) ALK PHOS (test code = 66 U/L 34-122 0811063403) ALTv (test code = 20 U/L 5-35 1742-6) AST(SGOT) (test code = 28 U/L 13-40 4360702334) eGFR (test code = mL/min/1.73m2 2700742126) EVA (test code = EVA) Association of [...] tests). Lab Interpretation Abnormal (test code = 26402-9) [facility] WITH [id number] 18:45:43 Test Item Value Reference Range Interpretation Comments WBC (test code = See_Comment [Automated 8629-2) message] The sy stem which generated this result transmitted reference range : 4.30 - 11.10 10*3/?L. The reference range was not used to interpret this result as normal/abnormal . RBC (test code = See_Comment L [Automated 058-0) message] The sy stem which generated this [...] (test code = 55.8 fL 39-49.9 H 77263-9) RDW-CV (test code = 17.2 % 12-15.5 H 788-0) PLT (test code = See_Comment H [Automated 777-3) message] The sy stem which generated this result transmitted reference range : 166 - 358 10*3/ ?L. The reference r fabi was not used to interpret this result as normal/abnormal . MPV (test code = 10.0 fL 9.5-12.9 83000-5) NRBC/100 WBC (test See_Comment [Automat ed code = 5949606247) message] The system which generated this result transmitted reference range : 0.0 - 10.0 /100 WBCs. The refer ence range was not u sed to interpret th is result as normal/abnormal . NRBC x10^3 (test code See_Comment [Auto mated = 7701287422) message] The s ystem which generated this result transmitted reference range : 10*3/?L. The reference range was not used to interpret this result as normal/abnormal . GRAN MAT (NEUT) % 58.9 % (test code = 770-8) IMM GRAN % (test code 0.30 % = 6106549445) LYMPH % (test code = 31.3 % 736-9) MONO % (test code = 7.8 % 5905-5) EOS % (test code = 1.3 % 713-8) BASO % (test code = 0.4 % 706-2) GRAN MAT x10^3(ANC) 4.43 10*3/uL 1.88-7.09 (test code = 4861282011) IMM GRAN x10^3 (test 0-0.06 code = 7294688588) LYMPH x10^3 (test code 2.36 10*3/uL 1.32-3.29 = 731-0) MONO x10^3 (test code 0.59 10*3/uL 0.33-0.92 = 742-7) EOS x10^3 (test code = 0.10 10*3/uL 0.03-0.39 711-2) BASO x10^3 (test code 0.03 10*3/uL 0.01-0.07 = 704-7) Lab Interpretation Abnormal (test code = 65209-7) [facility] [id number] 18:27:00 Test Item Value Reference Range Interpretation Comments POCT PREG (test code = 1605) negative On board controls acceptable with positive C Line (test code = 3574) POCT PREG LOT # (test code = 3575) [id number] POCT PREG TEST DATE (test 12-20-2023 code = 3576) Lab Interpretation (test code = Normal 32600-7) [facility] M[facility] BIL[facility] MARIAJOSE CAD [id number] 08:05:09Name: Megan : 1980 Sex: F - SCR MAMM BILATERAL MARIAJOSE CAD DIGITALBILATERAL FIRST EVER DIGITAL SCREENING MAMMOGRAM 3D/2D WITH CAD: 03/17/2022LINICAL: Asymptomatic. Digital breast tomosynthesis was performed in addition to routine CC and MLO views. Current mammographic images were evaluated by [employer] ImageCheck[employer]og[employer] CAD (computer-aided detection) software. No prior exams were available for comparison. There are scattered fibroglandular tissues in both breasts. No suspicious mass, architectural distortion, malignant type calcification, or lymph node abnormality detected. IMPRESSION: NEGATIVEThere is no mammographic evidence of malignancy. Resume annual screening mammography in one year. Fahad Tipton M.D. et/penrad:03/22/2022 08:05:09 Security Engineer: Amada Moctezuma MM, [facility] Mammographyletter sent: BIRADS 1-2 Normal Mammogram BI-RADS: 1 NegativeHEMOGLOBIN [id number] 00:24:25 Test Item Value Reference Range Interpretation Comments HEMOGLOBIN A1c (test 6.8 % 4.2-5.6 H AMERIC AN DIABETES code = 87459) ASSOCIATION IDELINES FOR HGB A1C: PREDIABETES/INC REASED [...] ATE TESTING OR LABORATORY C ONSULTATION. HEMOGLOBIN [id number] 00:00:00 Test Item Value Reference Range Interpretation Comments HEMOGLOBIN A1c (test code = 37199) 6.8 % HEMOGLOBIN [id number] 00:00:00 Test Item Value Reference Range Interpretation Comments HEMOGLOBIN A1c (test code = 08912) 6.8 % HEMOGLOBIN [id number] 00:00:00 Test Item Value Reference Range Interpretation Comments HEMOGLOBIN A1c (test code = 56808) 6.8 % HEMOGLOBIN [id number] 00:00:00 Test Item Value Reference Range Interpretation Comments HEMOGLOBIN A1c (test code = 05288) 6.8 % HEMOGLOBIN [id number] 00:00:00 Test Item Value Reference Range Interpretation Comments HEMOGLOBIN A1c (test code = 68973) 6.8 % HEMOGLOBIN [id number] 00:00:00 Test Item Value Reference Range Interpretation Comments HEMOGLOBIN A1c (test code = 75628) 6.8 % TSH, THIRD [id number] 06:13:08 Test Item Value Reference Range Interpretation Comments TSH, THIRD GENERATION (test code 1.210 UIU/ML 0.400-4.100 = 2821) [id number] 05:50:43 Test Item Value Reference Range Interpretation Comments NT-proBNP 145 PG/ML SEE BELOW If NT-ProBNP i s less than 300 (test code = PG/ML, heart fa ilure is unlikely 57542) for allages. Age............ .....Heart Failure Likely <50 Years.......... .>=450 PG/ML 50-75 Years.... .....>=900 PG/ML > 75 Years..... .....>=1800 PG/ML Methodology: Ro gonzalo Karis Electrochemilum inescense Immunoassay UNL ESS OTHERWISE INDICATED, ALL TESTING PERFORMED ATCLINICAL PATH [facility] [place]. [address] [facility], [place] [address] 4 CLASSIFYING MACHINE OPERATOR: Letha BAJWA [id number] CAP ACCREDITATION N O. [id number] LIPID [id number] 04:29:21 Test Item Value Reference Range Interpretation [...] MOREINFORMATION , SEE CLIENT ANNOUNCE MENT AT [email or web address] RISK RATIO LDL/HDL 1.39 RATIO <3.22 (test code = 2238) COMPREHENSIVE METABOLIC [id number] 04:29:21 Test Item Value Reference Range Interpretation Comments GLUCOSE (test code = 95 MG/DL 70-99 2216) BUN (test code = 7 MG/DL -2207) CREATININE (test 0.80 MG/DL 0.60-1.30 code = 2214) eGFR (2020 CKD-EPI) 95 ML/MIN/1.73 >60 (test code = 68196) CALC BUN/CREAT (test 9 RATIO 04-18 code = 2235) SODIUM (test code = 141 MEQ/L 559-325 7762) POTASSIUM (test code 4.1 MEQ/L 3.5-5.4 = 2227) CHLORIDE (test code 104 MEQ/L 95-107 = 2215) CARBON DIOXIDE (test 26 MEQ/L 19-31 code = 220) CALCIUM (test code = 9.2 MG/DL 8.5-10.5 2208) PROTEIN, TOTAL (test 7.7 G/DL 6.1-8.3 code = 222) ALBUMIN (test code = 4.0 G/DL 3.5-5.2 2200) CALC GLOBULIN (test 3.7 G/DL 1.9-3.7 code = 2240) CALC A/G RATIO (test 1.1 RATIO 1.0-2.6 code = 223) BILIRUBIN, TOTAL 0.2 MG/DL See_Comment [Automated message] (test code = 220) The syste m which generated this result transmit leonid reference range : <=1.2. The refe rence range was not u sed to interpret th is result as normal/abnormal . ALKALINE PHOSPHATASE 85 U/L 40-113 (test code = 2203) AST (test code = 20 U/L 9-40 2217) ALT (test code = 21 U/L 5-40 2218) CBC W/AUTO DIFF WITH [id number] 03:09:17 Test Item Value Reference Range Interpretation [...] RBCS 0.00 K/UL 0.00-0.11 (test code = 55311) [id number] 00:00:00 Test Item Value Reference Range Interpretation Comments TSH, THIRD GENERATION (test code 1.210 UIU/ML = 2821) [id number] 00:00:00 Test Item Value Reference Range Interpretation Comments TSH, THIRD GENERATION (test code 1.210 UIU/ML = 2821) [id number] 00:00:00 Test Item Value Reference Range Interpretation Comments TSH, THIRD GENERATION (test code 1.210 UIU/ML = 2821) [id number] 00:00:00 Test Item Value Reference Range Interpretation Comments NT-proBNP (test code = 65543) 145 PG/ML [id number] 00:00:00 Test Item Value Reference Range Interpretation Comments NT-proBNP (test code = 63358) 145 PG/ML [id number] 00:00:00 Test Item Value Reference Range Interpretation Comments NT-proBNP (test code = 18021) 145 PG/ML CBC W/AUTO [id number] 00:00:00 Test Item Value Reference Range Interpretation [...] NUCLEATED RBCS (test code = 0.00 K/UL 14446) CBC W/AUTO [id number] 00:00:00 Test Item Value Reference Range Interpretation [...] NUCLEATED RBCS (test code = 0.00 K/UL 03703) CBC W/AUTO [id number] 00:00:00 Test Item Value Reference Range Interpretation [...] NUCLEATED RBCS (test code = 0.00 K/UL 40987) LIPID [id number] 00:00:00 Test Item Value Reference Range Interpretation Comments CHOLESTEROL (test code = 2210) 160 MG/DL TRIGLYCERIDES (test code = 2232) 154 MG/DL HDL CHOLESTEROL (test code = 2220) 56 MG/DL CALC LDL CHOL (test code = 2237) 78 MG/DL RISK RATIO LDL/HDL (test code = 1.39 RATIO 2238) LIPID [id number] 00:00:00 Test Item Value Reference Range Interpretation Comments CHOLESTEROL (test code = 2210) 160 MG/DL TRIGLYCERIDES (test code = 2232) 154 MG/DL HDL CHOLESTEROL (test code = 2220) 56 MG/DL CALC LDL CHOL (test code = 2237) 78 MG/DL RISK RATIO LDL/HDL (test code = 1.39 RATIO 2238) COMPREHENSIVE METABOLIC [id number] 00:00:00 Test Item Value Reference Range Interpretation Comments GLUCOSE (test code = 2217) 95 MG/DL BUN (test code = 2208) 7 MG/DL CREATININE (test code = 2214) 0.80 MG/DL eGFR (2020 CKD-EPI) (test code 95 ML/MIN/1.73 = 47381) CALC BUN/CREAT (test code = 9 RATIO 2235) SODIUM (test code = 2231) 141 MEQ/L POTASSIUM (test code = 2228) 4.1 MEQ/L CHLORIDE (test code = 2215) 104 MEQ/L CARBON DIOXIDE (test code = 26 MEQ/L 2205) CALCIUM (test code = 2209) 9.2 MG/DL PROTEIN, TOTAL (test code = 7.7 G/DL 2228) ALBUMIN (test code = 2201) 4.0 G/DL CALC GLOBULIN (test code = 3.7 G/DL 2240) CALC A/G RATIO (test code = 1.1 RATIO 2234) BILIRUBIN, TOTAL (test code = 0.2 MG/DL 2206) ALKALINE PHOSPHATASE (test 85 U/L code = 2204) AST (test code = 2218) 20 U/L ALT (test code = 2219) 21 U/L COMPREHENSIVE METABOLIC [id number] 00:00:00 Test Item Value Reference Range Interpretation Comments GLUCOSE (test code = 2217) 95 MG/DL BUN (test code = 2208) 7 MG/DL CREATININE (test code = 2214) 0.80 MG/DL eGFR (2020 CKD-EPI) (test code 95 ML/MIN/1.73 = 00420) CALC BUN/CREAT (test code = 9 RATIO 5) SODIUM (test code = 2231) 141 MEQ/L POTASSIUM (test code = 2228) 4.1 MEQ/L CHLORIDE (test code = 2215) 104 MEQ/L CARBON DIOXIDE (test code = 26 MEQ/L 2205) CALCIUM (test code = 2209) 9.2 MG/DL PROTEIN, TOTAL (test code = 7.7 G/DL 2228) ALBUMIN (test code = 2201) 4.0 G/DL CALC GLOBULIN (test code = 3.7 G/DL 2239) CALC A/G RATIO (test code = 1.1 RATIO 2233) BILIRUBIN, TOTAL (test code = 0.2 MG/DL 2206) ALKALINE PHOSPHATASE (test 85 U/L code = 220) AST (test code = 2218) 20 U/L ALT (test code = 2219) 21 U/L [id number] 00:00:00 Test Item Value Reference Range Interpretation Comments TSH, THIRD GENERATION (test code 1.210 UIU/ML = 2821) [id number] 00:00:00 Test Item Value Reference Range Interpretation Comments TSH, THIRD GENERATION (test code 1.210 UIU/ML = 2821) [id number] 00:00:00 Test Item Value Reference Range Interpretation Comments TSH, THIRD GENERATION (test code 1.210 UIU/ML = 2821) [id number] 00:00:00 Test Item Value Reference Range Interpretation Comments NT-proBNP (test code = 29250) 145 PG/ML [id number] 00:00:00 Test Item Value Reference Range Interpretation Comments NT-proBNP (test code = 28455) 145 PG/ML [id number] 00:00:00 Test Item Value Reference Range Interpretation Comments NT-proBNP (test code = 13515) 145 PG/ML CBC W/AUTO [id number] 00:00:00 Test Item Value Reference Range Interpretation [...] NUCLEATED RBCS (test code = 0.00 K/UL 57482) CBC W/AUTO [id number] 00:00:00 Test Item Value Reference Range Interpretation [...] NUCLEATED RBCS (test code = 0.00 K/UL 55080) CBC W/AUTO [id number] 00:00:00 Test Item Value Reference Range Interpretation [...] NUCLEATED RBCS (test code = 0.00 K/UL 83720) LIPID [id number] 00:00:00 Test Item Value Reference Range Interpretation Comments CHOLESTEROL (test code = 2210) 160 MG/DL TRIGLYCERIDES (test code = 2232) 154 MG/DL HDL CHOLESTEROL (test code = 2220) 56 MG/DL CALC LDL CHOL (test code = 2237) 78 MG/DL RISK RATIO LDL/HDL (test code = 1.39 RATIO 2238) LIPID [id number] 00:00:00 Test Item Value Reference Range Interpretation Comments CHOLESTEROL (test code = 2210) 160 MG/DL TRIGLYCERIDES (test code = 2232) 154 MG/DL HDL CHOLESTEROL (test code = 2220) 56 MG/DL CALC LDL CHOL (test code = 2237) 78 MG/DL RISK RATIO LDL/HDL (test code = 1.39 RATIO 2238) COMPREHENSIVE METABOLIC [id number] 00:00:00 Test Item Value Reference Range Interpretation Comments GLUCOSE (test code = 2217) 95 MG/DL BUN (test code = 2208) 7 MG/DL CREATININE (test code = 2214) 0.80 MG/DL eGFR (2020 CKD-EPI) (test code 95 ML/MIN/1.73 = 40073) CALC BUN/CREAT (test code = 9 RATIO 2235) SODIUM (test code = 2231) 141 MEQ/L POTASSIUM (test code = 2228) 4.1 MEQ/L CHLORIDE (test code = 2215) 104 MEQ/L CARBON DIOXIDE (test code = 26 MEQ/L 2205) CALCIUM (test code = 2209) 9.2 MG/DL PROTEIN, TOTAL (test code = 7.7 G/DL 2228) ALBUMIN (test code = 2201) 4.0 G/DL CALC GLOBULIN (test code = 3.7 G/DL 2240) CALC A/G RATIO (test code = 1.1 RATIO 2234) BILIRUBIN, TOTAL (test code = 0.2 MG/DL 2206) ALKALINE PHOSPHATASE (test 85 U/L code = 2204) AST (test code = 2218) 20 U/L ALT (test code = 2219) 21 U/L COMPREHENSIVE METABOLIC [id number] 00:00:00 Test Item Value Reference Range Interpretation Comments GLUCOSE (test code = 2217) 95 MG/DL BUN (test code = 2208) 7 MG/DL CREATININE (test code = 2214) 0.80 MG/DL eGFR (2020 CKD-EPI) (test code 95 ML/MIN/1.73 = 09832) CALC BUN/CREAT (test code = 9 RATIO 2235) SODIUM (test code = 2231) 141 MEQ/L POTASSIUM (test code = 2228) 4.1 MEQ/L CHLORIDE (test code = 2215) 104 MEQ/L CARBON DIOXIDE (test code = 26 MEQ/L 2205) CALCIUM (test code = 2209) 9.2 MG/DL PROTEIN, TOTAL (test code = 7.7 G/DL 2228) ALBUMIN (test code = 2201) 4.0 G/DL CALC GLOBULIN (test code = 3.7 G/DL 0) CALC A/G RATIO (test code = 1.1 RATIO 2233) BILIRUBIN, TOTAL (test code = 0.2 MG/DL 2206) ALKALINE PHOSPHATASE (test 85 U/L code = 2204) AST (test code = 2218) 20 U/L ALT (test code = 2219) 21 U/L CHLAMYDIA, NAAT, [id number] 18:09:17 Test Item Value Reference Range Interpretation Comments CHLAMYDIA, NAAT NEGATIVE NEGATIVE IMPORTA NT NOTICE: SEE (test code = [place] [address]) [email or web address] Note: Assay methodology is nucleic acid amplification b y operating manager m ediated amplification ( TMA) utilizing the A ptima Combo 2 Assay. GONORRHEA, NAAT, [id number] 18:09:17 Test Item Value Reference Range Interpretation Comments GONORRHEA, NAAT NEGATIVE NEGATIVE IMPORTA NT NOTICE: SEE (test code = [place] [address]) [email or web address] Note: Assay methodology is nucleic acid amplification b y operating manager m ediated amplification ( TMA) utilizing the A ptima Combo 2 Assay. VAGINAL PATHOGENS DNA [id number] 15:05:32 Test Item Value Reference Range Interpretation Comments KENNETH SPECIES (test NEGATIVE NEGATIVE code = ) G. VAGINALIS (test NEGATIVE NEGATIVE code = ) T. VAGINALIS (test NEGATIVE NEGATIVE UNLESS O THERWISE code = ) INDICATED, ALL TESTING PERFORMED [facility] [address] [place] [address] 2159 4 LABORATORY DIRE CTOR: RAMAN GIBSON M.D. CLIA NUMBER [id number] [place] [id number] PAP TEST, THINPREP, [id number] 13:36:46 Test Item Value Reference Range Interpretation Comments SOURCE: (test Cervical code = 8001) SLIDES: (test 1 code = 8011) LMP: (test code 12/28/2021 = 8021) SPECIMEN (NOTE) Satisfactory f or ADEQUACY: (test evaluation. code = 31633) Endocervical cells/transform ation zone component not identified. INTERPRETATION: NILM/NO EPITH. (test code = ABNORMALITY;SEE 93192) BELOW -------- - NEGATIVE FOR INTRAEPITHELIAL LESION OR MALIGNANCY ( NILM) -------- -------- -------- ---- FLUE CLEANER Yuridia Moreno CT : (test code = (ASCP) 8101) LOCATION: (test (NOTE) Specimens pr ocessed and code = 92496) interpreted at [facility], [address] [place], [place] [address] 4, Phone: , CLIA: [id number] CPT: (test code (NOTE) 81125 UNLESS OTHERWISE = 8140) INDICATED, COMP UTER [...] ATED, ALL TESTING PER FORMED ATCLINICAL PATH [facility] [place] [address] [place] [address] LABORATOR Y DIRECTOR: RAMAN GAMEZ M.D. CLIA NUMBER [id number] CAP ACCREDITATION N O. [id number] HCG, [id number] 06:16:53 Test Item Value Reference Range Interpretation Comments HCG, QUANTITATIVE (test <5 MIU/ML SEE BELOW EXPECTED code = 2506) VALUES FOR HCG GST.AGE UNITS RANGE GST. AGE UNITS RANGE3 WEEKS DE U/ML 6-71 10 WEEKS MIU/ML 46,509-186,9774 WEEKS MIU/ML 10 -750 12 WEEKS MIU/ML 27,832-210,6125 WEEKS MIU/ML 217-7,138 14 WE EKS MIU/ML 13,950-62,5306 WEEKS MIU/ML 158-31,7 95 15 WEEKS MIU/ML 12,039-70,9717 WEEKS MIU/ML 3,697-16 3,563 16 WEEKS MIU/ML 9,040-56,4518 W EEKS MIU/ML 32,065-149,571 17 WEEKS MIU/ML 8,175-55,8689 W EEKS MIU/ML 63,803-151,410 18 WEEKS MIU/ML 8,099-58,176MAL ES and NON-PREGNAN T FEMALES . . . . . . . . MIU/ML 6-0XWTV-TOMALMP SUSSY FEMALES . . . . . . . . . . . . MIU /ML <=7 [id number] 05:20:25 Test Item Value Reference Range Interpretation Comments RPR RESULT (test code = NON-REACTIVE NON-REACTIVE 3501) RPR TITER (test code = 3500) NOT INDIC. TITER NOT INDIC. HIV 1/2 4TH GEN, RFLX [id number] 04:05:17 Test Item Value Reference Range Interpretation Comments HIV 1/2 4TH GEN, RFLX CONF (test NON-REACTIVE NON-REACTIVE code = 3514) HEPATITIS PANEL, [id number] 04:05:17 Test Item Value Reference Range Interpretation Comments HEPATITIS A IgM (test NON-REACTIVE NON-REACTIVE code = 17331) HEPATITIS B CORE IgM NON-REACTIVE NON-REACTIVE (test code = 4644) HEPATITIS B SURF AG NON-REACTIVE NON-REACTIVE (test code = 2739) HEPATITIS C ANTIBODY NON-REACTIVE NON-REACTIVE (test code = 4675) INTERPRETATION (NOTE) Hepatitis A HEPATITIS A: (test code sero logy shows no = 2552) evidence of acu te hepatitis A. INTERPRETATION (NOTE) Hepatitis B HEPATITIS B: (test code sero logy shows no = 55863) evidence of acu te hepatitis B and no indication of exposure to hepatitis B vir us in the previous law eight months. INTERPRETATION (NOTE) Hepatitis C HEPATITIS C: (test code sero logy shows no = 47161) evidence of exposure to hepatitisC viru s at this time. I t can take up to 12 months after exposure tothe hepatitis C vir us for antibodies to become detectab le in the blood in certain patient s. HCG, [id number] 00:00:00 Test Item Value Reference Range Interpretation Comments HCG, QUANTITATIVE (test code = <5 MIU/ML 2506) CHLAMYDIA, AMPLIFIED, [id number] 00:00:00 Test Item Value Reference Range Interpretation Comments CHLAMYDIA, NAAT (test code = 22336) NEGATIVE CHLAMYDIA, AMPLIFIED, [id number] 00:00:00 Test Item Value Reference Range Interpretation Comments CHLAMYDIA, NAAT (test code = 82567) NEGATIVE GC, AMPLIFIED, [id number] 00:00:00 Test Item Value Reference Range Interpretation Comments GONORRHEA, NAAT (test code = 89546) NEGATIVE GC, AMPLIFIED, [id number] 00:00:00 Test Item Value Reference Range Interpretation Comments GONORRHEA, NAAT (test code = 98823) NEGATIVE [id number] 00:00:00 Test Item Value Reference Range Interpretation Comments RPR RESULT (test code = NON-REACTIVE 3501) RPR TITER (test code = 3500) NOT INDIC. TITER [id number] 00:00:00 Test Item Value Reference Range Interpretation Comments RPR RESULT (test code = NON-REACTIVE 3501) RPR TITER (test code = 3500) NOT INDIC. TITER [id number] 00:00:00 Test Item Value Reference Range Interpretation Comments RPR RESULT (test code = NON-REACTIVE 3501) RPR TITER (test code = 3500) NOT INDIC. TITER VAGINAL PATHOGENS DNA [id number] 00:00:00 Test Item Value Reference Range Interpretation Comments KENNETH SPECIES (test code = ) NEGATIVE G. VAGINALIS (test code = 57260) NEGATIVE T. VAGINALIS (test code = 79535) NEGATIVE VAGINAL PATHOGENS DNA [id number] 00:00:00 Test Item Value Reference Range Interpretation Comments KENNETH SPECIES (test code = ) NEGATIVE G. VAGINALIS (test code = 66970) NEGATIVE T. VAGINALIS (test code = 00140) NEGATIVE PAP TEST, THINPREP, [id number] 00:00:00 Test Item Value Reference Range Interpretation Comments SOURCE: (test code = Cervical 8001) SLIDES: (test code = 1 8011) LMP: (test code = 8021) 12/28/2021 SPECIMEN ADEQUACY: (NOTE) (test code = 51958) INTERPRETATION: (test NILM/NO EPITH. code = 07429) ABNORMALITY;SEE BELOW FLUE CLEANER: (test Yuridia Moreno CT (ASCP) code = 8101) LOCATION: (test code = (NOTE) 54933) CPT: (test code = 8140) (NOTE) HIV AB/AG COMBO RFLX [id number] 00:00:00 Test Item Value Reference Range Interpretation Comments HIV 1/2 4TH GEN, RFLX CONF (test NON-REACTIVE code = 3514) PAP TEST, THINPREP, [id number] 00:00:00 Test Item Value Reference Range Interpretation Comments SOURCE: (test code = Cervical 8001) SLIDES: (test code = 1 8011) LMP: (test code = 8021) 12/28/2021 SPECIMEN ADEQUACY: (NOTE) (test code = 20858) INTERPRETATION: (test NILM/NO EPITH. code = 98766) ABNORMALITY;SEE BELOW FLUE CLEANER: (test Yuridia Moreno [place] (ASCP) code = 8101) LOCATION: (test code = (NOTE) 49289) CPT: (test code = 8140) (NOTE) HIV AB/AG COMBO RFLX [id number] 00:00:00 Test Item Value Reference Range Interpretation Comments HIV 1/2 4TH GEN, RFLX CONF (test NON-REACTIVE code = 3514) ACUTE HEPATITIS [id number] 00:00:00 Test Item Value Reference Range Interpretation Comments HEPATITIS A IgM (test code = NON-REACTIVE 29793) HEPATITIS B CORE IgM (test code NON-REACTIVE = 4644) HEPATITIS B SURF AG (test code = NON-REACTIVE 2739) HEPATITIS C ANTIBODY (test code NON-REACTIVE = 4675) INTERPRETATION HEPATITIS A: (NOTE) (test code = 2552) INTERPRETATION HEPATITIS B: (NOTE) (test code = 57118) INTERPRETATION HEPATITIS C: (NOTE) (test code = 56554) ACUTE HEPATITIS [id number] 00:00:00 Test Item Value Reference Range Interpretation Comments HEPATITIS A IgM (test code = NON-REACTIVE 89211) HEPATITIS B CORE IgM (test code NON-REACTIVE = 4644) HEPATITIS B SURF AG (test code = NON-REACTIVE 2739) HEPATITIS C ANTIBODY (test code NON-REACTIVE = 4675) INTERPRETATION HEPATITIS A: (NOTE) (test code = 2552) INTERPRETATION HEPATITIS B: (NOTE) (test code = 82000) INTERPRETATION HEPATITIS C: (NOTE) (test code = 72628) HCG, [id number] 00:00:00 Test Item Value Reference Range Interpretation Comments HCG, QUANTITATIVE (test code = <5 MIU/ML 2506) HCG, [id number] 00:00:00 Test Item Value Reference Range Interpretation Comments HCG, QUANTITATIVE (test code = <5 MIU/ML 2506) HCG, [id number] 00:00:00 Test Item Value Reference Range Interpretation Comments HCG, QUANTITATIVE (test code = <5 MIU/ML 2506) CHLAMYDIA, AMPLIFIED, [id number] 00:00:00 Test Item Value Reference Range Interpretation Comments CHLAMYDIA, NAAT (test code = 12856) NEGATIVE CHLAMYDIA, AMPLIFIED, [id number] 00:00:00 Test Item Value Reference Range Interpretation Comments CHLAMYDIA, NAAT (test code = 53235) NEGATIVE GC, AMPLIFIED, [id number] 00:00:00 Test Item Value Reference Range Interpretation Comments GONORRHEA, NAAT (test code = 07980) NEGATIVE GC, AMPLIFIED, [id number] 00:00:00 Test Item Value Reference Range Interpretation Comments GONORRHEA, NAAT (test code = 00061) NEGATIVE [id number] 00:00:00 Test Item Value Reference Range Interpretation Comments RPR RESULT (test code = NON-REACTIVE 3501) RPR TITER (test code = 3500) NOT INDIC. TITER [id number] 00:00:00 Test Item Value Reference Range Interpretation Comments RPR RESULT (test code = NON-REACTIVE 3501) RPR TITER (test code = 3500) NOT INDIC. TITER [id number] 00:00:00 Test Item Value Reference Range Interpretation Comments RPR RESULT (test code = NON-REACTIVE 3501) RPR TITER (test code = 3500) NOT INDIC. TITER VAGINAL PATHOGENS DNA [id number] 00:00:00 Test Item Value Reference Range Interpretation Comments KENNETH SPECIES (test code = ) NEGATIVE G. VAGINALIS (test code = 98849) NEGATIVE T. VAGINALIS (test code = 24197) NEGATIVE VAGINAL PATHOGENS DNA [id number] 00:00:00 Test Item Value Reference Range Interpretation Comments KENNETH SPECIES (test code = ) NEGATIVE G. VAGINALIS (test code = ) NEGATIVE T. VAGINALIS (test code = ) NEGATIVE PAP TEST, THINPREP, [id number] 00:00:00 Test Item Value Reference Range Interpretation Comments SOURCE: (test code = Cervical 8001) SLIDES: (test code = 1 8011) LMP: (test code = 8021) 12/28/2021 SPECIMEN ADEQUACY: (NOTE) (test code = 38064) INTERPRETATION: (test NILM/NO EPITH. code = 24950) ABNORMALITY;SEE BELOW FLUE CLEANER: (test LEILA Buckley (ASCP) code = 8101) LOCATION: (test code = (NOTE) 59481) CPT: (test code = 8140) (NOTE) HIV AB/AG COMBO RFLX [id number] 00:00:00 Test Item Value Reference Range Interpretation Comments HIV 1/2 4TH GEN, RFLX CONF (test NON-REACTIVE code = 3514) PAP TEST, THINPREP, [id number] 00:00:00 Test Item Value Reference Range Interpretation Comments SOURCE: (test code = Cervical 8001) SLIDES: (test code = 1 8011) LMP: (test code = 8021) 12/28/2021 SPECIMEN ADEQUACY: (NOTE) (test code = 29874) INTERPRETATION: (test NILM/NO EPITH. code = 04975) ABNORMALITY;SEE BELOW FLUE CLEANER: (test LEILA Buckley (ASCP) code = 8101) LOCATION: (test code = (NOTE) 67622) CPT: (test code = 8140) (NOTE) HIV AB/AG COMBO RFLX [id number] 00:00:00 Test Item Value Reference Range Interpretation Comments HIV 1/2 4TH GEN, RFLX CONF (test NON-REACTIVE code = 3514) ACUTE HEPATITIS [id number] 00:00:00 Test Item Value Reference Range Interpretation Comments HEPATITIS A IgM (test code = NON-REACTIVE 46810) HEPATITIS B CORE IgM (test code NON-REACTIVE = 4644) HEPATITIS B SURF AG (test code = NON-REACTIVE 2739) HEPATITIS C ANTIBODY (test code NON-REACTIVE = 4675) INTERPRETATION HEPATITIS A: (NOTE) (test code = 2552) INTERPRETATION HEPATITIS B: (NOTE) (test code = 41170) INTERPRETATION HEPATITIS C: (NOTE) (test code = 85832) ACUTE HEPATITIS [id number] 00:00:00 Test Item Value Reference Range Interpretation Comments HEPATITIS A IgM (test code = NON-REACTIVE 28283) HEPATITIS B CORE IgM (test code NON-REACTIVE = 4644) HEPATITIS B SURF AG (test code = NON-REACTIVE 2739) HEPATITIS C ANTIBODY (test code NON-REACTIVE = 4675) INTERPRETATION HEPATITIS A: (NOTE) (test code = 2552) INTERPRETATION HEPATITIS B: (NOTE) (test code = 79227) INTERPRETATION HEPATITIS C: (NOTE) (test code = 53562) HCG, [id number] 00:00:00 Test Item Value Reference Range Interpretation Comments HCG, QUANTITATIVE (test code = <5 MIU/ML 2506) HCG, [id number] 00:00:00 Test Item Value Reference Range Interpretation Comments HCG, QUANTITATIVE (test code = <5 MIU/ML 2506) HEMOGLOBIN [id number] 00:00:00 Test Item Value Reference Range Interpretation Comments HEMOGLOBIN A1c (test code = 44203) 6.6 % HEMOGLOBIN [id number] 00:00:00 Test Item Value Reference Range Interpretation Comments HEMOGLOBIN A1c (test code = 97840) 6.6 % HEMOGLOBIN [id number] 00:00:00 Test Item Value Reference Range Interpretation Comments HEMOGLOBIN A1c (test code = 34324) 6.6 % [id number] 00:00:00 Test Item Value Reference Range Interpretation Comments TSH, THIRD GENERATION (test code 1.720 UIU/ML = 2821) [id number] 00:00:00 Test Item Value Reference Range Interpretation Comments TSH, THIRD GENERATION (test code 1.720 UIU/ML = 2821) [id number] 00:00:00 Test Item Value Reference Range Interpretation Comments TSH, THIRD GENERATION (test code 1.720 UIU/ML = 2821) VITAMIN D, 25 [id number] 00:00:00 Test Item Value Reference Range Interpretation Comments VITAMIN D, 25 OH (test code = 4958) 22 NG/ML VITAMIN D, 25 [id number] 00:00:00 Test Item Value Reference Range Interpretation Comments VITAMIN D, 25 OH (test code = 4958) 22 NG/ML COMPREHENSIVE METABOLIC [id number] 00:00:00 Test Item Value Reference Range Interpretation Comments GLUCOSE (test code = 2217) 112 MG/DL BUN (test code = 2208) 9 MG/DL CREATININE (test code = 2214) 0.70 MG/DL eGFR AMER. (test code 126 ML/MIN/1.73 = 97539) eGFR NON- AMER. (test 108 ML/MIN/1.73 code = 35782) CALC BUN/CREAT (test code = 13 RATIO 2234) SODIUM (test code = 2231) 140 MEQ/L POTASSIUM (test code = 2228) 4.3 MEQ/L CHLORIDE (test code = 2215) 106 MEQ/L CARBON DIOXIDE (test code = 26 MEQ/L 2205) CALCIUM (test code = 2209) 8.6 MG/DL PROTEIN, TOTAL (test code = 7.4 G/DL 2228) ALBUMIN (test code = 2201) 4.0 G/DL CALC GLOBULIN (test code = 3.4 G/DL 0) CALC A/G RATIO (test code = 1.2 RATIO 2233) BILIRUBIN, TOTAL (test code = 0.2 MG/DL 2206) ALKALINE PHOSPHATASE (test 79 U/L code = 2204) AST (test code = 2218) 19 U/L ALT (test code = 2219) 17 U/L COMPREHENSIVE METABOLIC [id number] 00:00:00 Test Item Value Reference Range Interpretation Comments GLUCOSE (test code = 2217) 112 MG/DL BUN (test code = 2208) 9 MG/DL CREATININE (test code = 2214) 0.70 MG/DL eGFR AMER. (test code 126 ML/MIN/1.73 = 17655) eGFR NON- AMER. (test 108 ML/MIN/1.73 code = 31886) CALC BUN/CREAT (test code = 13 RATIO 2235) SODIUM (test code = 2231) 140 MEQ/L POTASSIUM (test code = 2228) 4.3 MEQ/L CHLORIDE (test code = 2215) 106 MEQ/L CARBON DIOXIDE (test code = 26 MEQ/L 2205) CALCIUM (test code = 2209) 8.6 MG/DL PROTEIN, TOTAL (test code = 7.4 G/DL 2228) ALBUMIN (test code = 220) 4.0 G/DL CALC GLOBULIN (test code = 3.4 G/DL 2239) CALC A/G RATIO (test code = 1.2 RATIO 2233) BILIRUBIN, TOTAL (test code = 0.2 MG/DL 2206) ALKALINE PHOSPHATASE (test 79 U/L code = 2204) AST (test code = 2218) 19 U/L ALT (test code = 2219) 17 U/L LIPID [id number] 00:00:00 Test Item Value Reference Range Interpretation Comments CHOLESTEROL (test code = 2210) 133 MG/DL TRIGLYCERIDES (test code = 2232) 61 MG/DL HDL CHOLESTEROL (test code = 2220) 52 MG/DL CALC LDL CHOL (test code = 2237) 67 MG/DL RISK RATIO LDL/HDL (test code = 1.29 RATIO 2238) LIPID [id number] 00:00:00 Test Item Value Reference Range Interpretation Comments CHOLESTEROL (test code = 2210) 133 MG/DL TRIGLYCERIDES (test code = 2232) 61 MG/DL HDL CHOLESTEROL (test code = 2220) 52 MG/DL CALC LDL CHOL (test code = 2237) 67 MG/DL RISK RATIO LDL/HDL (test code = 1.29 RATIO 2238) CBC W/AUTO [id number] 00:00:00 Test Item Value Reference Range Interpretation [...] code = 1015) 441 K/UL CBC W/AUTO [id number] 00:00:00 Test Item Value Reference Range Interpretation [...] code = 1015) 441 K/UL CBC W/AUTO [id number] 00:00:00 Test Item Value Reference Range Interpretation [...] (test code = 1015) 441 K/UL HEMOGLOBIN [id number] 00:00:00 Test Item Value Reference Range Interpretation Comments HEMOGLOBIN A1c (test code = 53269) 6.6 % HEMOGLOBIN [id number] 00:00:00 Test Item Value Reference Range Interpretation Comments HEMOGLOBIN A1c (test code = 49531) 6.6 % HEMOGLOBIN [id number] 00:00:00 Test Item Value Reference Range Interpretation Comments HEMOGLOBIN A1c (test code = 82077) 6.6 % [id number] 00:00:00 Test Item Value Reference Range Interpretation Comments TSH, THIRD GENERATION (test code 1.720 UIU/ML = 2821) [id number] 00:00:00 Test Item Value Reference Range Interpretation Comments TSH, THIRD GENERATION (test code 1.720 UIU/ML = 2821) [id number] 00:00:00 Test Item Value Reference Range Interpretation Comments TSH, THIRD GENERATION (test code 1.720 UIU/ML = 2821) VITAMIN D, 25 [id number] 00:00:00 Test Item Value Reference Range Interpretation Comments VITAMIN D, 25 OH (test code = 4958) 22 NG/ML VITAMIN D, 25 [id number] 00:00:00 Test Item Value Reference Range Interpretation Comments VITAMIN D, 25 OH (test code = 4958) 22 NG/ML COMPREHENSIVE METABOLIC [id number] 00:00:00 Test Item Value Reference Range Interpretation Comments GLUCOSE (test code = 2217) 112 MG/DL BUN (test code = 2208) 9 MG/DL CREATININE (test code = 2214) 0.70 MG/DL eGFR AMER. (test code 126 ML/MIN/1.73 = 55319) eGFR NON- AMER. (test 108 ML/MIN/1.73 code = 06861) CALC BUN/CREAT (test code = 13 RATIO [...] BILIRUBIN, TOTAL (test code = 0.2 MG/DL 220) ALKALINE PHOSPHATASE (test 79 U/L code = 2204) AST (test code = 2218) 19 U/L ALT (test code = 2219) 17 U/L COMPREHENSIVE METABOLIC [id number] 00:00:00 Test Item Value Reference Range Interpretation Comments GLUCOSE (test code = 2217) 112 MG/DL BUN (test code = 2208) 9 MG/DL CREATININE (test code = 2214) 0.70 MG/DL eGFR AMER. (test code 126 ML/MIN/1.73 = 41603) eGFR NON- AMER. (test 108 ML/MIN/1.73 code = 89008) CALC BUN/CREAT (test code = 13 RATIO [...] (test code = 2219) 17 U/L LIPID [id number] 00:00:00 Test Item Value Reference Range Interpretation Comments CHOLESTEROL (test code = 2210) 133 MG/DL TRIGLYCERIDES (test code = 2232) 61 MG/DL HDL CHOLESTEROL (test code = 2220) 52 MG/DL CALC LDL CHOL (test code = 2237) 67 MG/DL RISK RATIO LDL/HDL (test code = 1.29 RATIO 2238) LIPID [id number] 00:00:00 Test Item Value Reference Range Interpretation Comments CHOLESTEROL (test code = 2210) 133 MG/DL TRIGLYCERIDES (test code = 2232) 61 MG/DL HDL CHOLESTEROL (test code = 2220) 52 MG/DL CALC LDL CHOL (test code = 2237) 67 MG/DL RISK RATIO LDL/HDL (test code = 1.29 RATIO 2238) CBC W/AUTO [id number] 00:00:00 Test Item Value Reference Range Interpretation [...] code = 1015) 441 K/UL CBC W/AUTO [id number] 00:00:00 Test Item Value Reference Range Interpretation [...] code = 1015) 441 K/UL CBC W/AUTO [id number] 00:00:00 Test Item Value Reference Range Interpretation [...] Comments SARS-CoV-2 INTERPRETATION (test NEGATIVE code = 60244) SOURCE (test code = 36012) NOT SPECIFIED SARS-CoV-2 (COVID-19) by RT-PCR (HIGH RISK)2020-03-12 00:00:00 Test Item Value Reference Range Interpretation Comments SARS-CoV-2 INTERPRETATION (test NEGATIVE code = 23715) SOURCE (test code = 35764) NOT SPECIFIED SARS-CoV-2 (COVID-19) by RT-PCR (HIGH RISK)2020-03-12 00:00:00 Test Item Value Reference Range Interpretation Comments SARS-CoV-2 INTERPRETATION (test NEGATIVE code = 87216) SOURCE (test code = 22671) NOT SPECIFIED SARS-CoV-2 (COVID-19) by RT-PCR (HIGH RISK)2020-03-12 00:00:00 Test Item Value Reference Range Interpretation Comments SARS-CoV-2 INTERPRETATION (test NEGATIVE code = 96100) SOURCE (test code = 25209) NOT SPECIFIED HEMOGLOBIN [id number] 00:00:00 Test Item Value Reference Range Interpretation Comments HEMOGLOBIN A1c (test code = 94849) 6.6 % HEMOGLOBIN [id number] 00:00:00 Test Item Value Reference Range Interpretation Comments HEMOGLOBIN A1c (test code = 34417) 6.6 % HEMOGLOBIN [id number] 00:00:00 Test Item Value Reference Range Interpretation Comments HEMOGLOBIN A1c (test code = 40891) 6.6 % COMPREHENSIVE METABOLIC [id number] 00:00:00 Test Item Value Reference Range Interpretation Comments GLUCOSE (test code = 2217) 120 MG/DL BUN (test code = 2208) 9 MG/DL CREATININE (test code = 2214) 0.74 MG/DL eGFR AMER. (test code 118 ML/MIN/1.73 = 47286) eGFR NON- AMER. (test 102 ML/MIN/1.73 code = 09313) CALC BUN/CREAT (test code = 12 RATIO [...] code = 2219) 21 U/L COMPREHENSIVE METABOLIC [id number] 00:00:00 Test Item Value Reference Range Interpretation Comments GLUCOSE (test code = 2217) 120 MG/DL BUN (test code = 2208) 9 MG/DL CREATININE (test code = 2214) 0.74 MG/DL eGFR AMER. (test code 118 ML/MIN/1.73 = 49604) eGFR NON- AMER. (test 102 ML/MIN/1.73 code = 25379) CALC BUN/CREAT (test code = 12 RATIO 2235) SODIUM (test code = 2231) 142 MEQ/L POTASSIUM (test code = 2228) 4.6 MEQ/L CHLORIDE (test code = 2215) 106 MEQ/L CARBON DIOXIDE (test code = 26 MEQ/L 2206) CALCIUM (test code = 2209) 9.1 MG/DL [...] (test code = 2219) 21 U/L LIPID [id number] 00:00:00 Test Item Value Reference Range Interpretation Comments CHOLESTEROL (test code = 2210) 125 MG/DL TRIGLYCERIDES (test code = 2232) 59 MG/DL HDL CHOLESTEROL (test code = 2220) 55 MG/DL CALC LDL CHOL (test code = 2237) 56 MG/DL RISK RATIO LDL/HDL (test code = 1.02 RATIO 2238) LIPID [id number] 00:00:00 Test Item Value Reference Range Interpretation Comments CHOLESTEROL (test code = 2210) 125 MG/DL TRIGLYCERIDES (test code = 2232) 59 MG/DL HDL CHOLESTEROL (test code = 2220) 55 MG/DL CALC LDL CHOL (test code = 2237) 56 MG/DL RISK RATIO LDL/HDL (test code = 1.02 RATIO 2238) HEMOGLOBIN [id number] 00:00:00 Test Item Value Reference Range Interpretation Comments HEMOGLOBIN A1c (test code = 48902) 6.6 % HEMOGLOBIN [id number] 00:00:00 Test Item Value Reference Range Interpretation Comments HEMOGLOBIN A1c (test code = 28294) 6.6 % HEMOGLOBIN [id number] 00:00:00 Test Item Value Reference Range Interpretation Comments HEMOGLOBIN A1c (test code = 25233) 6.6 % COMPREHENSIVE METABOLIC [id number] 00:00:00 Test Item Value Reference Range Interpretation Comments GLUCOSE (test code = 2217) 120 MG/DL BUN (test code = 2208) 9 MG/DL CREATININE (test code = 2214) 0.74 MG/DL eGFR AMER. (test code 118 ML/MIN/1.73 = 09343) eGFR NON- AMER. (test 102 ML/MIN/1.73 code = 66398) CALC BUN/CREAT (test code = 12 RATIO 2235) SODIUM (test code = 2231) 142 MEQ/L POTASSIUM (test code = 2228) 4.6 MEQ/L CHLORIDE (test code = 2215) 106 MEQ/L CARBON DIOXIDE (test code = 26 MEQ/L 220) CALCIUM (test code = 2209) 9.1 MG/DL PROTEIN, TOTAL (test code = 7.5 G/DL 222) ALBUMIN (test code = 2201) 4.2 G/DL CALC GLOBULIN (test code = 3.3 G/DL 2240) CALC A/G RATIO (test code = 1.3 RATIO 2234) BILIRUBIN, TOTAL (test code = 0.2 MG/DL 2206) ALKALINE PHOSPHATASE (test 86 U/L code = 2204) AST (test code = 2218) 21 U/L ALT (test code = 2219) 21 U/L COMPREHENSIVE METABOLIC [id number] 00:00:00 Test Item Value Reference Range Interpretation Comments GLUCOSE (test code = 2217) 120 MG/DL BUN (test code = 2208) 9 MG/DL CREATININE (test code = 2214) 0.74 MG/DL eGFR AMER. (test code 118 ML/MIN/1.73 = 05097) eGFR NON- AMER. (test 102 ML/MIN/1.73 code = 16803) CALC BUN/CREAT (test code = 12 RATIO [...] BILIRUBIN, TOTAL (test code = 0.2 MG/DL 7) ALKALINE PHOSPHATASE (test 86 U/L code = 2204) AST (test code = 2218) 21 U/L ALT (test code = 2219) 21 U/L LIPID [id number] 00:00:00 Test Item Value Reference Range Interpretation Comments CHOLESTEROL (test code = 2210) 125 MG/DL TRIGLYCERIDES (test code = 2232) 59 MG/DL HDL CHOLESTEROL (test code = 2220) 55 MG/DL CALC LDL CHOL (test code = 2237) 56 MG/DL RISK RATIO LDL/HDL (test code = 1.02 RATIO 2238) LIPID [id number] 00:00:00 Test Item Value Reference Range Interpretation Comments CHOLESTEROL (test code = 2210) 125 MG/DL TRIGLYCERIDES (test code = 2232) 59 MG/DL HDL CHOLESTEROL (test code = 2220) 55 MG/DL CALC LDL CHOL (test code = 2237) 56 MG/DL RISK RATIO LDL/HDL (test code = 1.02 RATIO 2238) PAP TEST, THINPREP, [id number] 00:00:00 Test Item Value Reference Range Interpretation Comments SOURCE: (test code = Cervical/Endocervical 8001) SLIDES: (test code = 1 8011) LMP: (test code = 8021) 10/26/2018 SPECIMEN ADEQUACY: (test (NOTE) code = 53038) INTERPRETATION: (test NILM/NO EPITH. code = 32085) ABNORMALITY;SEE BELOW FLUE CLEANER: (test Malek code = 8101) [place],CT(ASCP) IAC LOCATION: (test code = (NOTE) 12267) CPT: (test code = 8140) (NOTE) PAP TEST, THINPREP, [id number] 00:00:00 Test Item Value Reference Range Interpretation Comments SOURCE: (test code = Cervical/Endocervical 8001) SLIDES: (test code = 1 8011) LMP: (test code = 8021) 10/26/2018 SPECIMEN ADEQUACY: (test (NOTE) code = 38024) INTERPRETATION: (test NILM/NO EPITH. code = 79750) ABNORMALITY;SEE BELOW FLUE CLEANER: (test Malek code = 8101) [place],CT(ASCP) IAC LOCATION: (test code = (NOTE) 43326) CPT: (test code = 8140) (NOTE) GC AND CHLAMYDIA, AMPLIFIED, [id number] 00:00:00 Test Item Value Reference Range Interpretation Comments GONORRHEA, TMA (test code = 08524) NEGATIVE CHLAMYDIA, TMA (test code = 35618) NEGATIVE GC AND CHLAMYDIA, AMPLIFIED, [id number] 00:00:00 Test Item Value Reference Range Interpretation Comments GONORRHEA, TMA (test code = 79349) NEGATIVE CHLAMYDIA, TMA (test code = 18046) NEGATIVE PAP TEST, THINPREP, [id number] 00:00:00 Test Item Value Reference Range Interpretation Comments SOURCE: (test code = Cervical/Endocervical 8001) SLIDES: (test code = 1 8011) LMP: (test code = 8021) 10/26/2018 SPECIMEN ADEQUACY: (test (NOTE) code = 04489) INTERPRETATION: (test NILM/NO EPITH. code = 27050) ABNORMALITY;SEE BELOW FLUE CLEANER: (test Malek code = 8101) [place],CT(ASCP) IAC LOCATION: (test code = (NOTE) 29415) CPT: (test code = 8140) (NOTE) PAP TEST, THINPREP, [id number] 00:00:00 Test Item Value Reference Range Interpretation Comments SOURCE: (test code = Cervical/Endocervical 8001) SLIDES: (test code = 1 8011) LMP: (test code = 8021) 10/26/2018 SPECIMEN ADEQUACY: (test (NOTE) code = 98790) INTERPRETATION: (test NILM/NO EPITH. code = 72886) ABNORMALITY;SEE BELOW FLUE CLEANER: (test Malek code = 8101) [place],CT(ASCP) IAC LOCATION: (test code = (NOTE) 01381) CPT: (test code = 8140) (NOTE) GC AND CHLAMYDIA, AMPLIFIED, [id number] 00:00:00 Test Item Value Reference Range Interpretation Comments GONORRHEA, TMA (test code = 32443) NEGATIVE CHLAMYDIA, TMA (test code = 39795) NEGATIVE GC AND CHLAMYDIA, AMPLIFIED, [id number] 00:00:00 Test Item Value Reference Range Interpretation Comments GONORRHEA, TMA (test code = 34907) NEGATIVE CHLAMYDIA, TMA (test code = 63186) NEGATIVE HIV AB/AG COMBO RFLX [id number] 00:00:00 Test Item Value Reference Range Interpretation Comments HIV 1/2 4TH GEN, RFLX CONF (test NON-REACTIVE code = 3514) VAGINAL PATHOGENS DNA [id number] 00:00:00 Test Item Value Reference Range Interpretation Comments KENNETH SPECIES (test code = ) NEGATIVE G. VAGINALIS (test code = 16213) NEGATIVE T. VAGINALIS (test code = 95428) NEGATIVE VAGINAL PATHOGENS DNA [id number] 00:00:00 Test Item Value Reference Range Interpretation Comments KENNETH SPECIES (test code = ) NEGATIVE G. VAGINALIS (test code = 21494) NEGATIVE T. VAGINALIS (test code = 83937) NEGATIVE HIV AB/AG COMBO RFLX [id number] 00:00:00 Test Item Value Reference Range Interpretation Comments HIV 1/2 4TH GEN, RFLX CONF (test NON-REACTIVE code = 3514) HPV HIGH RISK WITH GENOTYPE, [id number] 00:00:00 Test Item Value Reference Range Interpretation Comments HPV HIGH RISK INTERP (test code = NEGATIVE 36865) HPV 16 (test code = 21220) NEGATIVE HPV 18 (test code = 92882) NEGATIVE HPV, HR, OTHER GENOTYPES (test code NEGATIVE = 71497) HPV HIGH RISK WITH GENOTYPE, [id number] 00:00:00 Test Item Value Reference Range Interpretation Comments HPV HIGH RISK INTERP (test code = NEGATIVE 72948) HPV 16 (test code = 01416) NEGATIVE HPV 18 (test code = 32441) NEGATIVE HPV, HR, OTHER GENOTYPES (test code NEGATIVE = 59296) ACUTE HEPATITIS [id number] 00:00:00 Test Item Value Reference Range Interpretation Comments HEPATITIS A IgM (test code = NON-REACTIVE 21555) HEPATITIS B CORE IgM (test code NON-REACTIVE = 4644) HEPATITIS B SURF AG (test code = NON-REACTIVE 2739) HEPATITIS C ANTIBODY (test code NON-REACTIVE = 4675) HCV INDEX (test code = 72553) 0.13 INTERPRETATION HEPATITIS A: (NOTE) (test code = 2552) INTERPRETATION HEPATITIS B: (NOTE) (test code = 26773) INTERPRETATION HEPATITIS C: (NOTE) (test code = 56582) ACUTE HEPATITIS [id number] 00:00:00 Test Item Value Reference Range Interpretation Comments HEPATITIS A IgM (test code = NON-REACTIVE 90081) HEPATITIS B CORE IgM (test code NON-REACTIVE = 4644) HEPATITIS B SURF AG (test code = NON-REACTIVE 2739) HEPATITIS C ANTIBODY (test code NON-REACTIVE = 4675) HCV INDEX (test code = 56025) 0.13 INTERPRETATION HEPATITIS A: (NOTE) (test code = 2552) INTERPRETATION HEPATITIS B: (NOTE) (test code = 36137) INTERPRETATION HEPATITIS C: (NOTE) (test code = 49354) HIV AB/AG COMBO RFLX [id number] 00:00:00 Test Item Value Reference Range Interpretation Comments HIV 1/2 4TH GEN, RFLX CONF (test NON-REACTIVE code = 3514) VAGINAL PATHOGENS DNA [id number] 00:00:00 Test Item Value Reference Range Interpretation Comments KENNETH SPECIES (test code = 11095) NEGATIVE G. VAGINALIS (test code = 75477) NEGATIVE T. VAGINALIS (test code = 86760) NEGATIVE VAGINAL PATHOGENS DNA [id number] 00:00:00 Test Item Value Reference Range Interpretation Comments KENNETH SPECIES (test code = ) NEGATIVE G. VAGINALIS (test code = 57266) NEGATIVE T. VAGINALIS (test code = 32742) NEGATIVE HIV AB/AG COMBO RFLX [id number] 00:00:00 Test Item Value Reference Range Interpretation Comments HIV 1/2 4TH GEN, RFLX CONF (test NON-REACTIVE code = 4) HPV HIGH RISK WITH GENOTYPE, [id number] 00:00:00 Test Item Value Reference Range Interpretation Comments HPV HIGH RISK INTERP (test code = NEGATIVE 54147) HPV 16 (test code = 23721) NEGATIVE HPV 18 (test code = 85538) NEGATIVE HPV, HR, OTHER GENOTYPES (test code NEGATIVE = 24850) HPV HIGH RISK WITH GENOTYPE, [id number] 00:00:00 Test Item Value Reference Range Interpretation Comments HPV HIGH RISK INTERP (test code = NEGATIVE 79018) HPV 16 (test code = 53281) NEGATIVE HPV 18 (test code = 41405) NEGATIVE HPV, HR, OTHER GENOTYPES (test code NEGATIVE = 96041) ACUTE HEPATITIS [id number] 00:00:00 Test Item Value Reference Range Interpretation Comments HEPATITIS A IgM (test code = NON-REACTIVE 77773) HEPATITIS B CORE IgM (test code NON-REACTIVE = 4644) HEPATITIS B SURF AG (test code = NON-REACTIVE 2739) HEPATITIS C ANTIBODY (test code NON-REACTIVE = 4675) HCV INDEX (test code = 29606) 0.13 INTERPRETATION HEPATITIS A: (NOTE) (test code = 2552) INTERPRETATION HEPATITIS B: (NOTE) (test code = 29112) INTERPRETATION HEPATITIS C: (NOTE) (test code = 63269) ACUTE HEPATITIS [id number] 00:00:00 Test Item Value Reference Range Interpretation Comments HEPATITIS A IgM (test code = NON-REACTIVE 28105) HEPATITIS B CORE IgM (test code NON-REACTIVE = 4644) HEPATITIS B SURF AG (test code = NON-REACTIVE 2739) HEPATITIS C ANTIBODY (test code NON-REACTIVE = 4675) HCV INDEX (test code = 83948) 0.13 INTERPRETATION HEPATITIS A: (NOTE) (test code = 2552) INTERPRETATION HEPATITIS B: (NOTE) (test code = 04281) INTERPRETATION HEPATITIS C: (NOTE) (test code = 42826)"
[2022-12-25] MEDS ORDERED: Ringers Lactate 1,000 ML IV ONE (17:55)
[2022-12-25 17:59] LABS: Hematocrit 33.6 % (36.0-45.0); Lymphocytes % 48.6 % (15.3-44.8); MCV 86.4 fL (80-100); RBC Red Blood Cell Count 3.88 M/uL (3.86-4.86)
[2022-12-25 18:27] LABS: Protime INR 1.06
[2022-12-25 18:28] LABS: ALT/SGPT 30 U/L (13-56); Albumin 3.4 g/dL (3.4-5.0); Alkaline Phosphatase 80 U/L (45-117); BUN Blood Urea Nitrogen 13 mg/dL (7-18); Bicarbonate 30 mmol/L (21-32); Bilirubin Total 0.2 mg/dL (0.2-1.0); Glomerular Filtration Rate 69 ml/min (=/>90); Glucose Level 88 mg/dL (74-106); NT PRO-BNP 11 pg/mL (<125); Protein, Total 7.6 g/dL (6.4-8.2); Sodium Level 137 mmol/L (136-145); Troponin High Sensitivity 4.7 pg/mL (<58.9)
[2022-12-25 18:36] LABS: AST/SGOT 24 U/L (15-37); Bilirubin Direct < 0.1 mg/dL (0-0.2); Magnesium 2.2 mg/dL (1.6-2.4)
--- NOTE | 2022-12-25 19:31 | RAD REPORT ---
EXAM DESCRIPTION: CT - Chest For Pe Angio - 12/25/2022 7:07 pm CLINICAL HISTORY: Chest pain COMPARISON: 2019 TECHNIQUE: Dynamically enhanced axial 3 mm thick images of the chest were obtained during administra tion of 95 mL Isovue 370 IV contrast. Coronal and oblique reconstruction images were generated and re viewed. Exam utilizes a protocol for optimal evaluation of pulmonary arterial tree. Maximum intensity projections 3D imaging was utilized All CT scans are performed using dose optimization technique as appropriate and may include automated exposure control or mA/KV adjustment according to patient size. FINDINGS: The opacification pulmonary arteries is suboptimal No gross central pulmonary embolus seen A thoracic aortic aneurysm is not noted. A pleural effusion is not seen. A pericardial effusion is not seen. A lung consolidation is not present. IMPRESSION: No gross central pulmonary embolus seen
--- NOTE | 2022-12-25 19:32 | RAD REPORT ---
EXAM DESCRIPTION: [place] Single View12/25/2022 6:11 pm CLINICAL HISTORY: Chest pain COMPARISON: 2018 FINDINGS: The lungs appear clear of acute infiltrate. The heart is mildly to moderately enlarged IMPRESSION: No acute abnormalities displayed
[2022-12-25] MEDS ORDERED: LORazepam 2 MG/ML VIAL ONE ×2 (19:57→20:17)
--- NOTE | 2022-12-25 20:57 | EDPHYS ---
Physician Documentation [facility] Name: Megan Ferro Age: 42 yrs Sex: Female : 1980 Arrival Date: 12/25/2022 Time: 16:56 Bed 10 Private MD: ED Physician Ashok Dupree HPI: 12/25 17:06 This 42 yrs old Black Female presents to ER via Ambulatory with complaints of Chest jmm Pain. 17:06 The patient presents with a history of heart racing. Context: The symptoms occur jmm without known cause. Onset: The symptoms/episode began/occurred acutely, today, at 09:30. Duration: The patient or guardian reports a single episode, that is still ongoing. Modifying factors: The symptoms are aggravated by nothing. The symptoms are alleviated by nothing. Is a 42-year-old female with history of hypertension diabetes mellitus the presents emerged department with complaints of shortness of breath, dyspnea on exertion, chest pain beginning around 9:30 AM while the patient was at work. Denies any strenuous activity. Patient did have a similar episode multiple years ago. Patient was never told underlying cause. Denies fever, cough.. Historical: - Allergies: 17:09 No Known Allergies; aa5 - PMHx: 17:09 Arthritis; Hypertension; Diabetes mellitus; aa5 - PSHx: 17:09 section; Cholecystectomy; aa5 - Immunization history:: Adult Immunizations unknown. - Social history:: Smoking status: Patient denies any tobacco usage or history of. ROS: 17:06 Constitutional: Negative for fever, chills, and weight loss. jmm 17:06 Cardiovascular: Positive for chest pain, palpitations. 17:06 Respiratory: Positive for shortness of breath. 17:06 All other systems are negative. Exam: 17:06 Constitutional: This is a well developed, well nourished patient who is awake, alert, jmm and in no acute distress. Head/Face: atraumatic. Eyes: EOMI, no conjunctival erythema appreciated ENT: Moist Mucus Membranes Neck: Trachea midline, Supple Chest/axilla: Normal chest wall appearance and motion. 17:06 Respiratory: Normal respirations, no respiratory distress appreciated Abdomen/GI: Non distended Back: Normal ROM Skin: General appearance color normal 17:06 Cardiovascular: Rate: normal, Rhythm: regular. 17:06 Musculoskeletal/extremity: ROM: intact in all extremities. 17:06 Skin: Appearance: Color: normal in color. 17:06 Neuro: Motor: is normal. 17:06 Psych: Behavior/mood is pleasant, cooperative. Vital Signs: 17:08 BP 160 / 87; Pulse 87; Resp 24 S; Temp 98.3(TE); Pulse Ox 98% on R/A; aa5 18:37 BP 127 / 80; Pulse 89; Resp 20 S; Pulse Ox 98% on R/A; iw 19:57 BP 114 / 71; Pulse 77; Resp 17; Pulse Ox 100% ; Pain 0/10; mb9 21:14 BP 120 / 88; Pulse 82; Resp 18; Pulse Ox 99% ; mb9 MDM: 17:06 Patient medically screened. [facility] 19:45 Differential diagnosis: arrythmia, dehydration, stress disorder. Data reviewed: [facility] signs, nurses notes. Counseling: I had a detailed discussion with the patient and/or guardian regarding: the historical points, exam findings, and any diagnostic results supporting the discharge/admit diagnosis, lab results, radiology results, the need for outpatient follow up. 12/25 17:10 Order name: Basic Metabolic Panel [facility] 12/25 17:10 Order name: CBC with Diff [facility] 12/25 17:10 Order name: D-Dimer [facility] 12/25 17:10 Order name: LFT's [facility] 12/25 17:10 Order name: Magnesium [facility] 12/25 17:10 Order name: NT PRO-BNP [facility] 12/25 17:10 Order name: PT-INR [facility] 12/25 17:10 Order name: Troponin HS [facility] 12/25 17:10 Order name: XRAY Chest (1 view) [facility] 12/25 17:10 Order name: EKG; Complete Time: 17:11 [facility] 12/25 17:10 Order name: Cardiac monitoring; Complete Time: 19:48 [facility] 12/25 17:10 Order name: EKG - Nurse/Tech; Complete Time: 17:15 [facility] 12/25 17:10 Order name: IV Saline Lock; Complete Time: 17:47 [facility] 12/25 17:10 Order name: Labs collected and sent; Complete Time: 18:26 [facility] 12/25 17:10 Order name: O2 Per Protocol; Complete Time: 19:48 [facility] 12/25 17:10 Order name: O2 Sat Monitoring; Complete Time: 19:48 [facility] 12/25 18:03 Order name: CBC with Automated Diff; Complete Time: 18:17 EDMS 12/25 18:27 Order name: Protime (+INR); Complete Time: 18:37 EDMS 12/25 18:36 Order name: Basic Metabolic Panel; Complete Time: 18:36 EDMS 12/25 18:36 Order name: Liver (Hepatic) Function; Complete Time: 18:36 EDMS 12/25 18:36 Order name: Troponin High Sensitivity; Complete Time: 18:36 EDMS 12/25 18:36 Order name: NT PRO-BNP; Complete Time: 18:36 EDMS 12/25 18:36 Order name: Magnesium; Complete Time: 18:36 EDMS 12/25 18:36 Order name: D-Dimer; Complete Time: 18:37 EDMS 12/25 18:37 Order name: CT Chest For PE Angio [facility] 12/25 19:31 Order name: CT; Complete Time: 19:31 EDMS 12/25 19:32 Order name: RAD; Complete Time: 19:32 EDMS 12/25 20:07 Order name: Troponin High Sensitivity [facility] 12/25 20:55 Order name: Troponin High Sensitivity; Complete Time: 20:55 EDMS Administered Medications: 18:05 Drug: Lactated Ringers Solution 1000 ml Route: IV; Rate: 1000 bolus; Site: left eh3 antecubital; 19:59 Drug: Ativan (LORazepam) 0.5 mg Route: IVP; Site: left antecubital; mb9 20:16 Drug: Ativan (LORazepam) 0.5 mg Route: IVP; Site: left antecubital; mb9 Disposition: 20:31 Co-signature as Attending Physician, Ashok RAMIRES was immediately available on-site ms3 in the Emergency Department for consultation in the care of the patient. . Disposition Summary: 12/25/22 20:56 Discharge Ordered Location: Home kb Condition: Stable kb Diagnosis - Chest pain, unspecified kb Followup: kb - With: Emergency Department - When: As needed - Reason: Worsening of condition Followup: kb - With: Private Physician - When: 2 - 3 days - Reason: Recheck today's complaints, Continuance of care, Re-evaluation by your physician Discharge Instructions: - Discharge Summary Sheet kb - Nonspecific Chest Pain, Adult, [id number] kb Forms: - Medication Reconciliation Form kb - Thank You Letter kb - Antibiotic Education kb - Prescription Opioid Use kb - Work release form mb9 Signatures: Dispatcher [employer] Shannon Davis, DANCE CHOREOGRAPHER-C DANCE CHOREOGRAPHER-Asher Man PA PA jmm Calderon, Audri, RN RN aa5 Ashok Dupree, DO ms3 Carol Escobar, JOSIAS RN eh3 Jillian, Dilia Blanchard RN RN mb9
--- NOTE | 2022-12-25 20:57 | ER ---
Nurse's Notes [facility] Name: Megan Ferro Age: 42 yrs Sex: Female : 1980 Arrival Date: 12/25/2022 Time: 16:56 Bed 10 Private MD: Diagnosis: Chest pain, unspecified Presentation: 12/25 17:08 Chief complaint: Patient states: chest pain and palpitations that began today, reports aa5 SOB on exertion. Coronavirus screen: At this time, the client does not indicate any symptoms associated with coronavirus-19. Ebola Screen: Patient denies travel to an Ebola-affected area in the 21 days before illness onset. Initial Sepsis Screen: Does the patient meet any 2 criteria? RR > 20 per min. Does the patient have a suspected source of infection? No. Patient's initial sepsis screen is negative. Risk Assessment: Do you want to hurt yourself or someone else? Patient reports no desire to harm self or others. Onset of symptoms was December 25, 2022. 17:08 Acuity: RASHEL 3 aa5 17:08 Method Of Arrival: Ambulatory aa5 Historical: - Allergies: 17:09 No Known Allergies; aa5 - PMHx: 17:09 Arthritis; Hypertension; Diabetes mellitus; aa5 - PSHx: 17:09 section; Cholecystectomy; aa5 - Immunization history:: Adult Immunizations unknown. - Social history:: Smoking status: Patient denies any tobacco usage or history of. Screenin:48 [facility] ED Fall Risk Assessment (Adult) History of falling in the last 3 months, iw including since admission. Abuse screen: Denies threats or abuse. Denies injuries from another. Nutritional screening: No deficits noted. Tuberculosis screening: No symptoms or risk factors identified. Assessment: 17:47 General: Appears in no apparent distress. Behavior is calm, cooperative. Pain: iw Complains of pain in chest Pain does not radiate. Pain: Pain began. Neuro: Level of Consciousness is awake, alert, obeys commands, Oriented to person, place, time, situation, Moves all extremities. Full function. Cardiovascular: Patient's skin is warm and dry. Respiratory: Respiratory effort is even, unlabored, Respiratory pattern is regular, symmetrical. 19:50 Reassessment: pt brought back to ER room. mb9 19:57 General: Appears in no apparent distress. Behavior is calm, cooperative. Pain: mb9 Complains of pain in chest Quality of pain is described as pressure, Pain began suddenly. Neuro: Level of Consciousness is awake, alert, obeys commands. Cardiovascular: Patient's skin is warm and dry. Respiratory: Airway is patent Respiratory effort is even, unlabored, Respiratory pattern is regular, symmetrical. Derm: Skin is pink, warm \T\ dry. Musculoskeletal: Range of motion: intact in all extremities. 21:14 Reassessment: No changes from previously documented assessment. Patient and/or family mb9 updated on plan of care and expected duration. Pain level reassessed. Patient is alert, oriented x 3, equal unlabored respirations, skin warm/dry/pink. Patient states feeling better. Patient states symptoms have improved. Vital Signs: 17:08 BP 160 / 87; Pulse 87; Resp 24 S; Temp 98.3(TE); Pulse Ox 98% on R/A; aa5 18:37 BP 127 / 80; Pulse 89; Resp 20 S; Pulse Ox 98% on R/A; iw 19:57 BP 114 / 71; Pulse 77; Resp 17; Pulse Ox 100% ; Pain 0/10; mb9 21:14 BP 120 / 88; Pulse 82; Resp 18; Pulse Ox 99% ; mb9 ED Course: 16:56 Patient arrived in ED. mr 16:56 Asher Taylor PA is PHCP. [facility] 16:57 Ashok Dupree DO is Attending Physician. m 17:09 Arm band placed on. aa5 17:14 EKG completed in triage. Results shown to MD. aa5 17:17 Triage completed. aa5 17:46 Inserted saline lock: 20 gauge in left antecubital area, using aseptic technique. iw 18:36 Patient maintains SpO2 saturation greater than 95% on room air. iw 19:58 Placed in gown. Bed in low position. Call light in reach. Side rails up X 1. Client mb9 placed on continuous cardiac and pulse oximetry monitoring. NIBP monitoring applied. night monitor on. 19:58 No provider procedures requiring assistance completed. mb9 20:24 PHCP role handed off by Asher Taylor PA kb 20:24 Shannon Harris FNP-C is PHCP. kb 20:32 Troponin High Sensitivity Sent. bc6 21:15 IV discontinued, intact, bleeding controlled, No redness/swelling at site. Pressure mb9 dressing applied. Administered Medications: 18:05 Drug: Lactated Ringers Solution 1000 ml Route: IV; Rate: 1000 bolus; Site: left eh3 antecubital; 19:59 Drug: Ativan (LORazepam) 0.5 mg Route: IVP; Site: left antecubital; mb9 20:16 Drug: Ativan (LORazepam) 0.5 mg Route: IVP; Site: left antecubital; mb9 Medication: 17:48 VIS not applicable for this client. iw Outcome: 20:56 Discharge ordered by MD. kb 21:15 Discharged to home ambulatory. mb9 21:15 Condition: stable 21:15 Discharge instructions given to patient, Instructed on discharge instructions, follow up and referral plans. Demonstrated understanding of instructions, follow-up care. 21:15 Patient left the ED. mb9 Signatures: Shannon Harris, SURGICAL SERVICES MANAGER-C SURGICAL SERVICES MANAGER-Ckb Asher Taylor PA PA jmm Rivera, Mary mr Fern Hines, JOSIAS FERRARA iw Ángela Cohn RN RN aa5 Carol Escobar RN RN 3 Dilia Walsh, RN RN mb9 Syndee Crenshaw 6
--- NOTE | 2022-12-26 17:34 | EKG ---
Test Date: 2022-12-25 Test Time: 17:14:58 Commercial Development Manager: LAURIE MEASUREMENT RESULTS: Intervals: Rate: 82 ME: 158 QRSD: 102 QT: 404 QTc: 472 Dennis: P: 54 ME: 158 QRS: 56 T: 48 INTERPRETIVE STATEMENTS: Normal sinus rhythm Normal ECG Compared to ECG 07/09/2019 23:25:58 T-wave abnormality no longer present Electronically Signed On 12-26-22 17:32:04 MEDICAL RECRUITER by Miguel Colunga
== END 2022-12-25 21:15 | disposition home or self-care (01) ==
LOC: ER 16:51
DX: R07.9 Chest pain, unspecified (principal); I10 Essential (primary) hypertension
CPT/HCPCS: 93005; 85025; 80048; 36415; 83735; 85610; 85379; 80076; 84484 ×2; 83880; 71275; 71045; 96374; 99285; Q9967; J7120

== ENCOUNTER 2023-03-09 15:48 | Emergency (ER) | payer OTHER ==
--- OUTSIDE RECORDS SUMMARY | 2023-03-09 15:55 | XMS REPORT | Continuity of Care Document ---
:1980 Author Organization [facility] t Address [address] [place]. [address] [place] [address] Care Team Providers Name Role Phone ZACHARY De Souza [facility] Primary Care P hysician Unavailable ELENI OGLESBY Attending Clinician Unavailable Eleni Oglesby DO Attending Clinician Akinsirandal Yasmin VASQUEZ Attending Clinician [phone] CHRISTI KAUFFMAN Attending Clinician Unavailable Christi Barrera Attending Clinician MAT GARCIA Attending Clinician Unavailable Mat Garcia MD Attending Clinician Doctor Unassigned, [place] Attending Clinician Unavailable Severino Messer MD Attending Clinician SEVERINO MESSER Attending Clinician Unavailable ELENI OGLESBY Admitting Clinician Unavailable Payers Payer Name Policy Type Policy Number Effective Date Expiration Date S ource [facility] [id number] 2022 HEALTHCARE 00:00:00 NICHOLE ARANGO FROM [id number] 2020 [facility] 00:00:00 Problems Condition Condition Condition Status Onset Resolution Last Treating Co mments Source Name Details Category Date Date Treatment Clinician Date No known No known Disease Unive rs active active ity of problems problems [facility] Allergies, Adverse Reactions, Alerts Allergy Allergy Status Severity Reaction(s) Onset Inactive Treating Comm ents Source Name Type Date Date Clinician Mes[place] - Propensi Active Intraven ty to 6-28 ous adverse 00:00: reaction 00 to drug n Propensi Active ty to 6-20 adverse 00:00: reaction 00 to drug NO KNOWN Drug Active [facility] ALLERGIE Class ity of S [facility] Social History Social Habit Start Date Stop Date Quantity Comments Source Exposure to 2022-12-18 2022-12-28 Yes [facility] SARS-CoV-2 (event) 00:00:00 13:29:00 Medica l Branch Sex Assigned At [birth year] [facility] 00:00:00 00:00:00 Medical Branch Smoking Status Start Date Stop Date Source Tobacco smoking consumption [facility] Medical unknown Branch Medications Ordered Filled Start Stop Current Ordering Indication Dosage Frequency Signature Comments Components Source Medication Medication Date Date Medication? Clinician (SIG) Name Name iopamidol 2022- No [id number] 74mL 74 mL, U nivers (ISOVUE 12-28- Intravenou ity o f 370-500 mL) 19:10: 19:30 s, ONCE, 1 [place] injection 00 :00 dose, On Medica l 74 mL [facility] 12/28/22 Branch at 1330, Routine NaCl 0.9% 2021-10- No 1000mL at 999 Uni vers (NS) bolus 0-28 10-28 mL/hr, ity of infusion 02:00: 02:25 1,000 mL, [place] as 1,000 mL 00 :00 IV Medical Infusion, Branch ONCE, 1 dose, On [place] 08/17/22 at 2100, STAT medroxyPROG 2021-10- No [id number] 10mg Take 1 Univers ESTERone 0-21 10-29 tablet by ity o f (PROVERA) 00:00: 04:59 mouth in [place] 10 mg 00 :00 the Medical tablet morning Branch and 1 tablet at noon and 1 tablet in the evening. Do all this for 7 days. medroxyPROG 2021-10 No [id number] 10mg Take 1 Univers ESTERone 0-21 10-29 tablet by ity o f (PROVERA) 00:00: 04:59 mouth in [place] 10 mg 00 :00 the Medical tablet morning Branch and 1 tablet at noon and 1 tablet in the evening. Do all this for 7 days. ibuprofen No 600mg 600 mg, Uni vers (IBU) 06-21 Oral, ity of tablet 600 03:45: 03:48 ONCE, 1 [place] mg 00 :00 dose, On Medical Tue Branch 06/20/22 at 2245, JC HYDROcodone No 1{tbl} 1 tablet, Univers -acetaminop 06-21 Oral, ity of hen (NORCO 03:45: 03:48 ONCE, 1 [place] as 5) 5-325 mg 00 :00 dose, On Medi jeff tablet 1 Tue Branch tablet 06/20/22 at 2245, JC cyclobenzap 2021-0 Yes [id number] 5mg Take 1 Univers rine 5 mg 8-30 tablet by ity o f tablet 00:00: mouth in [place] [address] the Medical morning Branch and 1 tablet at noon and 1 tablet in the evening. cyclobenzap 2021-0 Yes [id number] 5mg Take 1 Univers rine 5 mg 8-30 tablet by ity o f tablet 00:00: mouth in [place] [address] the Medical morning Branch and 1 tablet at noon and 1 tablet in the evening. cyclobenzap 2021-0 Yes [id number] 5mg Take 1 Univers rine 5 mg 8-30 tablet by ity o f tablet 00:00: mouth in [place] 00 the Medical morning Branch and 1 tablet at noon and 1 tablet in the evening. cyclobenzap 2021-0 Yes [id number] 5mg Take 1 Univers rine 5 mg 8-30 tablet by ity o f tablet 00:00: mouth in [place] [address] the Medical morning Branch and 1 tablet at noon and 1 tablet in the evening. cyclobenzap 2021-0 Yes [id number] 5mg Take 1 Univers rine 5 mg 8-30 tablet by rina o f tablet 00:00: mouth in [place] 00 the Medical morning Branch and 1 tablet at noon and 1 tablet in the evening. TAKE 1 2-0 No 10 TABLET 8-28 DAILY. 00:00: 00 TAKE 1 2-0 No 10 TABLET 8-28 DAILY. 00:00: 00 Victoza 2022-0 No (18 2-Harley 0.6 6-20 mg/3 mg/0.1 mL 00:00: mL) (18 mg/3 00 mL) subcutaneou s pen injector Victoza 2-0 No (18 2-Harley 0.6 6-20 mg/3 mg/0.1 mL 00:00: mL) (18 mg/3 00 mL) subcutaneou s pen injector metformin 2-0 No 1mg 500 mg 6-17 tablet 00:00: [...] Dose 2022-0 No Unknown 3-30 00:00: 00 ProAir HFA 2022-0 No 2mcg/ac 90 3-15 tuation mcg/actuati 00:00: on aerosol 00 inhaler ProAir HFA 2022-0 No 2mcg/ac 90 3-15 tuation mcg/actuati 00:00: on aerosol 00 inhaler Claritin 10 2-0 No 1mg mg tablet 3-11 00:00: 00 Claritin 10 2-0 No 1mg mg tablet 3-11 00:00: 00 ProAir HFA 2-0 No 2mcg/ac 90 2-16 tuation mcg/actuati 00:00: on aerosol 00 inhaler ProAir HFA 2-0 No 2mcg/ac 90 2-16 tuation mcg/actuati 00:00: on aerosol 00 inhaler Claritin 10 2021-0 No 1mg mg tablet 2-16 00:00: 00 Dose 2-0 No Unknown 2-16 00:00: 00 benzonatate 2-0 No 1mg 100 mg 2-16 capsule 00:00: 00 Claritin 10 2-0 No 1mg mg tablet 2-16 00:00: 00 Dose 2-0 No Unknown 2-16 00:00: 00 benzonatate 2-0 No 1mg 100 mg 2-16 capsule 00:00: 00 Bromfed DM 2020-1 No 10mg/5 2 mg-30 2-16 mL mg-10 mg/5 00:00: mL oral 00 syrup Bromfed DM 1-1 No 5mg/5 2 mg-30 2-16 mL mg-10 mg/5 00:00: mL oral 00 syrup Bromfed DM 1-1 No 10mg/5 2 mg-30 2-16 mL mg-10 mg/5 00:00: mL oral 00 syrup Bromfed DM 1-1 No 5mg/5 2 mg-30 2-16 mL mg-10 mg/5 00:00: mL oral 00 syrup nitrofurant 2020-1 No 1mg oin 0-19 macrocrysta 00:00: l 100 mg 00 capsule nitrofurant 2020-1 No 1mg oin 0-19 macrocrysta 00:00: l 100 mg 00 capsule triamterene 1-0 No 1mg 37.5 7-27 mg-hydrochl 00:00: orothiazide 00 25 mg capsule triamterene 1-0 No 1mg 37.5 7-27 mg-hydrochl 00:00: orothiazide 00 25 mg capsule triamterene 2021-0 No 1mg 37.5 7-27 mg-hydrochl 00:00: orothiazide 00 25 mg capsule triamterene 1-0 No 1mg 37.5 7-27 [...] mg/5 00:00: mL oral 00 syrup meloxicam 1-0 No 1mg 7.5 mg 5-01 tablet 00:00: 00 triamterene 1-0 No 1mg 37.5 5-01 mg-hydrochl 00:00: orothiazide 00 25 mg capsule meloxicam 1-0 No 1mg 7.5 mg 5-01 tablet 00:00: 00 triamterene 1-0 No 1mg 37.5 5-01 mg-hydrochl 00:00: orothiazide 00 25 mg capsule meloxicam 1-0 No 1mg 7.5 mg 4-30 tablet 00:00: 00 triamterene 2021-0 No 1mg 37.5 4-30 mg-hydrochl 00:00: orothiazide 00 25 mg capsule meloxicam 1-0 No 1mg 7.5 mg 4-30 tablet 00:00: 00 triamterene 2021-0 No 1mg 37.5 4-30 mg-hydrochl 00:00: orothiazide 00 25 mg capsule metformin 1-0 No 1mg ER 500 mg 1-31 24 hr 00:00: tablet,exte 00 nded release (gastric) Vitamin D3 2020-0 No 1(1,000 25 mcg 1-31 unit) (1,000 00:00: unit) 00 tablet metformin 2020-0 No 1mg ER 500 mg 1-31 24 hr 00:00: tablet,exte 00 nded release (gastric) Vitamin D3 No 1(1,000 25 mcg 1-31 unit) (1,000 00:00: unit) 00 tablet hydrochloro No 1mg thiazide 25 1-29 mg tablet 00:00: 00 meloxicam No 1mg 7.5 mg 1-29 tablet 00:00: 00 hydrochloro No 1mg thiazide 25 1-29 mg tablet 00:00: 00 meloxicam No 1mg 7.5 mg 1-29 tablet 00:00: 00 predniSONE Yes [id number] 20mg Take 1 Univers 20 mg 1-02 tablet by ity of tablet 00:00: mouth [place] 00 daily. Medical Branch acetaminoph Yes [id number] 1{tbl} Take 1-2 Univers en-codeine 1-02 tablets by ity of 300-30 mg 00:00: mouth [place] tablet 00 every 6 Medical (six) Branch hours as needed for Pain (scale 4-6). Indication s: acute pain predniSONE Yes [id number] 20mg Take 1 Univers 20 mg 1-02 tablet by ity of tablet 00:00: mouth [place] 00 daily. Medical Branch acetaminoph Yes [id number] 1{tbl} Take 1-2 Univers en-codeine 1-02 tablets by ity of 300-30 mg 00:00: mouth [place] tablet 00 every 6 Medical (six) Branch hours as needed for Pain (scale 4-6). Indication s: acute pain predniSONE Yes [id number] 20mg Take 1 Univers 20 mg 1-02 tablet by ity of tablet 00:00: mouth [place] 00 daily. Medical Branch acetaminoph Yes [id number] 1{tbl} Take 1-2 Univers en-codeine 1-02 tablets by ity of 300-30 mg 00:00: mouth [place] tablet 00 every 6 Medical (six) Branch hours as needed for Pain (scale 4-6). Indication s: acute pain predniSONE Yes [id number] 20mg Take 1 Univers 20 mg 1-02 tablet by ity of tablet 00:00: mouth [place] 00 daily. Medical Branch acetaminoph Yes [id number] 1{tbl} Take 1-2 Univers en-codeine 1-02 tablets by ity of 300-30 mg 00:00: mouth [place] tablet 00 every 6 Medical (six) Branch hours as needed for Pain (scale 4-6). Indication s: acute pain predniSONE Yes [id number] 20mg Take 1 Univers 20 mg 1-02 tablet by ity of tablet 00:00: mouth [place] 00 daily. Medical Branch acetaminoph Yes [id number] 1{tbl} Take 1-2 Univers en-codeine 1-02 tablets by ity of 300-30 mg 00:00: mouth [place] tablet 00 every 6 Medical (six) Branch hours as needed for Pain (scale 4-6). Indication s: acute pain predniSONE Yes [id number] 20mg Take 1 Univers 20 mg 1-02 [...] 00 25 mg capsule ibuprofen 2020-0 Yes [id number] 800mg Take 1 Univers 800 mg 1-10 100 tablet by ity of tablet 00:00: mouth [place] 00 every 8 Medical (eight) Branch hours. acetaminoph 2020-0 Yes [id number] 1{tbl} Take 1-2 Univers en-codeine 1-10 100 tablets by ity of 300-30 mg 00:00: mouth [place] tablet 00 every 4 Medical (four) Branch hours as needed for Pain (scale 4-6). ibuprofen 2020-0 Yes [id number] 800mg Take 1 Univers 800 mg 1-10 100 tablet by ity of tablet 00:00: mouth [place] 00 every 8 Medical (eight) Branch hours. acetaminoph 2020-0 Yes [id number] 1{tbl} Take 1-2 Univers en-codeine 1-10 100 tablets by ity of 300-30 mg 00:00: mouth [place] tablet 00 every 4 Medical (four) Branch hours as needed for Pain (scale 4-6). ibuprofen 2020-0 Yes [id number] 800mg Take 1 Univers 800 mg 1-10 100 tablet by ity of tablet 00:00: mouth [place] 00 every 8 Medical (eight) Branch hours. acetaminoph 2020-0 Yes [id number] 1{tbl} Take 1-2 Univers en-codeine 1-10 100 tablets by ity of 300-30 mg 00:00: mouth [place] tablet 00 every 4 Medical (four) Branch hours as needed for Pain (scale 4-6). ibuprofen 2020-0 Yes [id number] 800mg Take 1 Univers 800 mg 1-10 100 tablet by ity of tablet 00:00: mouth [place] 00 every 8 Medical (eight) Branch hours. acetaminoph 2020-0 Yes [id number] 1{tbl} Take 1-2 Univers en-codeine 1-10 100 tablets by ity of 300-30 mg 00:00: mouth [place] tablet 00 every 4 Medical (four) Branch hours as needed for Pain (scale 4-6). ibuprofen 2020-0 Yes [id number] 800mg Take 1 Univers 800 mg 1-10 100 tablet by ity of tablet 00:00: mouth [place] 00 every 8 Medical (eight) Branch hours. ibuprofen 2020-0 Yes [id number] 800mg Take 1 Univers 800 mg 1-10 100 tablet by ity of tablet 00:00: mouth [place] 00 every 8 Medical (eight) Branch hours. acetaminoph 2019-0 Yes [id number] 1{tbl} Take 1-2 Univers en-codeine 1-10 100 tablets by ity of 300-30 mg 00:00: mouth [place] tablet 00 every 4 Medical (four) Branch hours as needed for Pain (scale 4-6). acetaminoph 0 Yes [id number] 1{tbl} Take 1-2 Univers en-codeine 1-10 100 tablets by ity of 300-30 mg 00:00: mouth [place] tablet 00 every 4 Medical (four) Branch hours as needed for Pain (scale 4-6). Vital Signs Vital Name Observation Time Observation Value Comments Source Systolic blood 2022-12-28 20:18:00 134 mm[Hg] [facility] 2022-12-28 20:18:00 81 mm[Hg] Unive [facility] Heart rate 2022-12-28 20:18:00 78 /min [facility] Respiratory rate 2022-12-28 20:18:00 18 /min [facility] 2022-12-28 20:18:00 99 /min University of Arterial blood by [place] [employer] Pulse oximetry Branch Body temperature 2022-12-28 18:18:[address] [facility] Body height 2022-12-28 18:18:00 162.6 cm [facility] Body weight 2022-12-28 18:18:00 146.512 kg [facility] BMI 2022-12-28 18:18:00 55.44 kg/m2 [facility] Diastolic blood 2022-08-18 01:00:00 92 mm[facility]Hg[facility] 2022-08-18 01:00:00 96 /min [facility] Respiratory rate 2022-08-18 01:00:00 18 /min [facility] in 2022-08-18 01:00:00 99 /min University of Arterial blood by [place] 365 docobites jeff Pulse oximetry Branch Systolic blood 2022-08-18 01:00:00 145 mm[Hg] Univer [facility] Body temperature 2022-08-18 00:20:00 36.44 [place] Univ ersity of [place] [facility] [place] Body height 2022-08-18 00:20:00 170.2 cm Universi ty [facility] [place] [facility] Body weight 2022-08-18 00:20:00 146.512 kg [facility]i [facility] [place] [facility] BMI 2022-08-18 00:20:00 50.59 kg/m2 [facility] [place] [facility] Systolic blood 2022-08-11 19:05:00 181 mm[Hg] Univer sity of pressure [place] [facility] Diastolic blood 2022-08-11 19:05:00 99 mm[Hg] Unive rsity of pressure [facility] Heart rate 2022-08-11 19:05:00 90 /min Universi ty of [facility] Branch Respiratory rate 2022-08-11 19:05:00 15 /min Univ ersity of [facility] Oxygen saturation in 2022-08-11 19:05:00 97 /min University of Arterial blood by [facility] Pulse oximetry Branch Body temperature 2022-08-11 17:56:00 36.89 [place] Univ ersity [facility] [place] [facility] Body height 2022-08-11 17:56:00 170.2 cm [facility]i [facility] [place] [facility] Body weight 2022-08-11 17:56:00 145.151 kg [facility]i [facility] [place] [facility] BMI 2022-08-11 17:56:00 50.12 kg/m2 [facility] [place] [facility] Systolic blood 2022-06-21 03:00:00 141 mm[Hg] Univer sity of pressure [place] [facility] Diastolic blood 2022-06-21 03:00:00 78 mm[Hg] Unive rsity of pressure [place] [facility] Heart rate 2022-06-21 03:00:00 89 /min [facility]i ty [facility] [place] [facility] Body temperature 2022-06-21 03:00:00 36.11 [place] Univ ersity of [facility] Branch Respiratory rate 2022-06-21 03:00:00 20 /min Univ ersity [facility] [place] [facility] Body height 2022-06-21 03:00:00 170.2 cm [facility]i ty [facility] [place] [facility] Body weight 2022-06-21 03:00:00 145.151 kg Universi ty [facility] [place] [facility] BMI 2022-06-21 03:00:00 50.12 kg/m2 [facility] Medical Branch Oxygen saturation in 2022-06-21 03:00:00 100 /min [facility] blood by [facility] Pulse oximetry Branch BP Systolic 2022-07-07 15:40:00 [...] Procedure Date / Time Performed Performing Clinician Sourc e EKG-12 LEAD 2022-12-28 20:36:33 Eleni Oglesby [facility] CT CHEST PULMONARY 2022-12-28 19:18:00 Eleni Oglesby [facility] ANGIOGRAM Medical Branch TROPONIN I 2022-12-28 18:35:00 Eleni Oglesby [facility] COMP. METABOLIC PANEL 2022-12-28 18:35:00 Eleni Oglesby [facility] ([id number]) [facility] Branch CBC WITH DIFF 2022-12-28 18:35:00 Eleni Oglesby [facility] NOTICE OF PRIVACY 2022-12-28 18:07:33 Doctor Unassigned, No Univ ersity [facility] Medical Branch CONSENT/REFUSAL FOR 2022-12-28 18:06:36 Doctor Unassigned, No Un [facility] [place] DIAGNOSIS AND Name Medical Branch TREATMENT POCT TEST 2022-08-18 00:37:00 Christi Kauffman [facility] COMP. METABOLIC PANEL 2022-08-18 00:34:00 Christi Kauffman [facility] ([id number]) Medical Branch CBC WITH DIFF 2022-08-18 00:34:00 Christi Kauffman [facility] CONSENT/REFUSAL FOR 2022-08-18 00:06:34 Doctor Unassigned, No Un [facility] [place] DIAGNOSIS AND [facility] TREATMENT POCT TEST 2022-08-11 18:27:00 Eleni Oglesby [facility] COMP. METABOLIC PANEL 2022-08-11 18:25:00 Eleni Oglesby [facility] ([id number]) [facility] CBC WITH DIFF 2022-08-11 18:25:00 Eleni Oglesby [facility] URINALYSIS 2022-08-11 18:25:00 Eleni Oglesby [facility] CONSENT/REFUSAL FOR 2022-08-11 17:47:30 Doctor Unassigned, No Un [facility] [place] DIAGNOSIS AND Name Medical Branch TREATMENT NOTICE OF PRIVACY 2022-06-21 02:51:03 Doctor Unassigned, No Univ ersity of [facility] Medical Branch CONSENT/REFUSAL FOR 2022-06-21 02:50:32 Doctor Unassigned, No Un i[facility]ity of [place] DIAGNOSIS AND Name Medical Branch TREATMENT Ekg W/ At Least 12 2022-01-19 00:00:00 Leads W/ I r Plan of Care Planned Activity Planned Date Details Comments Source Goal Plan of Care Note [code = 85237-5] Goal Plan of Care Note [code = 44777-3] Goal Plan of Care Note [code = 37876-7] Goal Plan of Care Note [code = 78773-1] Goal Plan of Care Note [code = 05127-4] Goal Plan of Care Note [code = 74951-7] Goal Plan of Care Note [code = 01457-4] Goal Plan of Care Note [code = 49811-1] Goal Plan of Care Note [code = 77256-5] Goal Plan of Care Note [code = 95003-9] Goal Plan of Care Note [code = 44210-3] Goal Plan of Care Note [code = 18253-8] Goal Plan of Care Note [code = 79513-9] Goal Plan of Care Note [code = 70416-3] Goal Plan of Care Note [code = 10124-1] Goal Plan of Care Note [code = 90645-9] Goal Plan of Care Note [code = 60910-0] Goal Plan of Care Note [code = 59031-2] Goal Plan of Care Note [code = 39990-7] Goal Plan of Care Note [code = 44038-1] Goal Plan of Care Note [code = 33684-2] Goal Plan of Care Note [code = 54998-3] Goal Plan of Care Note [code = 24068-0] Goal Plan of Care Note [code = 11476-2] Goal Plan of Care Note [code = 58457-4] Goal Plan of Care Note [code = 16772-9] Goal Plan of Care Note [code = 94022-7] Goal Plan of Care Note [code = 14935-5] Goal Plan of Care Note [code = 34204-6] Goal Plan of Care Note [code = 11198-5] Goal Plan of Care Note [code = 02256-4] Goal Plan of Care Note [code = 97332-4] Goal Plan of Care Note [code = 18327-5] Goal Plan of Care Note [code = 95958-8] Goal Plan of Care Note [code = 10510-0] Goal Plan of Care Note [code = 83727-7] Goal Plan of Care Note [code = 93517-2] Goal Plan of Care Note [code = 78463-1] Goal Plan of Care Note [code = 17266-1] Goal Plan of Care Note [code = 81918-4] Goal Plan of Care Note [code = 77763-8] Goal Plan of Care Note [code = 72042-5] Goal Plan of Care Note [code = 76147-0] Goal Plan of Care Note [code = 47131-9] Goal Plan of Care Note [code = 03406-8] Goal Plan of Care Note [code = 64599-4] Goal Plan of Care Note [code = 49941-8] Goal Plan of Care Note [code = 56434-6] Goal Plan of Care Note [code = 52062-0] Goal Plan of Care Note [code = 02216-5] Goal Plan of Care Note [code = 89540-5] Goal Plan of Care Note [code = 10867-3] Goal Plan of Care Note [code = 57004-9] Goal Plan of Care Note [code = 38515-2] Goal Plan of Care Note [code = 34805-3] Goal Plan of Care Note [code = 64380-2] Goal Plan of Care Note [code = 97779-9] Goal Plan of Care Note [code = 97212-4] Goal Plan of Care Note [code = 59272-5] Goal Plan of Care Note [code = 67724-0] Goal Plan of Care Note [code = 40453-6] Goal Plan of Care Note [code = 77777-9] Goal Plan of Care Note [code = 05255-1] Goal Plan of Care Note [code = 15256-5] Goal Plan of Care Note [code = 07168-8] Goal Plan of Care Note [code = 04353-8] Encounters Start End Encounter Admission Attending Care Care Encounter Source Date/Time Date/Time Type Type Clinicians Facility Department ID 2022-12-29 2022-12-29 Outpatient SUMAYA SHELL [id number] Zachary 17:18:42 17:18:42 0310 [place] 2022-12-28 2022-12-28 Outpatient SUMAYA SHELL [id number] Zachary 16:10:16 16:10:16 0309 [place] 2022-12-28 2022-12-28 Emergency X TATA OGLESBY ERT [id number] Univers 12:25:00 14:47:00 ELENI [facility] 2022-12-28 2022-12-28 Emergency Mendel GASTANLEY [id number] Univers 12:25:00 14:47:00 Eleni ADAMS 350.1.13.10 rina [facility] 4.2.7.2.686 [facility] [id number] [address] 2022-12-27 2022-12-27 Outpatient SFA SFA [id number] 023 Zachary 14:42:06 14:42:06 0308 F [place] 2022-12-22 2022-12-22 Outpatient SFA SFA [id number] Zachary 15:29:15 15:29:15 0303 F [place] 2022-12-15 2022-12-15 Outpatient SFA SFA [id number] 023 Zachary 08:45:04 08:45:04 0224 F [place] 2022-08-21 2022-08-21 [facility] [id number] Univers 00:00:00 00:00:00 Yasmin Duarte [employer] MACH[employer]ITCHER 350.1.13.10 ity [facility] acute hospital 4.2.7.2.686 [place] as MATERNAL [id number] [facility] ical & CHILD [address] [place] [address] 2022-08-17 2022-08-17 Emergency [facility] [id number] Univers 19:14:00 22:03:00 CHRISTI [facility] 2022-08-17 2022-08-17 [facility] [id number] Univers 19:14:00 22:03:00 Christi ADAMS 350.1.13.10 i ty [facility] 4.2.7.2.686 [facility] [id number] [address] 2022-08-11 2022-08-11 Emergency [facility]RT [id number] Univers 12:57:00 14:52:00 ELENI [facility] 2022-08-11 2022-08-11 Emergency [facility] [id number] Univers 12:57:00 14:52:00 Eleni ADAMS 350.1.13.10 ity [facility] 4.2.7.2.686 [facility] [id number] [address] 2022-07-07 2022-07-07 Outpatient [id number] 00:00:00 00:00:00 Visit [id number] 2022-06-30 2022-06-30 Outpatient [id number] 00:00:00 00:00:00 Visit [id number] 2022-06-20 2022-06-20 Emergency X JOSE [facility] ERT [id number] Univers 22:02:00 22:56:00 MAT [facility] 2022-06-20 2022-06-20 Emergency [facility] [id number] Univers 22:02:00 22:56:00 Mat ADAMS 350.1.13.10 i ty of [place] 4.2.7.2.686 [facility] [id number] [facility] 084 [place] 2022-06-20 2022-06-20 Orders Doctor IGOR [id number] [id number] Univers 00:00:00 00:00:00 Only Unassigned, TRACY 350.1.13.10 [facility] [place] [address] [id number] [place] [address] Branch 2020-10-23 2020-10-23 Emergency [facility] [id number] 11:49:00 14:51:00 Severino Adams 350.1.13.10 [place] 4.2.7.2.686 [facility] [id number] [facility] 2020-10-23 2020-10-23 Emergency [facility]RT [id number] Univers 11:49:00 11:49:00 SEVERINO [facility] Results Test Description Test Time Test Comments Results Result Comments Source TROPONIN I 2022-12-28 19:18:54 Test Item Value Reference Range Interpretation Comme nts TROPONIN I (test code = 6409776526) 0.004 ng/mL <=0.034 EVA (test code = EVA) Reference (Normal) Range (defined by the 99th percentile reference limit): <= 0.034 ng/mL Note: Cardiac troponin begins to rise 3-4 hours after the onset of ischemia. Repeat in 4-6 hours if the sample was drawn within 3-4 hours of the onset of the symptom and found normal. Diagnosis of myocardial injury is made with acute changes in cTn concentrations with at least one serial sample above the 99th percentile upper reference limit (URL), taken together with the patient's clinical presentation. Biotin has been reported to cause a negative bias, interpret results relative to patient's use of biotin. Lab Interpretation (test code = Normal 48836-2) [facility]. METABOLIC PANEL (15692)2022-12-28 19:08:25 Test Item Value Reference Range Interpretation Comments NA (test code = 138 mmol/L 135-145 [id number]) K (test code = 3.9 mmol/L 3.5-5.0 4637562452) CL (test code = 101 mmol/L 98-108 [id number]) CO2 TOTAL (test code = 28 mmol/L 23-31 [id number]) AGAP (test code = 9 2-16 3298759073) BUN (test code = 8 mg/dL 7-23 8360464402) GLUCOSE (test code = 149 mg/dL 70-110 H 0230192943) CREATININE (test code = 0.69 mg/dL 0.50-1.04 1339987780) TOTAL BILI (test code = 0.6 mg/dL 0.1-1.4 6685674257) CALCIUM (test code = 8.6 mg/dL 8.6-10.6 7634748444) T PROTEIN (test code = 7.7 g/dL 6.3-8.2 7558672439) ALBUMIN (test code = 4.1 g/dL 3.5-5.0 6061571921) ALK PHOS (test code = 77 U/L 34-122 8969156184) ALTv (test code = 23 U/L 5-35 1742-6) AST(SGOT) (test code = 26 U/L 13-40 2596144417) eGFR (test code = 93.3 mL/min/1.73m2 0326668465) EVA (test code = EVA) Association of [...] tests). Lab Interpretation Abnormal (test code = 00563-9) [facility] WITH [id number] 19:03:08 Test Item Value Reference Range Interpretation Comments WBC (test code = 6.56 See_Comment [Automated 7110-2) message] The sy stem which generated this result transmitted reference range : 4.30 - 11.10 10*3/?L. The reference range was not used to interpret this result as normal/abnormal . RBC (test code = 4.08 See_Comment [Automated 262-8) message] The sy stem which generated this result transmitted reference range : 3.93 - 5.25 10*6/?L. The reference range was not used to interpret this result as normal/abnormal . HGB (test code = 11.7 g/dL 11.6-15.0 718-7) HCT (test code = 35.6 % 35.7-45.2 L 4544-3) MCV (test code = 87.3 fL 80.6-95.5 787-2) MCH (test code = 28.7 pg 25.9-32.8 785-6) MCHC (test code = 32.9 g/dL 31.6-35.1 786-4) RDW-SD (test code = 58.7 fL 39.0-49.9 H 13509-8) RDW-CV (test code = 18.2 % 12.0-15.5 H 788-0) PLT (test code = 457 See_Comment H [Automated 777-3) message] The sy stem which generated this result transmitted reference range : 166 - 358 10*3/ ?L. The reference r fabi was not used to interpret this result as normal/abnormal . MPV (test code = 9.6 fL 9.5-12.9 64798-5) NRBC/100 WBC (test 0.0 See_Comment [Automat ed code = 6752170697) message] The system which generated this result transmitted reference range : 0.0 - 10.0 /100 WBCs. The refer ence range was not u sed to interpret th is result as normal/abnormal . NRBC x10^3 (test code See_Comment [Auto mated = 7278837557) message] The s ystem which generated this result transmitted reference range : 10*3/?L. The reference range was not used to interpret this result as normal/abnormal . GRAN MAT (NEUT) % 52.2 % (test code = 770-8) IMM GRAN % (test code 0.30 % = 5754934580) LYMPH % (test code = 36.3 % 736-9) MONO % (test code = 9.3 % 5905-5) EOS % (test code = 1.4 % 713-8) BASO % (test code = 0.5 % 706-2) GRAN MAT x10^3(ANC) 3.43 10*3/uL 1.88-7.09 (test code = 8573647153) IMM GRAN x10^3 (test 0.00-0.06 code = 6832761691) LYMPH x10^3 (test code 2.38 10*3/uL 1.32-3.29 = 731-0) MONO x10^3 (test code 0.61 10*3/uL 0.33-0.92 = 742-7) EOS x10^3 (test code = 0.09 10*3/uL 0.03-0.39 711-2) BASO x10^3 (test code 0.03 10*3/uL 0.01-0.07 = 704-7) Lab Interpretation Abnormal (test code = 48400-1) [id number] 13:[facility]:25 Test Item Value Reference Range Interpretation Comments D-DIMER (test 1.23 UG/ML FEU See_Comment H NOTE: Prov ided code = 1405) reference range is established for evaluation of D eep Venous Thrombosis/Pulm onary Embolus (DVT/PE ). Results below c utoff value of <=0.49 UG/ML FEU have a high negative predictive valu e forDVT/PE. No r eference range is establ ished for disseminatedint ra-vascul ar coagulation (DIC). [facility] has imp ortant pathology staff changes effective 12/20. New patholo gy staff will provide uninterrupted, excellent patient care an d clinical consul tation. See URL: [email or web address]. UNLESS OTHERWISE INDICATED, [facility] [employer] [address] [place] [address] 4 LABORATORY DIRE CTOR: RAMAN GIBSON M.D. [place] NUMBER [id number] [place]. [id number] [Autom ated message] The sy stem which generated this result transmit leonid reference range : <=0.49. The reference r fabi was not used to int erpret this result as normal/abnormal . [id number] 02:36:27 Test Item Value Reference Range Interpretation Comments FERRITIN (test code = 2075) 10 NG/ML 13-200 L FSH + LH [id number] 02:36:27 Test Item Value Reference Range Interpretation Comments FOLLICLE STIM HORMONE 3.5 IU/L SEE BELOW EXPECTED VALUES (test code = 2700) FOR FSH F OR FEMALES >17 YEARS F OLLICULAR 3.5-12.5 IU/L MID-CYCLE PEAK 4.7-21.5 I U/L LUTEAL PHASE 1. 7-7.7 IU/L POSTMENOPA USAL 25.8-134.8 IU/L LUTEINIZING HORMONE 9.1 IU/L SEE BELOW EXPECTED VALUES (test code = 2776) FOR LH FO R FEMALES >17 YEARS M ALES FEMALES >=18 YE ARS 1.8-8.6 IU/L FO LLICULAR 2.4-12.6 IU/L M ID-CYCLE PEAK 14.0-95.6 IU/L LUTEAL PHASE 1. 0-11.4 IU/L POSTMENOPA USAL 7.7-58.5 IU/L [id number] 02:36:27 Test Item Value Reference Range Interpretation Comments PROLACTIN (test 11.3 NG/ML 5.0-37.0 NOTE: Metho dology is Greg code = 2800) Karis Electrochemilum inescence Immunoassay (EC MAY). Values obtained with d ifferent assays/manufact urers cannot be used interch angeably. Results should not be used as sole basis to e stablish the presence or abs ence of malignancy. [facility] has important patho logy staff changes effecti ve 12/20/2022. New patholo gy staff will provide uninter rupted, excellent patie nt care and clinical consul tation. See URL: [email or web address] [email or web address]. UNLESS OTHER CROOKS INDICATED, ALL [facility] [address] [place] [address] LABORATORY DIRE CTOR: RAMAN GAMEZ M.D. [place] NUMBER [id number] [place]. [id number] TSH, THIRD [id number] 05:56:57 Test Item Value Reference Range Interpretation Comments TSH, THIRD GENERATION (test code 1.640 UIU/ML 0.400-4.100 = 2821) LIPID [id number] 05:53:53 Test Item Value Reference Range Interpretation [...] MOREINFORMATION , SEE CLIENT ANNOUNCE MENT AT [email or web address] RISK RATIO LDL/HDL 1.46 RATIO <3.22 (test code = 2238) COMPREHENSIVE METABOLIC [id number] 05:53:53 Test Item Value Reference Range Interpretation Comments GLUCOSE (test code = 100 MG/DL 70-99 H 2216) BUN (test code = 6 MG/DL 6-20 2207) CREATININE (test 0.67 MG/DL 0.60-1.30 code = 2214) eGFR (2020 CKD-EPI) 112 >60 (test code = 30865) ML/MIN/1.73 CALC BUN/CREAT (test 9 RATIO 6-28 code = 2235) SODIUM (test code = 141 MEQ/L 638-978 4330) POTASSIUM (test code 4.2 MEQ/L 3.5-5.4 = 2227) CHLORIDE (test code 105 MEQ/L 95-107 = 2214) CARBON DIOXIDE (test 28 MEQ/L 19-31 code = 2206) CALCIUM (test code = 9.1 MG/DL 8.5-10.5 2208) PROTEIN, TOTAL (test 7.5 G/DL 6.1-8.3 code = 2229) ALBUMIN (test code = 4.1 G/DL 3.5-5.2 2200) CALC GLOBULIN (test 3.4 G/DL 1.9-3.7 code = 2240) CALC A/G RATIO (test 1.2 RATIO 1.0-2.6 code = 2234) BILIRUBIN, TOTAL <0.2 MG/DL See_Comment [Automated message] (test code = 2207) The syste m which generated this result transmit leonid reference range : <=1.2. The refe rence range was not u sed to interpret th is result as normal/abnormal . ALKALINE PHOSPHATASE 91 U/L 40-113 (test code = 2204) AST (test code = 23 U/L 2217) ALT (test code = 21 U/L 2218) HEMOGLOBIN [id number] 03:48:46 Test Item Value Reference Range Interpretation Comments HEMOGLOBIN A1c (test 7.0 % 4.2-5.6 H AMERIC AN DIABETES code = 00834) ASSOCIATION IDELINES FOR HGB A1C: PREDIABETES/INC REASED [...] ALTERN ATE TESTING OR LABORATORY C ONSULTATION. [facility] has imp ortant pathology staff changes effective 12/20. New pathology s taff will provide uninter rupted, excellent patie nt care and clinical consul tation. See URL: [email or web address]. UNLESS OTHE RWISE INDICATED, ALL [facility] [employer] [address] [place] [address] LABORATOR Y DIRECTOR: RAMAN GIBSON M.D. [place] NUMBER [id number] CAP ACCREDITATION N O. [id number] CBC W/AUTO DIFF WITH [id number] 03:32:47 Test Item Value Reference Range Interpretation [...] RBCS 0.00 K/UL 0.00-0.11 (test code = 74515) CBC WITH [id number] 01:06:25 Test Item Value Reference Range Interpretation Comments WBC (test code = See_Comment [Automated 5641-2) message] The sy stem which generated this result transmitted reference range : 4.30 - 11.10 10*3/?L. The reference range was not used to interpret this result as normal/abnormal . RBC (test code = See_Comment [Automated 347-8) message] The sy stem which generated this [...] (test code = 53.1 fL 39.0-49.9 H 39933-7) RDW-CV (test code = 16.8 % 12.0-15.5 H 788-0) PLT (test code = See_Comment H [Automated 777-3) message] The sy stem which generated this result transmitted reference range : 166 - 358 10*3/ ?L. The reference r fabi was not used to interpret this result as normal/abnormal . MPV (test code = 10.0 fL 9.5-12.9 94602-5) NRBC/100 WBC (test See_Comment [Automat ed code = 4132410447) message] The system which generated this result transmitted reference range : 0.0 - 10.0 /100 WBCs. The refer ence range was not u sed to interpret th is result as normal/abnormal . NRBC x10^3 (test code See_Comment [Auto mated = 0298017305) message] The s ystem which generated this result transmitted reference range : 10*3/?L. The reference range was not used to interpret this result as normal/abnormal . GRAN MAT (NEUT) % 40.4 % (test code = 770-8) IMM GRAN % (test code 0.30 % = 5355497837) LYMPH % (test code = 48.0 % 736-9) MONO % (test code = 9.9 % 5905-5) EOS % (test code = 0.9 % 713-8) BASO % (test code = 0.5 % 706-2) GRAN MAT x10^3(ANC) 3.15 10*3/uL 1.88-7.09 (test code = 6672482985) IMM GRAN x10^3 (test 0.00-0.06 code = 8554847351) LYMPH x10^3 (test code 3.74 10*3/uL 1.32-3.29 H = 731-0) MONO x10^3 (test code 0.77 10*3/uL 0.33-0.92 = 742-7) EOS x10^3 (test code = 0.07 10*3/uL 0.03-0.39 711-2) BASO x10^3 (test code 0.04 10*3/uL 0.01-0.07 = 704-7) Lab Interpretation Abnormal (test code = 67874-5) [facility]. METABOLIC PANEL ([id number])2022-08-18 01:03:23 Test Item Value Reference Range Interpretation Comments NA (test code = 142 mmol/L 135-145 3064700111) K (test code = 3.9 mmol/L 3.5-5.0 1061527863) CL (test code = 103 mmol/L 98-108 6368614645) CO2 TOTAL (test code = 27 mmol/L 23-31 3733475111) AGAP (test code = 2-16 4963801489) BUN (test code = 13 mg/dL 7-23 5758654381) GLUCOSE (test code = 140 mg/dL 70-110 H 5574421811) CREATININE (test code = 0.95 mg/dL 0.50-1.04 7897506220) TOTAL BILI (test code = 0.3 mg/dL 0.1-1.0 0818522125) CALCIUM (test code = 9.3 mg/dL 8.6-10.6 6705961582) T PROTEIN (test code = 8.0 g/dL 6.3-8.2 1009598968) ALBUMIN (test code = 4.3 g/dL 3.5-5.0 9614650079) ALK PHOS (test code = 73 U/L 34-122 0925887257) ALTv (test code = 26 U/L 5-35 1742-6) AST(SGOT) (test code = 31 U/L 13-40 8459277976) eGFR (test code = mL/min/1.73m2 6674727332) EVA (test code = EVA) Association of [...] tests). Lab Interpretation Abnormal (test code = 10981-7) [facility] [id number] 00:37:00 Test Item Value Reference Range Interpretation Comments POCT PREG (test code = 1605) negative On board controls acceptable with present C Line (test code = 3574) POCT PREG LOT # (test code = 3575) [id number] POCT PREG TEST DATE (test 12/20/2023 code = 3576) Lab Interpretation (test code = Normal 75825-0) [facility]OLIC PANEL ([id number])2022-08-11 18:49:02 Test Item Value Reference Range Interpretation Comments NA (test code = 139 mmol/L 135-145 8386967218) K (test code = 4.4 mmol/L 3.5-5 9414776185) CL (test code = 105 mmol/L 98-108 6717685260) CO2 TOTAL (test code = 27 mmol/L 23-31 2242722606) AGAP (test code = 2-16 9268849915) BUN (test code = 6 mg/dL 7-23 L 3616922904) GLUCOSE (test code = 140 mg/dL 70-110 H 8505106707) CREATININE (test code = 0.64 mg/dL 0.5-1.04 4326588396) TOTAL BILI (test code = 0.3 mg/dL 0.1-1.2 4773597502) CALCIUM (test code = 8.5 mg/dL 8.6-10.6 L 5311846718) T PROTEIN (test code = 6.9 g/dL 6.3-8.2 2058723742) ALBUMIN (test code = 3.7 g/dL 3.5-5 7974224910) ALK PHOS (test code = 66 U/L 34-122 2577315973) ALTv (test code = 20 U/L 5-35 2-6) AST(SGOT) (test code = 28 U/L 13-40 1067379076) eGFR (test code = mL/min/1.73m2 8636101087) EVA (test code = EVA) Association of [...] tests). Lab Interpretation Abnormal (test code = 57845-8) [facility] WITH [id number] 18:45:43 Test Item Value Reference Range Interpretation [...] (test code = 55.8 fL 39-49.9 H 02845-7) RDW-CV (test code = 17.2 % 12-15.5 H 788-0) PLT (test code = See_Comment H [Automated 777-3) message] The sy stem which generated this result transmitted reference range : 166 - 358 10*3/ ?L. The reference r fabi was not used to interpret this result as normal/abnormal . MPV (test code = 10.0 fL 9.5-12.9 67708-6) NRBC/100 WBC (test See_Comment [Automat ed code = 7221850673) message] The system which generated this result transmitted reference range : 0.0 - 10.0 /100 WBCs. The refer ence range was not u sed to interpret th is result as normal/abnormal . NRBC x10^3 (test code See_Comment [Auto mated = 2914353167) message] The s ystem which generated this result transmitted reference range : 10*3/?L. The reference range was not used to interpret this result as normal/abnormal . GRAN MAT (NEUT) % 58.9 % (test code = 770-8) IMM GRAN % (test code 0.30 % = 2644067680) LYMPH % (test code = 31.3 % 736-9) MONO % (test code = 7.8 % 5905-5) EOS % (test code = 1.3 % 713-8) BASO % (test code = 0.4 % 706-2) GRAN MAT x10^3(ANC) 4.43 10*3/uL 1.88-7.09 (test code = 7461304060) IMM GRAN x10^3 (test 0-0.06 code = 7781580307) LYMPH x10^3 (test code 2.36 10*3/uL 1.32-3.29 = 731-0) MONO x10^3 (test code 0.59 10*3/uL 0.33-0.92 = 742-7) EOS x10^3 (test code = 0.10 10*3/uL 0.03-0.39 711-2) BASO x10^3 (test code 0.03 10*3/uL 0.01-0.07 = 704-7) Lab Interpretation Abnormal (test code = 59020-0) [facility] [id number] 18:27:00 Test Item Value Reference Range Interpretation Comments POCT PREG (test code = 1605) negative On board controls acceptable with positive C Line (test code = 3574) POCT PREG LOT # (test code = 3575) [id number] POCT PREG TEST DATE (test 12-20-2023 code = 3576) Lab Interpretation (test code = Normal 86180-9) [facility]IAJOSE CAD [id number] 08:05:09Name: Megan : 1980 Sex: F - SCR MAMM BILATERAL MARIAJOSE CAD DIGITALBILATERAL FIRST EVER DIGITAL SCREENING MAMMOGRAM 3D/2D WITH CAD: 03/17/2022LINICAL: Asymptomatic. Digital breast tomosynthesis was performed in addition to routine CC and MLO views. Current mammographic images were evaluated by [employer] Image[employer] CAD (computer-aided detection) software. No prior exams were available for comparison. There are scattered fibroglandular tissues in both breasts. No suspicious mass, architectural distortion, malignant type calcification, or lymph node abnormality detected. IMPRESSION: NEGATIVEThere is no mammographic evidence of malignancy. Resume annual screening mammography in one year. Fahad Tipton M.D. et/penrad:03/22/2022 08:05:09 Political Research Scientist: Amada Moctezuma MM, [facility] Mammographyletter sent: BIRADS 1-2 Normal Mammogram BI-RADS: 1 NegativeHEMOGLOBIN [id number] 00:24:25 Test Item Value Reference Range Interpretation Comments HEMOGLOBIN A1c (test 6.8 % 4.2-5.6 H AMERIC AN DIABETES code = 47527) ASSOCIATION IDELINES FOR HGB A1C: PREDIABETES/INC REASED [...] ATE TESTING OR LABORATORY C ONSULTATION. HEMOGLOBIN [id number] 00:00:00 Test Item Value Reference Range Interpretation Comments HEMOGLOBIN A1c (test code = 38498) 6.8 % HEMOGLOBIN [id number] 00:00:00 Test Item Value Reference Range Interpretation Comments HEMOGLOBIN A1c (test code = 29721) 6.8 % HEMOGLOBIN [id number] 00:00:00 Test Item Value Reference Range Interpretation Comments HEMOGLOBIN A1c (test code = 96181) 6.8 % HEMOGLOBIN [id number] 00:00:00 Test Item Value Reference Range Interpretation Comments HEMOGLOBIN A1c (test code = 61623) 6.8 % HEMOGLOBIN [id number] 00:00:00 Test Item Value Reference Range Interpretation Comments HEMOGLOBIN A1c (test code = 26275) 6.8 % HEMOGLOBIN [id number] 00:00:00 Test Item Value Reference Range Interpretation Comments HEMOGLOBIN A1c (test code = 92004) 6.8 % TSH, THIRD [id number] 06:13:08 Test Item Value Reference Range Interpretation Comments TSH, THIRD GENERATION (test code 1.210 UIU/ML 0.400-4.100 = 2821) [id number] 05:50:43 Test Item Value Reference Range Interpretation Comments NT-proBNP 145 PG/ML SEE BELOW If NT-ProBNP i s less than 300 (test code = PG/ML, heart fa ilure is unlikely 56131) for allages. Age............ .....Heart Failure Likely <50 Years.......... .>=450 PG/ML 50-75 Years.... .....>=900 PG/ML > 75 Years..... .....>=1800 PG/ML Methodology: Ro gonzalo Karis Electrochemilum inescense Immunoassay UNL ESS OTHERWISE INDICATED, ALL TESTING PERFORMED ATCLINICAL PATH [facility], [facility]. [address] [place] [address] 4 MATERIAL CONTROL ANALYST: Letha BAJWA [id number] CAP ACCREDITATION N O. [id number] LIPID [id number] 04:29:21 Test Item Value Reference Range Interpretation [...] MOREINFORMATION , SEE CLIENT ANNOUNCE MENT AT [email or web address] RISK RATIO LDL/HDL 1.39 RATIO <3.22 (test code = 2238) COMPREHENSIVE METABOLIC [id number] 04:29:21 Test Item Value Reference Range Interpretation Comments GLUCOSE (test code = 95 MG/DL 70-99 2216) BUN (test code = 7 MG/DL 6-20 2207) CREATININE (test 0.80 MG/DL 0.60-1.30 code = 2214) eGFR (2020 CKD-EPI) 95 ML/MIN/1.73 >60 (test code = 63168) CALC BUN/CREAT (test 9 RATIO 6-28 code = 2235) SODIUM (test code = 141 MEQ/L 654-103 1587) POTASSIUM (test code 4.1 MEQ/L 3.5-5.4 = [...] PHOSPHATASE 85 U/L 40-113 (test code = 220) AST (test code = 20 U/L 9-40 2217) ALT (test code = 21 U/L 5-40 2218) CBC W/AUTO DIFF WITH [id number] 03:09:17 Test Item Value Reference Range Interpretation [...] RBCS 0.00 K/UL 0.00-0.11 (test code = 11002) [id number] 00:00:00 Test Item Value Reference Range Interpretation Comments TSH, THIRD GENERATION (test code 1.210 UIU/ML = 2821) [id number] 00:00:00 Test Item Value Reference Range Interpretation Comments TSH, THIRD GENERATION (test code 1.210 UIU/ML = 2821) [id number] 00:00:00 Test Item Value Reference Range Interpretation Comments TSH, THIRD GENERATION (test code 1.210 UIU/ML = 2821) [id number] 00:00:00 Test Item Value Reference Range Interpretation Comments NT-proBNP (test code = 17947) 145 PG/ML [id number] 00:00:00 Test Item Value Reference Range Interpretation Comments NT-proBNP (test code = 37265) 145 PG/ML [id number] 00:00:00 Test Item Value Reference Range Interpretation Comments NT-proBNP (test code = 58147) 145 PG/ML CBC W/AUTO [id number] 00:00:00 Test Item Value Reference Range Interpretation [...] NUCLEATED RBCS (test code = 0.00 K/UL 56216) CBC W/AUTO [id number] 00:00:00 Test Item Value Reference Range Interpretation [...] NUCLEATED RBCS (test code = 0.00 K/UL 62889) CBC W/AUTO [id number] 00:00:00 Test Item Value Reference Range Interpretation [...] NUCLEATED RBCS (test code = 0.00 K/UL 13846) LIPID [id number] 00:00:00 Test Item Value Reference Range Interpretation Comments CHOLESTEROL (test code = 2210) 160 MG/DL TRIGLYCERIDES (test code = 2232) 154 MG/DL HDL CHOLESTEROL (test code = 2220) 56 MG/DL CALC LDL CHOL (test code = 2237) 78 MG/DL RISK RATIO LDL/HDL (test code = 1.39 RATIO 2238) LIPID [id number] 00:00:00 Test Item Value Reference Range Interpretation Comments CHOLESTEROL (test code = 2210) 160 MG/DL TRIGLYCERIDES (test code = 2232) 154 MG/DL HDL CHOLESTEROL (test code = 2220) 56 MG/DL CALC LDL CHOL (test code = 2237) 78 MG/DL RISK RATIO LDL/HDL (test code = 1.39 RATIO 2238) COMPREHENSIVE METABOLIC [id number] 00:00:00 Test Item Value Reference Range Interpretation Comments GLUCOSE (test code = 2217) 95 MG/DL BUN (test code = 2208) 7 MG/DL CREATININE (test code = 2214) 0.80 MG/DL eGFR (2020 CKD-EPI) (test code 95 ML/MIN/1.73 = 84052) CALC BUN/CREAT (test code = 9 RATIO [...] code = 2219) 21 U/L COMPREHENSIVE METABOLIC [id number] 00:00:00 Test Item Value Reference Range Interpretation Comments GLUCOSE (test code = 2217) 95 MG/DL BUN (test code = 2208) 7 MG/DL CREATININE (test code = 2214) 0.80 MG/DL eGFR (2020 CKD-EPI) (test code 95 ML/MIN/1.73 = 19929) CALC BUN/CREAT (test code = 9 RATIO [...] ALT (test code = 2219) 21 U/L [id number] 00:00:00 Test Item Value Reference Range Interpretation Comments TSH, THIRD GENERATION (test code 1.210 UIU/ML = 2821) [id number] 00:00:00 Test Item Value Reference Range Interpretation Comments TSH, THIRD GENERATION (test code 1.210 UIU/ML = 2821) [id number] 00:00:00 Test Item Value Reference Range Interpretation Comments TSH, THIRD GENERATION (test code 1.210 UIU/ML = 2821) [id number] 00:00:00 Test Item Value Reference Range Interpretation Comments NT-proBNP (test code = 71798) 145 PG/ML [id number] 00:00:00 Test Item Value Reference Range Interpretation Comments NT-proBNP (test code = 21773) 145 PG/ML [id number] 00:00:00 Test Item Value Reference Range Interpretation Comments NT-proBNP (test code = 39121) 145 PG/ML CBC W/AUTO [id number] 00:00:00 Test Item Value Reference Range Interpretation [...] NUCLEATED RBCS (test code = 0.00 K/UL 24241) CBC W/AUTO [id number] 00:00:00 Test Item Value Reference Range Interpretation [...] NUCLEATED RBCS (test code = 0.00 K/UL 27526) CBC W/AUTO [id number] 00:00:00 Test Item Value Reference Range Interpretation [...] NUCLEATED RBCS (test code = 0.00 K/UL 13858) LIPID [id number] 00:00:00 Test Item Value Reference Range Interpretation Comments CHOLESTEROL (test code = 2210) 160 MG/DL TRIGLYCERIDES (test code = 2232) 154 MG/DL HDL CHOLESTEROL (test code = 2220) 56 MG/DL CALC LDL CHOL (test code = 2237) 78 MG/DL RISK RATIO LDL/HDL (test code = 1.39 RATIO 2238) LIPID [id number] 00:00:00 Test Item Value Reference Range Interpretation Comments CHOLESTEROL (test code = 2210) 160 MG/DL TRIGLYCERIDES (test code = 2232) 154 MG/DL HDL CHOLESTEROL (test code = 2220) 56 MG/DL CALC LDL CHOL (test code = 2237) 78 MG/DL RISK RATIO LDL/HDL (test code = 1.39 RATIO 2238) COMPREHENSIVE METABOLIC [id number] 00:00:00 Test Item Value Reference Range Interpretation Comments GLUCOSE (test code = 2217) 95 MG/DL BUN (test code = 2208) 7 MG/DL CREATININE (test code = 2214) 0.80 MG/DL eGFR (2020 CKD-EPI) (test code 95 ML/MIN/1.73 = 08219) CALC BUN/CREAT (test code = 9 RATIO [...] code = 2219) 21 U/L COMPREHENSIVE METABOLIC [id number] 00:00:00 Test Item Value Reference Range Interpretation Comments GLUCOSE (test code = 2217) 95 MG/DL BUN (test code = 2208) 7 MG/DL CREATININE (test code = 2214) 0.80 MG/DL eGFR (2020 CKD-EPI) (test code 95 ML/MIN/1.73 = 62433) CALC BUN/CREAT (test code = 9 RATIO [...] code = 2219) 21 U/L CHLAMYDIA, NAAT, [id number] 18:09:17 Test Item Value Reference Range Interpretation Comments CHLAMYDIA, NAAT NEGATIVE NEGATIVE IMPORTA NT NOTICE: SEE (test code = [place] [address]) [email or web address] Note: Assay methodology is nucleic acid amplification b y non destructive evaluation technician m ediated amplification ( TMA) utilizing the A ptima Combo 2 Assay. GONORRHEA, NAAT, [id number] 18:09:17 Test Item Value Reference Range Interpretation Comments GONORRHEA, NAAT NEGATIVE NEGATIVE IMPORTA NT NOTICE: SEE (test code = [place] [address]) [email or web address] Note: Assay methodology is nucleic acid amplification b y non destructive evaluation technician m ediated amplification ( TMA) utilizing the A ptima Combo 2 Assay. VAGINAL PATHOGENS DNA [id number] 15:05:32 Test Item Value Reference Range Interpretation Comments KENNETH SPECIES (test NEGATIVE NEGATIVE code = ) G. VAGINALIS (test NEGATIVE NEGATIVE code = ) T. VAGINALIS (test NEGATIVE NEGATIVE UNLESS O THERWISE code = ) INDICATED, ALL TESTING PERFORMED [facility] [address] [place] [address] 4 LABORATORY DIRE CTOR: RAMAN GIBSON M.D. CLIA NUMBER [id number] [place] [id number] PAP TEST, THINPREP, [id number] 13:36:46 Test Item Value Reference Range Interpretation Comments SOURCE: (test Cervical code = 8001) SLIDES: (test 1 code = 8011) LMP: (test code 12/28/2021 = 8021) SPECIMEN (NOTE) Satisfactory f or ADEQUACY: (test evaluation. code = 21890) Endocervical cells/transform ation zone component not identified. INTERPRETATION: NILM/NO EPITH. (test code = ABNORMALITY;SEE 20307) BELOW -------- - NEGATIVE FOR INTRAEPITHELIAL LESION OR MALIGNANCY ( NILM) -------- -------- -------- ---- PSYCHIATRIC RN Yuridia Moreno CT : (test code = (ASCP) 8101) LOCATION: (test (NOTE) Specimens pr ocessed and code = 61804) interpreted at [facility] [address], [place] [address], Phone: , CLIA: [id number] CPT: (test code (NOTE) 32158 UNLESS OTHERWISE = 8140) INDICATED, COMP UTER [...] ATED, ALL TESTING PER [facility]. [address] [place] [address] LABORATOR Y DIRECTOR: RAMAN GAMEZ M.D. CLIA NUMBER [id number] CAP ACCREDITATION N O. [id number] HCG, [id number] 06:16:53 Test Item Value Reference Range Interpretation Comments HCG, QUANTITATIVE (test <5 MIU/ML SEE BELOW EXPECTED code = 2506) VALUES FOR HCG GST.AGE UNITS RANGE GST. AGE UNITS RANGE3 WE EKS MIU/ML 6-71 10 WEEKS MIU/ML [phone] WEEKS MIU/ML [...] . . . . . . MIU/ML [id number] SUSSY FEMALES . . . . . . . . . . . . MIU /ML <=7 [id number] 05:20:25 Test Item Value Reference Range Interpretation Comments RPR RESULT (test code = NON-REACTIVE NON-REACTIVE 3501) RPR TITER (test code = 3500) NOT INDIC. TITER NOT INDIC. HIV 1/2 4TH GEN, RFLX [id number] 04:05:17 Test Item Value Reference Range Interpretation Comments HIV 1/2 4TH GEN, RFLX CONF (test NON-REACTIVE NON-REACTIVE code = 3514) HEPATITIS PANEL, [id number] 04:05:17 Test Item Value Reference Range Interpretation Comments HEPATITIS A IgM (test NON-REACTIVE NON-REACTIVE code = 23801) HEPATITIS B CORE IgM NON-REACTIVE NON-REACTIVE (test code = 4644) HEPATITIS B SURF AG NON-REACTIVE NON-REACTIVE (test code = 2739) HEPATITIS C ANTIBODY NON-REACTIVE NON-REACTIVE (test code = 4675) INTERPRETATION (NOTE) Hepatitis A HEPATITIS A: (test code sero logy shows no = 2552) evidence of acu te hepatitis A. INTERPRETATION (NOTE) Hepatitis B HEPATITIS B: (test code sero logy shows no = 67029) evidence of acu te hepatitis B and no indication of exposure to hepatitis B vir us in the previous law eight months. INTERPRETATION (NOTE) Hepatitis C HEPATITIS C: (test code sero logy shows no = 91320) evidence of exposure to hepatitisC viru s at this time. I t can take up to 12 months after exposure tothe hepatitis C vir us for antibodies to become detectab le in the blood in certain patient s. HCG, [id number] 00:00:00 Test Item Value Reference Range Interpretation Comments HCG, QUANTITATIVE (test code = <5 MIU/ML 2506) CHLAMYDIA, AMPLIFIED, [id number] 00:00:00 Test Item Value Reference Range Interpretation Comments CHLAMYDIA, NAAT (test code = 33133) NEGATIVE CHLAMYDIA, AMPLIFIED, [id number] 00:00:00 Test Item Value Reference Range Interpretation Comments CHLAMYDIA, NAAT (test code = 79696) NEGATIVE GC, AMPLIFIED, [id number] 00:00:00 Test Item Value Reference Range Interpretation Comments GONORRHEA, NAAT (test code = 49547) NEGATIVE GC, AMPLIFIED, [id number] 00:00:00 Test Item Value Reference Range Interpretation Comments GONORRHEA, NAAT (test code = 09608) NEGATIVE [id number] 00:00:00 Test Item Value Reference Range Interpretation Comments RPR RESULT (test code = NON-REACTIVE 3501) RPR TITER (test code = 3500) NOT INDIC. TITER [id number] 00:00:00 Test Item Value Reference Range Interpretation Comments RPR RESULT (test code = NON-REACTIVE 3501) RPR TITER (test code = 3500) NOT INDIC. TITER [id number] 00:00:00 Test Item Value Reference Range Interpretation Comments RPR RESULT (test code = NON-REACTIVE 3501) RPR TITER (test code = 3500) NOT INDIC. TITER VAGINAL PATHOGENS DNA [id number] 00:00:00 Test Item Value Reference Range Interpretation Comments KENNETH SPECIES (test code = 00318) NEGATIVE G. VAGINALIS (test code = 00913) NEGATIVE T. VAGINALIS (test code = 21839) NEGATIVE VAGINAL PATHOGENS DNA [id number] 00:00:00 Test Item Value Reference Range Interpretation Comments KENNETH SPECIES (test code = ) NEGATIVE G. VAGINALIS (test code = 47597) NEGATIVE T. VAGINALIS (test code = 20106) NEGATIVE PAP TEST, THINPREP, [id number] 00:00:00 Test Item Value Reference Range Interpretation Comments SOURCE: (test code = Cervical 8001) SLIDES: (test code = 1 8011) LMP: (test code = 8021) 12/28/2021 SPECIMEN ADEQUACY: (NOTE) (test code = 89173) INTERPRETATION: (test NILM/NO EPITH. code = 96172) ABNORMALITY;SEE BELOW PSYCHIATRIC RN: (test LEILA Buckley (ASCP) code = 8101) LOCATION: (test code = (NOTE) 71152) CPT: (test code = 8140) (NOTE) HIV AB/AG COMBO RFLX [id number] 00:00:00 Test Item Value Reference Range Interpretation Comments HIV 1/2 4TH GEN, RFLX CONF (test NON-REACTIVE code = 3514) PAP TEST, THINPREP, [id number] 00:00:00 Test Item Value Reference Range Interpretation Comments SOURCE: (test code = Cervical 8001) SLIDES: (test code = 1 8011) LMP: (test code = 8021) 12/28/2021 SPECIMEN ADEQUACY: (NOTE) (test code = 38614) INTERPRETATION: (test NILM/NO EPITH. code = 87342) ABNORMALITY;SEE BELOW PSYCHIATRIC RN: (test Yuridia Moreno CT (ASCP) code = 8101) LOCATION: (test code = (NOTE) 25338) CPT: (test code = 8140) (NOTE) HIV AB/AG COMBO RFLX [id number] 00:00:00 Test Item Value Reference Range Interpretation Comments HIV 1/2 4TH GEN, RFLX CONF (test NON-REACTIVE code = 3514) ACUTE HEPATITIS [id number] 00:00:00 Test Item Value Reference Range Interpretation Comments HEPATITIS A IgM (test code = NON-REACTIVE 97194) HEPATITIS B CORE IgM (test code NON-REACTIVE = 4644) HEPATITIS B SURF AG (test code = NON-REACTIVE 2739) HEPATITIS C ANTIBODY (test code NON-REACTIVE = 4675) INTERPRETATION HEPATITIS A: (NOTE) (test code = 2552) INTERPRETATION HEPATITIS B: (NOTE) (test code = 36710) INTERPRETATION HEPATITIS C: (NOTE) (test code = 12985) ACUTE HEPATITIS [id number] 00:00:00 Test Item Value Reference Range Interpretation Comments HEPATITIS A IgM (test code = NON-REACTIVE 90848) HEPATITIS B CORE IgM (test code NON-REACTIVE = 4644) HEPATITIS B SURF AG (test code = NON-REACTIVE 2739) HEPATITIS C ANTIBODY (test code NON-REACTIVE = 4675) INTERPRETATION HEPATITIS A: (NOTE) (test code = 2552) INTERPRETATION HEPATITIS B: (NOTE) (test code = 15458) INTERPRETATION HEPATITIS C: (NOTE) (test code = 05800) HCG, [id number] 00:00:00 Test Item Value Reference Range Interpretation Comments HCG, QUANTITATIVE (test code = <5 MIU/ML 2506) HCG, [id number] 00:00:00 Test Item Value Reference Range Interpretation Comments HCG, QUANTITATIVE (test code = <5 MIU/ML 2506) HCG, [id number] 00:00:00 Test Item Value Reference Range Interpretation Comments HCG, QUANTITATIVE (test code = <5 MIU/ML 2506) CHLAMYDIA, AMPLIFIED, [id number] 00:00:00 Test Item Value Reference Range Interpretation Comments CHLAMYDIA, NAAT (test code = 00644) NEGATIVE CHLAMYDIA, AMPLIFIED, [id number] 00:00:00 Test Item Value Reference Range Interpretation Comments CHLAMYDIA, NAAT (test code = 50510) NEGATIVE GC, AMPLIFIED, [id number] 00:00:00 Test Item Value Reference Range Interpretation Comments GONORRHEA, NAAT (test code = 70981) NEGATIVE GC, AMPLIFIED, [id number] 00:00:00 Test Item Value Reference Range Interpretation Comments GONORRHEA, NAAT (test code = 78120) NEGATIVE [id number] 00:00:00 Test Item Value Reference Range Interpretation Comments RPR RESULT (test code = NON-REACTIVE 3501) RPR TITER (test code = 3500) NOT INDIC. TITER [id number] 00:00:00 Test Item Value Reference Range Interpretation Comments RPR RESULT (test code = NON-REACTIVE 3501) RPR TITER (test code = 3500) NOT INDIC. TITER [id number] 00:00:00 Test Item Value Reference Range Interpretation Comments RPR RESULT (test code = NON-REACTIVE 3501) RPR TITER (test code = 3500) NOT INDIC. TITER VAGINAL PATHOGENS DNA [id number] 00:00:00 Test Item Value Reference Range Interpretation Comments KENNETH SPECIES (test code = ) NEGATIVE G. VAGINALIS (test code = 40983) NEGATIVE T. VAGINALIS (test code = 71040) NEGATIVE VAGINAL PATHOGENS DNA [id number] 00:00:00 Test Item Value Reference Range Interpretation Comments KENNETH SPECIES (test code = 27876) NEGATIVE G. VAGINALIS (test code = 05578) NEGATIVE T. VAGINALIS (test code = 09208) NEGATIVE PAP TEST, THINPREP, [id number] 00:00:00 Test Item Value Reference Range Interpretation Comments SOURCE: (test code = Cervical 8001) SLIDES: (test code = 1 8011) LMP: (test code = 8021) 12/28/2021 SPECIMEN ADEQUACY: (NOTE) (test code = 86817) INTERPRETATION: (test NILM/NO EPITH. code = 43623) ABNORMALITY;SEE BELOW PSYCHIATRIC RN: (test Yuridia Moreno CT (ASCP) code = 8101) LOCATION: (test code = (NOTE) 23168) CPT: (test code = 8140) (NOTE) HIV AB/AG COMBO RFLX [id number] 00:00:00 Test Item Value Reference Range Interpretation Comments HIV 1/2 4TH GEN, RFLX CONF (test NON-REACTIVE code = 3514) PAP TEST, THINPREP, [id number] 00:00:00 Test Item Value Reference Range Interpretation Comments SOURCE: (test code = Cervical 8001) SLIDES: (test code = 1 8011) LMP: (test code = 8021) 12/28/2021 SPECIMEN ADEQUACY: (NOTE) (test code = 53909) INTERPRETATION: (test NILM/NO EPITH. code = 30817) ABNORMALITY;SEE BELOW PSYCHIATRIC RN: (test Yuridia Moreno CT (ASCP) code = 8101) LOCATION: (test code = (NOTE) 40499) CPT: (test code = 8140) (NOTE) HIV AB/AG COMBO RFLX [id number] 00:00:00 Test Item Value Reference Range Interpretation Comments HIV 1/2 4TH GEN, RFLX CONF (test NON-REACTIVE code = 3514) ACUTE HEPATITIS [id number] 00:00:00 Test Item Value Reference Range Interpretation Comments HEPATITIS A IgM (test code = NON-REACTIVE 10000) HEPATITIS B CORE IgM (test code NON-REACTIVE = 4644) HEPATITIS B SURF AG (test code = NON-REACTIVE 2739) HEPATITIS C ANTIBODY (test code NON-REACTIVE = 4675) INTERPRETATION HEPATITIS A: (NOTE) (test code = 2552) INTERPRETATION HEPATITIS B: (NOTE) (test code = 55442) INTERPRETATION HEPATITIS C: (NOTE) (test code = 53627) ACUTE HEPATITIS [id number] 00:00:00 Test Item Value Reference Range Interpretation Comments HEPATITIS A IgM (test code = NON-REACTIVE 79835) HEPATITIS B CORE IgM (test code NON-REACTIVE = 4644) HEPATITIS B SURF AG (test code = NON-REACTIVE 2739) HEPATITIS C ANTIBODY (test code NON-REACTIVE = 4675) INTERPRETATION HEPATITIS A: (NOTE) (test code = 2552) INTERPRETATION HEPATITIS B: (NOTE) (test code = 38812) INTERPRETATION HEPATITIS C: (NOTE) (test code = 00382) HCG, [id number] 00:00:00 Test Item Value Reference Range Interpretation Comments HCG, QUANTITATIVE (test code = <5 MIU/ML 2506) HCG, [id number] 00:00:00 Test Item Value Reference Range Interpretation Comments HCG, QUANTITATIVE (test code = <5 MIU/ML 2506) HEMOGLOBIN [id number] 00:00:00 Test Item Value Reference Range Interpretation Comments HEMOGLOBIN A1c (test code = 03044) 6.6 % HEMOGLOBIN [id number] 00:00:00 Test Item Value Reference Range Interpretation Comments HEMOGLOBIN A1c (test code = 80215) 6.6 % HEMOGLOBIN [id number] 00:00:00 Test Item Value Reference Range Interpretation Comments HEMOGLOBIN A1c (test code = 25267) 6.6 % [id number] 00:00:00 Test Item Value Reference Range Interpretation Comments TSH, THIRD GENERATION (test code 1.720 UIU/ML = 2821) [id number] 00:00:00 Test Item Value Reference Range Interpretation Comments TSH, THIRD GENERATION (test code 1.720 UIU/ML = 2821) [id number] 00:00:00 Test Item Value Reference Range Interpretation Comments TSH, THIRD GENERATION (test code 1.720 UIU/ML = 2821) VITAMIN D, 25 [id number] 00:00:00 Test Item Value Reference Range Interpretation Comments VITAMIN D, 25 OH (test code = 4958) 22 NG/ML VITAMIN D, 25 [id number] 00:00:00 Test Item Value Reference Range Interpretation Comments VITAMIN D, 25 OH (test code = 4958) 22 NG/ML COMPREHENSIVE METABOLIC [id number] 00:00:00 Test Item Value Reference Range Interpretation Comments GLUCOSE (test code = 2217) 112 MG/DL BUN (test code = 2208) 9 MG/DL CREATININE (test code = 2214) 0.70 MG/DL eGFR AMER. (test code 126 ML/MIN/1.73 = 03369) eGFR NON- AMER. (test 108 ML/MIN/1.73 code = 78280) CALC BUN/CREAT (test code = 13 RATIO [...] code = 2219) 17 U/L COMPREHENSIVE METABOLIC [id number] 00:00:00 Test Item Value Reference Range Interpretation Comments GLUCOSE (test code = 2217) 112 MG/DL BUN (test code = 2208) 9 MG/DL CREATININE (test code = 2214) 0.70 MG/DL eGFR AMER. (test code 126 ML/MIN/1.73 = 38111) eGFR NON- AMER. (test 108 ML/MIN/1.73 code = 31456) CALC BUN/CREAT (test code = 13 RATIO [...] (test code = 2219) 17 U/L LIPID [id number] 00:00:00 Test Item Value Reference Range Interpretation Comments CHOLESTEROL (test code = 2210) 133 MG/DL TRIGLYCERIDES (test code = 2232) 61 MG/DL HDL CHOLESTEROL (test code = 2220) 52 MG/DL CALC LDL CHOL (test code = 2237) 67 MG/DL RISK RATIO LDL/HDL (test code = 1.29 RATIO 2238) LIPID [id number] 00:00:00 Test Item Value Reference Range Interpretation Comments CHOLESTEROL (test code = 2210) 133 MG/DL TRIGLYCERIDES (test code = 2232) 61 MG/DL HDL CHOLESTEROL (test code = 2220) 52 MG/DL CALC LDL CHOL (test code = 2237) 67 MG/DL RISK RATIO LDL/HDL (test code = 1.29 RATIO 2238) CBC W/AUTO [id number] 00:00:00 Test Item Value Reference Range Interpretation [...] code = 1015) 441 K/UL CBC W/AUTO [id number] 00:00:00 Test Item Value Reference Range Interpretation [...] code = 1015) 441 K/UL CBC W/AUTO [id number] 00:00:00 Test Item Value Reference Range Interpretation [...] (test code = 1015) 441 K/UL HEMOGLOBIN [id number] 00:00:00 Test Item Value Reference Range Interpretation Comments HEMOGLOBIN A1c (test code = 95090) 6.6 % HEMOGLOBIN [id number] 00:00:00 Test Item Value Reference Range Interpretation Comments HEMOGLOBIN A1c (test code = 08252) 6.6 % HEMOGLOBIN [id number] 00:00:00 Test Item Value Reference Range Interpretation Comments HEMOGLOBIN A1c (test code = 19763) 6.6 % [id number] 00:00:00 Test Item Value Reference Range Interpretation Comments TSH, THIRD GENERATION (test code 1.720 UIU/ML = 2821) [id number] 00:00:00 Test Item Value Reference Range Interpretation Comments TSH, THIRD GENERATION (test code 1.720 UIU/ML = 2821) [id number] 00:00:00 Test Item Value Reference Range Interpretation Comments TSH, THIRD GENERATION (test code 1.720 UIU/ML = 2821) VITAMIN D, 25 [id number] 00:00:00 Test Item Value Reference Range Interpretation Comments VITAMIN D, 25 OH (test code = 4958) 22 NG/ML VITAMIN D, 25 [id number] 00:00:00 Test Item Value Reference Range Interpretation Comments VITAMIN D, 25 OH (test code = 4958) 22 NG/ML COMPREHENSIVE METABOLIC [id number] 00:00:00 Test Item Value Reference Range Interpretation Comments GLUCOSE (test code = 2217) 112 MG/DL BUN (test code = 2208) 9 MG/DL CREATININE (test code = 2214) 0.70 MG/DL eGFR AMER. (test code 126 ML/MIN/1.73 = 32676) eGFR NON- AMER. (test 108 ML/MIN/1.73 code = 62180) CALC BUN/CREAT (test code = 13 RATIO [...] code = 2219) 17 U/L COMPREHENSIVE METABOLIC [id number] 00:00:00 Test Item Value Reference Range Interpretation Comments GLUCOSE (test code = 2217) 112 MG/DL BUN (test code = 2208) 9 MG/DL CREATININE (test code = 2214) 0.70 MG/DL eGFR AMER. (test code 126 ML/MIN/1.73 = 20537) eGFR NON- AMER. (test 108 ML/MIN/1.73 code = 76307) CALC BUN/CREAT (test code = 13 RATIO [...] (test code = 2219) 17 U/L LIPID [id number] 00:00:00 Test Item Value Reference Range Interpretation Comments CHOLESTEROL (test code = 2210) 133 MG/DL TRIGLYCERIDES (test code = 2232) 61 MG/DL HDL CHOLESTEROL (test code = 2220) 52 MG/DL CALC LDL CHOL (test code = 2237) 67 MG/DL RISK RATIO LDL/HDL (test code = 1.29 RATIO 2238) LIPID [id number] 00:00:00 Test Item Value Reference Range Interpretation Comments CHOLESTEROL (test code = 2210) 133 MG/DL TRIGLYCERIDES (test code = 2232) 61 MG/DL HDL CHOLESTEROL (test code = 2220) 52 MG/DL CALC LDL CHOL (test code = 2237) 67 MG/DL RISK RATIO LDL/HDL (test code = 1.29 RATIO 2238) CBC W/AUTO [id number] 00:00:00 Test Item Value Reference Range Interpretation [...] code = 1015) 441 K/UL CBC W/AUTO [id number] 00:00:00 Test Item Value Reference Range Interpretation [...] code = 1015) 441 K/UL CBC W/AUTO [id number] 00:00:00 Test Item Value Reference Range Interpretation [...] Comments SARS-CoV-2 INTERPRETATION (test NEGATIVE code = 79446) SOURCE (test code = 74337) NOT SPECIFIED SARS-CoV-2 (COVID-19) by RT-PCR (HIGH RISK)2020-03-12 00:00:00 Test Item Value Reference Range Interpretation Comments SARS-CoV-2 INTERPRETATION (test NEGATIVE code = 63121) SOURCE (test code = 26772) NOT SPECIFIED SARS-CoV-2 (COVID-19) by RT-PCR (HIGH RISK)2020-03-12 00:00:00 Test Item Value Reference Range Interpretation Comments SARS-CoV-2 INTERPRETATION (test NEGATIVE code = 68329) SOURCE (test code = 35771) NOT SPECIFIED SARS-CoV-2 (COVID-19) by RT-PCR (HIGH RISK)2020-03-12 00:00:00 Test Item Value Reference Range Interpretation Comments SARS-CoV-2 INTERPRETATION (test NEGATIVE code = 82011) SOURCE (test code = 44251) NOT SPECIFIED HEMOGLOBIN [id number] 00:00:00 Test Item Value Reference Range Interpretation Comments HEMOGLOBIN A1c (test code = 91024) 6.6 % HEMOGLOBIN [id number] 00:00:00 Test Item Value Reference Range Interpretation Comments HEMOGLOBIN A1c (test code = 90460) 6.6 % HEMOGLOBIN [id number] 00:00:00 Test Item Value Reference Range Interpretation Comments HEMOGLOBIN A1c (test code = 20029) 6.6 % COMPREHENSIVE METABOLIC [id number] 00:00:00 Test Item Value Reference Range Interpretation Comments GLUCOSE (test code = 2217) 120 MG/DL BUN (test code = 2208) 9 MG/DL CREATININE (test code = 2214) 0.74 MG/DL eGFR AMER. (test code 118 ML/MIN/1.73 = 10137) eGFR NON- AMER. (test 102 ML/MIN/1.73 code = 53882) CALC BUN/CREAT (test code = 12 RATIO [...] code = 2219) 21 U/L COMPREHENSIVE METABOLIC [id number] 00:00:00 Test Item Value Reference Range Interpretation Comments GLUCOSE (test code = 2217) 120 MG/DL BUN (test code = 2208) 9 MG/DL CREATININE (test code = 2214) 0.74 MG/DL eGFR AMER. (test code 118 ML/MIN/1.73 = 77210) eGFR NON- AMER. (test 102 ML/MIN/1.73 code = 55071) CALC BUN/CREAT (test code = 12 RATIO [...] CALC GLOBULIN (test code = 3.3 G/DL 224) CALC A/G RATIO (test code = 1.3 RATIO 2234) BILIRUBIN, TOTAL (test code = 0.2 MG/DL 2206) ALKALINE PHOSPHATASE (test 86 U/L code = 2204) AST (test code = 2218) 21 U/L ALT (test code = 2219) 21 U/L LIPID [id number] 00:00:00 Test Item Value Reference Range Interpretation Comments CHOLESTEROL (test code = 2210) 125 MG/DL TRIGLYCERIDES (test code = 2232) 59 MG/DL HDL CHOLESTEROL (test code = 2220) 55 MG/DL CALC LDL CHOL (test code = 2237) 56 MG/DL RISK RATIO LDL/HDL (test code = 1.02 RATIO 2238) LIPID [id number] 00:00:00 Test Item Value Reference Range Interpretation Comments CHOLESTEROL (test code = 2210) 125 MG/DL TRIGLYCERIDES (test code = 2232) 59 MG/DL HDL CHOLESTEROL (test code = 2220) 55 MG/DL CALC LDL CHOL (test code = 2237) 56 MG/DL RISK RATIO LDL/HDL (test code = 1.02 RATIO 2238) HEMOGLOBIN [id number] 00:00:00 Test Item Value Reference Range Interpretation Comments HEMOGLOBIN A1c (test code = 35887) 6.6 % HEMOGLOBIN [id number] 00:00:00 Test Item Value Reference Range Interpretation Comments HEMOGLOBIN A1c (test code = 42138) 6.6 % HEMOGLOBIN [id number] 00:00:00 Test Item Value Reference Range Interpretation Comments HEMOGLOBIN A1c (test code = 94763) 6.6 % COMPREHENSIVE METABOLIC [id number] 00:00:00 Test Item Value Reference Range Interpretation Comments GLUCOSE (test code = 2217) 120 MG/DL BUN (test code = 2208) 9 MG/DL CREATININE (test code = 2214) 0.74 MG/DL eGFR AMER. (test code 118 ML/MIN/1.73 = 12786) eGFR NON- AMER. (test 102 ML/MIN/1.73 code = 03968) CALC BUN/CREAT (test code = 12 RATIO [...] CALC GLOBULIN (test code = 3.3 G/DL 0) CALC A/G RATIO (test code = 1.3 RATIO 2234) BILIRUBIN, TOTAL (test code = 0.2 MG/DL 2206) ALKALINE PHOSPHATASE (test 86 U/L code = 2204) AST (test code = 2218) 21 U/L ALT (test code = 2219) 21 U/L COMPREHENSIVE METABOLIC [id number] 00:00:00 Test Item Value Reference Range Interpretation Comments GLUCOSE (test code = 2217) 120 MG/DL BUN (test code = 2208) 9 MG/DL CREATININE (test code = 2214) 0.74 MG/DL eGFR AMER. (test code 118 ML/MIN/1.73 = 63152) eGFR NON- AMER. (test 102 ML/MIN/1.73 code = 60028) CALC BUN/CREAT (test code = 12 RATIO [...] A/G RATIO (test code = 1.3 RATIO 4) BILIRUBIN, TOTAL (test code = 0.2 MG/DL 2206) ALKALINE PHOSPHATASE (test 86 U/L code = 2204) AST (test code = 2218) 21 U/L ALT (test code = 2219) 21 U/L LIPID [id number] 00:00:00 Test Item Value Reference Range Interpretation Comments CHOLESTEROL (test code = 2210) 125 MG/DL TRIGLYCERIDES (test code = 2232) 59 MG/DL HDL CHOLESTEROL (test code = 2220) 55 MG/DL CALC LDL CHOL (test code = 2237) 56 MG/DL RISK RATIO LDL/HDL (test code = 1.02 RATIO 2238) LIPID [id number] 00:00:00 Test Item Value Reference Range Interpretation Comments CHOLESTEROL (test code = 2210) 125 MG/DL TRIGLYCERIDES (test code = 2232) 59 MG/DL HDL CHOLESTEROL (test code = 2220) 55 MG/DL CALC LDL CHOL (test code = 2237) 56 MG/DL RISK RATIO LDL/HDL (test code = 1.02 RATIO 2238) PAP TEST, THINPREP, [id number] 00:00:00 Test Item Value Reference Range Interpretation Comments SOURCE: (test code = Cervical/Endocervical 8001) SLIDES: (test code = 1 8011) LMP: (test code = 8021) 10/26/2018 SPECIMEN ADEQUACY: (test (NOTE) code = 66613) INTERPRETATION: (test NILM/NO EPITH. code = 56904) ABNORMALITY;SEE BELOW PSYCHIATRIC RN: (test Malek code = 8101) LEILA Angeles(ASCP) IAC LOCATION: (test code = (NOTE) 29183) CPT: (test code = 8140) (NOTE) PAP TEST, THINPREP, [id number] 00:00:00 Test Item Value Reference Range Interpretation Comments SOURCE: (test code = Cervical/Endocervical 8001) SLIDES: (test code = 1 8011) LMP: (test code = 8021) 10/26/2018 SPECIMEN ADEQUACY: (test (NOTE) code = 24894) INTERPRETATION: (test NILM/NO EPITH. code = 97676) ABNORMALITY;SEE BELOW PSYCHIATRIC RN: (test Malek code = 8101) LEILA Angeles(ASCP) IAC LOCATION: (test code = (NOTE) 93878) CPT: (test code = 8140) (NOTE) GC AND CHLAMYDIA, AMPLIFIED, [id number] 00:00:00 Test Item Value Reference Range Interpretation Comments GONORRHEA, TMA (test code = 49006) NEGATIVE CHLAMYDIA, TMA (test code = 93161) NEGATIVE GC AND CHLAMYDIA, AMPLIFIED, [id number] 00:00:00 Test Item Value Reference Range Interpretation Comments GONORRHEA, TMA (test code = 26752) NEGATIVE CHLAMYDIA, TMA (test code = 78712) NEGATIVE PAP TEST, THINPREP, [id number] 00:00:00 Test Item Value Reference Range Interpretation Comments SOURCE: (test code = Cervical/Endocervical 8001) SLIDES: (test code = 1 8011) LMP: (test code = 8021) 10/26/2018 SPECIMEN ADEQUACY: (test (NOTE) code = 84642) INTERPRETATION: (test NILM/NO EPITH. code = 36349) ABNORMALITY;SEE BELOW PSYCHIATRIC RN: (test Malek code = 8101) LEILA Angeles(ASCP) IAC LOCATION: (test code = (NOTE) 23060) CPT: (test code = 8140) (NOTE) PAP TEST, THINPREP, [id number] 00:00:00 Test Item Value Reference Range Interpretation Comments SOURCE: (test code = Cervical/Endocervical 8001) SLIDES: (test code = 1 8011) LMP: (test code = 8021) 10/26/2018 SPECIMEN ADEQUACY: (test (NOTE) code = 73258) INTERPRETATION: (test NILM/NO EPITH. code = 67668) ABNORMALITY;SEE BELOW PSYCHIATRIC RN: (test Malek code = 8101) LEILA Angeles(ASCP) IAC LOCATION: (test code = (NOTE) 92652) CPT: (test code = 8140) (NOTE) GC AND CHLAMYDIA, AMPLIFIED, [id number] 00:00:00 Test Item Value Reference Range Interpretation Comments GONORRHEA, TMA (test code = 06122) NEGATIVE CHLAMYDIA, TMA (test code = 74922) NEGATIVE GC AND CHLAMYDIA, AMPLIFIED, [id number] 00:00:00 Test Item Value Reference Range Interpretation Comments GONORRHEA, TMA (test code = 39483) NEGATIVE CHLAMYDIA, TMA (test code = 72109) NEGATIVE HIV AB/AG COMBO RFLX [id number] 00:00:00 Test Item Value Reference Range Interpretation Comments HIV 1/2 4TH GEN, RFLX CONF (test NON-REACTIVE code = 3514) VAGINAL PATHOGENS DNA [id number] 00:00:00 Test Item Value Reference Range Interpretation Comments KENNETH SPECIES (test code = 62146) NEGATIVE G. VAGINALIS (test code = 25616) NEGATIVE T. VAGINALIS (test code = 80621) NEGATIVE VAGINAL PATHOGENS DNA [id number] 00:00:00 Test Item Value Reference Range Interpretation Comments KENNETH SPECIES (test code = 05744) NEGATIVE G. VAGINALIS (test code = 52179) NEGATIVE T. VAGINALIS (test code = 23248) NEGATIVE HIV AB/AG COMBO RFLX [id number] 00:00:00 Test Item Value Reference Range Interpretation Comments HIV 1/2 4TH GEN, RFLX CONF (test NON-REACTIVE code = 3514) HPV HIGH RISK WITH GENOTYPE, [id number] 00:00:00 Test Item Value Reference Range Interpretation Comments HPV HIGH RISK INTERP (test code = NEGATIVE 25400) HPV 16 (test code = 21743) NEGATIVE HPV 18 (test code = 23072) NEGATIVE HPV, HR, OTHER GENOTYPES (test code NEGATIVE = 87240) HPV HIGH RISK WITH GENOTYPE, [id number] 00:00:00 Test Item Value Reference Range Interpretation Comments HPV HIGH RISK INTERP (test code = NEGATIVE 84260) HPV 16 (test code = 29083) NEGATIVE HPV 18 (test code = 65016) NEGATIVE HPV, HR, OTHER GENOTYPES (test code NEGATIVE = 40797) ACUTE HEPATITIS [id number] 00:00:00 Test Item Value Reference Range Interpretation Comments HEPATITIS A IgM (test code = NON-REACTIVE 53354) HEPATITIS B CORE IgM (test code NON-REACTIVE = 4644) HEPATITIS B SURF AG (test code = NON-REACTIVE 2739) HEPATITIS C ANTIBODY (test code NON-REACTIVE = 4675) HCV INDEX (test code = 89390) 0.13 INTERPRETATION HEPATITIS A: (NOTE) (test code = 2552) INTERPRETATION HEPATITIS B: (NOTE) (test code = 98161) INTERPRETATION HEPATITIS C: (NOTE) (test code = 80866) ACUTE HEPATITIS [id number] 00:00:00 Test Item Value Reference Range Interpretation Comments HEPATITIS A IgM (test code = NON-REACTIVE 67495) HEPATITIS B CORE IgM (test code NON-REACTIVE = 4644) HEPATITIS B SURF AG (test code = NON-REACTIVE 2739) HEPATITIS C ANTIBODY (test code NON-REACTIVE = 4675) HCV INDEX (test code = 30446) 0.13 INTERPRETATION HEPATITIS A: (NOTE) (test code = 2552) INTERPRETATION HEPATITIS B: (NOTE) (test code = 46410) INTERPRETATION HEPATITIS C: (NOTE) (test code = 12529) HIV AB/AG COMBO RFLX [id number] 00:00:00 Test Item Value Reference Range Interpretation Comments HIV 1/2 4TH GEN, RFLX CONF (test NON-REACTIVE code = 3514) VAGINAL PATHOGENS DNA [id number] 00:00:00 Test Item Value Reference Range Interpretation Comments KENNETH SPECIES (test code = 64041) NEGATIVE G. VAGINALIS (test code = 30484) NEGATIVE T. VAGINALIS (test code = 41817) NEGATIVE VAGINAL PATHOGENS DNA [id number] 00:00:00 Test Item Value Reference Range Interpretation Comments KENNETH SPECIES (test code = 53475) NEGATIVE G. VAGINALIS (test code = 69436) NEGATIVE T. VAGINALIS (test code = 26366) NEGATIVE HIV AB/AG COMBO RFLX [id number] 00:00:00 Test Item Value Reference Range Interpretation Comments HIV 1/2 4TH GEN, RFLX CONF (test NON-REACTIVE code = 3514) HPV HIGH RISK WITH GENOTYPE, [id number] 00:00:00 Test Item Value Reference Range Interpretation Comments HPV HIGH RISK INTERP (test code = NEGATIVE 01182) HPV 16 (test code = 71811) NEGATIVE HPV 18 (test code = 29818) NEGATIVE HPV, HR, OTHER GENOTYPES (test code NEGATIVE = 76830) HPV HIGH RISK WITH GENOTYPE, [id number] 00:00:00 Test Item Value Reference Range Interpretation Comments HPV HIGH RISK INTERP (test code = NEGATIVE 85076) HPV 16 (test code = 39688) NEGATIVE HPV 18 (test code = 27002) NEGATIVE HPV, HR, OTHER GENOTYPES (test code NEGATIVE = 29767) ACUTE HEPATITIS [id number] 00:00:00 Test Item Value Reference Range Interpretation Comments HEPATITIS A IgM (test code = NON-REACTIVE 91439) HEPATITIS B CORE IgM (test code NON-REACTIVE = 4644) HEPATITIS B SURF AG (test code = NON-REACTIVE 2739) HEPATITIS C ANTIBODY (test code NON-REACTIVE = 4675) HCV INDEX (test code = 93356) 0.13 INTERPRETATION HEPATITIS A: (NOTE) (test code = 2552) INTERPRETATION HEPATITIS B: (NOTE) (test code = 86221) INTERPRETATION HEPATITIS C: (NOTE) (test code = 27938) ACUTE HEPATITIS [id number] 00:00:00 Test Item Value Reference Range Interpretation Comments HEPATITIS A IgM (test code = NON-REACTIVE 50476) HEPATITIS B CORE IgM (test code NON-REACTIVE = 4644) HEPATITIS B SURF AG (test code = NON-REACTIVE 2739) HEPATITIS C ANTIBODY (test code NON-REACTIVE = 4675) HCV INDEX (test code = 86814) 0.13 INTERPRETATION HEPATITIS A: (NOTE) (test code = 2552) INTERPRETATION HEPATITIS B: (NOTE) (test code = 80634) INTERPRETATION HEPATITIS C: (NOTE) (test code = 95994)"
--- NOTE | 2023-03-09 16:24 | RAD REPORT ---
EXAM DESCRIPTION: CT - C Spine Wo Con - 03/09/2023 4:16 pm CLINICAL HISTORY: PAIN COMPARISON: C Spine Wo Con dated 02/06/2018 FINDINGS: Disc thinning is present lower cervical levels with small endplate osteophytes compatible with mild spondylosis. Vertebral body heights are maintained. No evidence of acute cervical spine fracture or subluxation. Prevertebral soft tissues are normal in thickness. IMPRESSION: Negative for acute cervical spine abnormality. Mild lower cervical degenerative spondylosis. All CT scans are performed using dose optimization technique as appropriate and may include automated exposure control or mA/KV adjustment according to patient size.
[2023-03-09] MEDS ORDERED: HYDROCODONE/APAP 5/325 MG TAB ONE (16:31)
[2023-03-09] MEDS ORDERED: GABAPENTIN 400 MG CAP ONE (16:31)
--- NOTE | 2023-03-09 16:52 | EDPHYS ---
Physician Documentation [facility] Name: Megan Ferro Age: 43 yrs Sex: Female : 1980 Arrival Date: 03/09/2023 Time: 15:48 Bed 12 Private MD: YOSSI Physician Jimi Lee Historical: - Allergies: 03/09 15:55 No Known Drug Allergies; hb - Home Meds: 15:55 Metformin Oral [Active]; hydrochlorothiazide 50 mg Oral tab 1 tab once daily [Active]; hb triamterene-hydrochlorothiazid 37.5-25 mg Oral cap 1 cap once daily [Active]; - PMHx: 15:55 Arthritis; diabetes mellitus; Hypertension; hb - PSHx: 15:55 section; Cholecystectomy; hb - Immunization history:: Adult Immunizations up to date. - Social history:: Smoking status: Patient denies any tobacco usage or history of. Vital Signs: 15:54 BP 168 / 104; Pulse 68; Resp 16; Temp 98.1; Pulse Ox 100% on R/A; Weight 149.69 kg; hb Height 5 ft. 7 in. ; Pain 8/10; 15:54 Body Mass Index 51.68 (149.69 kg, 170.18 cm) hb 15:54 Pain Scale: Adult hb MDM: 16:02 [facility] 03/09 16:04 Order name: CT C Spine; Complete Time: 16:24 snw Administered Medications: 16:30 Drug: HYDROcodone-acetaminophen PO 5 mg-325 mg 1 tabs Route: PO; hb 17:16 Follow up: Response: No adverse reaction jl7 16:30 Drug: Neurontin PO 600 mg Route: PO; hb 17:16 Follow up: Response: No adverse reaction jl7 Disposition Summary: 03/09/23 16:51 Discharge Ordered Location: Home snw Condition: Stable snw Diagnosis - Spondylolysis, cervical region snw - Pain in right shoulder snw - Essential (primary) hypertension snw Followup: snw - With: Emergency Department - When: As needed - Reason: Worsening of condition Followup: snw - With: Private Physician - When: 2 - 3 days - Reason: Recheck today's complaints, Continuance of care, Re-evaluation by your physician Discharge Instructions: - Discharge Summary Sheet snw - Joint Pain snw - Cervical Radiculopathy snw - Hypertension, Adult snw - Shoulder Range of Motion Exercises snw - Managing Your Hypertension snw - Spondylolysis snw Forms: - Medication Reconciliation Form snw - Thank You Letter snw - Antibiotic Education snw - Prescription Opioid Use snw Prescriptions: - Neurontin 300 mg Oral Capsule - take 2 capsule by ORAL route At bedtime; 20 capsule; Refills: 0, Product snw Selection Permitted - orphenadrine citrate 100 mg Oral Tablet Sustained Release - take 1 tablet by ORAL route 2 times per day As needed; 20 tablet; Refills: 0, snw Product Selection Permitted Signatures: Dispatcher [employer] EDJimi Presley MD MD cha Waters, Shelly, FLEXOGRAPHIC PRINTING PRESS OPERATOR-C FLEXOGRAPHIC PRINTING PRESS OPERATOR-Csnw Minerva Hanna, RN RN Christin Marion RN jl7
--- NOTE | 2023-03-09 16:52 | ER ---
Nurse's Notes [facility] Name: Megan Ferro Age: 43 yrs Sex: Female : 1980 Arrival Date: 03/09/2023 Time: 15:48 Bed 12 Private MD: Diagnosis: Spondylolysis, cervical region;Pain in right shoulder;Essential (primary) hypertension Presentation: 03/09 15:54 Chief complaint: Right shoulder pain that radiates to right arm and numbness of right hb hand x 2-3 weeks. Coronavirus screen: At this time, the client does not indicate any symptoms associated with coronavirus-19. Ebola Screen: No symptoms or risks identified at this time. Initial Sepsis Screen: Does the patient meet any 2 criteria? No. Patient's initial sepsis screen is negative. Does the patient have a suspected source of infection? No. Patient's initial sepsis screen is negative. Risk Assessment: Do you want to hurt yourself or someone else? Patient reports no desire to harm self or others. Onset of symptoms was February 19, 2023. 15:54 Method Of Arrival: Ambulatory hb 15:54 Acuity: RASHEL 4 hb Historical: - Allergies: 15:55 No Known Drug Allergies; hb - Home Meds: 15:55 Metformin Oral [Active]; hydrochlorothiazide 50 mg Oral tab 1 tab once daily [Active]; hb triamterene-hydrochlorothiazid 37.5-25 mg Oral cap 1 cap once daily [Active]; - PMHx: 15:55 Arthritis; diabetes mellitus; Hypertension; hb - PSHx: 15:55 section; Cholecystectomy; hb - Immunization history:: Adult Immunizations up to date. - Social history:: Smoking status: Patient denies any tobacco usage or history of. Vital Signs: 15:54 BP 168 / 104; Pulse 68; Resp 16; Temp 98.1; Pulse Ox 100% on R/A; Weight 149.69 kg; hb Height 5 ft. 7 in. ; Pain 8/10; 15:54 Body Mass Index 51.68 (149.69 kg, 170.18 cm) hb 15:54 Pain Scale: Adult hb ED Course: 15:49 Patient arrived in ED. rg4 15:50 Sindy Webster FNP-C is PSYCHIATRICP. snw 15:50 Jordan Mcdonald MD is Attending Physician. snw 15:55 Triage completed. hb 15:57 Arm band placed on. hb 16:02 Attending Physician role handed off by Jordan Mcdonald MD [facility] 16:02 Jimi Lee MD is Attending Physician. [facility] 16:17 CT C Spine In Process Unspecified. EDMS 17:15 Christin Tran, RN is Primary Nurse. jl7 17:16 Patient has correct armband on for positive identification. jl7 17:16 No provider procedures requiring assistance completed. Patient did not have IV access jl7 during this emergency room visit. Administered Medications: 16:30 Drug: HYDROcodone-acetaminophen PO 5 mg-325 mg 1 tabs Route: PO; hb 17:16 Follow up: Response: No adverse reaction jl7 16:30 Drug: Neurontin PO 600 mg Route: PO; hb 17:16 Follow up: Response: No adverse reaction jl7 Medication: 17:16 VIS not applicable for this client. jl7 Outcome: 16:51 Discharge ordered by MD. snw 17:16 Discharged to home ambulatory. jl7 17:16 Condition: stable 17:16 Discharge instructions given to patient, Instructed on discharge instructions, follow up and referral plans. medication usage, Demonstrated understanding of instructions, follow-up care, medications, Prescriptions given X 2. 17:16 Patient left the ED. jl7 Signatures: Dispatcher [employer] EDID Jimi Lee MD MD cha Waters, Shelly, VP RHEUMATOLOGY-C VP RHEUMATOLOGY-Csnw Minerva Hanna, RN RN Lashon Wilkerson rg4 Christin Tran, RN RN jl7 Corrections: (The following items were deleted from the chart) 15:57 15:54 BP 168 / 104; Pulse 68bpm; Resp 16bpm; Pulse Ox 100% RA; Temp 98.1F; hb hb
[2023-03-09 17:21] VITALS: BP 168/104; TEMP 98.1; O2SAT 100
== END 2023-03-09 17:16 | disposition home or self-care (01) ==
LOC: ER 15:48
DX: M43.02 Spondylolysis, cervical region (principal); I10 Essential (primary) hypertension
CPT/HCPCS: 72125

== ENCOUNTER 2025-08-19 07:08 | Emergency (ER) | payer OTHER ==
[2025-08-19] MEDS ORDERED: MORPHINE 2 MG/ML SYR ONE (07:52)
[2025-08-19] MEDS ORDERED: FAMOTIDINE 20 MG/2 ML VIAL IV ONE (07:53)
[2025-08-19] MEDS ORDERED: NA CHLORIDE 0.9% 1,000 ML ONE (07:53)
[2025-08-19] MEDS ORDERED: ONDANSETRON 4 MG/2 ML VIAL ONE (07:53)
[2025-08-19 08:09] LABS: Sqamous Epithelial <5 /HPF (None Seen); Urine Culture Reflex Order NOT NEEDED; Urine Microscopic Reflex YN ORDER UMIC
[2025-08-19 08:15] LABS: ALT/SGPT 43.0 U/L (13-56); AST/SGOT 32.0 U/L (15-37); Albumin 3.3 g/dL (3.4-5.0); Albumin/Globulin Ratio 0.7 (1.1-1.8); Alkaline Phosphatase 99.0 U/L (45-117); Anion Gap 9.6 mEq/L (5.0-15.0); BUN Blood Urea Nitrogen 7.0 mg/dL (7-18); Globulin 4.7 g/dL (2.3-3.5); Glucose Level 194.0 mg/dL (74-106); Lipase 34.0 U/L (13-75); Potassium 3.6 mEq/L (3.5-5.1)
[2025-08-19 08:22] LABS: Absolute Lymphocytes (CBC) 1.8 K/uL (0.7-4.9); Hematocrit 37.7 % (36.0-45.0); Hemoglobin 12.5 g/dL (12.0-15.0); MCH 31.3 pg (27.0-35.0); MCHC 33.2 g/dL (32.0-36.0); MCV 94.2 fL (80-100); MPV 8.8 fL (7.6-11.3); Nucleated RBC Absolute Count 0.0 (0-0); Nucleated Red Blood Cells % 0.0 % (0-0); RBC Red Blood Cell Count 4.00 M/uL (3.86-4.86); White Blood Count 9.30 thou/uL (4.3-10.9)
--- NOTE | 2025-08-19 08:57 | RAD REPORT ---
EXAMINATION: CT ABDOMEN AND PELVIS WITH CONTRAST CLINICAL INDICATION: ABD PAIN TECHNIQUE: CT abdomen and pelvis was performed, after the administration of IV contrast, as per [facility] protocol. Axial, sagittal and coronal reconstructions were obtained. One or more of the following dose reduction techniques were used: Automated exposure control, adjustment of the mA and k V according to patient size, and iterative reconstruction. Unless otherwise specified, incidental findings do not require dedicated imaging follow-up. COMPARISON: 05/20/2023 FINDINGS: LOWER CHEST: The visualized lung bases are clear. Small hiatal hernia. LIVER: Prominent fatty liver is noted. Hypodense mass in the right lobe of the liver measuring 6 cm s imilar to prior study most compatible with hemangioma. No pathologic biliary tree dilatation. Cholecystectomy clips. SPLEEN: Normal size. No focal lesion. PANCREAS: No mass, ductal dilation, or annemarie-pancreatic fluid. ADRENALS: Normal; no mass. KIDNEYS: Normal size and contour. No hydronephrosis. GASTROINTESTINAL TRACT: No evidence of free air, significant intra-abdominal free fluid, bowel obstru ction or abscess. There is 8 cm length of sigmoid colon in the left lower quadrant demonstrating significant surrounding inflammation. Numerous diverticula stem from this region of the colon. APPENDIX: Normal appendix. LYMPH NODES: No lymphadenopathy. MUSCULOSKELETAL: Moderate lumbar degenerative changes. IMPRESSION: 8 cm length of sigmoid colon in the left lower quadrant demonstrating significant surrounding inflamm ation most compatible with acute diverticulitis. No abscess seen. After appropriate therapy, follow-up colonoscopy would be recommended to exclude the possibility of u nderlying mass lesion, which can have a similar CT appearance.
[2025-08-19] MEDS ORDERED: AMOX/K CLAV 875 MG TAB ONE (09:17)
--- NOTE | 2025-08-19 09:17 | ER ---
Nurse's Notes [facility] Name: Megan Ferro Age: 45 yrs Sex: Female : 1980 Arrival Date: 08/19/2025 Time: 07:08 Bed 19 Private MD: Diagnosis: Diverticulitis of large intestine without perforation or abscess without bleeding Presentation: 08/19 07:20 Chief complaint: Patient states: abdominal pain LLQ and nausea since yesterday evening cc6 08/18/25. Last bowel movement was Sunday08/16/25. Coronavirus screen: Client denies travel out of the [place] in the last 14 days. At this time, the client does not indicate any symptoms associated with coronavirus-19. Ebola Screen: No symptoms or risks identified at this time. Initial Sepsis Screen: Does the patient meet any 2 criteria? No. Patient's initial sepsis screen is negative. Does the patient have a suspected source of infection? No. Patient's initial sepsis screen is negative. Risk Assessment: Do you want to hurt yourself or someone else? Patient reports no desire to harm self or others. Onset of symptoms was August 19, 2025. 07:20 Method Of Arrival: Ambulatory cc6 07:20 Acuity: RASHEL 3 cc6 Triage Assessment: 07:20 General: Appears in no apparent distress. uncomfortable, Behavior is calm, cooperative, cc6 crying. Pain: Complains of pain in left lower quadrant Pain radiates to right lower quadrant Pain currently is 8 out of 10 on a pain scale. Quality of pain is described as sharp, Pain began 1 day ago. EENT: No signs and/or symptoms were reported regarding the EENT system. Neuro: Level of Consciousness is awake, alert, obeys commands, Oriented to person, place, time, situation, Appropriate for age. Cardiovascular: Patient's skin is warm and dry. Respiratory: Airway is patent Respiratory effort is even, unlabored, Respiratory pattern is regular, symmetrical. GI: Abdomen is round obese, Last BM was August 16, 2025. Bowel sounds present X 4 quads. Abdomen is tender to palpation in left lower quadrant Reports lower abdominal pain, nausea, Patient currently denies vomiting. : No signs and/or symptoms were reported regarding the genitourinary system. Derm: No signs and/or symptoms reported regarding the dermatologic system. Musculoskeletal: No signs and/or symptoms reported regarding the musculoskeletal system. EVALUATOR: 09:38 Not cc6 Historical: - Home Meds: 07:20 Metformin Oral [Active]; Metoprolol Tartrate Oral [Active]; losartan oral [Active]; cc6 hydrochlorothiazide Oral [Active]; - PMHx: 07:20 Arthritis; diabetes mellitus; Hypertension; cc6 - PSHx: 07:20 section; Cholecystectomy; Total abdominal hysterectomy; cc6 - Immunization history:: Adult Immunizations not up to date. - Infectious Disease History:: Denies. - Social history:: Smoking status: Patient denies any tobacco usage or history of. Screenin:20 [facility] ED Fall Risk Assessment (Adult) History of falling in the last 3 months, cc6 including since admission No falls in past 3 months (0 pts) Confusion or Disorientation No (0 pts) Intoxicated or Sedated No (0 pts) Impaired Gait No (0 pts) Mobility Assist Device Used No (0 pt) Altered Elimination No (0 pt) Score/Fall Risk Level 0 - 2 = Low Risk Oriented to surroundings, Maintained a safe environment, Educated pt \T\ family on fall prevention, incl call for assistance when getting out of bed, Hourly rounding (assess needs \T\ fall precautionary measures) done. Abuse screen: Denies threats or abuse. Denies injuries from another. Nutritional screening: No deficits noted. Tuberculosis screening: No symptoms or risk factors identified. Assessment: 07:20 Reassessment: SEE TRIAGE. cc6 08:34 Reassessment: Patient and/or family updated on plan of care and expected duration. Pain cc6 level reassessed. Patient is alert, oriented x 3, equal unlabored respirations, skin warm/dry/pink. Vital Signs: 07:20 BP 146 / 95; Pulse 92; Resp 18; Temp 99.4; Pulse Ox 98% on R/A; Weight 149.69 kg; cc6 Height 5 ft. 7 in. ; Pain 8/10; 08:33 BP 131 / 77; Pulse 86; Resp 18; Pulse Ox 98% on R/A; cc6 09:38 BP 145 / 79; Pulse 85; Resp 16; Pulse Ox 100% on R/A; cc6 07:20 Body Mass Index 51.68 (149.69 kg, 170.18 cm) cc6 07:20 Pain Scale: Adult cc6 ED Course: 07:10 Patient arrived in ED. gm2 07:15 Ashok Dupree DO is Attending Physician. ms3 07:18 Sandra Reyes, RN is Primary Nurse. sd4 07:19 Yvette Silva, JOSIAS is Primary Nurse. cc6 07:20 Bed in low position. Call light in reach. Side rails up X2. Provided Education on: use cc6 of call light. 07:30 Inserted saline lock: 22 gauge in left forearm, using aseptic technique. Blood cc6 collected. Flushed with 10 mL NS. 08:18 CBC with Diff Sent. cc6 08:21 Triage completed. cc6 08:40 CT Abd/Pelvis - IV Contrast Only In Process Unspecified. EDMS 09:14 Eric Fernandez DO is Referral Physician. ms3 09:16 Ivan Hunter MD is Referral Physician. ms3 09:38 Arm band placed on left wrist. cc6 09:39 No provider procedures requiring assistance completed. IV discontinued, intact, cc6 bleeding controlled, No redness/swelling at site. Pressure dressing applied. Administered Medications: 08:17 Drug: Famotidine IVP 20 mg IVP once; dilute with 10 mL 0.9% NaCl; give over 2 minutes cc6 Route: IVP; Site: left forearm; 09:08 Follow up: Response: No adverse reaction cc6 08:17 Drug: Ondansetron IVP 4 mg IVP once; over 2 minutes Route: IVP; Site: left forearm; cc6 09:08 Follow up: Response: No adverse reaction; Nausea is decreased cc6 08:17 Drug: morphine IVP or IV 4 mg IVP once over 4 mins Route: IVP; Infused Over: 4 mins; cc6 Site: left forearm; 09:08 Follow up: Response: No adverse reaction; Pain is decreased cc6 08:17 Drug: NS 0.9% IV 1000 ml IV at 1 bolus Per protocol; to be given as a bolus over 60 cc6 minutes Route: IV; Rate: 1 bolus; Site: left forearm; 09:42 Follow up: Response: No adverse reaction; IV Status: Completed infusion cc6 09:21 Drug: Amoxicillin-Clavulanate PO 875 mg PO once Route: PO; cc6 09:37 Follow up: Response: No adverse reaction cc6 Medication: 09:39 VIS not applicable for this client. cc6 Outcome: 09:16 Discharge ordered by MD. ms3 09:39 Discharged to home ambulatory, cc6 09:39 Condition: stable 09:39 Discharge instructions given to patient, Instructed on discharge instructions, follow up and referral plans. medication usage, Demonstrated understanding of instructions, follow-up care, medications, Prescriptions given X 1, 09:40 Patient left the ED. cc6 Signatures: Dispatcher [employer] EDMS Ashok Dupree DO DO ms3 Peggy Harkins gm2 Yvette Silva, RN RN cc6 Sandra Reyes RN RN sd4 Corrections: (The following items were deleted from the chart) 08:28 07:20 PSHx: hysterectomy (Cholecystectomy); cc6 cc6 09:40 07:20 GI: Abdomen is round obese, Last BM was August 16, 2025. Reports lower abdominal cc6 pain, nausea, Patient currently denies vomiting, cc6
--- NOTE | 2025-08-19 09:17 | EDPHYS ---
Physician Documentation [facility] Name: Megan Ferro Age: 45 yrs Sex: Female : 1980 Arrival Date: 08/19/2025 Time: 07:08 Bed 19 Private MD: ED Physician Ashok Dupree HPI: 08/19 07:22 This 45 yrs old Black Female presents to ER via Unassigned with complaints of Abdominal tx3 Pain. 07:22 45-year-old female with past medical history of hypertension, diabetes presents to the [facility] [place] emergency department for lower abdominal pain greater on the left side than the right. Patient states pain is 10/10 described as twisting that began yesterday. Patient denies alleviating factors. Patient states her pain is worse with sitting or laying down. Patient denies fevers, chills, diarrhea, vomiting. Patient endorses nausea. 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 - Infectious Disease History:: Denies. - Social history:: Smoking status: Patient denies any tobacco usage or history of. ROS: 07:22 Constitutional: Negative for fever, and chills. Cardiovascular: Negative for chest ms3 pain, and palpitations. Respiratory: Negative for shortness of breath, cough, wheezing, and pleuritic chest pain, 07:22 Abdomen/GI: Positive for abdominal pain, nausea, Negative for vomiting, diarrhea, Exam: 07:22 Constitutional: This is a well developed, well nourished patient who is awake, alert, ms3 and in no acute distress. Cardiovascular: Regular rate and rhythm with a normal S1 and S2. No gallops, murmurs, or rubs. Normal PMI, no JVD. No pulse deficits. Respiratory: Lungs have equal breath sounds bilaterally, clear to auscultation and percussion. No rales, rhonchi or wheezes noted. No increased work of breathing, no retractions or nasal flaring. Skin: Warm, dry with normal turgor. Normal color with no rashes, no lesions, and no evidence of cellulitis. MS/ Extremity: Pulses equal, no cyanosis. Neurovascular intact. Full, normal range of motion. 07:22 Abdomen/GI: Inspection: abdomen appears normal, Bowel sounds: normal, Palpation: severe abdominal tenderness, in the right lower quadrant and left lower quadrant, Vital Signs: 07:20 BP 146 / 95; Pulse 92; Resp 18; Temp 99.4; Pulse Ox 98% on R/A; Weight 149.69 kg; cc6 Height 5 ft. 7 in. ; Pain 8/10; 08:33 BP 131 / 77; Pulse 86; Resp 18; Pulse Ox 98% on R/A; cc6 09:38 BP 145 / 79; Pulse 85; Resp 16; Pulse Ox 100% on R/A; cc6 07:20 Body Mass Index 51.68 (149.69 kg, 170.18 cm) cc6 07:20 Pain Scale: Adult cc6 MDM: 07:21 Medical Screening Exam initiated ms3 07:22 Differential diagnosis: appendicitis, bowel obstruction, diverticulitis. ms3 11:14 Data reviewed: vital signs, nurses notes, lab test result(s), radiologic studies, and ms3 as a result, I will discharge patient. I considered the following discharge prescriptions or medication management in the emergency department Medications were administered in the Emergency Department. See MAR. Counseling: I had a detailed discussion with the patient and/or guardian regarding the historical points, exam findings, and any diagnostic results supporting the discharge/admit diagnosis, lab results, radiology results, the need for outpatient follow up, to return to the emergency department if symptoms worsen or persist or if there are any questions or concerns that arise at home. Special discussion: Based on the patient's Hx, exam, and Dx evaluation, there is no indication for emergent surgery or inpatient Tx. It is understood by the patient/guardian that if the Sx's persist or worsen they need to return immediately for re-evaluation. ED course: Discussed CT results showing sigmoid diverticulitis without abscess or perforation. Discussed with patient necessity for colonoscopy after completion of antibiotic regimen. Patient to follow-up with primary care and gastroenterology in 2 to 3 days. All questions were answered. Return precautions were discussed to include fevers, rectal bleeding, or any other concerns.. 08/19 07:15 Order name: CBC with Diff; Complete Time: 08:42 ms3 08/19 07:15 Order name: CMP; Complete Time: 08:42 ms3 08/19 07:15 Order name: Lipase; Complete Time: 08:42 ms3 08/19 07:22 Order name: UA Rfx Jak Cult if indicated; Complete Time: 08:42 ms3 08/19 07:22 Order name: Test, Urine; Complete Time: 08:42 ms3 08/19 07:22 Order name: CT Abd/Pelvis - IV Contrast Only; Complete Time: 09:05 ms3 08/19 07:15 Order name: IV Saline Lock; Complete Time: 08:18 ms3 08/19 07:15 Order name: Labs collected and sent; Complete Time: 08:18 ms3 Administered Medications: 08:17 Drug: Famotidine IVP 20 mg IVP once; dilute with 10 mL 0.9% NaCl; give over 2 minutes cc6 Route: IVP; Site: left forearm; 09:08 Follow up: Response: No adverse reaction cc6 08:17 Drug: Ondansetron IVP 4 mg IVP once; over 2 minutes Route: IVP; Site: left forearm; cc6 09:08 Follow up: Response: No adverse reaction; Nausea is decreased cc6 08:17 Drug: morphine IVP or IV 4 mg IVP once over 4 mins Route: IVP; Infused Over: 4 mins; cc6 Site: left forearm; 09:08 Follow up: Response: No adverse reaction; Pain is decreased cc6 08:17 Drug: NS 0.9% IV 1000 ml IV at 1 bolus Per protocol; to be given as a bolus over 60 cc6 minutes Route: IV; Rate: 1 bolus; Site: left forearm; 09:42 Follow up: Response: No adverse reaction; IV Status: Completed infusion cc6 09:21 Drug: Amoxicillin-Clavulanate PO 875 mg PO once Route: PO; cc6 09:37 Follow up: Response: No adverse reaction cc6 Disposition Summary: 08/19/25 09:16 Discharge Ordered Notes: Location: Home ms3 Condition: Stable ms3 Diagnosis - Diverticulitis of large intestine without perforation or abscess without bleeding ms3 Followup: ms3 - With: Eric Fernandez, DO - When: 2 - 3 days - Reason: Recheck today's complaints Followup: ms3 - With: Ivan Hunter MD - When: 2 - 3 days - Reason: Recheck today's complaints Discharge Instructions: - Discharge Summary Sheet ms3 - High-Fiber Eating Plan ms3 - Diverticulitis, [id number] ms3 Forms: - Medication Reconciliation Form ms3 - Antibiotic Education ms3 - Prescription Opioid Use ms3 - Patient Portal Instructions ms3 - Leadership Thank You Letter ms3 - Work release form cc6 Prescriptions: - Augmentin 875-125 mg Oral Tablet - take 1 tablet ORAL route every 12 hours for 10 days; 20 tablet; Refills: 0, ms3 Product Selection Permitted Signatures: Dispatcher [employer] Ashok Ruiz DO DO ms3 Yvette Silva, RN RN cc6 Corrections: (The following items were deleted from the chart) 07:15 07:15 CBC+H.LAB.BRZ ordered. EDMS EDMS 07:15 07:15 COMPREHENSIVE METABOLIC PANEL+C.LAB.BRZ ordered. EDMS EDMS 07:15 07:15 LIPASE+C.LAB.BRZ ordered. EDMS EDMS 07:23 07:23 UA Rfx Jak Cult if indicated+U.LAB.BRZ ordered. EDMS EDMS 07:23 07:23 Test, Urine+UC.LAB.BRZ ordered. EDMS EDMS 08:28 07:20 PSHx: hysterectomy (Cholecystectomy); cc6 cc6
[2025-08-19 09:48] VITALS: TEMP 99.4
[2025-08-19 09:50] VITALS: BP 145/79; O2SAT 100
== END 2025-08-19 09:40 | disposition home or self-care (01) ==
LOC: ER 07:08
DX: K57.32 Diverticulitis of large intestine without perforation or abscess without bleeding (principal)
CPT/HCPCS: 96361; 85025; 81001; 36415; 81025; 83690; 80053; 74177; 96375; 96374; 99284; Q9967; J2270; J2405; J7030